=== PATIENT | female | born 1945 | race Caucasian/White ===

== ENCOUNTER → 2016-09-18 | Outpatient (CLI) | payer BC ==
[~2016-09-18] MED LIST: ASPI1TAB83 PO; BIOT1TAB5 PO; CALC600T9 PO; LISI-788 PO; MULTTAB58 PO; UNABLE PO
--- NOTE | 2016-09-18 16:18 | DIAGNOSTIC IMAGING REPORT ---
RIGHT HIP UNILATERAL 2 VIEWS CLINICAL HISTORY: Right hip pain. COMPARISON: None FINDINGS: Alignment of the right hip is anatomic. There is no fracture or suspicious lesion. Joint space is preserved. There is mild osteophytosis. There is no evidence of avascular necrosis. IMPRESSION: 1. No acute fracture or dislocation of the right hip. 2. Mild arthritis of the right hip. Electronically signed by: Adithya Anaya M.D. 09/18/2016 4:16 PM Dictated Date/Time: 09/18/2016 4:15 PM
== END | disposition home or self-care (01) ==
LOC: C.RAD1850 15:40
PROVIDERS: ATTEND Family Medicine
DX: M25.551 Pain in right hip (principal)

== ENCOUNTER → 2017-01-15 | Outpatient (CLI) | payer BC ==
--- NOTE | 2017-01-16 08:14 | MAMMOGRAPHY REPORT ---
BILATERAL DIGITAL SCREENING MAMMOGRAM TOMOSYNTHESIS WITH CAD: 01/15/2017 CLINICAL HISTORY: Asymptomatic. Personal history of breast cancer. TECHNIQUE: Bilateral breast tomosynthesis in addition to standard 2D mammography was performed. Cur rent study was also evaluated with a Computer Aided Detection (CAD) system. COMPARISON: Comparison is made to exams dated: 11/17/2015 mammogram, 09/26/2014 mammogram, 09/23/2013 mammogram, 09/22/2012 mammogram, 04/15/2011 mammogram, and 02/19/2010 mammogram - [facility]. BREAST COMPOSITION: There are scattered areas of fibroglandular density in both breasts. FINDINGS: There is a 7 x 10 mm asymmetry in the upper outer posterior left breast, superior to the surgical site that is increasingly prominent compared to prior exams. Although this could represent fat necrosis due to surgery, definitive evaluation with spot compression tomosynthesis views and po ssibly ultrasound are recommended. There are otherwise stable postsurgical changes and post biopsy changes in the upper outer quadrant of the left breast. Scattered benign rim calcifications, and a stable asymmetry in the superior rig ht breast. No other suspicious mass, architectural distortion or cluster of microcalcifications is s een. IMPRESSION: ACR BI-RADS CATEGORY 0: INCOMPLETE EVALUATION: NEED ADDITIONAL IMAGING EVALUATION The asymmetry in the upper outer posterior left breast needs additional evaluation. The patient will be called to schedule an appointment. Approximately 10% of breast cancers are not detected with mammography. A negative mammographic repor t should not delay biopsy if a clinically suggestive mass is present. Cesia Beaulieu M.D. ay/:01/15/2017 16:57:47 Trigonometry Tutor: Alayna SOTO(Mouna)(Talita), [facility] letter sent: Addl Imaging 0 BI-RADS Code: ACR BI-RADS Category 0: Incomplete Evaluation: Need Additional Imaging Evaluation
== END | disposition home or self-care (01) ==
LOC: C.MAMM 10:18
PROVIDERS: ATTEND Nurse Practitioner
DX: Z12.31 Encounter for screening mammogram for malignant neoplasm of breast (principal); Z85.3 Personal history of malignant neoplasm of breast; N64.89 Other specified disorders of breast

== ENCOUNTER → 2017-03-13 | Outpatient (CLI) | payer BC ==
--- NOTE | 2017-03-13 13:47 | MAMMOGRAPHY REPORT ---
UNILATERAL LEFT DIGITAL DIAGNOSTIC MAMMOGRAM TOMOSYNTHESIS AND TARGETED LEFT ULTRASOUND: 03/13/2017 CLINICAL HISTORY: 71-year-old woman with a personal history of left breast cancer status post breast conservation therapy. She was called back from screening mammography for a 7 x 10 mm asymmetry in th e upper outer posterior left breast. TECHNIQUE: Spot compression left CC and MLO 2-D digital and tomosynthesis images were obtained. COMPARISON: Comparison is made to exams dated: 01/15/2017 mammogram, 11/17/2015 mammogram, 09/26/2014 m ammogram, 09/23/2013 mammogram, 10/08/2012 stereotactic biopsy, and 09/22/2012 mammogram - [facility]. BREAST COMPOSITION: There are scattered areas of fibroglandular density in the left breast. FINDINGS: There is expected architectural distortion and coarse dystrophic calcification in the upper outer posterior left breast, at the site of prior lumpectomy. A carli-shaped metallic biopsy marker i s in place in the left upper outer middle one third of the breast from prior benign stereotactic biop sy. There are a few benign round calcifications anteriorly in the left breast. The previously descr ibed 7 x 10 mm mass superior to the surgical site on the MLO view is no longer clearly identified. T here is no obvious new mass on the left CC view when comparing back to prior available 2-D mammograms . Targeted ultrasound was performed throughout the left upper outer quadrant and including the 11:00 ax is. There is expected architectural distortion in the 2:00 axis at the site of prior surgery. No lofton spicious solid or cystic mass is identified. IMPRESSION: ACR BI-RADS CATEGORY 2: BENIGN, TARGETED ULTRASOUND ACR BI-RADS CATEGORY 2: BENIGN 1. The 7 x 10 mm possible mass in the left upper outer quadrant is no longer seen, confirming benign ity. 2. There is expected architectural distortion in the upper outer quadrant of the left breast from pr ior lumpectomy and also stable post biopsy changes from prior stereotactic biopsy. 3. There is no mammographic or targeted sonographic evidence of malignancy in the left breast. Peter mmend follow-up at time of next annual screening mammogram. These results and recommendations were discussed with the patient at the time of the exam. Approximately 10% of breast cancers are not detected with mammography. A negative mammographic report should not delay biopsy if a clinically suggestive mass is present. Cesia Beaulieu M.D. ay/:03/13/2017 11:38:16 Target Trimmer: Dia CANCINO)(Talita), [facility] letter sent: Normal 1/2 BI-RADS Code: ACR BI-RADS Category 2: Benign Ultrasound BI-RADS: ACR BI-RADS Category 2: Benign
== END | disposition home or self-care (01) ==
LOC: C.MAMM 09:07
PROVIDERS: ATTEND Family Medicine
DX: N64.89 Other specified disorders of breast (principal); Z85.3 Personal history of malignant neoplasm of breast

== ENCOUNTER → 2017-12-01 | Outpatient (CLI) | payer BC ==
[2017-12-01 18:13] LABS: BLOOD UREA NITROGEN 33 mg/dl (7-18); CALCIUM 9.1 mg/dl (8.5-10.1); CARBON DIOXIDE 32 mmol/L (21-32); CREATININE 0.88 mg/dl (0.60-1.20); GLUCOSE 95 mg/dl (70-99); POTASSIUM 3.5 mmol/L (3.5-5.1); SODIUM 136 mmol/L (136-145)
== END | disposition home or self-care (01) ==
LOC: C.LABMFLN 11:38
PROVIDERS: ATTEND Family Medicine
DX: I10 Essential (primary) hypertension (principal)

== ENCOUNTER 2021-04-03 15:12 | Inpatient (IN) ==
[2021-04-03] MEDS ORDERED: MoRPHine SULFATE 2 MG/ML CARP IV PRN (15:18)
[2021-04-03] MEDS ORDERED: ZOLPIDEM TARTRATE 5 MG TAB PO PRN (15:18)
[2021-04-03] MEDS ORDERED: POLYETHYLENE (MIRALAX) 17 GM PACK PO PRN (15:18)
[2021-04-03] MEDS ORDERED: NITROGLYCERIN SL 0.4 MG/TAB TAB SL PRN (15:18)
[2021-04-03] MEDS ORDERED: ONDANSETRON INJ 2 MG/ML 2 ML VIAL IV PRN (15:18)
[2021-04-03] MEDS ORDERED: MAGNESIUM HYDROXIDE SUSP 30 ML UDC PO PRN (15:18)
[2021-04-03] MEDS ORDERED: ACETAMINOPHEN 325 MG TAB PO PRN (15:18)
[2021-04-03] MEDS ORDERED: ALUMINUM/MAGNESIUM SUSP 30 ML UDC PO PRN (15:18)
[2021-04-03] MEDS ORDERED: SODIUM CHLORIDE 0.9% 1000ML 1,000 ML IV SCH (15:30)
--- NOTE | 2021-04-03 15:41 | Emergency Department Note ---
Impression & Plan SOB (shortness of breath), Tachycardia, Abnormal stress test, Hypertension ED Provider Note NAME: ERNESTINE ESPARZA AGE: 75 SEX: F : 1945 ARRIVES VIA: Walk-In INFORMANT: [Patient] ED PROVIDER(S): [Landry Bliss MD] CHIEF COMPLAINT: Cardiac assessment HISTORY OF PRESENT ILLNESS: The patient is a 75-year-old female presents to the ER after failing an outpatient stress test. She was told that she likely had a blockage and that she would need a cardiac catheterization. She is to be hospitalized. Lately, patient has had some dyspnea on exertion and a faster heart rate. Her doctors office scheduled the stress test for her symptoms. Of note, the patient currently has no chest pain or dyspnea, she is resting comfortably on the bed. She is on medications for blood pressure and for cholesterol. She is taking them as prescribed. She takes baby aspirin daily as well. The patient has no history of coronary disease previously diagnosed. REVIEW OF SYSTEMS: See HPI for pertinent positives and negatives. A total of ten systems were reviewed and were otherwise negative. PMHx/PSHx: See Below SOCIAL HISTORY: See Below. PHYSICAL EXAM: GENERAL: Patient is in no acute distress. HEENT: No acute trauma, normocephalic atraumatic, mucous membranes moist, no nasal congestion, no scleral icterus. NECK: No stridor, no adenopathy, no meningismus, trachea is midline. LUNGS: Clear to auscultation bilaterally, no wheeze, no rhonchi, breath sounds equal. HEART: Tachycardic, regular rhythm, no murmurs. ABDOMEN: Soft, nontender, bowel sounds positive, no hernias, no peritonitis. EXTREMITIES: No cyanosis or edema, full range of motion of all the joints without pain or difficulty, no signs for acute trauma. NEUROLOGIC: Oriented x 3, no acute motor or sensory deficits, no focal weakness. SKIN: No rash, no jaundice, no diaphoresis. DIFFERENTIAL DIAGNOSIS: Cardiac ischemia, aortic dissection, pulmonary embolism, pneumothorax, pneumonia, pericarditis, myocarditis, esophageal rupture, GERD, cholecystitis, pancreatitis, musculoskeletal, as well as other pathologies. EMERGENCY DEPARTMENT COURSE/PROCEDURES: ECG: Indication was shortness of breath. The ECG shows a sinus tachycardia w ith a rate of 110. There is some LVH present. There is some nonspecific ST change noted primarily in the lateral leads. There is no ST elevation, no PVCs. The QTc is 438. Repeat EKG: Indication was shortness of breath. The ECG shows a sinus bradycardia with PVCs. The rate is 62. LVH is present. There is no ST elevation. The QTc is 503. Compared to the ECG from earlier today, the rate has decreased. PVCs are now present. Continuous Cardiac Monitoring: An order was placed for continuous cardiac monitoring. The monitor shows a rate of 81 with normal sinus rhythm. MEDICAL DECISION MAKING: There is no leukocytosis or concerning anemia. There is a normal platelet count. No significant electrolyte abnormality or kidney failure. There were some subtle liver enzyme elevations. The patient appeared to be in a euthyroid state. ECG initially showed a sinus tachycardia with LVH. No acute ischemic change. Repeat EKG showed her heart rate had decreased to 62. Some PVCs were seen. No acute ischemic change noted. Cardiac enzyme testing x1 does show an elevation, this elevation is consistent with cardiac injury or strain. Covid testing returned negative. The patient presents with an abnormal stress test. She is to be hospitalized and undergo a cardiac catheterization. She may need stenting or surgical in tervention. The patient was hypertensive here in the ED. She was given IV hydralazine 10 mg. A second 10 mg dose was ordered. Patient denied any chest pain while here in the ED. The patient is aware of her findings and the need for a hospital stay. I did speak with cardiology, Dr. Ann, about the elevated troponin. For now, heparin was not felt warranted. Her blood pressure should be controlled though while here in the ED and the hospital. She is likely to have a cardiac catheterization tomorrow. I did speak with case management, Andrea Tracey of cardiology has done the admission orders/hospitalization. Past Med/Surg History Medical History Arthritis Breast cancer Hyperlipidemia Hypertension Multiple pulmonary nodules determined by computed tomography of lung Osteopenia Surgical History (Updated 03/29/20 @ 14:07 by Soheila Reyna PA-C) H/O: hysterectomy History of appendectomy History of lumpectomy of left breast History of wisdom tooth extraction Family History Mother Breast cancer Father Stroke Denies family history of Ovarian cancer Prostate cancer Myocardial infarction Colorectal cancer Social History Smoking Status: Never smoker Second Hand Exposure: No; Hx Alcohol Use: Yes Alcohol type: wine Hx Substance Use: No Preferred Language: Bengali Communication Ability: Effective Visual Impairment: Limited Hearing Ability: Normal Lcpc Required: No Beliefs That Will Affect Care: None marital status: / Current Living Situation: Alone current occupational status: retired Other Information That Helps Us Care for You: No Feels Safe at Home: Yes Safety Concerns: Feels Safe At This Time Childhood Exposure to Second-Hand Smoke: No caffeine: Yes during the past year weight has: remained stable Dental Care, Regularly: Yes Physical Activity Frequency: Daily Seatbelt Use: always Sunscreen Use: No Assistive Devices: Glasses Allergies Allergies Allergy/AdvReac Type Severity Reaction Status Date / Time KYLER Inhibitors AdvReac Intermediate cough Verified 04/03/21 16:28 Home Meds Home Medications Medication Instructions Recorded Confirmed aspirin 81 mg tablet,delayed 81 mg PO [facility] 04/03/21 04/03/21 release atorvastatin 20 mg tablet 20 mg PO HS 04/03/21 04/03/21 biotin 1 mg capsule 1 mg PO QA 04/03/21 04/03/21 cholecalciferol (vitamin D3) 25 25 mcg PO QAM 04/03/21 04/03/21 mcg (1,000 unit) tablet (Vitamin D3) escitalopram oxalate 10 mg tablet 10 mg PO QAM 04/03/21 04/03/21 metoprolol succinate 25 mg 25 mg PO QA 04/03/21 04/03/21 tablet,extended release 24 hr [id number] 1 tab PO QAM 04/03/21 04/03/21 tablet (Multivitamin 50 Plus) Results & Data (ED) Vital Signs Vital Signs - 24 hr 04/03/21 15:14 04/03/21 15:35 04/03/21 15:38 Temperature 36.9 C Temperature Source Temporal Artery Scan Pulse Rate 70 Pulse Rate [Apical] 58 L Pulse Rhythm Regular Pulse Rhythm [Apical] Pulse Strength Normal Pulse Strength [Apical] Respiratory Rate 16 18 Respiratory Effort / Characteristics Non-Labored Respiratory Depth Normal Respiratory Pattern Regular Blood Pressure 159/115 H Blood Pressure [Right Arm] 159/78 H Blood Pressure Mean 129 Blood Pressure Mean [Right Arm] 105 Blood Pressure Position Sitting Blood Pressure Position [Right Arm] Pulse Oximetry 96 98 98 Oxygen Delivery Method Room Air Room Air Sepsis Recent Fever Within 48 Hours No Sepsis New/Unexplained Change in Mental Status N/A Sepsis Action Taken by Nursing No Action Required 04/03/21 16:02 04/03/21 16:31 04/03/21 17:07 Temperature Temperature Source Pulse Rate Pulse Rate [Apical] 100 H 56 L Pulse Rhythm Pulse Rhythm [Apical] Pulse Strength Pulse Strength [Apical] Respiratory Rate 18 18 Respiratory Effort / Characteristics Respiratory Depth Normal Normal Respiratory Pattern Blood Pressure Blood Pressure [Right Arm] 166/90 H 181/100 H Blood Pressure Mean Blood Pressure Mean [Right Arm] 115 127 Blood Pressure Position Blood Pressure Position [Right Arm] Pulse Oximetry 96 97 98 Oxygen Delivery Method Room Air Room Air Room Air Sepsis Recent Fever Within 48 Hours Sepsis New/Unexplained Change in Mental Status Sepsis Action Taken by Nursing 04/03/21 17:25 04/03/21 17:30 Temperature 36.8 C Temperature Source Oral Pulse Rate Pulse Rate [Apical] 104 H 103 H Pulse Rhythm Pulse Rhythm [Apical] Regular Pulse Strength Pulse Strength [Apical] Normal Respiratory Rate 20 18 Respiratory Effort / Characteristics Non-Labored Spontaneous Respiratory Depth Normal Normal Respiratory Pattern Regular Blood Pressure Blood Pressure [Right Arm] 157/113 H 173/106 H Blood Pressure Mean Blood Pressure Mean [Right Arm] 127 128 Blood Pressure Position Blood Pressure Position [Right Arm] Sitting Pulse Oximetry 98 98 Oxygen Delivery Method Room Air Room Air Sepsis Recent Fever Within 48 Hours Sepsis New/Unexplained Change in Mental Status Sepsis Action Taken by Retirement Medications Current Medication List: was personally reviewed by me Laboratory Data Attestation: I reviewed the patient's lab results. Result diagrams: 04/03/21 15:30 04/03/21 15:30 Lab Results 04/03/21 04/03/21 04/03/21 Range/Units 15:30 15:30 15:30 WBC 7.46 (4.8-10.8) K/uL RBC 4.15 L (4.2-5.4) M/uL Hgb 13.1 (12.0-16.0) g/dL Hct 38.6 (37-47) % MCV 93.0 (80-100) fL MCH 31.6 (25-34) pg MCHC 33.9 (32-36) g/dL RDW Std Deviation 45.3 (36.4-46.3) fL RDW Coeff of Tana 13.3 (11.5-14.5) % Plt Count 268 (130-400) K/uL MPV 9.0 (7.4-10.4) fL Immature Gran % (Auto) 0.1 % Neut % (Auto) 70.0 % Lymph % (Auto) 22.4 % [place] % (Auto) 7.5 % Eos % (Auto) 0.0 % Baso % (Auto) 0.0 % Neut # (Auto) 5.22 (1.4-6.5) K/uL Lymph # (Auto) 1.67 (1.2-3.4) K/uL [place] # (Auto) 0.56 (0.11-0.59) K/uL Eos # (Auto) 0.00 (0-0.5) K/uL Baso # (Auto) 0.00 (0-0.2) K/uL Immature Gran # (Auto) 0.01 (0.00-0.02) K/uL Sodium 142 (136-145) mmol/L Potassium 3.6 (3.5-5.1) mmol/L Chloride 109 H (98-107) mmol/L Carbon Dioxide 25 (21-32) mmol/L Anion Gap 7.0 (3-11) BUN 26 H (7-18) mg/dl Creatinine 0.73 (0.6-1.2) mg/dl Est Cr Clr Drug Dosing 69.1 ml/min Est GFR ( Amer) 94.7 ml/min Est GFR (Non-Af Amer) 81.7 ml/min BUN/Creatinine Ratio 35.0 H (10-20) Glucose 96 (70-99) mg/dl Calcium 9.0 (8.5-10.1) mg/dl Total Bilirubin 0.7 (0.2-1) mg/dl AST 45 H (15-37) U/L ALT 63 (12-78) U/L Alkaline Phosphatase 118 H (45-117) U/L Troponin I 0.124 H* (0-0.045) ng/ml Total Protein 7.8 (6.4-8.2) gm/dl Albumin 3.8 (3.4-5.0) gm/dl Globulin 4.0 (2.5-4.0) gm/dl Albumin/Globulin Ratio 0.9 (0.9-2) TSH 2.680 (0.300-4.500) uIu/ml COVID-19 Eval Order Covid19 at [facility] SARS-CoV-2 (PCR) (Negative) 04/03/21 Range/Units 15:30 WBC (4.8-10.8) K/uL RBC (4.2-5.4) M/uL Hgb (12.0-16.0) g/dL Hct (37-47) % MCV (80-100) fL MCH (25-34) pg MCHC (32-36) g/dL RDW Std Deviation (36.4-46.3) fL RDW Coeff of Tana (11.5-14.5) % Plt Count (130-400) K/uL MPV (7.4-10.4) fL Immature Gran % (Auto) % Neut % (Auto) % Lymph % (Auto) % [place] % (Auto) % Eos % (Auto) % Baso % (Auto) % Neut # (Auto) (1.4-6.5) K/uL Lymph # (Auto) (1.2-3.4) K/uL [place] # (Auto) (0.11-0.59) K/uL Eos # (Auto) (0-0.5) K/uL Baso # (Auto) (0-0.2) K/uL Immature Gran # (Auto) (0.00-0.02) K/uL Sodium (136-145) mmol/L Potassium (3.5-5.1) mmol/L Chloride (98-107) mmol/L Carbon Dioxide (21-32) mmol/L Anion Gap (3-11) BUN (7-18) mg/dl Creatinine (0.6-1.2) mg/dl Est Cr Clr Drug Dosing ml/min Est GFR ( Amer) ml/min Est GFR (Non-Af Amer) ml/min BUN/Creatinine Ratio (10-20) Glucose (70-99) mg/dl Calcium (8.5-10.1) mg/dl Total Bilirubin (0.2-1) mg/dl AST (15-37) U/L ALT (12-78) U/L Alkaline Phosphatase (45-117) U/L Troponin I (0-0.045) ng/ml Total Protein (6.4-8.2) gm/dl Albumin (3.4-5.0) gm/dl Globulin (2.5-4.0) gm/dl Albumin/Globulin Ratio (0.9-2) TSH (0.300-4.500) uIu/ml COVID-19 Eval Order SARS-CoV-2 (PCR) NEGATIVE (Negative) Administered Medications Discontinued Medications Hydralazine HCl (Hydralazine Hcl 20 Mg/Ml Vial) 10 mg IV NOW STA Stop: 04/03/21 16:41 Last Admin: 04/03/21 17:04 Dose: 10 mg Documented by: [id number] Discharge Plan Visit Data Chief Complaint: Cardiac Assessment Stated Complaint: ABNORMAL STRESS TEST/REFERRED BY ED Provider: Landry Bliss Discharge Problem: SOB (shortness of breath), Tachycardia, Abnormal stress test, Hypertension Patient Disposition: Admitted As Inpatient Condition: Fair Forms Stand Alone Forms: [facility] Prescriptions Prescriptions: No Action Multivitamin 50 Plus Tablet 1 tab PO QAM RF: 0 cholecalciferol (vitamin D3) [Vitamin D3] 25 mcg (1,000 unit) Tablet 25 mcg PO QAM RF: 0 atorvastatin 20 mg tablet 20 mg PO HS RF: 0 aspirin 81 mg tablet,delayed release (DR/EC) 81 mg PO QAM RF: 0 metoprolol succinate 25 mg tablet extended release 24 hr 25 mg PO QAM RF: 0 escitalopram oxalate 10 mg tablet 10 mg PO QAM RF: 0 biotin 1 mg capsule 1 mg PO QAM RF: 0 Referrals Referrals: Soheila Reyna PA-C [Primary Care Provider] -
[2021-04-03 15:42] LABS: Hematocrit (blood only) 38.6 % (37-47); Hemoglobin 13.1 g/dL (12.0-16.0); Immature Granulocytes # (auto) 0.01 K/uL (0.00-0.02); Immature Granulocytes % (auto) 0.1 %; Lymphocytes # (auto) 1.67 K/uL (1.2-3.4); Lymphocytes % (auto) 22.4 %; Mean Corpuscular Hemoglobin 31.6 pg (25-34); Mean Corpuscular Hgb Conc 33.9 g/dL (32-36); Monocytes # (auto) 0.56 K/uL (0.11-0.59); Monocytes % (auto) 7.5 %; Neutrophils # (auto) 5.22 K/uL (1.4-6.5); Platelet Count 268 K/uL (130-400); RDW Coefficient of Variation 13.3 % (11.5-14.5); RDW Standard Deviation 45.3 fL (36.4-46.3); Red Blood Count 4.15 M/uL (4.2-5.4); White Blood Count 7.46 K/uL (4.8-10.8)
[2021-04-03] MEDS ORDERED: METOPROLOL TARTRATE 1 MG/ML VIAL IV STA (15:42)
[2021-04-03 16:04] LABS: Albumin Level 3.8 gm/dl (3.4-5.0); Creatinine Clr Calc Pharmacy 69.1 ml/min; Est GFR (African American) 94.7 ml/min; Est GFR (Non-African American) 81.7 ml/min; Potassium 3.6 mmol/L (3.5-5.1)
[2021-04-03 16:24] LABS: Albumin Globulin Ratio 0.9 (0.9-2); Bilirubin,Total 0.7 mg/dl (0.2-1); Thyroid Stimulating Hormone 2.68 uIu/ml (0.300-4.500); Total Protein 7.8 gm/dl (6.4-8.2); Troponin I 0.124 ng/ml (0-0.045)
[2021-04-03] MEDS ORDERED: hydrALAZINE HCL 20 MG/ML VIAL IV STA ×2 (16:40→17:32)
[2021-04-03] MEDS ORDERED: Heparin IV Adult Wt-Based Standard WITH Bolus Protocol IV STA (22:18)
[2021-04-03] MEDS ORDERED: ASPIRIN CHEW 324 MG PO STA (22:26)
[2021-04-03] MEDS ORDERED: HEPARIN SODIUM/DEXTROSE 25,000 UNITS/500 ML BAG IV SCH (22:45)
[2021-04-03] MEDS ORDERED: HEPARIN SOD (PORCINE) 1000 UNIT/ML IV ONE (23:00)
[2021-04-03] MEDS: METOPROLOL TARTRATE 25 MG TAB PO SCH (23:23)
[2021-04-04 05:58] LABS: Hematocrit (blood only) 37.3 % (37-47); Hemoglobin 12.6 g/dL (12.0-16.0); Immature Granulocytes # (auto) 0.02 K/uL (0.00-0.02); Immature Granulocytes % (auto) 0.3 %; Lymphocytes # (auto) 1.59 K/uL (1.2-3.4); Lymphocytes % (auto) 22.2 %; Mean Corpuscular Hemoglobin 31.4 pg (25-34); Mean Corpuscular Hgb Conc 33.8 g/dL (32-36); Mean Platelet Volume 9.1 fL (7.4-10.4); Monocytes # (auto) 0.57 K/uL (0.11-0.59); Neutrophils # (auto) 4.98 K/uL (1.4-6.5); Neutrophils % (auto) 69.5 %; Platelet Count 256 K/uL (130-400); RDW Coefficient of Variation 13.5 % (11.5-14.5); RDW Standard Deviation 46.1 fL (36.4-46.3); Red Blood Count 4.01 M/uL (4.2-5.4); White Blood Count 7.16 K/uL (4.8-10.8)
[2021-04-04 06:04] LABS: Partial Thromboplastin Ratio 2.8
[2021-04-04 06:28] LABS: Calcium 8.4 mg/dl (8.5-10.1); Est GFR (African American) 103.7 ml/min; Est GFR (Non-African American) 89.5 ml/min; Potassium 3.4 mmol/L (3.5-5.1)
[2021-04-04 06:40] LABS: Partial Thromboplastin Time 73.2 Seconds (21.0-31.0)
--- NOTE | 2021-04-04 07:13 | Pre Anesthesia Assessment ---
Date of Service April 04, 2021 Pre Sedation Assessment Vital Signs Temp Pulse Pulse Resp BP BP Pulse Ox 04/04/21 06:57 36.6 C 66 18 165/98 H 98 04/04/21 02:51 36.3 C L 95 H 19 125/80 97 04/03/21 22:48 36.7 C 81 19 125/70 96 04/03/21 18:56 36.9 C 114 H 18 130/70 100 04/03/21 18:00 82 18 137/81 98 04/03/21 17:59 88 18 160/100 H 98 04/03/21 17:30 103 H 18 173/106 H 98 04/03/21 17:25 36.8 C 104 H 20 157/113 H 98 04/03/21 17:07 98 04/03/21 16:31 56 L 18 181/100 H 97 04/03/21 16:02 100 H 18 166/90 H 96 04/03/21 15:38 58 L 18 159/78 H 98 04/03/21 15:35 98 04/03/21 15:14 36.9 C 70 16 159/115 H 96 Cardiovascular + regular rate Respiratory normal respiratory effort, lungs clear to auscultation Pre-Sedation Airway Assessment Smoking Status: Never smoker Hx Sleep Apnea: No Short, Thick Neck: No Thyromental Distance: > or= 3.5 Finger Breadths Oral Cavity: + WNL Mallampati Class: II ASA: ASA3 NPO Status Date of Last Intake of Fluids: 04/03/21 Time of Last Intake of Fluids: 22:00 Date of Last Intake of Solid Food: 04/03/21 Time of Last Intake of Solid Foods: 20:00 Notes The planned sedation has been discussed with the patient. Informed Consent was obtained. I have identified the patient, determined the appropriateness of sedation and have assessed the patient immediately prior to the procedure. All medicine(s) and interventions are by my order.
--- NOTE | 2021-04-04 07:14 | History & Physical Bridge Note ---
Date of Service April 04, 2021 History & Physical Bridge Note I have examined the patient, reviewed the History & Physical and in the interval since the performance of the History & Physical I have noted the following changes of clinical significance: Please see H&P/clinic note from Mr Alexy for full details. She is now admitted as she ruled in for NSTEMI.
[2021-04-04] MEDS ORDERED: niCARdipine HCL INJ 2.5 MG/ML 10 ML AMP ONE (07:17)
[2021-04-04] MEDS ORDERED: MIDAZOLAM HCL 1 MG/ML 2ML VIAL ONE (07:17)
[2021-04-04] MEDS ORDERED: HEPARIN (PORCINE) 1000 UNIT/ML 10 ML (CATH LAB USE ONLY) ONE ×2 (07:17→08:42)
[2021-04-04] MEDS ORDERED: NITROGLYCERIN/D5W 100MCG/ML 20ML SYR ONE (07:18)
[2021-04-04] MEDS ORDERED: fentaNYL citrate 100 MCG/2 ML VIAL ONE (07:18)
[2021-04-04] MEDS ORDERED: METOPROLOL TARTRATE 1 MG/ML VIAL IV ONE (07:19)
--- NOTE | 2021-04-04 08:09 | Cardiac Catheterization ---
[facility] Data: Mri Tech Cardiac Status Clinical evaluation leading to the procedure CAD Presenation: Positive Stress Test Anginal Classification: CCS III (dyspnea as anginal equivalent ) Heart Failure: No Cardiogenic Shock within 24 Hours: No Cardiac Arrest within 24 Hours: No Imaging Studies Past 6 Months: Yes Stress Studies Past 6 Months: Yes Standard Exercise Test: Yes - Positive and Risk/Extent of Ischemia (Intermediate) Stress Echocardiogram: Yes - Positive and Risk/Extent of Ischemia (High) Stress Testing w/SPECT MPI: No Cardiac CTA: No Coronary Anatomy Dominant: Co-Dominant Left Ventricular Angiography EF (%): n/a Diagnostic Physicians Name: Héctor Plaza MD Closure Device Percutaneous Entry Location: Radial Closure Device: Radial Band Recommendations: Management Recommendatons (As noted) Cardiac Cath Procedure Full Procedure Date April 04, 2021 Pre-Procedure Diagnosis Pre-Procedure Diagnosis: Non STEMI and Positive Stress Test AUC Score AUC Score: 9 Post-Procedure Diagnosis Post-Procedure Diagnosis: Severe CAD and Elevated Intracardiac Pressures Procedure(s) Performed Procedure(s) Performed: Coronary Angiography and Left Heart Cath Psychologist Experimental Héctor Plaza MD Slab Off Mill Tender(s) Showers Estimated Blood Loss Estimated Blood Loss: < 25 ml Medication(s) Medication(s): Fentanyl, Heparin, Lidocaine 1%, Nicardipine, Nitroglycerin and Versed Summary of Findings Procedures: 1. Coronary angiography 2. Left heart catheterization 3. Intracoronary nitroglycerin administration 4. Moderate sedation Indication: 75-year-old female with dyspnea on exertion who had high risk stress echo findings after exercising 1 minute and 5 seconds via Hilario protocol, s uggesting multivessel CAD with LV dilation and reduced LV systolic function following exercise. She was hospitalize from the outpatient clinic given high risk findings and troponins were initially minimally elevated and peaked at 2.02. She also is having intermittent atrial tachycardia. Coronary angiography: 1. Left main coronary artery: Large caliber vessel. No significant CAD. 2. Left anterior descending: Large caliber vessel that wraps around the apex. Proximal LAD luminal irregularities. Mid LAD 30%. Very small D1 and small caliber D2. 3. Circumflex: Codominant. Large caliber vessel. Mid circumflex 20%. Distal circumflex luminal irregularities. Very large caliber OM1 with proximal stenosis of approximately 50%. Large PL without significant CAD. PDA without significant CAD. 4. Right coronary artery: Codominant. Medium sized vessel. Ostial RCA approximately 95%. Proximal RCA 50%. Mid RCA 40 to 50%. Small RCA PDA without significant CAD. KOFFI-3 flow. Intracoronary nitroglycerin administration: 1. Nitroglycerin 200 mcg was administrated in the RCA and there is no improvement noted of the ostial stenosis. Left heart catheterization: 1. Left ventriculography was not performed. 2. LVEDP 16 mmHg. 3. No aortic stenosis. Peak to peak gradient across aortic valve is 0. Moderate sedation: 1. Sedation start time: 7:29 AM 2. Sedation end time: 7:49 AM Impression: 1. Severe CAD involving ostial codominant RCA. 2. Moderate CAD involving proximal OM1 and mid RCA, otherwise, mild nonobstructive CAD. 3. Mildly elevated left-sided filling pressure. 4. No aortic stenosis. 5. Intermittent atrial tachycardia and otherwise sinus bradycardia. Plan: 1. Images were reviewed with Dr. Gonsalez of interventional cardiology. He plans on attempting PCI of RCA, with consideration of further evaluation of proximal OM1. 2. Risk factor modification. 3. We will consider electrophysiology input regarding atrial tachycardia. Hemodynamics Rest Ao:: 130/60 Final Ao: 132/68 LV: 139/9/16 Recommendations Recommendations: Management Recommendatons (As noted) Specimens Specimens: None Radiation Exposure (mGy) 699 mGy. Fluoro time 3.4 min. 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 Any exceptions are noted below. [employer] Card Cath Procedure Codes Cardiac Catheterization Procedure 1: Cardiovascular Cath Procedures: 18322 Coronaries and LHC (+/-LV) Moderate Sedation Procedure 1: Sedation/Anesthesia: 94980 Mod Sedation by the same physician;Init15 Min Child Age 5 & Up Procedure 2: Sedation/Anesthesia: 65578 Mod Sedation by the same physician; Ea [id number] Minutes PG Care Time/CCT Total # of Minutes Spent Total Time Spent with Patient: Total time spent is greater than 50% in coordination of care (as documented) at patient's floor/unit and/or counseling patient:
--- NOTE | 2021-04-04 08:56 | Electrocardiogram Report ---
Test Reason : Blood Pressure : / mmHG Vent. Rate : 110 BPM Atrial Rate : 110 BPM P-R Int : 144 ms QRS Dur : 076 ms QT Int : 398 ms P-R-T Axes : 000 -24 -05 degrees QTc Int : 538 ms Sinus tachycardia Minimal voltage criteria for LVH, may be normal variant Diffuse Nonspecific T wave abnormality Prolonged QT Abnormal ECG When compared with ECG of 29-JUL-2007 15:43, Vent. rate has increased BY 41 BPM Nonspecific T wave abnormality now evident in Anterior leads Confirmed by Gus Ann ([id number]) on 04/04/2021 8:56:16 AM Referred By: Ubaldo Gonsalez Confirmed By:Gus Ann
--- NOTE | 2021-04-04 08:58 | Electrocardiogram Report ---
Test Reason : Blood Pressure : / mmHG Vent. Rate : 062 BPM Atrial Rate : 053 BPM P-R Int : 146 ms QRS Dur : 072 ms QT Int : 496 ms P-R-T Axes : 000 -19 009 degrees QTc Int : 503 ms Poor data quality, interpretation may be adversely affected Sinus bradycardia with occasional Premature ventricular complexes and Premature atrial complexes Voltage criteria for left ventricular hypertrophy Abnormal ECG When compared with ECG of 03-APR-2021 15:19, Premature ventricular complexes are now Present Premature atrial complexes are now Present Vent. rate has decreased BY 48 BPM Confirmed by Gus Ann ([id number]) on 04/04/2021 8:57:47 AM Referred By: Ubaldo Gonsalez Confirmed By:Gus Ann
[2021-04-04] MEDS ORDERED: METOPROLOL SUCC 50MG EXT REL TAB PO SCH (09:00)
[2021-04-04] MEDS ORDERED: ESCITALOPRAM OXALATE 10 MG TAB PO SCH (09:00)
--- NOTE | 2021-04-04 09:00 | Electrocardiogram Report ---
Test Reason : Blood Pressure : / mmHG Vent. Rate : 125 BPM Atrial Rate : 125 BPM P-R Int : 214 ms QRS Dur : 074 ms QT Int : 360 ms P-R-T Axes : 051 -19 251 degrees QTc Int : 519 ms Sinus rhythm followed by PVC and then Supraventricular tachycardia Minimal voltage criteria for LVH, may be normal variant Abnormal ECG When compared with ECG of 03-APR-2021 16:10, Supraventricular tachycardia now present HR has increased by 63 bpm Confirmed by Gus Ann ([id number]) on 04/04/2021 8:59:45 AM Referred By: Ubaldo Gonsalez Confirmed By:Gus Ann
--- NOTE | 2021-04-04 09:01 | Electrocardiogram Report ---
Test Reason : Blood Pressure : / mmHG Vent. Rate : 084 BPM Atrial Rate : 133 BPM P-R Int : 000 ms QRS Dur : 076 ms QT Int : 500 ms P-R-T Axes : 000 -19 -52 degrees QTc Int : 590 ms Sinus rhythm with occasional Premature atrial complexes followed by Supraventricular tachycardia Prolonged QT Abnormal ECG When compared with ECG of 03-APR-2021 19:38, No significant change Confirmed by Gus Ann ([id number]) on 04/04/2021 9:01:14 AM Referred By: Ubaldo Gonsalez Confirmed By:Gus Ann
[2021-04-04] MEDS ORDERED: TICAGRELOR 90 MG TAB PO ONE (09:17)
--- NOTE | 2021-04-04 09:24 | Post Anesthesia Assessment ---
Date of Service April 04, 2021 Post Sedation Assessment Vital Signs Temp Pulse Pulse Resp BP BP Pulse Ox 04/04/21 06:57 97.9 F 66 18 165/98 H 98 04/04/21 02:51 97.3 F L 95 H 19 125/80 97 04/03/21 22:48 98.1 F 81 19 125/70 96 04/03/21 18:56 98.4 F 114 H 18 130/70 100 04/03/21 18:00 82 18 137/81 98 04/03/21 17:59 88 18 160/100 H 98 04/03/21 17:30 103 H 18 173/106 H 98 04/03/21 17:25 98.2 F 104 H 20 157/113 H 98 04/03/21 17:07 98 04/03/21 16:31 56 L 18 181/100 H 97 04/03/21 16:02 100 H 18 166/90 H 96 04/03/21 15:38 58 L 18 159/78 H 98 04/03/21 15:35 98 04/03/21 15:14 98.4 F 70 16 159/115 H 96 Recovery Score Activity: Moves 4 extremities Respiration: Deep Breath/Cough Circulation: +/-20% PreAnes Value Consciousness: Fully Awake Oxygen Saturation: O2 needed for >90% Discharge Sedation Level of Care: Fast Track Phase II Post Sedation Plan On clinical assessment, the patient appears to have tolerated the sedation without complications. Patient is recovering as anticipated. Patient will continue to be monitored by nursing and may be discharged when sedation discharge criteria are met per below protocol. Upon Completions of procedure up to 15 minutes continue every 5 minute vital signs and the P.A.R. score; then discharge to a Phase I or Fast Track to Phase II per the following guidelines: * Discharge Patient to appropriate Phase II area if PAR is 8 or greater or return to pre- procedure baseline. The post - procedure orders will be as directed. * If PAR score is less than 8 or not return to pre-procedure baseline then patient will follow Phase I monitoring till PAR is reached for Phase II. The Phase I may be done in procedure room or may call to secure a Phase I area. * If naloxone or flumazenil are used for reversal, hold in Phase I for continued monitoring from when last reversal dose was given for a minimum of 60 minutes or longer pending the nurse and/or physician discretion of patient condition before discharge to Phase II. Please call the Sedation Physician to re-evaluate and complete post-note for discharge to Phase II area. Do NOT discharge from procedure sedation or Phase 1 until post- sedation evaluation note is complete by procedure /sedation MD Sedation Discharge Instructions to be given to the patient at discharge to home.
--- NOTE | 2021-04-04 09:26 | Post Operative Brief Note ---
Cardiology Brief Post Op Date of Surgery April 04, 2021 Pre & Post Diagnosis CAD Procedure PCI to RCA with 2 [facility] Chris Gonsalez MD Program Coordinator Showers Estimated Blood Loss 15 Findings See Below Severe ostial RCA disease Mild to moderate proximal ramus disease Anesthesia Type RN Sedation Complications none Disposition Accompanied Patient To Recovery: No Disposition: PCU
[2021-04-04] MEDS ORDERED: SODIUM CHLORIDE 0.9% 1000ML 1,000 ML IV SCH (09:30)
[2021-04-04] MEDS: ATORVASTATIN 40 MG TAB PO SCH (10:11)
[2021-04-04] MEDS: ASPIRIN 81 MG ECTAB PO SCH (10:11)
[2021-04-04] MEDS: MULTIVITAMIN TAB PO SCH (10:12)
[2021-04-04] MEDS: METOPROLOL TARTRATE 25 MG TAB PO SCH ×2 (10:12→20:13)
[2021-04-04 13:22] LABS: Partial Thromboplastin Ratio 2.5
[2021-04-04 13:36] LABS: Partial Thromboplastin Time 64.9 Seconds (21.0-31.0)
--- NOTE | 2021-04-04 17:39 | Electrocardiogram Report ---
Test Reason : Blood Pressure : / mmHG Vent. Rate : 064 BPM Atrial Rate : 064 BPM P-R Int : 184 ms QRS Dur : 076 ms QT Int : 520 ms P-R-T Axes : 029 -26 052 degrees QTc Int : 536 ms Sinus rhythm with Premature atrial complexes Possible Old Septal infarct (cited on or before 04-APR-2021) Prolonged QT Abnormal ECG When compared with ECG of 04-APR-2021 05:36, Supraventricular tachycardia no longer present Confirmed by Gus Ann ([id number]) on 04/04/2021 5:39:08 PM Referred By: Ubaldo Gonsalez Confirmed By:Gus Ann
[2021-04-04] MEDS: TICAGRELOR 90 MG TAB PO SCH (20:13)
--- NOTE | 2021-04-04 22:10 | Cardiology Progress Note ---
Date of Service April 04, 2021 Assessment & Plan (1) Non-ST elevation (NSTEMI) myocardial infarction: (2) CAD (coronary artery disease): (3) S/P coronary artery stent placement: (4) Prolonged QT interval: (5) Paroxysmal atrial tachycardia: (6) Hypertension: (7) Hyperlipidemia: Plan: ASSESSMENT/PLAN: 1. NSTEMI : Continue aspirin 81 mg daily indefinitely following PCI. Continue Brilinta for at least 1 year. Continue beta-melissa, high-intensity statin ther apy, and initiate KYLER-inhibitor. Cardiac rehabilitation recommended. Continue to monitor for arrhythmia. 2. CAD s/p RCA PCI x 2: No angina. Continue aspirin 81 mg daily indefinitely and Brilinta for at least 1 year. Continue beta-melissa, high-intensity statin therapy, initiate KYLER-inhibitor. Cardiac rehabilitation. 3. Hypertension: Continue beta-melissa. Initiate lisinopril 5 mg daily. 4. Dyslipidemia: Continue high-intensity statin therapy. 5. Paroxysmal atrial tachycardia: Re-evaluate atrial tachycardia burden following PCI as it appears to have been improved. Discussed with Dr. Sinclair of electrophysiology for long-term plan if she continues to have significant recurrent episodes. Beta-melissa titration will be limited due to bradycardia while in sinus. 6. Prolonged QT: Will discontinue escitalopram as her QT is quite prolonged. Repeat ECG in the morning. 7. Disposition: Possible discharge tomorrow afternoon, 48 hours after [place]. Ambulate in the hallways. Admission and Anticipated Discharge Date Admission Date: April 04, 2021 Subjective She underwent cardiac catheterization today and PCI of RCA as she was found to have severe ostial RCA disease. She tolerated the procedure well. She was noted to have recurrent episodes of atrial tachycardia, including during cardiac catheterization. With beta-melissa, she was noted to have sinus bradycardia. She remained completely asymptomatic with atrial tachycardia. Her heart rate appears to be better controlled throughout the day following PCI. She denies shortness of breath, chest pain, syncope, near-syncope, palpitations, edema. She recalls being a bit short of breath after the procedure but has since returned back to baseline. Earlier this evening, she had not yet ambulated in the hallway but was encouraged to do so tonight or tomorrow morning. Her significant other, Cale Viry, was notified of cardiac catheterization findings and PCI. Any questions were answered. Review of systems: As above. Physical Exam Physical Exam: Gen.: No acute distress. Alert and oriented. HEENT: Anicteric sclera. Neck: No JVD. Cardiac Regular. Normal S1-S2. No murmurs, rubs, or gallops. Pulmonary: Clear to auscultation bilaterally without wheezes, rales, or rhonchi. Extremities: 2+ radial pulses bilaterally. No edema or cyanosis. Psychiatric: Affect appears appropriate. Results & Data ([facility]) Vital Signs (Past 12 Hours) Vital Signs Temp Pulse Pulse Resp BP BP Pulse Ox 04/04/21 19:29 36.8 C 65 18 153/92 H 96 04/04/21 15:18 04/04/21 15:12 36.8 C 67 20 148/84 H 98 04/04/21 15:00 68 04/04/21 14:12 36.9 C 72 18 149/78 H 97 04/04/21 13:12 36.7 C 69 18 148/82 H 98 04/04/21 12:12 36.6 C 68 18 158/84 H 99 04/04/21 11:12 36.6 C 67 18 161/95 H 99 04/04/21 10:57 73 04/04/21 10:42 36.7 C 61 18 162/94 H 99 04/04/21 10:12 36.7 C 62 18 156/97 H 99 Pulse Ox 04/04/21 19:29 04/04/21 15:18 98 04/04/21 15:12 04/04/21 15:00 04/04/21 14:12 04/04/21 13:12 04/04/21 12:12 04/04/21 11:12 04/04/21 10:57 04/04/21 10:42 04/04/21 10:12 Laboratory Results Laboratory Results - last 24 hr 04/04/21 04/04/21 04/04/21 02:55 05:30 05:30 WBC RBC Hgb Hct MCV MCH MCHC RDW Std Deviation RDW Coeff of Tana Plt Count MPV Immature Gran % (Auto) Neut % (Auto) Lymph % (Auto) [place] % (Auto) Eos % (Auto) Baso % (Auto) Neut # (Auto) Lymph # (Auto) [place] # (Auto) Eos # (Auto) Baso # (Auto) Immature Gran # (Auto) APTT 73.2 H* PTT Ratio 2.8 Activ Coag Time Kaolin Sodium 142 Potassium 3.4 L Chloride 111 H Carbon Dioxide 28 Anion Gap 3.0 BUN 16 Creatinine 0.62 Est Cr Clr Drug Dosing 81.0 Est GFR ( Amer) 103.7 Est GFR (Non-Af Amer) 89.5 BUN/Creatinine Ratio 26.0 H Glucose 116 H Calcium 8.4 L Troponin I 1.110 H* 04/04/21 04/04/21 04/04/21 05:30 07:37 08:33 WBC 7.16 RBC 4.01 L Hgb 12.6 Hct 37.3 MCV 93.0 MCH 31.4 MCHC 33.8 RDW Std Deviation 46.1 RDW Coeff of Tana 13.5 Plt Count 256 MPV 9.1 Immature Gran % (Auto) 0.3 Neut % (Auto) 69.5 Lymph % (Auto) 22.2 [place] % (Auto) 8.0 Eos % (Auto) 0.0 Baso % (Auto) 0.0 Neut # (Auto) 4.98 Lymph # (Auto) 1.59 [place] # (Auto) 0.57 Eos # (Auto) 0.00 Baso # (Auto) 0.00 Immature Gran # (Auto) 0.02 APTT PTT Ratio Activ Coag Time Kaolin 142 H 257 H Sodium Potassium Chloride Carbon Dioxide Anion Gap BUN Creatinine Est Cr Clr Drug Dosing Est GFR ( Amer) Est GFR (Non-Af Amer) BUN/Creatinine Ratio Glucose Calcium Troponin I 04/04/21 12:34 WBC RBC Hgb Hct MCV MCH MCHC RDW Std Deviation RDW Coeff of Tana Plt Count MPV Immature Gran % (Auto) Neut % (Auto) Lymph % (Auto) [place] % (Auto) Eos % (Auto) Baso % (Auto) Neut # (Auto) Lymph # (Auto) [place] # (Auto) Eos # (Auto) Baso # (Auto) Immature Gran # (Auto) APTT 64.9 H* PTT Ratio 2.5 Activ Coag Time Kaolin Sodium Potassium Chloride Carbon Dioxide Anion Gap BUN Creatinine Est Cr Clr Drug Dosing Est GFR ( Amer) Est GFR (Non-Af Amer) BUN/Creatinine Ratio Glucose Calcium Troponin I Diagnostic Findings Cardiac catheterization: Coronary angiography: 1. Left main coronary artery: Large caliber vessel. No significant CAD. 2. Left anterior descending: Large caliber vessel that wraps around the apex. Proximal LAD luminal irregularities. Mid LAD 30%. Very small D1 and small caliber D2. 3. Circumflex: Codominant. Large caliber vessel. Mid circumflex 20%. Distal circumflex luminal irregularities. Very large caliber OM1 with proximal stenosis of approximately 50%. Large PL without significant CAD. PDA without significant CAD. 4. Right coronary artery: Codominant. Medium sized vessel. Ostial RCA approximately 95%. Proximal RCA 50%. Mid RCA 40 to 50%. Small RCA PDA without significant CAD. KOFFI-3 flow. Intracoronary nitroglycerin administration: 1. Nitroglycerin 200 mcg was administrated in the RCA and there is no improvement noted of the ostial stenosis. Left heart catheterization: 1. Left ventriculography was not performed. 2. LVEDP 16 mmHg. 3. No aortic stenosis. Peak to peak gradient across aortic valve is 0. Interventional Cardiology: Underwent PCI of RCA with 2.75 x 18 mm MANOLO Sk[place]oint x 2. ECG personally reviewed 04/04/2021 at 9:28 a.m.: Sinus rhythm with PACs at 64 bpm. Prolonged QT. Possible old septal infarct. Medications Administered Current Inpatient Medications Acetaminophen (Acetaminophen 325 Mg Tab) 650 mg PO Q4H PRN PRN Reason: Pain or Fever Stop: 05/03/21 15:17 Last Admin: 04/03/21 23:34 Dose: 650 mg Documented by: Al Hydrox/Mg Hydrox/Simethicone (Aluminum/Magnesium Susp 30 Ml Udc) 15 ml PO Q4H PRN PRN Reason: Dyspepsia Stop: 05/03/21 15:17 Aspirin (Aspirin 81 Mg Ectab) 81 mg PO [facility] Stop: 05/04/21 08:59 Last Admin: 04/04/21 10:11 Dose: 81 mg Documented by: Atorvastatin Calcium (Atorvastatin 40 Mg Tab) 80 [facility] Stop: 05/04/21 08:59 Last Admin: 04/04/21 10:11 Dose: 80 mg Documented by: Escitalopram Oxalate (Escitalopram Oxalate 10 Mg Tab) 10 mg [facility] Stop: 05/04/21 08:59 Last Admin: 04/04/21 10:11 Dose: 10 mg Documented by: Magnesium Hydroxide (Magnesium Hydroxide Susp 30 Ml Udc) 30 ml PO Q12H PRN PRN Reason: Constipation Stop: 05/03/21 15:17 Metoprolol Tartrate (Metoprolol Tartrate 25 Mg Tab) 25 mg PO BID [facility] Stop: 05/03/21 22:29 Last Admin: 04/04/21 20:13 Dose: 25 mg Documented by: Morphine Sulfate (Morphine Sulfate 2 Mg/Ml Carp) 2 mg IV Q30M PRN PRN Reason: Chest Pain Stop: 04/17/21 15:17 Multivitamins (Multivitamin Tab) 1 tab PO QAM [facility] Stop: 05/04/21 08:59 Last Admin: 04/04/21 10:12 Dose: 1 tab Documented by: Nitroglycerin (Nitroglycerin Sl 0.4 Mg/Tab Tab) 0.4 mg SL UD PRN PRN Reason: Chest Pain Stop: 05/03/21 15:17 Ondansetron HCl (Ondansetron Inj 2 Mg/Ml 2 Ml Vial) 4 mg IV Q6H PRN PRN Reason: Nausea Stop: 05/03/21 15:17 Last Admin: 04/04/21 14:47 Dose: 4 mg Documented by: Polyethylene Glycol (Polyethylene (Miralax) 17 Gm Pack) 17 gm PO DAILY PRN PRN Reason: Constipation Stop: 05/03/21 15:17 Ticagrelor (Ticagrelor 90 Mg Tab) 90 mg PO BID [facility] Stop: 05/04/21 20:59 Last Admin: 04/04/21 20:13 Dose: 90 mg Documented by: Zolpidem Tartrate (Zolpidem Tartrate 5 Mg Tab) 5 mg PO HS PRN PRN Reason: Sleep Stop: 05/03/21 15:17 PG Care Time/CCT Total # of Minutes Spent Total Time Spent with Patient: Total time spent is greater than 50% in coordination of care (as documented) at patient's floor/unit and/or counseling patient: Coding Level of Care Code 53956 Subseq Hosp Care Lvl 3 Diagnoses Non-ST elevation (NSTEMI) myocardial infarction I21.4 CAD (coronary artery disease) I25.10 S/P coronary artery stent placement Z95.5 Prolonged QT interval R94.31 Paroxysmal atrial tachycardia I47.1 Hypertension I10 Hypertension type: unspecified Hyperlipidemia E78.5 (1) Hypertension Hypertension type: unspecified Qualified Code(s): I10 - Essential (primary) hypertension
--- NOTE | 2021-04-05 00:50 | Cardiac Catheterization ---
[facility] Data: Tight Barrel Inspector Cardiac Status Clinical evaluation leading to the procedure CAD Presenation: Non STEMI Anginal Classification: CCS IV Heart Failure: NYHA Class: CCS II Cardiogenic Shock within 24 Hours: No Cardiac Arrest within 24 Hours: No Imaging Studies Past 6 Months: Yes Stress Studies Past 6 Months: Yes Stress Echocardiogram: Yes - Positive and Risk/Extent of Ischemia (High) Diagnostic Physicians Name: Chris Gonsalez MD Status: Elective Closure Device Percutaneous Entry Location: Radial Closure Device: Radial Band Recommendations: PCI without planned CABG PCI Indication: + Stress Test and PCI for high risk Non-CJ Lesion Segment Name: ostial RCA Culprit Artery: Yes Stenosis Prior to Rx (%): 95 Chronic Total Occlusion: No IVUS: Yes FFR: No Pre-Procedure KOFFI Flow: 3 Previously Treated Lesion: No Lesion Complexity: High/C Lesion Length (mm): 25 Thrombus Present: No Bifurcation Lesion: Yes Guidewire Across Lesion: Stenosis Post-Procedure (%): 0 Post-Procedure KOFFI Flow: 3 Devices(s) Deployed: Yes Yes Intraprocedure Events Significant Disection: No Perforation: No Cardiac Cath Procedure Full Procedure Date April 05, 2021 Pre-Procedure Diagnosis Pre-Procedure Diagnosis: Non STEMI and Positive Stress Test AUC Score AUC Score: 8 Post-Procedure Diagnosis Post-Procedure Diagnosis: Severe CAD and Successful PCI Procedure(s) Performed Procedure(s) Performed: Coronary Angiography, Drug Eluting Stent and IVUS Food Dehydrator Operator Chris Gonsalez MD Film Developer(s) Showers Estimated Blood Loss Estimated Blood Loss: < 25 ml Medication(s) Medication(s): Fentanyl, Heparin, Lidocaine 1%, Nicardipine, Nitroglycerin and Versed Medication(s): Ticagrelor Summary of Findings Indication: Abnormal stress test, NSTEMI Access: 6 Fr right radial artery Catheters: JR4 guide, EBU 3.5 guide Findings: For full details of patient's coronary angiography please see cath report dictated by Dr. Plaza. Briefly, patient found to have severe ostial RCA disease as well as moderate OM1 disease. Decision to proceed with PCI of RCA and further assess OM1. -- PCI of RCA-- Antithrombotic therapy: Heparin, ticagrelor Procedure: RCA cannulated with JR4 guide Account Processor 50 wire passed across lesion into distal vessel Prowater wire placed in aorta to patrick ostium [place] IVUS catheter placed into mid RCA. Pullback revealed mild earlymid segment disease. Moderate to severe proximal disease before severe calcified ostial stenosis. Ostial/proximal RCA lesion predilated with 2.5 compliant balloon Dilated lesion stented with 2.75 x 18 mm Xience drug-eluting stent with stent extending back into aorta Repeat IVUS revealed residual disease just distal to stent and underexpanded proximal aspect of stent Stent postdilated with 3.5 NC balloon Second MANOLO (2.75 x 18 Xience) placed to proximal segment, overlapping distal aspect of initial stent. Stents post-dilated with 4.0 noncompliant balloon IC vasodilators administered for spasm Post procedure KOFFI 3 flow, stents well expanded with minimal residual stenosis and no apparent cardiac complications. IVUS of high OM1 Left main cannulated with EBU 3.5 guide Account Processor 50 wire placed into distal high OM1 [place] IVUS catheter placed into mid OM1 Pullback revealed focal 50% stenosis (MLA 5.1 mm). No other significant OM1/proximal circumflex/left main disease Post HERNAN angiography which revealed no complications. Arterial Closure: TR band Summary: 1. Successful PCI of ostial/proximal RCA with 2 overlapping drug-eluting stents (2.75 x 18, 2.75 x 18 Xience; postdilated with 4.0 NC). 2. Moderate nonobstructive proximal high OM1 stenosis by IVUS (50%, MLA 5.1 mm). Recommendations: To PCU for continued monitoring Loaded with ticagrelor 180 mg in Tight Barrel Inspector Continue dual-antiplatelet therapy for at least 1 year Consult cardiac Rehab Hemodynamics Rest Ao:: 132/68/138 Final Ao: 140/94/117 LV: -- Recommendations Recommendations: PCI without planned CABG Specimens Specimens: None Radiation Exposure (mGy) 3103 Contrast (mls) 155 total Fluids (cc crystalloids) Fluids (cc crystalloids): 100 Drains Drains: none Anesthesia moderate 5930-1150 Procedural Complication(s) None Disposition PCU I attest to the content of the Intraoperative Record and any orders documented therein. Any exceptions are noted below. [facility] Card Cath Procedure Codes Therapeutic Services & Ancillary Proc Procedure 1: Cardiovascular Tx and Anc Procedures: 53730 IV Ultrasound (Coronary or Graft) Procedure 2: Cardiovascular Tx and Anc Procedures: 24242 IV Ultrasound Ea addl vessel Moderate Sedation Procedure 1: Sedation/Anesthesia: 42318 Mod Sedation by the same physician; Ea [id number] Minutes Stenting Procedure 1: Cardiovascular Stent Procedures: 55880 Perc transcatheter placement of int racoronary stent(s), with ang PG Care Time/CCT Total # of Minutes Spent Total Time Spent with Patient: Total time spent is greater than 50% in coordination of care (as documented) at patient's floor/unit and/or counseling patient:
[2021-04-05] MEDS: METOPROLOL TARTRATE 25 MG TAB PO SCH (08:26)
[2021-04-05] MEDS: ASPIRIN 81 MG ECTAB PO SCH (08:26)
[2021-04-05] MEDS: ATORVASTATIN 40 MG TAB PO SCH (08:26)
[2021-04-05] MEDS: MULTIVITAMIN TAB PO SCH (08:26)
[2021-04-05] MEDS: TICAGRELOR 90 MG TAB PO SCH (08:27)
--- NOTE | 2021-04-05 08:33 | Electrocardiogram Report ---
Test Reason : Blood Pressure : / mmHG Vent. Rate : 069 BPM Atrial Rate : 069 BPM P-R Int : 178 ms QRS Dur : 068 ms QT Int : 482 ms P-R-T Axes : 033 -25 068 degrees QTc Int : 516 ms Normal sinus rhythm Minimal voltage criteria for LVH, may be normal variant Possible Old Septal infarct (cited on or before 04-APR-2021) Nonspecific T wave abnormality Septal leads Prolonged QT Abnormal ECG When compared with ECG of 04-APR-2021 09:28, Premature atrial complexes are no longer Present Confirmed by Gus Ann ([id number]) on 04/05/2021 8:32:54 AM Referred By: Ubaldo Gonsalez Confirmed By:Gus Ann
[2021-04-05] MEDS ORDERED: lisinopril 5 MG TAB PO SCH (09:00)
--- NOTE | 2021-04-05 13:28 | Discharge Summary ---
Date of Service April 05, 2021 Admission HPI Per Admitting Provider Ms. Galvez is a pleasant 75-year-old female with a history significant for atrial tachycardia, hypertension, dyslipidemia who had significantly abnormal stress echo suggesting multivessel CAD and therefore was sent to the emergency department for admission from the outpatient cardiology office on 04/03/2021. She was initially placed on observation status and then admitted after it was noted that her troponin peaked at 2, indicating NSTEMI. She had denied any angina but did have dyspnea with exertion and very poor exercise tolerance during exercise treadmill, exercising 1 minutes and 5 seconds on the Hilario kash col before she had to stop due to profound dyspnea. Principal Diagnosis NSTEMI Discharge Exam Gen.: No acute distress. Alert and oriented. HEENT: Anicteric sclera. Neck: No JVD. Cardiac: PMI was nondisplaced. No ventricular heave. Regular. Normal S1-S2. No murmurs, rubs, or gallops. Pulmonary: Clear to auscultation bilaterally without wheezes, rales, or rhonchi. Abdomen: Soft, nontender, nondistended, with normoactive bowel sounds. No bruits noted. Extremities: 2+ radial pulses bilaterally. Right radial cath site is clean, dry, and intact without erythema or discharge. No significant hematoma. No edema or cyanosis. Psychiatric: Affect appears appropriate. Discharge Data Allergies Allergy/AdvReac Type Severity Reaction Status Date / Time KYLER Inhibitors AdvReac Intermediate cough Verified 04/03/21 16:28 Consultations 04/03/21 15:43 ED Decision to Admit Stat 04/04/21 09:28 Consult Cardiac Rehabilitation Routine Procedures Performed Operation Date: 04/04/21 07:00 Actual Procedures s Cath, Left w/Cors Vent Grafts - Héctor Plaza MD s Cineradiography w/Routine Exam - Héctor Plaza MD p Drug Eluting Stent SGl Vessel - Ubaldo Gonsalez MD s IVUS Coronary Single Vessel - Ubaldo Gonsalez MD s IVUS Coronary each ADDL Vessel - Ubaldo Gonsalez MD Cardiac catheterization: Coronary angiography: 1. Left main coronary artery: Large caliber vessel. No significant CAD. 2. Left anterior descending: Large caliber vessel that wraps around the apex. Proximal LAD luminal irregularities. Mid LAD 30%. Very small D1 and small caliber D2. 3. Circumflex: Codominant. Large caliber vessel. Mid circumflex 20%. Distal circumflex luminal irregularities. Very large caliber OM1 with proximal stenosis of approximately 50%. Large PL without significant CAD. PDA without significant CAD. 4. Right coronary artery: Codominant. Medium sized vessel. Ostial RCA approximately 95%. Proximal RCA 50%. Mid RCA 40 to 50%. Small RCA PDA without significant CAD. KOFFI-3 flow. Intracoronary nitroglycerin administration: 1. Nitroglycerin 200 mcg was administrated in the RCA and there is no improvement noted of the ostial stenosis. Left heart catheterization: 1. Left ventriculography was not performed. 2. LVEDP 16 mmHg. 3. No aortic stenosis. Peak to peak gradient across aortic valve is 0. Interventional Cardiology: Underwent PCI of RCA with 2.75 x 18 mm MANOLO Skypoint x 2. Ordered Studies 04/04/21 06:38 CL Cath Imgs for PACS use only Stat 04/04/21 10:02 CL IVUS Coronary Single Vessel Routine Hospital Course (1) Non-ST elevation (NSTEMI) myocardial infarction: (2) CAD (coronary artery disease): (3) S/P coronary artery stent placement: (4) Prolonged QT interval: (5) Paroxysmal atrial tachycardia: (6) Hypertension: (7) Hyperlipidemia: Hospital course: She had no angina throughout her hospital stay. She underwent cardiac ca theterization demonstrating severe ostial RCA CAD. She underwent PCI x2. She tolerated the procedure well. She was able to ambulate in the hallways without chest pain or shortness of breath. The day of discharge (04/05/2021) she stated that she felt very well. She denies syncope, near-syncope, palpitations, edema, bleeding, chest pain, shortness of breath. Change in medications were discussed with her in detail and any questions were asked. She continued to have paroxysmal atrial tachycardia intermittently throughout her hospital stay and remained completely asymptomatic in that regard. Beta-melissa had been titrated from 25 mg per day to 50 mg daily. At times, she was noted to have sinus bradycardia and therefore beta-melissa was not further titrated. ASSESSMENT/PLAN: 1. NSTEMI : Continue aspirin 81 mg daily indefinitely following PCI. Continue Brilinta for at least 1 year. Continue beta-melissa, high-intensity statin therapy, and initiate KYLER-inhibitor. Cardiac rehabilitation recommended. 2. CAD s/p RCA PCI x 2: No angina or dyspnea. Continue aspirin 81 mg daily indefinitely and Brilinta for at least 1 year. Continue beta-melissa, high- intensity statin therapy, initiate KYLER-inhibitor. Cardiac rehabilitation. Nitroglycerin p.r.n. angina on discharge. 3. Hypertension: Continue beta-melissa. Lisinopril 5 mg daily was initiated but she remains hypertensive and therefore will increase to 10 mg daily on discharge. She had been on lisinopril in the past and tolerated it well. She eventually developed a cough during URI and lisinopril was discontinued. She is agreeable to restart lisinopril. If she should develop a dry cough, she was asked to notify the office. 4. Dyslipidemia: Continue high-intensity statin therapy. High-intensity statin therapy has replaced her prior dose of atorvastatin. 5. Paroxysmal atrial tachycardia: Continues to have episodes of paroxysmal atrial tachycardia. Discussed with Dr. Sinclair of electrophysiology for long- term plan if she continues to have significant recurrent episodes. If he is unable to evaluate her before discharge, there is no urgency and can discuss as an outpatient. Medical therapy may be challenging but fortunately she remains completely asymptomatic in this regard. Could consider potential EP study and ablation. Beta-melissa titration may be limited due to bradycardia while in sinus. 6. Prolonged QT: Escitalopram was discontinued during the hospital stay due to prolonged QT. message sent to her PCP so that she can evaluate to see if she needs to have another medication started for her anxiety. Recommend repeating ECG as an outpatient to monitor her QT. 7. Disposition: She can be discharged this afternoon. Follow-up appointment has been scheduled for 04/10/2021 at 3:00 p.m. in the [facility] office with Mr. Tracey. Medications have been sent to her pharmacy for pecan picker. Today's discharge management was 38 minutes, including counseling patient, coordinating care, completing documentation, prescription management. Total Time Total Time Spent Total Time Spent (In Minutes): 38 Discharge Plan Discharge Items Patient Disposition: Home - Self-Care Reason For Visit: HIGH RISK, ABNORMAL STRESS ECHOCARDIOGRAM Discharge Diagnosis: Non ST elevation myocardial infarction Coronary artery disease Right coronary artery stent placement Paroxysmal atrial tachycardia Prolonged QT Condition on Discharge: Good Activity: Per Instructions section Non-emergency contact: Instrument And Control Service Person Call non-emergency contact if: you have any medication questions, your symptoms worsen, your pain is not controlled, you have a fever, your wound has increased redness, your wound has increased drainage and your wound pain has increased Follow-up/Referrals: Andrea Tracey PA-C [Physician Paint Stripper] - 04/10/21 3:00 pm (in the [place] [facility]) Soheila Reyna PA-C [Primary Care Provider] - 04/11/21 1:30 pm Diet: Heart Healthy Addtl Attending Provider Instructions: ACTIVITY RECOMMENDATIONS: Excess manipulation of the wrist should be avoided for the next 24-48 hours. * No lifting over 2 pounds (approximately a 1/2 gallon of milk) with the utilized arm for 24 hours. * No strenuous activity such as bowling or tennis for 3 days. * Keep the site of the procedure covered with a bandage for 24 hours. *You may shower the day after the procedure. Do not take a tub bath or submerge the puncture site in water for the next 3 days. *Do not operate any motorized equipment for 3 days. SPECIAL CARE INSTRUCTIONS: The site may be slightly bruised and sore following your procedure. Should any of the following occur, contact the Dr. who performed your procedure. 1. Redness/inflammation, swelling, chills, or fever, or colored drainage at procedure site within 3-7 days after your procedure. 2. Coldness, discoloration, ongoing numbness, severe pain, or swelling. Expect mild tingling of hand and tenderness at the puncture site for up to three days. If this persists beyond three days, or other symptoms develop, notify the Dr. who performed your procedure. BLEEDING: If the procedure site on your wrist begins to bleed, do not panic 1. Place 1 or 2 fingers firmly just slightly above the insertion site to stop the bleeding. You may be able to feel your pulse as you hold pressure. 2. Lift your finger after 5 minutes to see if the bleeding has stopped. 3. Once the bleeding has stopped, gently wipe the wrist area clean with a bandage. * If the bleeding from your wrist does not stop after 10 minutes, or if there is a large amount of bleeding or spurting, call 911 (do not drive yourself to the hospital). SKIN IRRITATION: * You may experience some redness and/or swelling in the area where radiation was administered. If any skin irritation occurs, please contact your family physician. FOLLOW UP VISIT: 1. Follow up with Mr. Andrea Tracey on April 10, 2021 at 3 PM in the [facility] cardiology office. 2. Follow up with your PCP within 1 week. 3. Keep any scheduled doctor appointments. Notes: 1. Because you had some changes to your ECG (QT interval), escitalopram was discontinued during you hospital stay. Please discuss this with your PCP soon. Pending Studies at Discharge: No Stand-Alone Forms: My [facility] [employer], Smoking Cessation Medications and DC Order Prescriptions: New Brilinta 90 mg Tablet 90 mg PO BID Qty: 180 RF: 3 atorvastatin 40 mg Tablet 80 mg PO HS Qty: 180 RF: 3 lisinopril 10 mg Tablet 10 mg PO QAM Qty: 90 RF: 3 nitroglycerin [Nitrostat] 0.4 mg Tablet, Sublingual 0.4 mg sublingual UD PRN (Reason: chest pain) Qty: 25 RF: 3 metoprolol succinate 50 mg tablet extended release 24 hr 50 mg PO DAILY Qty: 90 RF: 3 Continued Multivitamin 50 Plus Tablet 1 tab PO QAM RF: 0 cholecalciferol (vitamin D3) [Vitamin D3] 25 mcg (1,000 unit) Tablet 25 mcg PO QAM RF: 0 aspirin 81 mg tablet,delayed release (DR/EC) 81 mg PO QAM RF: 0 biotin 1 mg capsule 1 mg PO QAM RF: 0 Discontinued metoprolol succinate 25 mg tablet extended release 24 hr 25 mg PO QAM Qty: 30 RF: 0 atorvastatin 20 mg tablet 20 mg PO HS RF: 0 escitalopram oxalate 10 mg tablet 10 mg PO QAM RF: 0 Discharge Orders: Discharge Order (Routine); Ordered 04/05/21 Ordered By: Héctor Plaza Admission Data Admit Date/Time: 04/04/21 07:14 Attending Provider: Héctor Plaza Admit Provider: Andrea Tracey Primary Care Provider: Soheila Reyna Other Providers: Andrea Tracey Coding Level of Care Code D/C DAY MANAGEMENT >30 MINS Diagnoses Non-ST elevation (NSTEMI) myocardial infarction I21.4 CAD (coronary artery disease) I25.10 S/P coronary artery stent placement Z95.5 Prolonged QT interval R94.31 Paroxysmal atrial tachycardia I47.1 Hypertension I10 Hypertension type: unspecified Hyperlipidemia E78.5
[2021-04-06] MEDS ORDERED: lisinopril 10 MG TAB PO SCH (09:00)
== END 2021-04-05 14:18 | disposition home or self-care (01) | DRG 247 ==
LOC: 2S 15:12 → ED 15:12 → 2S 18:05

== ENCOUNTER 2022-10-16 19:39 | Inpatient (IN) ==
[2022-10-16] MEDS ORDERED: Heparin IV Adult Wt-Based Standard WITH Bolus Protocol IV STA (20:20)
[2022-10-16 20:27] LABS: Basophils # (auto) 0.02 K/uL (0-0.2); Basophils % (auto) 0.2 %; Hematocrit (blood only) 21.9 % (37.0-47.0); Immature Granulocytes # (auto) 0.04 K/uL (0.01-0.20); Immature Granulocytes % (auto) 0.4 %; Lymphocytes # (auto) 1.35 K/uL (1.2-3.4); Lymphocytes % (auto) 14.5 %; Mean Corpuscular Hemoglobin 28.7 pg (25.0-34.0); Mean Corpuscular Volume 89.8 fL (80.0-100.0); Mean Platelet Volume 8.7 fL (9.4-12.4); Monocytes # (auto) 0.71 K/uL (0.11-0.59); Monocytes % (auto) 7.6 %; Neutrophils # (auto) 7.22 K/uL (1.40-6.50); Neutrophils % (auto) 77.3 %; Platelet Count 380 K/uL (130-400); RDW Coefficient of Variation 16.3 % (11.5-14.5); Red Blood Count 2.44 M/uL (4.20-5.40); White Blood Count 9.34 K/ul (4.8-10.8)
[2022-10-16] MEDS ORDERED: HEPARIN SOD (PORCINE) 1000 UNIT/ML IV ONE (20:35)
[2022-10-16 20:44] LABS: Albumin Globulin Ratio 1.1 (0.9-2); Albumin Level 3.6 gm/dl (3.4-5.0); Bilirubin,Total 0.4 mg/dl (0.2-1.0); Calcium 9.4 mg/dl (8.5-10.1); Creatinine Clr Calc Pharmacy 72.9 ml/min; Est GFR (African American) 103.3 ml/min; Est GFR (Non-African American) 89.2 ml/min; Globulin 3.3 gm/dl (2.5-4.0); Potassium 4.4 mmol/L (3.5-5.1); Total Protein 6.9 gm/dl (6.0-8.3)
[2022-10-16] MEDS ORDERED: HEPARIN SODIUM/DEXTROSE 25,000 UNITS/500 ML BAG IV SCH (20:45)
[2022-10-16 20:49] LABS: Troponin I High Sensitivity 7.8 pg/ml (0-14)
--- NOTE | 2022-10-16 20:49 | History & Physical Report ---
Date of Service October 16, 2022 Assessment & Plan (1) Acute blood loss anemia: Plan: -Admit to the PCU -Patient is currently afebrile, hemodynamically stable and stable on RA -Patient found to have a hgb of 7.0, BUN of 39, positive occult stool test, and blood with previous bowel movements -Will keep NPO except meds for now, order placed for two large bore IV's -ED blood consented the patient and ordered her 1 units PRBC's -Will start 40 mg IV Protonix BID, GI consult placed -Will hold her plavix for now but will continue her aspirin due to her coronary stenting in 2020 -Monitor q6h CBC after the completion of her transfusion -Will start light IV hydration overnight with LR at 80 mL/hr x 2 bags while NPO -Will wait to place SCDs until she has undergone BL LE venous dopplers ordered on admission (2) Pulmonary embolism: Plan: -Patient found to have a likely subsegmental pulmonary embolis in the LLE on outpatient CTPE -She is currently asymptomatic at rest and stable on RA -Will need to hold anticoagulation for now with her current GI bleed -For now will continue to monitor on tele and pulse oximetry -Will need to have further discussions regarding anticoagulation moving forward -Will obtain BL LE venous dopplers to monitor for DVT's (3) Metastatic disease: Plan: -Patient has widespread metastatic disease to the spine, liver and possibly lungs -Patient also noted to have a mass of the omentum, which may be the primary source -Oncology consult placed, Dr. Montiel was already notified and is following (4) Spinal stenosis, lumbar region with neurogenic claudication: Plan: -Currently stable, no red flag symptoms at this time -Will order PT/OT consults -Will start pain managent with q8h prn tylenol and 25 mg PO tramadol q4h prn pain 4,5,6,+ (5) Paroxysmal atrial tachycardia: Plan: -Stable -continue metoprolol (6) S/P coronary artery stent placement: Plan: -Continue aspirin but hold plavix with her current GI bleed (7) Hypertension: Plan: -Stable -Continue metoporlol but hold lisinopril for now to prevent hypotension (8) Anxiety: Plan: -Continue fluoxetine (9) Hyperlipidemia: Plan: -Continue statin Plan The patient was discussed with Dr. Marquez at the time of the admission History of Present Illness Chief Complaint: Abnormal outpatient imaging results Primary Care Provider: Soheila Reyna PA-C Taya is a 77 year old male with a PMH significant for paroxysmal atrial tachycardia, CAD S/P previous coronary artery stent placement, HTN, hyperlipidemia, ambulatory dysfunction due to progressive lumbar back pain and neurogenic claudication, and anxiety who presented to the [facility] ED on 10/16/22 at the recommendation of her PCP. Per chart review, the patient was seen in the [facility] on 10/07/22 due to progressive and persistent lumbar back pain, sciatica of the left leg, and neurogenic claudication of the BL LEs. Dr. Laguerre ordered an MRI of the lumbar spine wo contrast at that time for continued workup and evaluation. The patient went for her MRI yesterday, unfortunately the MRI results show diffuse metastatic bone disease as well as lesions on her liver concerning for metastases. She was also noted to have disc bulging throughout the thoracic, lumbar, and sacral spine. Her PCP updated her with the results earlier today and Dr. montiel of Oncology was also made aware. Her PCP ordered a CT of the abdomen/pelvis as well as CTA of the chest to evaluate for a primary malignancy and monitor for PEs as that patient reported recent dyspnea. Per the telephone encounter note placed earlier today as her CT scans reportedly showed films showed a mass of the omentum (potential primary) -- as well as a small segmental pulmonary infarct of the left lung. These images were obtained from [facility]. The patient was advised to come to the ED for further evaluation and treatment. In the ED the patient was found to be afebrile, hemodynamically stable, and stable on RA but was noted to be tachycardic at 113. Labs were significant for a CBC with WBC WNL, Hgb of 7.0 (down from 12.o as of 05/24/22), RDW st deviation of 54, stable cr at 0.6, stable electrolytes, BUN of 39, glucose of 113, AST of 72, Alk phos of 375, ALT of 17, and total bili of 0.4, lipase of 51, and coags WNL. Due to her Hgb of 7.0 a fecal occult blood test was performed and was positive. Due to the patient being stable on RA, with a Hgb of 7.0, and concerns for active GI bleed anticoagulation was held and she was ordered 1 unit PRBCs. At the time of the exam the patient was lying comfortably in bed in no acute distress with her sitting bedside, history was obtained from both. She states that since Thanks she had both influenza A and Covid but was able to recover from both. She has had an approximately 30 pound weight loss and very poor appetite. She denies recent fevers, chills and chest pain. She has been noticing increased MILLARD, she is unable to walk for long distances at this time. She denies recent abdominal pain, nausea, vomiting, dysuria, hematuria, and diarrhea. When asked, she notes blood one her toilet paper for months but thought it was due to her known hemorrhoids. She has not experienced large bloody bowel movements or large dark bowel movements. We had a long discussion regarding her recent imaging and the need for further workup to identify the primary source of cancer. We discussed the risks and benefits of starting or holding anticoagulation we her likely PE but also having a Hgb of 7 and possible GI bleed. They are in agreement with holding anticoagulation for now and obtaining the 1 unit PRBC's overnight. She has been having ambulatory dysfunction due to her back pain for months. He has baseling weakness in her RLE comapred to left due to muscle atrophy. She does note chronic numbness in her left thigh as well. She denies saddle anesthesia, recent falls, and loss of bowel/bladder function. We also discussed the need to hold her plavix but will continue her aspirin for now due to her stent placement in 2020. She was previously diagnosed with breast cancer of the left breast approximately 23 years ago. She underwent lumpectomy, radiation therapy, and chemotherapy. We discussed code status, she would like to be a Full code at this time. She would want her to make medical decisions for her if she could not make them herself. Copies of the CT of the chest, abd, and pelvis were provided by the ED staff and were reviewed prior to being placed in the patient's chart. Her CTPE was read as findings suspicious for subsegmental left lower lobe pulmonary emboli. Soft tissue density and peribronchial cuffing in the left infrahilar region peyton picious in appearance for a possible mass lesion. Small to moderate left pleural effusion and diffuse metastatic disease to the bony skeleton. Her CT of the abd/pelvis with and without IV contrast was read as "Soft tissue mass density in the mesentery of the anterior abdomen consistent in appearance with neoplasm. Shotty mesenteric adenopathy may represent spread of disease but is nonspecific in appearance. Constipation. Diverticulosis. Diffuse bony metastatic disease. Please refer to Dr. Marquez's attestation for any changes to the treatment plan Allergies Allergy/AdvReac Type Severity Reaction Status Date / Time alendronate sodium AdvReac Severe Unable to Verified 10/16/22 20:52 [From Fosamax] ambulate Home Medications Medication Instructions Recorded Confirmed Type aspirin 81 mg tablet,delayed 81 mg PO QAM 04/03/21 10/16/22 History release biotin 1 mg capsule 1 mg PO QAM 04/03/21 10/16/22 History [id number] 1 tab PO QAM 04/03/21 10/16/22 History tablet (Multivitamin 50 Plus tablet) nitroglycerin 0.4 mg sublingual 0.4 mg sublingual UD PRN chest 04/05/21 10/16/22 Rx tablet (Nitrostat) pain #25 tabs rosuvastatin 40 mg tablet (Crestor) 40 mg PO DAILY #90 tabs 12/26/21 10/07/22 Rx lisinopril 10 mg tablet 10 mg PO QAM #90 tabs 03/22/22 10/16/22 Rx metoprolol succinate 50 mg 50 mg PO DAILY #90 tabs 03/22/22 10/16/22 Rx tablet,extended release 24 hr acetaminophen 650 mg 650 mg PO QPM PRN Pain 05/24/22 10/16/22 History tablet,extended release (Tylenol Arthritis Pain) clopidogrel 75 mg tablet (Plavix) 75 mg PO DAILY #90 tabs 05/27/22 10/16/22 Rx vitamin B12 500 mcg-folic acid 400 1 tab PO DAILY #30 tabs 08/13/22 10/16/22 Rx mcg tablet fluoxetine 10 mg capsule 10 mg PO DAILY #90 caps 09/16/22 10/16/22 Rx Past Med/Surg History Medical History Abnormal stress echo Arthritis Breast cancer CAD (coronary artery disease) Hyperlipidemia Hypertension Multiple pulmonary nodules determined by computed tomography of lung Multiple pulmonary nodules determined by computed tomography of lung Non-ST elevation (NSTEMI) myocardial infarction Osteopenia Paroxysmal atrial tachycardia Surgical History H/O: hysterectomy History of appendectomy History of lumpectomy of left breast History of wisdom tooth extraction S/P coronary artery stent placement Family History Mother Breast cancer Father Stroke Denies family history of Ovarian cancer Prostate cancer Myocardial infarction Colorectal cancer Social History Smoking Status: Never smoker Second Hand Exposure: No; Do You Dip or Chew Tobacco: No; Tobacco Cessation Education Requested by Patient: No Hx Alcohol Use: Yes Alcohol type: wine Hx Substance Use: No Preferred Language: Botswanan Communication Ability: Effective Visual Impairment: Limited Hearing Ability: Normal 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 Beliefs That Will Affect Care: None marital status: / Current Living Situation: Spouse current occupational status: retired Other Information That Helps Us Care for You: No Feels Safe at Home: Yes Safety Concerns: Feels Safe At This Time Childhood Exposure to Second-Hand Smoke: No caffeine: Yes during the past year weight has: remained stable Dental Care, Regularly: Yes Physical Activity Frequency: Daily Seatbelt Use: always Sunscreen Use: No Assistive Devices: None Review of Systems Review of Systems: Denies current fever, chills, headache, changes in vision, hearing, taste, and smell, chest pain, cough, abdominal pain, nausea, vomiting, diarrhea, hematemesis, melena, dysuria, hematuria, and recent falls. All systems have been reviewed and are otherwise negative. Physical Exam Physical Exam: Physical Exam: General: In no acute distress, stated age, appears pale but non-toxic HEENT: Normocephalic, atraumatic, no scleral icterus, pale palpebral conjunctivae, pupils around round, symmetrical, and reactive to light, moist mucus membranes, trachea midline, no thyromegaly Chest/Pulm: No respiratory distress, symmetrical chest expansion, clear breath sounds throughout Cardiac: tachycardic rate, regular rhythm, no murmurs noted Abdomen: Negative for ascites and bruising, normoactive bowel sounds, soft, non-tender to palpation throughout Musculoskeletal: No acute trauma on exam, patient is tender to palpation over the lumbar spine, RLE is weaker than left with noticeable muscle atrophy of the RLE Extremities: Radial, dorsalis pedis, and posterior tibial pulses are intact and symmetrical, no edema noted in the BL LE's Skin: Warm, dry, no rashes , lesions, or scars noted Neuro: Alert and oriented to person, place, month, year, and president, no focal defects, CN II-XII tested and intact, patient with RLE weaker than left which has been her baseline Psych: No acute distress, calm and cooperative during the exam Results & Data Results & Data ([facility]) Vital Signs (Past 12 Hours) Vital Signs Temp Pulse Resp BP Pulse Ox O2 Del Method 10/16/22 19:41 36.8 C 113 H 18 111/75 100 Room Air Laboratory Results Abnormal lab results 10/16/22 10/16/22 Range/Units 20:03 20:03 RBC 2.44 L (4.20-5.40) M/uL Hgb 7.0 L (12.0-16.0) g/dl Hct 21.9 L (37.0-47.0) % RDW Std Deviation 54.0 H (36.4-46.3) fL RDW Coeff of Tana 16.3 H (11.5-14.5) % MPV 8.7 L (9.4-12.4) fL Neut # (Auto) 7.22 H (1.40-6.50) K/uL [place] # (Auto) 0.71 H (0.11-0.59) K/uL BUN 39 H (6-23) mg/dl BUN/Creatinine Ratio 65.0 H (10-20) Glucose 113 H (70-99(Fasting)) mg/dl AST 72 H (13-39) U/L Alkaline Phosphatase 375 H (34-104) U/L Diagnostic Findings -See HPI and patient's physical chart ECG Additional Comments: Poor data quality, interpretation may be adversely affected Undetermined rhythm Incomplete right bundle branch block Nonspecific ST and T wave abnormality Abnormal ECG When compared with ECG of 05-APR-2021 06:12, Current undetermined rhythm precludes rhythm comparison, needs review Incomplete right bundle branch block is now Present Criteria for Septal infarct are no longer Present Code Status & VTE Plan Code Status Full code VTE Prophylaxis Plan VTE Prophylaxis will be ordered: Yes Supervising Physician Co-Signing Physician Notes Patient seen and examined, chart reviewed, case discussed with CHELITA Acosta and I agree with the assessment and plan as above. In brief, patient is a 77yo female with history of paroxysmal atrial tachycardia, CAD, HTN and HLP presenting with concern for newly discovered metastatic malignancy. Patietn had a recent MRI for ongoing back pain. Unfortunately the study revealed likely diffuse metastatic bone disease, liver lesions as well as an omental mass. She had a CTA of the cheste which revealed a small segmental pulmonary infarct of the left lung. Patient and her are aware of these findings. Briefly discussed next steps of possible biopsy, further staging and consultation with Hematology/Oncology On exam she is resting comfortably, NAD, thin and anxious in appearance Skin - no jaundice, no rash HEENT - slightly dry mucus membranes, neck supple Heart - +S1/S2, regular, no m/r/g Lungs - CTA, no rales/rhonchi/wheezes Abd - +BS, soft, NT/ND Ext - warm, well perfused, no clubbing/cyanosis or edema Labs and images reviewed Assessment/Plan Presumed malignancy - Oncology consultation appreciated. Will order CT of the head Suspected GIB - Protonix 40mg IV BID, monitor CBC PE - HD stable, no O2 requirement. No anticoagulation for now given possible GI bleed. Check doppler and monitor clinical status closely Remainder as above PG Care Time/CCT Total # of Minutes Spent Total Time Spent with Patient: Total time spent is greater than 50% in coordination of care (as documented) at patient's floor/unit and/or counseling patient: Coding [place] [address] INT INP/OBS CARE 3/75MIN Patient Type Established Medical Decision Making High Complexity Diagnoses Acute blood loss anemia D62 Pulmonary embolism I26.99 Metastatic disease C79.9 Spinal stenosis, lumbar region with neurogenic claudication M48.062 Paroxysmal atrial tachycardia I47.1 S/P coronary artery stent placement Z95.5 Hypertension I10 Hypertension type: unspecified Anxiety F41.9 Hyperlipidemia E78.5 (1) Hypertension Hypertension type: unspecified Qualified Code(s): I10 - Essential (primary) hypertension
[2022-10-16 20:53] LABS: INR 1.1 (0.9-1.1); Partial Thromboplastin Ratio 0.9; Partial Thromboplastin Time 24.8 Seconds (21.0-31.0); Prothrombin Time 11.2 Seconds (9.0-12.0)
[2022-10-16] MEDS ORDERED: SODIUM CHLORIDE 0.9% 250 ML IV PRN (21:02)
[2022-10-16 21:21] LABS: Polychromasia 1+
[2022-10-16] MEDS: PANTOprazole 40 MG in SYRINGE 0 ML IV SCH (21:45)
[2022-10-16] MEDS ORDERED: traMADol HCL 50 MG TABLET PO PRN (22:21)
[2022-10-16] MEDS ORDERED: ACETAMINOPHEN 1,000 MG/100 ML VIAL IV PRN (22:21)
[2022-10-16] MEDS: LACTATED RINGER'S 1,000 ML IV SCH (22:32)
--- NOTE | 2022-10-16 23:31 | Emergency Department Note ---
History of Present Illness General Chief complaint: Referred by Doctor Stated complaint: ABDOMINAL MASS, CLOT IN LUNG Time Seen by Provider: 10/16/22 19:56 History of Present Illness Provider complaint: Abnormal CT scan Maximum Pain Intensity: 5 77-year-old female presents emergency department for an abnormal CT scan. Patient reports she has had back pain for quite some time now. She reports she had an outpatient MRI which showed metastatic disease. She reports no urinary incontinence, no saddle anesthesia/paresthesias, no urinary retention. No hematuria or dysuria. Patient reports no back pain at this time. She reports she had an outpatient CT scan of her abdomen done at [facility] yesterday which she was told to come to the hospital for. She reports no chest pain difficulty breathing. No hematuria dysuria melena or hematochezia. Home Medications Medication Instructions Recorded Confirmed Type aspirin 81 mg tablet,delayed 81 mg PO QAM 04/03/21 10/16/22 History release biotin 1 mg capsule 1 mg PO QAM 04/03/21 10/16/22 History [id number]-[id number] 1 tab PO QAM 04/03/21 10/16/22 History tablet (Multivitamin 50 Plus tablet) nitroglycerin 0.4 mg sublingual 0.4 mg sublingual UD PRN chest 04/05/21 10/16/22 Rx tablet (Nitrostat) pain #25 tabs rosuvastatin 40 mg tablet (Crestor) 40 mg PO DAILY #90 tabs 12/26/21 10/07/22 Rx lisinopril 10 mg tablet 10 mg PO QAM #90 tabs 03/22/22 10/16/22 Rx metoprolol succinate 50 mg 50 mg PO DAILY #90 tabs 03/22/22 10/16/22 Rx tablet,extended release 24 hr acetaminophen 650 mg 650 mg PO QPM PRN Pain 05/24/22 10/16/22 History tablet,extended release (Tylenol Arthritis Pain) clopidogrel 75 mg tablet (Plavix) 75 mg PO DAILY #90 tabs 05/27/22 10/16/22 Rx vitamin B12 500 mcg-folic acid 400 1 tab PO DAILY #30 tabs 08/13/22 10/16/22 Rx mcg tablet fluoxetine 10 mg capsule 10 mg PO DAILY #90 caps 09/16/22 10/16/22 Rx Allergies Allergy/AdvReac Type Severity Reaction Status Date / Time alendronate sodium AdvReac Severe Unable to Verified 10/16/22 20:52 [From Fosamax] ambulate Past Med/Surg History Medical History Abnormal stress echo Arthritis Breast cancer CAD (coronary artery disease) Hyperlipidemia Hypertension Multiple pulmonary nodules determined by computed tomography of lung Multiple pulmonary nodules determined by computed tomography of lung Non-ST elevation (NSTEMI) myocardial infarction Osteopenia Paroxysmal atrial tachycardia Surgical History H/O: hysterectomy History of appendectomy History of lumpectomy of left breast History of wisdom tooth extraction S/P coronary artery stent placement Family History Mother Breast cancer Father Stroke Denies family history of Ovarian cancer Prostate cancer Myocardial infarction Colorectal cancer Social History Smoking Status: Never smoker Second Hand Exposure: No; Hx Alcohol Use: No Hx Substance Use: No Preferred Language: [place] Communication Ability: Effective Visual Impairment: Limited Hearing Ability: Normal Manager Scheduling Required: No Beliefs That Will Affect Care: None marital status: / Current Living Situation: Significant Other current occupational status: retired Feels Safe at Home: Yes Childhood Exposure to Second-Hand Smoke: No caffeine: Yes during the past year weight has: remained stable Dental Care, Regularly: Yes Physical Activity Frequency: Daily Seatbelt Use: always Sunscreen Use: No Assistive Devices: None Physical Exam Vital Signs Vital Signs - 24 hr 10/16/22 19:41 10/16/22 22:46 Temperature 36.8 C Temperature Source Temporal Artery Scan Pulse Rate 113 H Pulse Rate [Apical] 88 Respiratory Rate 18 16 Respiratory Effort / Characteristics Non-Labored Spontaneous Respiratory Depth Normal Blood Pressure 111/75 Blood Pressure [Right Arm] 115/64 Blood Pressure Mean 87 Blood Pressure Mean [Right Arm] 81 Pulse Oximetry 100 97 Oxygen Delivery Method Room Air Room Air Sepsis Recent Fever Within 48 Hours No Sepsis New/Unexplained Change in Mental Status No Sepsis Action Taken by Nursing No Action Required Physical Exam GENERAL: He is oriented to person, place, and time. He appears well-developed and well-nourished. HENT: Exam performed. - Head: Normocephalic and atraumatic. EYES: Conjunctivae and EOM are normal. Right eye exhibits no discharge. Left eye exhibits no discharge. No scleral icterus. NECK: Normal range of motion. Neck supple. No JVD present. CV: Normal rate, regular rhythm, normal heart sounds and intact distal pulses. There is no peripheral edema. Palpable radial pulses bue. PULM/CHEST: Effort normal and breath sounds normal. No respiratory distress. No stridor. He has no wheezes. He has no rales. ABD: The abdomen is soft. There is no tenderness. NEURO: Motor and sensation grossly intact. SKIN: Skin is warm and dry. He is not diaphoretic. PSYCH: He has a normal mood and affect. Behavior is normal. Judgment and thought content normal. Course Course 1955: [facility] A complete history and physical exam was performed Cardiac monitoring: An order was placed for continuous cardiac monitoring. The monitor shows a rate of 100 with atrial fibrilation rhythm interpreted by hi 2030: External medical records were reviewed. manager of financial planning Stone was able to obtain the CT results that were done at [facility]. Patient has CTA of the chest done on October 16, 2022 which showed subsegmental branches of the left lower lobe pulmonary arteries soft tissue density of peribronchial cuffing left infrahilar region suspicious in the appearance for possible mass lesion. Patient also had a CT abdomen done which showed soft tissue mass density in the mesentery of the anterior abdomen consistent with the appearance of a neoplasm. There is also mesenteric adenopathy which may represent spread of disease. Given these findings patient was started on heparin drip. Patient will be admitted to the medicine and the hospitalist team. 2101: Labs show hemoglobin of 7. Rectal exam was conducted with female nursing storekeeper helper Elle. Patient is Hemoccult positive. Discussed the findings with Dr. Marquez admitting team. After discussion with the admitting team we agreed to hold the heparin at this time and transfuse patient 1 unit packed red blood cells given her GI bleed and hemoglobin of 7. Patient will be admitted to their team. Administered Medications Pantoprazole Sodium 40 mg/ (Syringe) 10 mls @ 5 mls/min IV BID MARICEL Stop: 11/15/22 21:29 Last Admin: 10/16/22 21:45 Dose: 5 mls/min Documented By: HJW Lactated Ringer's (Lr) 1,000 mls @ 80 mls/hr IV .[id number] [facility] Stop: 10/17/22 22:29 Last Admin: 10/16/22 22:32 Dose: 80 mls/hr Documented By: MEG Discontinued Medications Heparin Sodium (Porcine) (Heparin Sod (Porcine) 1000 Unit/Ml) 1 units IV NOW ONE Stop: 10/16/22 20:36 Last Admin: 10/16/22 21:10 Dose: Not Given Documented By: MEG Heparin Sodium/Dextrose (Heparin Iv Adult Wt-Based Standard With Bolus Protocol) 1 each IV NOW STA; Protocol Stop: 10/16/22 20:21 Last Admin: 10/16/22 21:10 Dose: Not Given Documented By: MEG Heparin Sodium/Dextrose (Heparin Sodium/Dextrose) 25,000 units in 500 mls @ 21 mls/hr IV .[id number] [facility]; Protocol Stop: 11/15/22 20:44 Last Admin: 10/16/22 21:10 Dose: Not Given Documented By: MEG Critical Care Time Critical Care Time: Yes Total Critical Care Time: 57 I have personally spent greater than 57 minutes of critical care time in the direct management of this patient. This includes bedside care, interpretation of diagnostic studies, and testing, discussion with consultants, patient, and family members, and other required patient management activities. This 57 minutes is in excess of all separately billable procedures. Medical Decision Making Medical Records Attestation: I reviewed the patient's medical records. External medical records were reviewed. manager of financial planning Stone was able to obtain the CT results that were done at [facility]. Patient has CTA of the chest done on October 16, 2022 which showed subsegmental branches of the left l ower lobe pulmonary arteries soft tissue density of peribronchial cuffing left infrahilar region suspicious in the appearance for possible mass lesion. Patient also had a CT abdomen done which showed soft tissue mass density in the mesentery of the anterior abdomen consistent with the appearance of a neoplasm. There is also mesenteric adenopathy which may represent spread of disease. Home Medications Current Medication List: was personally reviewed by me Laboratory Data Attestation: I reviewed the patient's lab results. 10/16/22 20:03 10/16/22 20:03 Lab Results 10/16/22 10/16/2210/16/23 Range/Units 20:03 20:03 20:03 WBC 9.34 (4.8-10.8) K/ul RBC 2.44 L (4.20-5.40) M/uL Hgb 7.0 L (12.0-16.0) g/dl Hct 21.9 L (37.0-47.0) % MCV 89.8 (80.0-100.0) fL MCH 28.7 (25.0-34.0) pg MCHC 32.0 (32.0-36.0) g/dL RDW Std Deviation 54.0 H (36.4-46.3) fL RDW Coeff of Tana 16.3 H (11.5-14.5) % Plt Count 380 (130-400) K/uL MPV 8.7 L (9.4-12.4) fL Immature Gran % (Auto) 0.4 % Neut % (Auto) 77.3 % Lymph % (Auto) 14.5 % [place] % (Auto) 7.6 % Eos % (Auto) 0.0 % Baso % (Auto) 0.2 % Neut # (Auto) 7.22 H (1.40-6.50) K/uL Lymph # (Auto) 1.35 (1.2-3.4) K/uL [place] # (Auto) 0.71 H (0.11-0.59) K/uL Eos # (Auto) 0.00 (0-0.50) K/uL Baso # (Auto) 0.02 (0-0.2) K/uL Immature Gran # (Auto) 0.04 (0.01-0.20) K/uL Polychromasia 1+ PT 11.2 (9.0-12.0) Seconds INR 1.1 (0.9-1.1) APTT 24.8 (21.0-31.0) Seconds PTT Ratio 0.9 Sodium 140 (136-145) mmol/L Potassium 4.4 (3.5-5.1) mmol/L Chloride 104 (98-107) mmol/L Carbon Dioxide 25 (21-32) mmol/L Anion Gap 11 (3-11) BUN 39 H (6-23) mg/dl Creatinine 0.60 (0.6-1.2) mg/dl Est Cr Clr Drug Dosing 72.9 ml/min Est GFR ( Amer) 103.3 ml/min Est GFR (Non-Af Amer) 89.2 ml/min BUN/Creatinine Ratio 65.0 H (10-20) Glucose 113 H (70-99(Fasting)) mg/dl Calcium 9.4 (8.5-10.1) mg/dl Total Bilirubin 0.4 (0.2-1.0) mg/dl AST 72 H (13-39) U/L ALT 17 (7-52) U/L Alkaline Phosphatase 375 H (34-104) U/L Troponin I High Sens 7.8 (0-14) pg/ml Total Protein 6.9 (6.0-8.3) gm/dl Albumin 3.6 (3.4-5.0) gm/dl Globulin 3.3 (2.5-4.0) gm/dl Albumin/Globulin Ratio 1.1 (0.9-2) Lipase 51 (11-82) U/L SARS-CoV-2, RNA, NAAT (NEGATIVE) Blood Type Blood Type Recheck Antibody Screen Crossmatch 10/16/22 10/16/22 10/16/22 Range/Units 21:10 21:48 22:25 WBC (4.8-10.8) K/ul RBC (4.20-5.40) M/uL Hgb (12.0-16.0) g/dl Hct (37.0-47.0) % MCV (80.0-100.0) fL MCH (25.0-34.0) pg MCHC (32.0-36.0) g/dL RDW Std Deviation (36.4-46.3) fL RDW Coeff of Tana (11.5-14.5) % Plt Count (130-400) K/uL MPV (9.4-12.4) fL Immature Gran % (Auto) % Neut % (Auto) % Lymph % (Auto) % [place] % (Auto) % Eos % (Auto) % Baso % (Auto) % Neut # (Auto) (1.40-6.50) K/uL Lymph # (Auto) (1.2-3.4) K/uL [place] # (Auto) (0.11-0.59) K/uL Eos # (Auto) (0-0.50) K/uL Baso # (Auto) (0-0.2) K/uL Immature Gran # (Auto) (0.01-0.20) K/uL Polychromasia PT (9.0-12.0) Seconds INR (0.9-1.1) APTT (21.0-31.0) Seconds PTT Ratio Sodium (136-145) mmol/L Potassium (3.5-5.1) mmol/L Chloride (98-107) mmol/L Carbon Dioxide (21-32) mmol/L Anion Gap (3-11) BUN (6-23) mg/dl Creatinine (0.6-1.2) mg/dl Est Cr Clr Drug Dosing ml/min Est GFR ( Amer) ml/min Est GFR (Non-Af Amer) ml/min BUN/Creatinine Ratio (10-20) Glucose (70-99(Fasting)) mg/dl Calcium (8.5-10.1) mg/dl Total Bilirubin (0.2-1.0) mg/dl AST (13-39) U/L ALT (7-52) U/L Alkaline Phosphatase (34-104) U/L Troponin I High Sens (0-14) pg/ml Total Protein (6.0-8.3) gm/dl Albumin (3.4-5.0) gm/dl Globulin (2.5-4.0) gm/dl Albumin/Globulin Ratio (0.9-2) Lipase (11-82) U/L SARS-CoV-2, RNA, NAAT NEGATIVE (NEGATIVE) Blood Type A Positive Blood Type Recheck A Positive Antibody Screen NEGATIVE Crossmatch See Detail ECG Data Attestation: I personally reviewed and interpreted this ECG as follows: Indication: + other (Metastatic disease) Rate (beats per minute): 113 Rhythm: + atrial fibrillation ECG ST segments: + Normal ST segments Additional Comments: QRS 112 QTc 507 MDM Narrative 195: The patient was evaluated in room B12B. A complete history and physical ex am was performed Cardiac monitoring: An order was placed for continuous cardiac monitoring. The monitor shows a rate of 100 with atrial fibrilation rhythm interpreted by me 2030: External medical records were reviewed. manager of financial planning Stone was able to obtain the CT results that were done at [facility]. Patient has CTA of the chest done on October 16, 2022 which showed subsegmental branches of the left lower lobe pulmonary arteries soft tissue density of peribronchial cuffing left infrahilar region suspicious in the appearance for possible mass lesion. Patient also had a CT abdomen done which showed soft tissue mass density in the mesentery of the anterior abdomen consistent with the appearance of a neoplasm. There is also mesenteric adenopathy which may represent spread of disease. Given these findings patient was started on heparin drip. Patient will be admitted to the medicine and the hospitalist team. 2101: Labs show hemoglobin of 7. Rectal exam was conducted with female nursing storekeeper helper Elle. Patient is Hemoccult positive. Discussed the findings with Dr. Marquez admitting team. After discussion with the admitting team we agreed to hold the heparin at this time and transfuse patient 1 unit packed red blood cells given her GI bleed and hemoglobin of 7. Patient will be admitted to their team. Impression & Plan Acute blood loss anemia, Prolonged QT interval, Metastatic disease, Pulmonary embolism, GI bleed Discharge Plan Visit Data Chief Complaint: Referred by Doctor Stated Complaint: ABDOMINAL MASS, CLOT IN LUNG ED Provider: Darin Edwards Discharge Problem: Acute blood loss anemia, Prolonged QT interval, Metastatic disease, Pulmonary embolism, GI bleed Patient Disposition: Admitted As Inpatient Forms Stand Alone Forms: [facility] Prescriptions Prescriptions: No Action rosuvastatin [Crestor] 40 mg tablet 40 mg PO DAILY Qty: 90 3RF Rx Instructions: STOPPED ABOUT A WEEK AGO PER PT. lisinopril 10 mg tablet 10 mg PO QAM Qty: 90 3RF metoprolol succinate 50 mg tablet extended release 24 hr 50 mg PO DAILY Qty: 90 3RF clopidogrel [Plavix] 75 mg tablet 75 mg PO DAILY Qty: 90 3RF fluoxetine 10 mg capsule 10 mg PO DAILY Qty: 90 0RF acetaminophen [Tylenol Arthritis Pain] 650 mg tablet extended release 650 mg PO QPM PRN (Reason: Pain) vitamin M88-[id number] acid 500-400 mcg tablet 1 tab PO DAILY Qty: 30 0RF Rx Instructions: administer with a meal Multivitamin 50 Plus Tablet 1 tab PO QAM aspirin 81 mg tablet,delayed release (DR/EC) 81 mg PO QAM biotin 1 mg capsule 1 mg PO QAM nitroglycerin [Nitrostat] 0.4 mg Tablet, Sublingual 0.4 mg sublingual UD PRN (Reason: chest pain) Qty: 25 3RF Rx Instructions: 1 tab every 5 min as needed for angina. Not to exceed 3 doses. Referrals Referrals: Soheila Reyna PA-C [Primary Care Provider] -
[2022-10-17 03:24] LABS: Hematocrit (blood only) 24.2 % (37.0-47.0); Hemoglobin 7.9 g/dl (12.0-16.0); Mean Corpuscular Hemoglobin 29.9 pg (25.0-34.0); Mean Corpuscular Hgb Conc 32.6 g/dL (32.0-36.0); Mean Corpuscular Volume 91.7 fL (80.0-100.0); Mean Platelet Volume 8.6 fL (9.4-12.4); Platelet Count 317 K/uL (130-400); RDW Coefficient of Variation 15.9 % (11.5-14.5); RDW Standard Deviation 53.2 fL (36.4-46.3); Red Blood Count 2.64 M/uL (4.20-5.40); White Blood Count 6.98 K/ul (4.8-10.8)
[2022-10-17 08:20] LABS: Hematocrit (blood only) 25.4 % (37.0-47.0); Hemoglobin 8.3 g/dl (12.0-16.0); Mean Corpuscular Hemoglobin 30.1 pg (25.0-34.0); Mean Corpuscular Hgb Conc 32.7 g/dL (32.0-36.0); Mean Platelet Volume 8.8 fL (9.4-12.4); Platelet Count 324 K/uL (130-400); RDW Standard Deviation 53.5 fL (36.4-46.3); Red Blood Count 2.76 M/uL (4.20-5.40); White Blood Count 6.84 K/ul (4.8-10.8)
[2022-10-17 08:25] LABS: Albumin Level 3.3 gm/dl (3.4-5.0); BUN Creatinine Ratio 64.7 (10-20); Bilirubin,Total 0.8 mg/dl (0.2-1.0); Calcium 9.3 mg/dl (8.5-10.1); Creatinine Clr Calc Pharmacy 85.8 ml/min; Est GFR (Non-African American) 94.1 ml/min; Globulin 3.3 gm/dl (2.5-4.0); Magnesium 1.9 mg/dl (1.7-2.4); Potassium 4.2 mmol/L (3.5-5.1); Total Protein 6.6 gm/dl (6.0-8.3)
[2022-10-17 08:47] LABS: INR 1.1 (0.9-1.1); Prothrombin Time 11.2 Seconds (9.0-12.0)
[2022-10-17] MEDS ORDERED: ASPIRIN 81 MG ECTAB PO SCH (09:00)
[2022-10-17] MEDS: PANTOprazole 40 MG in SYRINGE 0 ML IV SCH ×2 (09:28→20:10)
--- NOTE | 2022-10-17 09:31 | Ultrasound Report ---
BILATERAL LOWER EXTREMITY VENOUS DOPPLER HISTORY: Screening study in a patient with pulmonary embolus newly diagnosed PE, monitor for DVT COMPARISON STUDY: CTA chest 10/16/2022. FINDINGS: There is normal compressibility, flow, and augmentation within the bilateral lower extremit y deep venous systems. IMPRESSION: No DVT within the right or left lower extremity. ACT 112: Negative or not required by law. Electronically signed by: Tony Rausch M.D. 10/17/2022 9:28 AM
[2022-10-17] MEDS: FLUoxetine HCL 10 MG CAP PO SCH (09:33)
[2022-10-17] MEDS: METOPROLOL SUCC 50MG EXT REL TAB PO SCH (09:33)
--- NOTE | 2022-10-17 10:04 | CT Scan Report ---
CT OF THE HEAD WITHOUT CONTRAST CLINICAL HISTORY: ?malignancy COMPARISON STUDY: No previous studies for comparison. CT DOSE: 614.27 mGy.cm TECHNIQUE: Helical axial images of the head were obtained without IV contrast. Automated exposure con trol was utilized for the study. A dose lowering technique was utilized adhering to the principles o f ALARA. FINDINGS: Note is made of hyperdense material within the left subdural space, measuring 5 mm in thick ness, overlying the left cerebral hemisphere. There is minimal mass effect. The contour of the materi al is slightly lobulated. There may be a small amount of intravascular contrast from recent contrast- enhanced CT. Basal cisterns are patent. No evidence for herniation. No findings to suggest acute dura l sinus thrombosis or acute territorial infarct. No calvarial fracture is noted. Left mastoid air temo ls are partially opacified. IMPRESSION: Hyperdense material within the left subdural space, as described above. This could reflec t subdural hemorrhage. However, dural extension of tumor could appear similar given extensive calvari al metastases. An MRI of the brain with and without contrast is recommended for further evaluation. T his finding will be called/faxed to the ordering provider at time of dictation. ACT 112: Negative or not required by law. Electronically signed by: Adithya Anaya M.D. 10/17/2022 10:02 AM
[2022-10-17] MEDS: cefTRIAXone SODIUM 1,000 MG in DEXTROSE 5% AD-VAN 50 ML IV SCH (10:59)
--- NOTE | 2022-10-17 11:06 | Gastrointestinal Consultation ---
Date of Consultation October 17, 2022 Assessment & Plan (1) GI bleed: (2) Pulmonary embolism: (3) Acute blood loss anemia: (4) Metastatic disease: Plan 1. Continue Pantoprazole 40 mg BID. 2. Okay to advance diet to clear liquid. 3. Recommend pulm clearance. If obtained, will plan for EGD and colonoscopy next week. 4. Supportive care per primary team. Thank you for allowing us to participate in the care of this patient. If you have any questions or concerns, please do not hesitate to contact us. Supervising Physician Co-Signing Physician Notes Agree with HARDIK Prather as above Abd: Soft, Tender throughout, ND, +BS Discussed case with Pulmonary, and there is no 02 requirement, therefore risk is low to proceed with EGD and Colonoscopy tomorrow in attempt to get tissue diagnosis and assess for cause of GI bleeding. Will give bowel prep tonight NPO after bowel prep EGD and colonoscopy tomorrow Continue current therapy and supportive care. History of Present Illness Reason for Consultation: GIB-Metastatic Disease Requesting Physician: Eric Acosta PA-C Attending Physician: Zoe Ham MD History of Present Illness Patient is a very pleasant 77 y.o. female with a history of CAD, NSTEMI s/p stent placement, HTN, HLD, arthritis and breast cancer admitted with symptomatic anemia as well back pain found to have imaging concerning for bony and hepatic mets of unknown primary. Admitting H&H was noted to be 7.0/21.9. She denies any n/v, abdominal pain, diarrhea, constipation, melena or hematochezia. She was found to be heme positive in the ER. Last colonoscopy was performed by Dr. Diaz in 2002. States she refused surveillance colonoscopy over the years due to not desiring to have bowel preparations. Incidentally, she is noted to have LLL PE as well. Anticoagulation has been held due to GIB. Allergies Allergy/AdvReac Type Severity Reaction Status Date / Time alendronate sodium AdvReac Severe Unable to Verified 10/16/22 20:52 [From Fosamax] ambulate Home Medications Medication Instructions Recorded Confirmed Type aspirin 81 mg tablet,delayed 81 mg PO QAM 04/03/21 10/16/22 History release biotin 1 mg capsule 1 mg PO QAM 04/03/21 10/16/22 History [id number]-[id number]-[id number] 1 tab PO QAM 04/03/21 10/16/22 History tablet (Multivitamin 50 Plus tablet) nitroglycerin 0.4 mg sublingual 0.4 mg sublingual UD PRN chest 04/05/21 10/16/22 Rx tablet (Nitrostat) pain #25 tabs rosuvastatin 40 mg tablet (Crestor) 40 mg PO DAILY #90 tabs 12/26/21 10/07/22 Rx lisinopril 10 mg tablet 10 mg PO QAM #90 tabs 03/22/22 10/16/22 Rx metoprolol succinate 50 mg 50 mg PO DAILY #90 tabs 03/22/22 10/16/22 Rx tablet,extended release 24 hr acetaminophen 650 mg 650 mg PO QPM PRN Pain 05/24/22 10/16/22 History tablet,extended release (Tylenol Arthritis Pain) clopidogrel 75 mg tablet (Plavix) 75 mg PO DAILY #90 tabs 05/27/22 10/16/22 Rx vitamin B12 500 mcg-folic acid 400 1 tab PO DAILY #30 tabs 08/13/22 10/16/22 Rx mcg tablet fluoxetine 10 mg capsule 10 mg PO DAILY #90 caps 09/16/22 10/16/22 Rx Patient History Medical History Abnormal stress echo Arthritis Breast cancer CAD (coronary artery disease) Hyperlipidemia Hypertension Multiple pulmonary nodules determined by computed tomography of lung Multiple pulmonary nodules determined by computed tomography of lung Non-ST elevation (NSTEMI) myocardial infarction Osteopenia Paroxysmal atrial tachycardia Surgical History H/O: hysterectomy History of appendectomy History of lumpectomy of left breast History of wisdom tooth extraction S/P coronary artery stent placement Family History Mother Breast cancer Father Stroke Denies family history of Ovarian cancer Prostate cancer Myocardial infarction Colorectal cancer Social History Smoking Status: Never smoker Second Hand Exposure: No; Do You Dip or Chew Tobacco: No; Tobacco Cessation Education Requested by Patient: No Hx Alcohol Use: Yes Alcohol type: wine Hx Substance Use: No Preferred Language: Lithuanian Communication Ability: Effective Visual Impairment: Limited Hearing Ability: Normal Csr Required: No Beliefs That Will Affect Care: None marital status: / Current Living Situation: Spouse current occupational status: retired Other Information That Helps Us Care for You: No Feels Safe at Home: Yes Safety Concerns: Feels Safe At This Time Childhood Exposure to Second-Hand Smoke: No caffeine: Yes during the past year weight has: remained stable Dental Care, Regularly: Yes Physical Activity Frequency: Daily Seatbelt Use: always Sunscreen Use: No Assistive Devices: Walker Review of Systems Review of Systems: All systems reviewed & are unremarkable except as noted in HPI & below Physical Exam Constitutional: WD/WN, vitals as above Eyes: EOM intact bilaterally Neck: normal visual inspection Respiratory: normal respiratory effort, lungs clear to auscultation Cardiovascular: Rate/Rhythm: regular rate and regular rhythm Heart Sounds: no murmur Gastrointestinal (Abdomen): normal bowel sounds, soft, nontender, no hepatosplenomegaly Skin: warm and dry Psychiatric: A+Ox3, euthymic affect Results & Data ([facility]) Vital Signs (Past 12 Hours) Vital Signs Temp Pulse Pulse Resp BP BP Pulse Ox 10/17/22 08:03 36.7 C 110 H 16 125/76 96 10/17/22 01:00 10/17/22 02:23 36.9 C 90 18 123/75 98 10/17/22 02:00 100 H 10/17/22 01:52 36.7 C 114 H 18 124/66 99 10/17/22 01:02 10/17/22 01:03 36.9 C 105 H 18 118/72 99 10/17/22 00:52 36.9 C 105 H 18 118/72 99 10/17/22 00:22 36.9 C 10/17/22 00:22 94 H 18 127/68 97 10/17/22 00:15 122/68 10/17/22 00:15 114 H 16 98 10/17/22 00:08 114 H 18 97 10/17/22 00:08 121/72 10/17/22 00:00 101 H 18 98 10/17/22 00:00 126/80 10/16/22 23:49 114 H 16 98 10/16/22 23:49 121/75 10/16/22 23:30 97 H 14 96 10/17/22 00:07 37 C 103 H 16 121/72 97 10/16/22 23:52 37.1 C 101 H 16 97 O2 Del Method O2 Del Method 10/17/22 08:03 Room Air 10/17/22 01:00 Room Air 10/17/22 02:23 10/17/22 02:00 10/17/22 01:52 10/17/22 01:02 Room Air 10/17/22 01:03 Room Air 10/17/22 00:52 10/17/22 00:22 10/17/22 00:22 10/17/22 00:15 10/17/22 00:15 10/17/22 00:08 10/17/22 00:08 10/17/22 00:00 10/17/22 00:00 10/16/22 23:49 10/16/22 23:49 10/16/22 23:30 10/17/22 00:07 10/16/22 23:52 Diagnostic Findings Laboratory Results WBC 6.84 K/ul (4.8-10.8) 10/17/22 06:51 RBC 2.76 M/uL (4.20-5.40) L 10/17/22 06:51 Hgb 8.3 g/dl (12.0-16.0) L 10/17/22 06:51 Hct 25.4 % (37.0-47.0) L 10/17/22 06:51 MCV 92.0 fL (80.0-100.0) 10/17/22 06:51 MCH 30.1 pg (25.0-34.0) 10/17/22 06:51 MCHC 32.7 g/dL (32.0-36.0) 10/17/22 06:51 RDW Std Deviation 53.5 fL (36.4-46.3) H 10/17/22 06:51 RDW Coeff of Tana 16.0 % (11.5-14.5) H 10/17/22 06:51 Plt Count 324 K/uL (130-400) 10/17/22 06:51 MPV 8.8 fL (9.4-12.4) L 10/17/22 06:51 Immature Gran % (Auto) 0.4 % 10/16/22 20:03 Neut % (Auto) 77.3 % 10/16/22 20:03 Lymph % (Auto) 14.5 % 10/16/22 20:03 [place] % (Auto) 7.6 % 10/16/22 20:03 Eos % (Auto) 0.0 % 10/16/22 20:03 Baso % (Auto) 0.2 % 10/16/22 20:03 Neut # (Auto) 7.22 K/uL (1.40-6.50) H 10/16/22 20:03 Lymph # (Auto) 1.35 K/uL (1.2-3.4) 10/16/22 20:03 [place] # (Auto) 0.71 K/uL (0.11-0.59) H 10/16/22 20:03 Eos # (Auto) 0.00 K/uL (0-0.50) 10/16/22 20:03 Baso # (Auto) 0.02 K/uL (0-0.2) 10/16/22 20:03 Immature Gran # (Auto) 0.04 K/uL (0.01-0.20) 10/16/22 20:03 Polychromasia 1+ 10/16/22 20:03 PT 11.2 Seconds (9.0-12.0) 10/17/22 06:51 INR 1.1 (0.9-1.1) 10/17/22 06:51 APTT 24.8 Seconds (21.0-31.0) 10/16/22 20:03 PTT Ratio 0.9 10/16/22 20:03 Sodium 139 mmol/L (136-145) 10/17/22 06:51 Potassium 4.2 mmol/L (3.5-5.1) 10/17/22 06:51 Chloride 103 mmol/L (98-107) 10/17/22 06:51 Carbon Dioxide 28 mmol/L (21-32) 10/17/22 06:51 Anion Gap 8 (3-11) 10/17/22 06:51 BUN 33 mg/dl (6-23) H 10/17/22 06:51 Creatinine 0.51 mg/dl (0.6-1.2) L 10/17/22 06:51 Est Cr Clr Drug Dosing 85.8 ml/min 10/17/22 06:51 Est GFR ( Amer) 109.0 ml/min 10/17/22 06:51 Est GFR (Non-Af Amer) 94.1 ml/min 10/17/22 06:51 BUN/Creatinine Ratio 64.7 (10-20) H 10/17/22 06:51 Glucose 95 mg/dl (70-99(Fasting)) 10/17/22 06:51 Calcium 9.3 mg/dl (8.5-10.1) 10/17/22 06:51 Magnesium 1.9 mg/dl (1.7-2.4) 10/17/22 06:51 Total Bilirubin 0.8 mg/dl (0.2-1.0) 10/17/22 06:51 AST 65 U/L (13-39) H 10/17/22 06:51 ALT 14 U/L (7-52) 10/17/22 06:51 Alkaline Phosphatase 324 U/L (34-104) H 10/17/22 06:51 Troponin I High Sens 7.8 pg/ml (0-14) 10/16/22 20:03 Total Protein 6.6 gm/dl (6.0-8.3) 10/17/22 06:51 Albumin 3.3 gm/dl (3.4-5.0) L 10/17/22 06:51 Globulin 3.3 gm/dl (2.5-4.0) 10/17/22 06:51 Albumin/Globulin Ratio 1.0 (0.9-2) 10/17/22 06:51 Lipase 51 U/L (11-82) 10/16/22 20:03 SARS-CoV-2, RNA, NAAT NEGATIVE (NEGATIVE) 10/16/22 21:48 Blood Type A Positive 10/16/22 21:10 Blood Type Recheck A Positive 10/16/22 22:25 Antibody Screen NEGATIVE 10/16/22 21:10 Crossmatch See Detail 10/16/22 21:10 Impressions Venous Doppler Study 10/17/22 00:00 BILATERAL LOWER EXTREMITY VENOUS DOPPLER HISTORY: Screening study in a patient with pulmonary embolus newly diagnosed PE, monitor for DVT COMPARISON STUDY: CTA chest 10/16/2022. FINDINGS: There is normal compressibility, flow, and augmentation within the bilateral lower extremity deep venous systems. IMPRESSION: No DVT within the right or left lower extremity. ACT 112: Negative or not required by law. Electronically signed by: Tony Rausch M.D. 10/17/2022 9:[address] 10/17/22 01:31 CT OF THE HEAD WITHOUT CONTRAST CLINICAL HISTORY: ?malignancy COMPARISON STUDY: No previous studies for comparison. CT DOSE: 614.27 mGy.cm TECHNIQUE: Helical axial images of the head were obtained without IV contrast. Automated exposure control was utilized for the study. A dose lowering technique was utilized adhering to the principles of ALARA. FINDINGS: Note is made of hyperdense material within the left subdural space, measuring 5 mm in thickness, overlying the left cerebral hemisphere. There is minimal mass effect. The contour of the material is slightly lobulated. There may be a small amount of intravascular contrast from recent contrast-enhanced CT. Basal cisterns are patent. No evidence for herniation. No findings to suggest acute dural sinus thrombosis or acute territorial infarct. No calvarial fracture is noted. Left mastoid air cells are partially opacified. IMPRESSION: Hyperdense material within the left subdural space, as described above. This could reflect subdural hemorrhage. However, dural extension of tumor could appear similar given extensive calvarial metastases. An MRI of the brain with and without contrast is recommended for further evaluation. This finding will be called/faxed to the ordering provider at time of dictation. ACT 112: Negative or not required by law. Electronically signed by: Adithya Anaya M.D. 10/17/2022 10:02 AM PG Care Time/CCT Total # of Minutes Spent Total Time Spent with Patient: Total time spent is greater than 50% in coordination of care (as documented) at patient's floor/unit and/or counseling patient: Coding Level of Care Code 30057 INT INP/OBS CARE 3/75MIN Diagnoses GI bleed K92.2 GI bleed type/associated pathology: unspecified gastrointestinal hemorrhage type Pulmonary embolism I26.99 Acute blood loss anemia D62 Metastatic disease C79.9 Area of secondary neoplastic involvement: unspecified site (1) GI bleed GI bleed type/associated pathology: unspecified gastrointestinal hemorrhage type Qualified Code(s): K92.2 - Gastrointestinal hemorrhage, unspecified (2) Metastatic disease Area of secondary neoplastic involvement: unspecified site Qualified Code(s): C79.9 - Secondary malignant neoplasm of unspecified site
--- NOTE | 2022-10-17 12:19 | Hospitalist Progress Note ---
Date of Service October 17, 2022 Assessment & Plan (1) Acute blood loss anemia: Plan: This patient is a 77-year-old female with a history of CAD s/p stent, HTN, paroxysmal atrial tachycardia, hyperlipidemia, and remote history of breast cancer s/p lumpectomy/radiation/chemotherapy, who presented to the ER with abnormal lumbar spine MRI showing diffuse skeletal metastases as an outpatient in the setting of progressively worsening lumbar radicular symptoms and lower back pain. She was also found on CT abdomen/pelvis to have omental mass, liver masses, mesenteric adenopathy; CT angiogram chest with subsegmental left lower lobe pulmonary embolism, and small left pleural effusion. On arrival, found to have a hgb of 7.0, BUN of 39, positive occult stool test, and describes intermittent bright red blood on the toilet paper with wiping over the last few months. MCV is normocytic. Likely secondary to occult GI bleeding. Was Hemoccult positive in the ER -She received 1 units PRBC's in hemoglobin up to 8.0 now -Patient GI consultation-plan for EGD and colonoscopy tomorrow -Continue IV Protonix 40 mg BID -Hold both Plavix and aspirin as she is over 1 year out from her coronary artery stents -Follow serial CBC and transfuse as needed if hemoglobin less than 7 and/or hemodynamically unstable or actively bleeding -Check B12, folate-both normal --Added on iron studies to blood drawn prior to transfusion-shows iron deficiency with transferrin saturation of 11%-consider IV Venofer versus repeat transfusion tomorrow -Check TSH in the morning -Check reticulocyte count and consider bone marrow process although seems less likely as WBC and platelet counts are normal -Appreciate gastroenterology and hematology/oncology consultation. (2) Metastatic disease: Plan: -Patient has widespread bony metastatic disease to the spine/calvarium, as well as to the liver and possibly lungs -Patient also noted to have a mass of the omentum, mesenteric adenopathy, and possible adrenal lesions -She has a history of previous breast cancer 23 years ago- -CT head showed possible subdural hemorrhage versus mass-MRI brain performed and confirms meningeal involvement with tumor and rules out ICH -Oncology consult placed, Dr. Campbell-appreciated -Needs tissue biopsy-discussed with radiology-can likely perform ultrasound or CT-guided biopsy of the liver mass after holding Plavix for 5 days -Consult orthopedic spine surgeon given spinal involvement and involvement of epidural space -With neuropathic pain-start gabapentin 100 mg p.o. at bedtime as her pain is worse at night -May need radiation oncology involved in the near future to help with spinal mets (3) Pleural effusion: Plan: Small on the left. CT chest from outside facility reports possible lung mass Consulted pulmonology-he does not feel there is a lung mass there Pleural effusion is too small to perform thoracentesis to get sample for cytology Could be contributing to some of her dyspnea but most likely dyspnea from anemia (4) Pulmonary embolism: Plan: -Patient found to have a subsegmental pulmonary embolus in the LLE on outpatient CTPE -She is currently asymptomatic at rest and stable on RA -Bilateral lower extremity Dopplers negative for DVT -In discussion with oncology, concern for intra-abdominal venous thrombus-start heparin drip and hold 2 hours prior to EGD/colonoscopy tomorrow -Likely will discharge on Lovenox as she will need a biopsy next week as an outpatient and this can be held 24 hours prior to biopsy (5) Spinal stenosis, lumbar region with neurogenic claudication: Plan: Secondary to spinal metastases PT/OT consults placed Continue Tylenol, tramadol as needed Add gabapentin and titrate up as needed consult Ortho spine for epidural involvement of spinal mets may need radiation onc consult (6) UTI (urinary tract infection): Plan: Abnormal urinalysis Order urine culture Start ceftriaxone (7) Elevated LFTs: Plan: AST mildly elevated and alkaline phosphatase elevated Likely secondary to liver mets Follow-up LFTs (8) Paroxysmal atrial tachycardia: Plan: -Stable, possible small Remdesivir Does not leak recorder in place -continue metoprolol (9) S/P coronary artery stent placement: Plan: -hold aspirin and plavix with her current GI bleed and need for biopsy (10) Hypertension: Plan: -Stable -Continue metopolol but hold lisinopril for now to prevent hypotension (11) Anxiety: Plan: -Continue fluoxetine (12) Hyperlipidemia: Plan: -Continue statin Plan Disposition-continued stay in PCU Overall spent 100 minutes in prolonged service care time on this patient today Admission and Anticipated Discharge Date Admission Date: October 16, 2022 Subjective I saw the patient on 2 occasions today. In the morning, she reported feeling much improved since receiving the blood transfusion and pain medicine on arrival. The pain in her back and legs was improved and she felt much less dyspneic on exertion and much less fatigue in her legs with walking to the bathroom and back in the room today. She reports the pain in her lower back and radiating down her legs is the worst at nighttime. She denies any hematemesis or hematochezia. She has occasional bright red blood on toilet paper with wiping after a bowel movement that has been intermittent for a few months. No melena. No hematuria. No bleeding from anywhere else. She had a colonoscopy over 20 years ago and has never had an EGD. No changes in bowel habits. Denies any breast masses or lumps I discussed her care with numerous specialist today to include oncology, gastroenterology, radiology, and pulmonology. I also discussed her care with her at the bedside. I went back to see the patient again in the evening to discuss starting on a heparin drip and to review the results of her brain MRI. Review of Systems Review of Systems: All systems reviewed & are unremarkable except as noted in HPI & below Physical Exam Constitutional: WD/WN, vitals as above Eyes: + anicteric sclerae, PERRL and EOM intact bilaterally; no anisocoria and no nystagmus ENMT: external ear and nose normal, oropharynx normal Neck: trachea midline, no thyromegaly Respiratory: normal respiratory effort, lungs clear to auscultation Cardiovascular: RRR, no murmur, no edema Chest (Breasts): Chest: normal inspection of chest Gastrointestinal (Abdomen): normal bowel sounds, soft, nontender, no hepatosplenomegaly Musculoskeletal: Extremities: extremities normal to inspection; no cyanosis and no clubbing Skin: no rashes, warm and dry Neurologic: moves all extremities and awake; no focal motor deficits Psychiatric: A+Ox3, euthymic affect Lymphatic: no lymphedema Results & Data Results & Data ([facility]) Vital Signs (Past 12 Hours) Vital Signs Temp Pulse Pulse Resp BP BP Pulse Ox 10/17/22 08:03 36.7 C 110 H 16 125/76 96 10/17/22 01:00 10/17/22 02:23 36.9 C 90 18 123/75 98 10/17/22 02:00 100 H 10/17/22 01:52 36.7 C 114 H 18 124/66 99 10/17/22 01:02 10/17/22 01:03 36.9 C 105 H 18 118/72 99 10/17/22 00:52 36.9 C 105 H 18 118/72 99 10/17/22 00:22 36.9 C 10/17/22 00:22 94 H 18 127/68 97 O2 Del Method O2 Del Method 10/17/22 08:03 Room Air 10/17/22 01:00 Room Air 10/17/22 02:23 10/17/22 02:00 10/17/22 01:52 10/17/22 01:02 Room Air 10/17/22 01:03 Room Air 10/17/22 00:52 10/17/22 00:22 10/17/22 00:22 Laboratory Results CBC, CMP, urinalysis reviewed PG Care Time/CCT Total # of Minutes Spent Total Time Spent with Patient: Total time spent is greater than 50% in coordination of care (as documented) at patient's floor/unit and/or counseling patient: Coding Level of Care Code 62832 SUB INP/OBS CARE 3/50MIN Diagnoses Acute blood loss anemia D62 Metastatic disease C79.9 Area of secondary neoplastic involvement: unspecified site Pleural effusion J90 Pulmonary embolism I26.99 Spinal stenosis, lumbar region with neurogenic claudication M48.062 UTI (urinary tract infection) N39.0 Elevated LFTs R79.89 Paroxysmal atrial tachycardia I47.1 S/P coronary artery stent placement Z95.5 Hypertension I10 Hypertension type: unspecified Anxiety F41.9 Hyperlipidemia E78.5 (1) Metastatic disease Area of secondary neoplastic involvement: unspecified site Qualified Code(s): C79.9 - Secondary malignant neoplasm of unspecified site (2) Hypertension Hypertension type: unspecified Qualified Code(s): I10 - Essential (primary) hypertension
--- NOTE | 2022-10-17 12:35 | Pulmonary Consultation ---
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: (2) Pulmonary embolism: (3) Pleural effusion: (4) Multiple pulmonary nodules determined by computed tomography of lung: Plan CT chest 10/16/2022 personally reviewed: Centrilobular emphysema appreciated bilaterally, left upper lobe scarring with bronchiectasis, motion degraded study Multiple small pulmonary nodules appreciated bilaterally Left-sided small pleural effusion No significant mediastinal lymphadenopathy -- Left-sided pleural effusion Could be malignant Unfortunately it is not big enough for me to do thoracentesis --Acute subsegmental PE Likely from underlying malignancy Patient is saturating well on room air She is currently off anticoagulation given the anemia Doppler of the lower extremities were negative Can consider starting heparin drip. No need for IVC filter given negative Dopplers -- Multiple pulmonary nodules They have been stable compared to previous CAT scan --History of left-sided breast cancer Status postlumpectomy chemo and radiation in 1998 Plan: I discussed the case with Dr. Anaya from radiology after looking at the CAT scan of the chest myself. I do not see any mass in the left lower lobe. She does have small left-sided pleural effusion. I did a bedside ultrasound today which showed very small left-sided pleural effusion with lung going over the diaphragm which each breath. No right-sided pleural effusion There is no absolute contraindication from pulmonary perspective for the patient to undergo colonoscopy or EGD. She is saturating well on room air. No further recommendation for pulmonary perspective. We will sign off, please call directly with any questions Discussed with Dr. Ham and Dr. Arce Please note the above document was generated using voice recognition software. It may contain grammatical, syntax or spelling errors.Any formal questions or concerns about the content, text or information contained within the body of this dictation should be directly addressed to the provider for clarification. History of Present Illness Attending Physician: Zoe Ham MD History of Present Illness 77-year-old female was admitted to the hospital for lethargy and anemia Past medical history: Coronary disease s/p stent, dyslipidemia, hypertension, PE diagnosed 10/16/2022, history of breast CA 1998 s/p chemo and radiation after lumpectomy Pulmonary consulted for abnormal chest CT At the time of examination patient was resting comfortably. Saturating 96-97% on room air Denied any headache, no nausea, no vomiting No chest pain, no chest tightness No headache, no blurry vision She did complain of shortness of breath on exertion that is how she ended up with a CTA chest but the time of examination she denied any issues with her b reathing Patient has lost approximately 30 pounds in short duration of time which was unintentional She has no appetite. Denies any fever or chills No dysuria. No diarrhea Does have some occasional blood in the stool which she refers to be from hemorrhoids Social history: Lifetime non-smoker. 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 Allergies Allergy/AdvReac Type Severity Reaction Status Date / Time alendronate sodium AdvReac Severe Unable to Verified 10/16/22 20:52 [From Fosamax] ambulate Home Medications Medication Instructions Recorded Confirmed Type aspirin 81 mg tablet,delayed 81 mg PO QAM 04/03/21 10/16/22 History release biotin 1 mg capsule 1 mg PO QAM 04/03/21 10/16/22 History [id number] 1 tab PO QAM 04/03/21 10/16/22 History tablet (Multivitamin 50 Plus tablet) nitroglycerin 0.4 mg sublingual 0.4 mg sublingual UD PRN chest 04/05/21 10/16/22 Rx tablet (Nitrostat) pain #25 tabs rosuvastatin 40 mg tablet (Crestor) 40 mg PO DAILY #90 tabs 12/26/21 10/07/22 Rx lisinopril 10 mg tablet 10 mg PO QAM #90 tabs 03/22/22 10/16/22 Rx metoprolol succinate 50 mg 50 mg PO DAILY #90 tabs 03/22/22 10/16/22 Rx tablet,extended release 24 hr acetaminophen 650 mg 650 mg PO QPM PRN Pain 05/24/22 10/16/22 History tablet,extended release (Tylenol Arthritis Pain) clopidogrel 75 mg tablet (Plavix) 75 mg PO DAILY #90 tabs 05/27/22 10/16/22 Rx vitamin B12 500 mcg-folic acid 400 1 tab PO DAILY #30 tabs 08/13/22 10/16/22 Rx mcg tablet fluoxetine 10 mg capsule 10 mg PO DAILY #90 caps 09/16/22 10/16/22 Rx Patient History Medical History Abnormal stress echo Arthritis Breast cancer CAD (coronary artery disease) Hyperlipidemia Hypertension Multiple pulmonary nodules determined by computed tomography of lung Multiple pulmonary nodules determined by computed tomography of lung Non-ST elevation (NSTEMI) myocardial infarction Osteopenia Paroxysmal atrial tachycardia Surgical History H/O: hysterectomy History of appendectomy History of lumpectomy of left breast History of wisdom tooth extraction S/P coronary artery stent placement Family History Mother Breast cancer Father Stroke Denies family history of Ovarian cancer Prostate cancer Myocardial infarction Colorectal cancer Social History Smoking Status: Never smoker Second Hand Exposure: No; Do You Dip or Chew Tobacco: No; Tobacco Cessation Education Requested by Patient: No Hx Alcohol Use: Yes Alcohol type: wine Hx Substance Use: No Preferred Language: Iranian Communication Ability: Effective Visual Impairment: Limited Hearing Ability: Normal 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 Beliefs That Will Affect Care: None marital status: / Current Living Situation: Spouse current occupational status: retired Other Information That Helps Us Care for You: No Feels Safe at Home: Yes Safety Concerns: Feels Safe At This Time Childhood Exposure to Second-Hand Smoke: No caffeine: Yes during the past year weight has: remained stable Dental Care, Regularly: Yes Physical Activity Frequency: Daily Seatbelt Use: always Sunscreen Use: No Assistive Devices: Walker Review of Systems Review of Systems: All systems reviewed & are unremarkable except as noted in HPI & below Physical Exam Physical Exam: Constitutional: No acute distress HEENT: EOMI, PERRLA Respiratory system: Mild decreased air entry in the left side, no wheeze, no rhonchi, no crackles CVS: S1-S2 positive, no murmurs or gallops Abdomen: Soft, nontender, nondistended, positive bowel sounds x4 Extremities: +2 pulses bilaterally radialis/ dorsalis pedis, no cyanosis, no edema Neuro: Awake alert oriented x3 Psych: Normal mood and affect G/U: No Fonseca Skin: no rashes, warm and dry Lymphatic: no cervical or axillary lymphadenopathy Results & Data Results & Data ([facility]) Vital Signs (Past 12 Hours) Vital Signs Temp Pulse Pulse Resp BP BP Pulse Ox 10/17/22 08:03 36.7 C 110 H 16 125/76 96 10/17/22 01:00 10/17/22 02:23 36.9 C 90 18 123/75 98 10/17/22 02:00 100 H 10/17/22 01:52 36.7 C 114 H 18 124/66 99 10/17/22 01:02 10/17/22 01:03 36.9 C 105 H 18 118/72 99 10/17/22 00:52 36.9 C 105 H 18 118/72 99 O2 Del Method O2 Del Method 10/17/22 08:03 Room Air 10/17/22 01:00 Room Air 10/17/22 02:23 10/17/22 02:00 10/17/22 01:52 10/17/22 01:02 Room Air 10/17/22 01:03 Room Air 10/17/22 00:52 Laboratory Results 10/17/22 14:49 10/17/22 06:51 PG Care Time/CCT Total # of Minutes Spent Total Time Spent with Patient: Total time spent is greater than 50% in coordination of care (as documented) at patient's floor/unit and/or counseling patient: Coding Level of Care Code 16819 INT INP/OBS CARE MIN Diagnoses 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
--- NOTE | 2022-10-17 12:39 | Electrocardiogram Report ---
Test Reason : Blood Pressure : / mmHG Vent. Rate : 113 BPM Atrial Rate : 178 BPM P-R Int : 000 ms QRS Dur : 112 ms QT Int : 370 ms P-R-T Axes : 000 -18 -26 degrees QTc Int : 507 ms Poor data quality, interpretation may be adversely affected Atrial fibrillation with rapid ventricular response Incomplete right bundle branch block Nonspecific ST and T wave abnormality Anterior leads Abnormal ECG When compared with ECG of 05-APR-2021 06:12, Atrial fibrillation now present HR has increased by 44 bpm Incomplete right bundle branch block is now Present Criteria for Septal infarct are no longer Present Confirmed by Gus Ann ([id number]) on 10/17/2022 12:39:44 PM Referred By: Soheila Reyna Confirmed By:Gus Ann
[2022-10-17] MEDS ORDERED: GADOBUTROL 65ML VIAL IV ONE (12:41)
--- NOTE | 2022-10-17 13:07 | Magnetic Resonance Report ---
MRI OF THE BRAIN COMBO CLINICAL HISTORY: Abnormal CT of the brain. Metastatic disease. COMPARISON STUDY: CT of the brain dated 10/27/2022. TECHNIQUE: MRI of the brain was performed utilizing various T1 and T2-weighted sequences in the axial , sagittal, and coronal planes. Contrast-enhanced sequences were acquired following the administratio n of 6 cc of Gadavist. FINDINGS: Brain parenchyma: There is age-related involutional change noting minimal microangiopathic disease. T here is no hemorrhage or midline shift. There is no restricted diffusion typical for acute ischemia. Rosa-white matter differentiation is preserved. The cerebellar tonsils are normal in configuration. T here is diffuse pachymeningeal thickening and enhancement, greatest on the left convexity. This measu res up to 7 mm in thickness and corresponds to the abnormality seen on today's CT scan. The appearanc e is most typical for metastatic disease. No extra-axial hemorrhage is identified. Patchy meningeal t hickening and enhancement is also seen posterior to the cerebellar hemispheres. A small focus of thic kening enhancement is seen along the right aspect of the posterior falx on axial postcontrast image # 12. Ventricles, sulci, and cisterns: Prominent secondary to positional change. Pituitary and sella: Unremarkable. Intracranial vasculature: Normal flow voids are maintained at the skull base. Orbits: The bony orbits are grossly intact. Orbital contents are normal in appearance. Sinuses and mastoids: There is a large left mastoid effusion with fluid in the left middle ear. The r ight mastoid air cells are clear, as are the paranasal sinuses. Calvarium: There is evidence of diffuse calvarial metastatic disease. Cervical cord: Partially visualized cervical spinal cord is normal in morphology and signal intensity . IMPRESSION: 1. There is no hemorrhage, midline shift, or evidence of acute ischemia. 2. Again seen is extensive/diffuse calvarial metastatic disease. 3. There is diffuse an asymmetric pachymeningeal thickening and enhancement, greatest along the left convexity as detailed above. This likely represents metastatic disease and corresponds to the abnorma lity seen on today's CT scan. 4. No extra-axial hemorrhage is identified. ACT 112: Negative or not required by law. Electronically signed by: Landry Calloway M.D. 10/17/2022 1:06 PM
--- NOTE | 2022-10-17 13:30 | XRay Report ---
XR chest 2V PA/lateral HISTORY: pleural effusion COMPARISON: Outside hospital chest CTA 10/16/2022. Chest x-ray 06/30/2019. FINDINGS: No pneumothorax. A small left pleural effusions and left basilar densities persist. Moderat e emphysema. No new focal lung consolidations identified. No evidence for pulmonary edema. The heart is borderline enlarged. There are calcifications within the aortic knob. A loop recorder seen within the left anterior chest. IMPRESSION: 1. No change in the small left pleural effusion and left basilar densities. 2. Follow-up to resolution is recommended for the left basilar densities. ACT 112: Negative or not required by law. Electronically signed by: Kieran Smith M.D. 10/17/2022 1:28 PM
[2022-10-17] MEDS: LACTATED RINGER'S 1,000 ML IV SCH (13:40)
[2022-10-17 15:03] LABS: Hematocrit (blood only) 24.6 % (37.0-47.0); Mean Corpuscular Hemoglobin 29.7 pg (25.0-34.0); Mean Corpuscular Hgb Conc 32.5 g/dL (32.0-36.0); Mean Corpuscular Volume 91.4 fL (80.0-100.0); Mean Platelet Volume 8.6 fL (9.4-12.4); Platelet Count 301 K/uL (130-400); RDW Coefficient of Variation 16.2 % (11.5-14.5); RDW Standard Deviation 52.9 fL (36.4-46.3); Red Blood Count 2.69 M/uL (4.20-5.40); White Blood Count 6.66 K/ul (4.8-10.8)
--- NOTE | 2022-10-17 15:32 | Neurology Consultation ---
Date of Consultation October 17, 2022 Assessment & Plan (1) Metastasis to spinal column: Impression: The patient has been having low back pain, neurogenic claudication, right leg weakness, and left sciatica symptoms. Unfortunately, imaging studies showed extensive spinal bony metastases as well as dural, calvarial, and meningeal metastatic involvement. She denies any sciatica symptoms or low back pain at this time. Recommendations/plan: Hematology and oncology consultation. The patient will probably need radiation therapy and chemotherapy. The patient does not have neuropathic pain at this time. If she develops neuropathic pain including low back pain, leg pain, then gabapentin 200 mg twice a day will be helpful. Dosage might be titrated up gradually as needed. We do not have additional recommendations at this time. Please contact with neurology again as needed. 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 Apparently, the patient was recently seen by Dr. Laguerre at neurology clinic, for progressive, ambulatory dysfunction, lower extremity weakness, atrophy of right quadriceps muscle, and symptoms suggestive of neurogenic claudication. Based on MRI findings, the patient was admitted to the hospital. The laboratory work-up also showed low hemoglobin level, and fecal occult positive test. The patient was on anticoagulation for pulmonary embolism, and double antiplatelet treatment for coronary artery stent placement. Anticoagulation and Plavix were stopped, and the patient was kept on aspirin. Brain MRI showed calvarial, and meningeal metastasis. She was seen by gastroenterology and endoscopy was recommended. The patient received packed red blood cells, with improvement of generalized fatigue. Currently, she denies any low back pain, and she was able to ambulate, without claudication symptoms. She believes that she has been having low back pain as well as lower extremity sensorimotor symptoms for at least the last few months. The patient denies bowel or bladder incontinence, or sensory leveling. Hematology and oncology consultation is pending. I have reviewed the patient's chart including imaging studies and visualized them personally. I have discussed the case with the patient and . I have answered their questions in detail. Allergies Allergy/AdvReac Type Severity Reaction Status Date / Time alendronate sodium AdvReac Severe Unable to Verified 10/16/22 20:52 [From Fosamax] ambulate Home Medications Medication Instructions Recorded Confirmed Type aspirin 81 mg tablet,delayed 81 mg PO QAM 04/03/21 10/16/22 History release biotin 1 mg capsule 1 mg PO QAM 04/03/21 10/16/22 History eqldlfemjusr-xkyqkbjo-psrkce 1 tab PO QAM 04/03/21 10/16/22 History tablet (Multivitamin 50 Plus tablet) nitroglycerin 0.4 mg sublingual 0.4 mg sublingual UD PRN chest 04/05/21 10/16/22 Rx tablet (Nitrostat) pain #25 tabs rosuvastatin 40 mg tablet (Crestor) 40 mg PO DAILY #90 tabs 12/26/21 10/07/22 Rx lisinopril 10 mg tablet 10 mg PO QAM #90 tabs 03/22/22 10/16/22 Rx metoprolol succinate 50 mg 50 mg PO DAILY #90 tabs 03/22/22 10/16/22 Rx tablet,extended release 24 hr acetaminophen 650 mg 650 mg PO QPM PRN Pain 05/24/22 10/16/22 History tablet,extended release (Tylenol Arthritis Pain) clopidogrel 75 mg tablet (Plavix) 75 mg PO DAILY #90 tabs 05/27/22 10/16/22 Rx vitamin B12 500 mcg-folic acid 400 1 tab PO DAILY #30 tabs 08/13/22 10/16/22 Rx mcg tablet fluoxetine 10 mg capsule 10 mg PO DAILY #90 caps 09/16/22 10/16/22 Rx Patient History Medical History Abnormal stress echo Arthritis Breast cancer CAD (coronary artery disease) Hyperlipidemia Hypertension Multiple pulmonary nodules determined by computed tomography of lung Multiple pulmonary nodules determined by computed tomography of lung Non-ST elevation (NSTEMI) myocardial infarction Osteopenia Paroxysmal atrial tachycardia Surgical History H/O: hysterectomy History of appendectomy History of lumpectomy of left breast History of wisdom tooth extraction S/P coronary artery stent placement Family History Mother Breast cancer Father Stroke Denies family history of Ovarian cancer Prostate cancer Myocardial infarction Colorectal cancer Social History Smoking Status: Never smoker Second Hand Exposure: No; Do You Dip or Chew Tobacco: No; Tobacco Cessation Education Requested by Patient: No Hx Alcohol Use: Yes Alcohol type: wine Hx Substance Use: No Preferred Language: Iranian Communication Ability: Effective Visual Impairment: Limited Hearing Ability: Normal Optometric Technologist Required: No Beliefs That Will Affect Care: None marital status: / Current Living Situation: Spouse current occupational status: retired Other Information That Helps Us Care for You: No Feels Safe at Home: Yes Safety Concerns: Feels Safe At This Time Childhood Exposure to Second-Hand Smoke: No caffeine: Yes during the past year weight has: remained stable Dental Care, Regularly: Yes Physical Activity Frequency: Daily Seatbelt Use: always Sunscreen Use: No Assistive Devices: Walker Review of Systems Review of Systems: All systems reviewed & are unremarkable except as noted in HPI & below Physical Exam Physical Exam: General Examination: Constitutional: Well developed person in no acute distress. HENT: Normal exam with inspection. CV: Hearth rhythm is regular. Neck: Supple, no carotid bruits. Lungs: Non-labored and comfortable breathing. Abdomen: Soft, non-tender, non-distended. Skin: No rash or ecchymosis. Extremities: No edema or cyanosis NEUROLOGICAL EXAMINATION: Mental Status: Alert and oriented to place, person and time. Cranial Nerves: II-XII are intact. No nystagmus. Funduscopy: Normal looking optic discs. Motor: 5/5 in upper extremities without asymmetry. Right hip flexors are 4 out of 5, right knee extensors 4+ out of 5, left lower extremity strength is 5- out of 5, and bilateral ankle dorsiflexors are 5- out of 5. Tone: Normal without spasticity or rigidity. Sensory: Decreased sensation in distal lower extremities up to mid calves. There is also paresthesia of left buttock, which radiates down to lateral leg, and lateral foot. Coordination: No dysmetria with FTN testing. Speech: Fluent. Comprehension is intact. Gait: Slightly wide-based but steady. There is no ataxia. Musculoskeletal: Slight atrophy old right quads. DTRs: 2+ in upper extremities, 1+ in right knee, 2+ in left knee and trace in ankles. No Babinsky. Results & Data ([facility]) Vital Signs (Past 12 Hours) Vital Signs Temp Pulse Pulse Resp BP Pulse Ox O2 Del Method 10/17/22 13:31 84 10/17/22 08:03 36.7 C 110 H 16 125/76 96 Room Air Laboratory Results Laboratory Results - last 24 hr 10/16/22 10/16/22 10/16/22 20:03 20:03 20:03 WBC 9.34 RBC 2.44 L Hgb 7.0 L Hct 21.9 L MCV 89.8 MCH 28.7 MCHC 32.0 RDW Std Deviation 54.0 H RDW Coeff of Tana 16.3 H Plt Count 380 MPV 8.7 L Immature Gran % (Auto) 0.4 Neut % (Auto) 77.3 Lymph % (Auto) 14.5 [place] % (Auto) 7.6 Eos % (Auto) 0.0 Baso % (Auto) 0.2 Neut # (Auto) 7.22 H Lymph # (Auto) 1.35 [place] # (Auto) 0.71 H Eos # (Auto) 0.00 Baso # (Auto) 0.02 Immature Gran # (Auto) 0.04 Polychromasia 1+ PT 11.2 INR 1.1 APTT 24.8 PTT Ratio 0.9 Sodium 140 Potassium 4.4 Chloride 104 Carbon Dioxide 25 Anion Gap 11 BUN 39 H Creatinine 0.60 Est Cr Clr Drug Dosing 72.9 Est GFR ( Amer) 103.3 Est GFR (Non-Af Amer) 89.2 BUN/Creatinine Ratio 65.0 H Glucose 113 H Calcium 9.4 Magnesium Total Bilirubin 0.4 AST 72 H ALT 17 Alkaline Phosphatase 375 H Troponin I High Sens 7.8 Total Protein 6.9 Albumin 3.6 Globulin 3.3 Albumin/Globulin Ratio 1.1 Lipase 51 SARS-CoV-2, RNA, NAAT Blood Type Blood Type Recheck Antibody Screen Crossmatch 10/16/22 10/16/22 10/16/22 21:10 21:48 22:25 WBC RBC Hgb Hct MCV MCH MCHC RDW Std Deviation RDW Coeff of Tana Plt Count MPV Immature Gran % (Auto) Neut % (Auto) Lymph % (Auto) [place] % (Auto) Eos % (Auto) Baso % (Auto) Neut # (Auto) Lymph # (Auto) [place] # (Auto) Eos # (Auto) Baso # (Auto) Immature Gran # (Auto) Polychromasia PT INR APTT PTT Ratio Sodium Potassium Chloride Carbon Dioxide Anion Gap BUN Creatinine Est Cr Clr Drug Dosing Est GFR ( Amer) Est GFR (Non-Af Amer) BUN/Creatinine Ratio Glucose Calcium Magnesium Total Bilirubin AST ALT Alkaline Phosphatase Troponin I High Sens Total Protein Albumin Globulin Albumin/Globulin Ratio Lipase SARS-CoV-2, RNA, NAAT NEGATIVE Blood Type A Positive Blood Type Recheck A Positive Antibody Screen NEGATIVE Crossmatch See Detail 10/17/22 10/17/22 10/17/22 02:36 06:51 06:51 WBC 6.98 6.84 RBC 2.64 L 2.76 L Hgb 7.9 L 8.3 L Hct 24.2 L 25.4 L MCV 91.7 92.0 MCH 29.9 30.1 MCHC 32.6 32.7 RDW Std Deviation 53.2 H 53.5 H RDW Coeff of Tana 15.9 H 16.0 H Plt Count 317 324 MPV 8.6 L 8.8 L Immature Gran % (Auto) Neut % (Auto) Lymph % (Auto) [place] % (Auto) Eos % (Auto) Baso % (Auto) Neut # (Auto) Lymph # (Auto) [place] # (Auto) Eos # (Auto) Baso # (Auto) Immature Gran # (Auto) Polychromasia PT 11.2 INR 1.1 APTT PTT Ratio Sodium Potassium Chloride Carbon Dioxide Anion Gap BUN Creatinine Est Cr Clr Drug Dosing Est GFR ( Amer) Est GFR (Non-Af Amer) BUN/Creatinine Ratio Glucose Calcium Magnesium Total Bilirubin AST ALT Alkaline Phosphatase Troponin I High Sens Total Protein Albumin Globulin Albumin/Globulin Ratio Lipase SARS-CoV-2, RNA, NAAT Blood Type Blood Type Recheck Antibody Screen Crossmatch 10/17/22 10/17/22 06:51 14:49 WBC 6.66 RBC 2.69 L Hgb 8.0 L Hct 24.6 L MCV 91.4 MCH 29.7 MCHC 32.5 RDW Std Deviation 52.9 H RDW Coeff of Tana 16.2 H Plt Count 301 MPV 8.6 L Immature Gran % (Auto) Neut % (Auto) Lymph % (Auto) [place] % (Auto) Eos % (Auto) Baso % (Auto) Neut # (Auto) Lymph # (Auto) [place] # (Auto) Eos # (Auto) Baso # (Auto) Immature Gran # (Auto) Polychromasia PT INR APTT PTT Ratio Sodium 139 Potassium 4.2 Chloride 103 Carbon Dioxide 28 Anion Gap 8 BUN 33 H Creatinine 0.51 L Est Cr Clr Drug Dosing 85.8 Est GFR ( Amer) 109.0 Est GFR (Non-Af Amer) 94.1 BUN/Creatinine Ratio 64.7 H Glucose 95 Calcium 9.3 Magnesium 1.9 Total Bilirubin 0.8 AST 65 H ALT 14 Alkaline Phosphatase 324 H Troponin I High Sens Total Protein 6.6 Albumin 3.3 L Globulin 3.3 Albumin/Globulin Ratio 1.0 Lipase SARS-CoV-2, RNA, NAAT Blood Type Blood Type Recheck Antibody Screen Crossmatch Diagnostic Findings Venous Doppler Study 10/17/22 00:00 BILATERAL LOWER EXTREMITY VENOUS DOPPLER HISTORY: Screening study in a patient with pulmonary embolus newly diagnosed PE, monitor for DVT COMPARISON STUDY: CTA chest 10/16/2022. FINDINGS: There is normal compressibility, flow, and augmentation within the bilateral lower extremity deep venous systems. IMPRESSION: No DVT within the right or left lower extremity. ACT 112: Negative or not required by law. Electronically signed by: Tony Rausch M.D. 10/17/2022 9:[address] 10/17/22 01:31 CT OF THE HEAD WITHOUT CONTRAST CLINICAL HISTORY: ?malignancy COMPARISON STUDY: No previous studies for comparison. CT DOSE: 614.27 mGy.cm TECHNIQUE: Helical axial images of the head were obtained without IV contrast. Automated exposure control was utilized for the study. A dose lowering technique was utilized adhering to the principles of ALARA. FINDINGS: Note is made of hyperdense material within the left subdural space, measuring 5 mm in thickness, overlying the left cerebral hemisphere. There is minimal mass effect. The contour of the material is slightly lobulated. There may be a small amount of intravascular contrast from recent contrast-enhanced CT. Basal cisterns are patent. No evidence for herniation. No findings to suggest acute dural sinus thrombosis or acute territorial infarct. No calvarial fracture is noted. Left mastoid air cells are partially opacified. IMPRESSION: Hyperdense material within the left subdural space, as described above. This could reflect subdural hemorrhage. However, dural extension of tumor could appear similar given extensive calvarial metastases. An MRI of the brain with and without contrast is recommended for further evaluation. This finding will be called/faxed to the ordering provider at time of dictation. ACT 112: Negative or not required by law. Electronically signed by: Adithya Anaya M.D. 10/17/2022 10:02 AM Brain MRI 10/17/22 10:13 MRI OF THE BRAIN COMBO CLINICAL HISTORY: Abnormal CT of the brain. Metastatic disease. COMPARISON STUDY: CT of the brain dated 10/27/2022. TECHNIQUE: MRI of the brain was performed utilizing various T1 and T2-weighted sequences in the axial, sagittal, and coronal planes. Contrast-enhanced sequences were acquired following the administration of 6 cc of Gadavist. FINDINGS: Brain parenchyma: There is age-related involutional change noting minimal microangiopathic disease. There is no hemorrhage or midline shift. There is no restricted diffusion typical for acute ischemia. Rosa-white matter differentiation is preserved. The cerebellar tonsils are normal in configuration. There is diffuse pachymeningeal thickening and enhancement, greatest on the left convexity. This measures up to 7 mm in thickness and corresponds to the abnormality seen on today's CT scan. The appearance is most typical for metastatic disease. No extra-axial hemorrhage is identified. Patchy meningeal thickening and enhancement is also seen posterior to the cerebellar hemispheres. A small focus of thickening enhancement is seen along the right aspect of the posterior falx on axial postcontrast image #12. Ventricles, sulci, and cisterns: Prominent secondary to positional change. Pituitary and sella: Unremarkable. Intracranial vasculature: Normal flow voids are maintained at the skull base. Orbits: The bony orbits are grossly intact. Orbital contents are normal in appearance. Sinuses and mastoids: There is a large left mastoid effusion with fluid in the left middle ear. The right mastoid air cells are clear, as are the paranasal sinuses. Calvarium: There is evidence of diffuse calvarial metastatic disease. Cervical cord: Partially visualized cervical spinal cord is normal in morphology and signal intensity. IMPRESSION: 1. There is no hemorrhage, midline shift, or evidence of acute ischemia. 2. Again seen is extensive/diffuse calvarial metastatic disease. 3. There is diffuse an asymmetric pachymeningeal thickening and enhancement, greatest along the left convexity as detailed above. This likely represents metastatic disease and corresponds to the abnormality seen on today's CT scan. 4. No extra-axial hemorrhage is identified. ACT 112: Negative or not required by law. Electronically signed by: Landry Calloway M.D. 10/17/2022 1:06 PM Chest X-Ray 10/17/22 11:48 XR chest 2V PA/lateral HISTORY: pleural effusion COMPARISON: Outside hospital chest CTA 10/16/2022. Chest x-ray 06/30/2019. FINDINGS: No pneumothorax. A small left pleural effusions and left basilar densities persist. Moderate emphysema. No new focal lung consolidations identified. No evidence for pulmonary edema. The heart is borderline enlarged. There are calcifications within the aortic knob. A loop recorder seen within the left anterior chest. IMPRESSION: 1. No change in the small left pleural effusion and left basilar densities. 2. Follow-up to resolution is recommended for the left basilar densities. ACT 112: Negative or not required by law. Electronically signed by: Kieran Smith M.D. 10/17/2022 1:28 PM (1) Metastatic disease Area of secondary neoplastic involvement: unspecified site Qualified Code(s): C79.9 - Secondary malignant neoplasm of unspecified site
[2022-10-17] MEDS ORDERED: POLYETHYLENE (MIRALAX) 17 GM PACK PO ONE (17:20)
[2022-10-17] MEDS ORDERED: bisacodyL 5 MG TABEC PO ONE (17:22)
[2022-10-17] MEDS ORDERED: Heparin IV Adult Wt-Based Standard *NO* Bolus Protocol IV SCH (18:17)
[2022-10-17 19:21] LABS: Basophils # (auto) 0.02 K/uL (0-0.2); Basophils % (auto) 0.3 %; Hemoglobin 7.5 g/dl (12.0-16.0); Immature Granulocytes # (auto) 0.04 K/uL (0.01-0.20); Immature Granulocytes % (auto) 0.6 %; Lymphocytes # (auto) 1.34 K/uL (1.2-3.4); Lymphocytes % (auto) 19.1 %; Mean Corpuscular Hemoglobin 29.5 pg (25.0-34.0); Mean Corpuscular Hgb Conc 32.6 g/dL (32.0-36.0); Mean Corpuscular Volume 90.6 fL (80.0-100.0); Mean Platelet Volume 8.7 fL (9.4-12.4); Monocytes # (auto) 0.85 K/uL (0.11-0.59); Monocytes % (auto) 12.1 %; Neutrophils # (auto) 4.76 K/uL (1.40-6.50); Neutrophils % (auto) 67.9 %; Platelet Count 288 K/uL (130-400); RDW Coefficient of Variation 16.2 % (11.5-14.5); RDW Standard Deviation 52.9 fL (36.4-46.3); Red Blood Count 2.54 M/uL (4.20-5.40); Reticulocyte % 2.6 % (0.5-2.0); Reticulocytes # 0.07 10^6/uL (0.02-0.10); White Blood Count 7.01 K/ul (4.8-10.8)
[2022-10-17 19:36] LABS: Ferritin 298.6 ng/ml (8-388)
[2022-10-17 19:44] LABS: Polychromasia 1+
[2022-10-17 19:53] LABS: INR 1.1 (0.9-1.1); Prothrombin Time 11.6 Seconds (9.0-12.0)
[2022-10-17] MEDS ORDERED: POLYETHYLENE (MIRALAX) 17 GM PACK PO SCH (20:00)
[2022-10-17] MEDS: HEPARIN SODIUM/DEXTROSE 25,000 UNITS/500 ML BAG IV SCH (20:10)
[2022-10-17] MEDS: GABAPENTIN 100 MG CAP PO SCH (20:10)
--- NOTE | 2022-10-17 22:14 | Consultation ---
Date of Consultation October 17, 2022 Assessment & Plan (1) Pulmonary embolism: While the current pulmonary emboli are relatively small and asymptomatic, they could be harbingers of more threatening venous thromboembolism to come. This may be her most acutely threatening issue but there is appropriate over a nticoagulation and any exacerbation it might cause of her anemia/possible GI bleed. Hospitalist service does feel that they could closely monitor and initiate cautious anticoagulation with heparin which could be rapidly reversed if needed. We will hopefully be able to quickly assess the GI tract and more definitively mitigate any bleeding issues so that we can proceed with anticoagulation ongoing. Given that there does not seem to be clear origin of clot from the lower extremities, an abdominal source for the pulmonary emboli is a strong possibility that could correspond to what appears to be a potentially abdominal malignancy either primary or at least metastatic. If pulmonary emboli are from an abdominal source it may be less technically feasible or helpful to place an IVC filter. Abdominal imaging was done at an outside facility but we may need further studies to determine whether or not there are specific areas of clot in the abdomen to make a final determination as to whether a filter could be a contingency It seems a strong possibility/likelihood that we are dealing with a malignancy associated thrombotic process. (2) Acute blood loss anemia: Patient has a hypoproductive anemia with low reticulocyte count, normal MCV though if there is relatively acute issues of blood loss the remaining population may still be normocytic. Ferritin is elevated but this is in the context of potential liver metastases and thus may not be an accurate reflection of iron status. She does have low percent saturation suggesting iron deficiency which is further compounded by the lesser red cell mass and deficit of red cell iron. In addition to the transfusion it could well be worthwhile to consider additional iron supplementation perhaps 2 doses of Venofer 300 mg intravenously given 5 days apart to start Await GI evaluation as to possible source of blood loss and will need to cautiously approach anticoagulation until there has been a more definitive GI review Note that malignant involvement of bone marrow may be an additional component of her current anemia but marrow biopsy would not likely affect acute management. May consider that in time (3) Breast cancer: Remote history of an apparently node positive/hormonal positive breast cancer. That particular subset of breast ca can certainly result in late recurrences even 10 to 20 years after primary diagnosis though the current presentation would be somewhat atypical with the potential involvement of meningeal tissues. Await more definitive biopsy (4) Metastatic disease: Patient has what appears to be a widespread metastatic process involving multiple skeletal metastases, multiple liver metastases, possible omental mass. Smaller lung nodules are somewhat more nonspecific. There appears to be some meningeal involvement though she is not having dramatic symptomatology to go along with that. This has been associated with a Trousseau's-like presentation with small pulmonary emboli. She has a history of breast cancer as above but while it is not completely inconceivable a late and widespread metastatic presentation like this would certainly be unusual for that She is a non-smoker making lung and other typically smoking-related cancers less likely. She has not pursued regular colonoscopy and there is an omental mass and cer tainly I think we have to place a primary abdominal malignancy relatively high on our differential diagnostic list. Apparently will have colonoscopy tomorrow and we may be able to make a diagnosis from that. If not, would pursue potential needle biopsy of one of the liver lesions, this may be preferable to biopsying a bone lesion as the latter must be decalcified which can limit some of the pathologic analysis. We will need to have a tissue diagnosis before we can more firmly offer prognostic and therapeutic option discussions. Plan 1. Most immediately want to assure a cogent plan that addresses her most immediate threats of further pulmonary embolism and/or exacerbated GI bleeding the the approaches to which may be somewhat at cross purposes. Very cautious anticoagulation with close monitoring is not completely unreasonable in shared decision making with the patient but we can hopefully move quickly to endoscopic GI studies tomorrow which may both help to identify and stabilize any bleeding source and may help make our malignancy diagnosis. 2. Has received supportive transfusion and will additionally consider at least 2 doses of Venofer 300 mg 5 days apart as above. 3. Will defer to neurology but we will need to watch closely for any compromise related to the potential meningeal involvement and brain and as well continue to monitor very closely the evolving potential cord compression issues with consideration for acute steroid, radiotherapy, or even surgical intervention that might be required. This might also involve transfer to an institution with neurosurgical or other greater capabilities than 0we have here. Fortunately, she thus far seems to be relatively stable 4. As we assure stability with respect to venous thromboembolism, GI bleed, and neurological function we can hopefully move quickly towards definitive identification of the underlying malignancy. This may even come from samples collected at endoscopic studies tomorrow. if not, a needle aspiration of the liver would be a consideration (with appropriate window of anticoagulation suspension). Once we have a specific pathologic diagnosis, we can much better discuss prognostic and treatment implications. History of Present Illness Reason for Consultation: Apparent widely metastatic malignant process presenting as multiple skeletal metastases and acute back pain Attending Physician: Zoe Ham MD History of Present Illness 77-year-old woman who had a left-sided breast cancer in 1998. She describes surgery followed by chemotherapy and ra diation for what was apparently node positive disease/hormone receptor positive disease. She ultimately was on hormonal therapy for a number of years. Although she has had several interim breast biopsies, there is never been any specific indication of recurrence of that malignancy. 01/2022 mammograms were Bi-Rads 1 - benign She has no other history of malignancy. She is a non-smoker. She reprts unremarkable gynecologic exams and Pap smears but has declined previous colonoscopies She had felt well up until 2021 developing COVID infection around that time with some persistent symptoms through August. She then had a bout of influenza A in September and has felt much more sick since that time. She has had worsening back pain more recently manifest with some pelvic dysesthesias and leg weakness. The latter had prompted a neurology review leading to imaging with which showed multiple skeletal metastases. I had actually spoken yesterday with Dr. Laguerre about a facilitated outpatient work-up with further imaging but she developed more severe weakness in the interim, was evaluated in emergency room with significant anemia, and admitted for transfusion and stabilization. Since transfusion she feels much improved and is having no major respiratory difficulty or chest pain though she continues with some leg weakness and back pain. She has noticed no melena or hematochezia other than perhaps some scant hemorrhoidal-like bleeding. She has been on aspirin and Plavix since 2020 NSTEMI with 2 stents placed. She has a history of hypertension and hyperlipidemia as well. She has had some ongoing issues of paroxysmal atrial tachycardia and is currently wearing a monitoring device for that. Allergies Allergy/AdvReac Type Severity Reaction Status Date / Time alendronate sodium AdvReac Severe Unable to Verified 10/16/22 20:52 [From Fosamax] ambulate Home Medications Medication Instructions Recorded Confirmed Type aspirin 81 mg tablet,delayed 81 mg PO QAM 04/03/21 10/16/22 History release biotin 1 mg capsule 1 mg PO QAM 04/03/21 10/16/22 History [id number]-jhqlrnqs-[id number] 1 tab PO QAM 04/03/21 10/16/22 History tablet (Multivitamin 50 Plus tablet) nitroglycerin 0.4 mg sublingual 0.4 mg sublingual UD PRN chest 04/05/21 10/16/22 Rx tablet (Nitrostat) pain #25 tabs rosuvastatin 40 mg tablet (Crestor) 40 mg PO DAILY #90 tabs 12/26/21 10/07/22 Rx lisinopril 10 mg tablet 10 mg PO QAM #90 tabs 03/22/22 10/16/22 Rx metoprolol succinate 50 mg 50 mg PO DAILY #90 tabs 03/22/22 10/16/22 Rx tablet,extended release 24 hr acetaminophen 650 mg 650 mg PO QPM PRN Pain 05/24/22 10/16/22 History tablet,extended release (Tylenol Arthritis Pain) clopidogrel 75 mg tablet (Plavix) 75 mg PO DAILY #90 tabs 05/27/22 10/16/22 Rx vitamin B12 500 mcg-folic acid 400 1 tab PO DAILY #30 tabs 08/13/22 10/16/22 Rx mcg tablet fluoxetine 10 mg capsule 10 mg PO DAILY #90 caps 09/16/22 10/16/22 Rx Patient History Medical History Abnormal stress echo Arthritis Breast cancer CAD (coronary artery disease) Hyperlipidemia Hypertension Multiple pulmonary nodules determined by computed tomography of lung Multiple pulmonary nodules determined by computed tomography of lung Non-ST elevation (NSTEMI) myocardial infarction Osteopenia Paroxysmal atrial tachycardia Surgical History H/O: hysterectomy History of appendectomy History of lumpectomy of left breast History of wisdom tooth extraction S/P coronary artery stent placement Family History Mother Breast cancer Father Stroke Denies family history of Ovarian cancer Prostate cancer Myocardial infarction Colorectal cancer Social History Smoking Status: Never smoker Second Hand Exposure: No; Do You Dip or Chew Tobacco: No; Tobacco Cessation Education Requested by Patient: No Hx Alcohol Use: Yes Alcohol type: wine Hx Substance Use: No Preferred Language: Chilean Communication Ability: Effective Visual Impairment: Limited Hearing Ability: Normal Care Giver Required: No Beliefs That Will Affect Care: None marital status: / Current Living Situation: Spouse current occupational status: retired Other Information That Helps Us Care for You: No Feels Safe at Home: Yes Safety Concerns: Feels Safe At This Time Childhood Exposure to Second-Hand Smoke: No caffeine: Yes during the past year weight has: remained stable Dental Care, Regularly: Yes Physical Activity Frequency: Daily Seatbelt Use: always Sunscreen Use: No Assistive Devices: Walker Physical Exam Physical Exam: VSS She is alert, appropriate, and seems comfortable at rest in bed. Lungs currently seem clear, cardiac rhythm is borderline tachycardic but regular without pathological murmurs. Abdomen seems benign There are no pathological lymph nodes in the cervical, supraclavicular, or axillary regions Some bilateral weakness in the legs, no signs of DVT Results & Data ([facility]) Vital Signs (Past 12 Hours) Vital Signs Temp Pulse Pulse Resp BP Pulse Ox O2 Del Method 10/17/22 19:00 88 10/17/22 19:03 36.8 C 100 H 18 120/78 93 Room Air 10/17/22 16:06 36.7 C 104 H 16 135/78 97 Room Air 10/17/22 13:31 84 Laboratory Results Laboratory Results - last 24 hr 10/16/22 10/16/22 10/16/22 20:03 21:10 22:25 WBC RBC Hgb Hct MCV MCH MCHC RDW Std Deviation RDW Coeff of Tana Plt Count MPV Immature Gran % (Auto) Neut % (Auto) Lymph % (Auto) Gillespie % (Auto) Eos % (Auto) Baso % (Auto) Reticulocyte % (Auto) Neut # (Auto) Lymph # (Auto) Gillespie # (Auto) Eos # (Auto) Baso # (Auto) Reticulocyte # Immature Gran # (Auto) Polychromasia PT INR APTT PTT Ratio Sodium Potassium Chloride Carbon Dioxide Anion Gap BUN Creatinine Est Cr Clr Drug Dosing Est GFR ( Amer) Est GFR (Non-Af Amer) BUN/Creatinine Ratio Glucose Calcium Magnesium Iron 33 L TIBC 296 Unsaturated IBC 263 Transferrin % Sat 11 L Ferritin 298.6 Total Bilirubin AST ALT Alkaline Phosphatase Total Protein Albumin Globulin Albumin/Globulin Ratio Vitamin B12 Folate Blood Type A Positive Blood Type Recheck A Positive Antibody Screen NEGATIVE Crossmatch See Detail 10/17/22 10/17/22 10/17/22 02:36 06:51 06:51 WBC 6.98 6.84 RBC 2.64 L 2.76 L Hgb 7.9 L 8.3 L Hct 24.2 L 25.4 L MCV 91.7 92.0 MCH 29.9 30.1 MCHC 32.6 32.7 RDW Std Deviation 53.2 H 53.5 H RDW Coeff of Tana 15.9 H 16.0 H Plt Count 317 324 MPV 8.6 L 8.8 L Immature Gran % (Auto) Neut % (Auto) Lymph % (Auto) Gillespie % (Auto) Eos % (Auto) Baso % (Auto) Reticulocyte % (Auto) Neut # (Auto) Lymph # (Auto) Gillespie # (Auto) Eos # (Auto) Baso # (Auto) Reticulocyte # Immature Gran # (Auto) Polychromasia PT 11.2 INR 1.1 APTT PTT Ratio Sodium Potassium Chloride Carbon Dioxide Anion Gap BUN Creatinine Est Cr Clr Drug Dosing Est GFR ( Amer) Est GFR (Non-Af Amer) BUN/Creatinine Ratio Glucose Calcium Magnesium Iron TIBC Unsaturated IBC Transferrin % Sat Ferritin Total Bilirubin AST ALT Alkaline Phosphatase Total Protein Albumin Globulin Albumin/Globulin Ratio Vitamin B12 Folate Blood Type Blood Type Recheck Antibody Screen Crossmatch 10/17/22 10/17/22 10/17/22 06:51 14:49 19:03 WBC 6.66 7.01 RBC 2.69 L 2.54 L Hgb 8.0 L 7.5 L Hct 24.6 L 23.0 L MCV 91.4 90.6 MCH 29.7 29.5 MCHC 32.5 32.6 RDW Std Deviation 52.9 H 52.9 H RDW Coeff of Tana 16.2 H 16.2 H Plt Count 301 288 MPV 8.6 L 8.7 L Immature Gran % (Auto) 0.6 Neut % (Auto) 67.9 Lymph % (Auto) 19.1 Gillespie % (Auto) 12.1 Eos % (Auto) 0.0 Baso % (Auto) 0.3 Reticulocyte % (Auto) 2.6 H Neut # (Auto) 4.76 Lymph # (Auto) 1.34 Gillespie # (Auto) 0.85 H Eos # (Auto) 0.00 Baso # (Auto) 0.02 Reticulocyte # 0.07 Immature Gran # (Auto) 0.04 Polychromasia 1+ PT INR APTT PTT Ratio Sodium 139 Potassium 4.2 Chloride 103 Carbon Dioxide 28 Anion Gap 8 BUN 33 H Creatinine 0.51 L Est Cr Clr Drug Dosing 85.8 Est GFR ( Amer) 109.0 Est GFR (Non-Af Amer) 94.1 BUN/Creatinine Ratio 64.7 H Glucose 95 Calcium 9.3 Magnesium 1.9 Iron TIBC Unsaturated IBC Transferrin % Sat Ferritin Total Bilirubin 0.8 AST 65 H ALT 14 Alkaline Phosphatase 324 H Total Protein 6.6 Albumin 3.3 L Globulin 3.3 Albumin/Globulin Ratio 1.0 Vitamin B12 Folate Blood Type Blood Type Recheck Antibody Screen Crossmatch 10/17/22 10/17/22 19:03 19:03 WBC RBC Hgb Hct MCV MCH MCHC RDW Std Deviation RDW Coeff of Tana Plt Count MPV Immature Gran % (Auto) Neut % (Auto) Lymph % (Auto) Gillespie % (Auto) Eos % (Auto) Baso % (Auto) Reticulocyte % (Auto) Neut # (Auto) Lymph # (Auto) Gillespie # (Auto) Eos # (Auto) Baso # (Auto) Reticulocyte # Immature Gran # (Auto) Polychromasia PT 11.6 INR 1.1 APTT 28.0 PTT Ratio 1.0 Sodium Potassium Chloride Carbon Dioxide Anion Gap BUN Creatinine Est Cr Clr Drug Dosing Est GFR ( Amer) Est GFR (Non-Af Amer) BUN/Creatinine Ratio Glucose Calcium Magnesium Iron TIBC Unsaturated IBC Transferrin % Sat Ferritin Total Bilirubin AST ALT Alkaline Phosphatase Total Protein Albumin Globulin Albumin/Globulin Ratio Vitamin B12 1429 H Folate 15.24 Blood Type Blood Type Recheck Antibody Screen Crossmatch Diagnostic Findings Venous Doppler Study 10/17/22 00:00 BILATERAL LOWER EXTREMITY VENOUS DOPPLER HISTORY: Screening study in a patient with pulmonary embolus newly diagnosed PE, monitor for DVT COMPARISON STUDY: CTA chest 10/16/2022. FINDINGS: There is normal compressibility, flow, and augmentation within the bilateral lower extremity deep venous systems. IMPRESSION: No DVT within the right or left lower extremity. ACT 112: Negative or not required by law. Electronically signed by: Tony Rausch M.D. 10/17/2022 9:[address] 10/17/22 01:31 CT OF THE HEAD WITHOUT CONTRAST CLINICAL HISTORY: ?malignancy COMPARISON STUDY: No previous studies for comparison. CT DOSE: 614.27 mGy.cm TECHNIQUE: Helical axial images of the head were obtained without IV contrast. Automated exposure control was utilized for the study. A dose lowering technique was utilized adhering to the principles of ALARA. FINDINGS: Note is made of hyperdense material within the left subdural space, measuring 5 mm in thickness, overlying the left cerebral hemisphere. There is minimal mass effect. The contour of the material is slightly lobulated. There may be a small amount of intravascular contrast from recent contrast-enhanced CT. Basal cisterns are patent. No evidence for herniation. No findings to suggest acute dural sinus thrombosis or acute territorial infarct. No calvarial fracture is noted. Left mastoid air cells are partially opacified. IMPRESSION: Hyperdense material within the left subdural space, as described above. This could reflect subdural hemorrhage. However, dural extension of tumor could appear similar given extensive calvarial metastases. An MRI of the brain with and without contrast is recommended for further evaluation. This finding will be called/faxed to the ordering provider at time of dictation. ACT 112: Negative or not required by law. Electronically signed by: Adithya Anaya M.D. 10/17/2022 10:02 AM Brain MRI 10/17/22 10:13 MRI OF THE BRAIN COMBO CLINICAL HISTORY: Abnormal CT of the brain. Metastatic disease. COMPARISON STUDY: CT of the brain dated 10/27/2022. TECHNIQUE: MRI of the brain was performed utilizing various T1 and T2-weighted sequences in the axial, sagittal, and coronal planes. Contrast-enhanced sequences were acquired following the administration of 6 cc of Gadavist. FINDINGS: Brain parenchyma: There is age-related involutional change noting minimal microangiopathic disease. There is no hemorrhage or midline shift. There is no restricted diffusion typical for acute ischemia. Rosa-white matter differentiation is preserved. The cerebellar tonsils are normal in configuration. There is diffuse pachymeningeal thickening and enhancement, greatest on the left convexity. This measures up to 7 mm in thickness and corresponds to the abnormality seen on today's CT scan. The appearance is most typical for metastatic disease. No extra-axial hemorrhage is identified. Patchy meningeal thickening and enhancement is also seen posterior to the cerebellar hemispheres. A small focus of thickening enhancement is seen along the right aspect of the posterior falx on axial postcontrast image #12. Ventricles, sulci, and cisterns: Prominent secondary to positional change. Pituitary and sella: Unremarkable. Intracranial vasculature: Normal flow voids are maintained at the skull base. Orbits: The bony orbits are grossly intact. Orbital contents are normal in appearance. Sinuses and mastoids: There is a large left mastoid effusion with fluid in the left middle ear. The right mastoid air cells are clear, as are the paranasal sinuses. Calvarium: There is evidence of diffuse calvarial metastatic disease. Cervical cord: Partially visualized cervical spinal cord is normal in morphology and signal intensity. IMPRESSION: 1. There is no hemorrhage, midline shift, or evidence of acute ischemia. 2. Again seen is extensive/diffuse calvarial metastatic disease. 3. There is diffuse an asymmetric pachymeningeal thickening and enhancement, greatest along the left convexity as detailed above. This likely represents metastatic disease and corresponds to the abnormality seen on today's CT scan. 4. No extra-axial hemorrhage is identified. ACT 112: Negative or not required by law. Electronically signed by: Landry Calloway M.D. 10/17/2022 1:06 PM Chest X-Ray 10/17/22 11:48 XR chest 2V PA/lateral HISTORY: pleural effusion COMPARISON: Outside hospital chest CTA 10/16/2022. Chest x-ray 06/30/2019. FINDINGS: No pneumothorax. A small left pleural effusions and left basilar densities persist. Moderate emphysema. No new focal lung consolidations identified. No evidence for pulmonary edema. The heart is borderline enlarged. There are calcifications within the aortic knob. A loop recorder seen within the left anterior chest. IMPRESSION: 1. No change in the small left pleural effusion and left basilar densities. 2. Follow-up to resolution is recommended for the left basilar densities. ACT 112: Negative or not required by law. Electronically signed by: Kieran Smith M.D. 10/17/2022 1:28 PM PG Care Time/CCT Total # of Minutes Spent Total Time Spent with Patient: Total time spent is greater than 50% in coordination of care (as documented) at patient's floor/unit and/or counseling patient: Coding Level of Care Code New Pt INP/OBS CONSULT LVL 4, 60 MIN Patient Type New History Expanded Problem Focused Exam Expanded Problem Focused Medical Decision Making High Complexity Diagnoses Pulmonary embolism I26.99 Acute blood loss anemia D62 Breast cancer C50.919 Metastatic disease C79.9 Area of secondary neoplastic involvement: unspecified site (1) Metastatic disease Area of secondary neoplastic involvement: unspecified site Qualified Code(s): C79.9 - Secondary malignant neoplasm of unspecified site
[2022-10-18 02:11] LABS: Basophils # (auto) 0.02 K/uL (0-0.2); Basophils % (auto) 0.3 %; Hematocrit (blood only) 22.9 % (37.0-47.0); Hemoglobin 7.7 g/dl (12.0-16.0); Immature Granulocytes # (auto) 0.03 K/uL (0.01-0.20); Immature Granulocytes % (auto) 0.4 %; Lymphocytes # (auto) 1.35 K/uL (1.2-3.4); Lymphocytes % (auto) 17.6 %; Mean Corpuscular Hemoglobin 29.8 pg (25.0-34.0); Mean Corpuscular Hgb Conc 33.6 g/dL (32.0-36.0); Mean Corpuscular Volume 88.8 fL (80.0-100.0); Mean Platelet Volume 8.4 fL (9.4-12.4); Monocytes % (auto) 9.1 %; Neutrophils # (auto) 5.56 K/uL (1.40-6.50); Neutrophils % (auto) 72.6 %; Platelet Count 288 K/uL (130-400); RDW Coefficient of Variation 15.9 % (11.5-14.5); RDW Standard Deviation 51.6 fL (36.4-46.3); Red Blood Count 2.58 M/uL (4.20-5.40); White Blood Count 7.66 K/ul (4.8-10.8)
[2022-10-18 02:30] LABS: Albumin Level 3.2 gm/dl (3.4-5.0); Bilirubin,Total 0.7 mg/dl (0.2-1.0); Calcium 8.9 mg/dl (8.5-10.1); Magnesium 1.7 mg/dl (1.7-2.4); Potassium 3.5 mmol/L (3.5-5.1)
[2022-10-18 02:35] LABS: Polychromasia 1+
[2022-10-18 02:36] LABS: BUN Creatinine Ratio 45.7 (10-20); Creatinine Clr Calc Pharmacy 95.1 ml/min; Est GFR (African American) 112.8 ml/min; Est GFR (Non-African American) 97.3 ml/min; Globulin 3.1 gm/dl (2.5-4.0); Total Protein 6.3 gm/dl (6.0-8.3)
[2022-10-18 02:38] LABS: Partial Thromboplastin Ratio 1.8
[2022-10-18 02:50] LABS: Thyroid Stimulating Hormone 5.045 uIu/ml (0.300-4.500)
[2022-10-18 03:03] LABS: Partial Thromboplastin Time 49.7 Seconds (21.0-31.0)
[2022-10-18 03:24] LABS: T4 Free Thyroxine 0.73 ng/dl (0.61-1.60)
[2022-10-18] MEDS ORDERED: POTASSIUM CHLORIDE CRTAB 20 MEQ TABCR PO STA (08:44)
[2022-10-18] MEDS ORDERED: SODIUM CHLORIDE 0.9% 1000ML 1,000 ML IV SCH ×2 (09:00→21:00)
[2022-10-18] MEDS: FLUoxetine HCL 10 MG CAP PO SCH (09:07)
[2022-10-18] MEDS: PANTOprazole 40 MG in SYRINGE 0 ML IV SCH ×2 (09:08→20:53)
[2022-10-18] MEDS: METOPROLOL SUCC 50MG EXT REL TAB PO SCH (09:29)
--- NOTE | 2022-10-18 09:31 | History & Physical Bridge Note ---
Date of Service October 18, 2022 History & Physical Bridge Note I have examined the patient, reviewed the History & Physical and in the interval since the performance of the History & Physical I have noted the following changes of clinical significance: Patient has completed bowel preparation and is now NPO. She is passing clear liquid stool. No rectal bleeding or abdominal pain. Heparin ggt is running. PE: A&Ox3. Lungs CTA bilaterally. Tachycardic. Regular rhythm. No M/R/G. Abdomen soft, nondistended. Non tender. Normal bowel sounds. A/P:Patient is a 77 y.o. female with a history of breast CA admitted with symptomatic anemia and back pain as well as imaging concerning for metastatic dx of uncertain primary. -NPO for now. -Hold Heparin at 1000 for 1200 EGD and colonoscopy by Dr. Arce. -Further recommendations will be made pending results of testing. Supervising Physician Co-Signing Physician Notes Agree with HARDIK Prather as above Abd: Soft, NT, ND, +BS Continue current therapy and supportive care Proceed with EGD and colonoscopy now
[2022-10-18] MEDS: cefTRIAXone SODIUM 1,000 MG in DEXTROSE 5% AD-VAN 50 ML IV SCH (09:45)
[2022-10-18] MEDS: MAGNESIUM SULFATE / D5W 1 GM/100 ML BAG IV SCH ×2 (10:19→11:31)
--- NOTE | 2022-10-18 11:23 | Orthopedic Consultation ---
Date of Consultation October 18, 2022 Assessment & Plan (1) Metastasis to spinal column: Assessment metastatic spine disease. Plan lumbar imaging does demonstrate evidence of metastatic disease most impressive in the sacral region. It appears about the entire sacrum and part of the pelvis. There are some involvement of the canal at this level. The remainder lumbar spine canal is patent without gross neural compression. At this point we need to continue to monitor her neurologic status. I believe she needs any specific stabilizing procedure in light of her current imaging and presentation. Awaiting final diagnosis regarding the metastasis. Most likely this would have to be managed at a tertiary care center from a spinal standpoint if surgery is required. History of Present Illness Reason for Consultation: Back pain Attending Physician: Zoe Ham MD History of Present Illness This is a very pleasant 77-year-old female who presents with multiple medical issues and history of significant back pain with patterns of numbness on the left and right side. She states that at this time the symptoms are markedly improved. She is denying any complaints of back pain or numbness during our discussion this morning. She has been able to get to the chair without difficulty. Allergies Allergy/AdvReac Type Severity Reaction Status Date / Time alendronate sodium AdvReac Severe Unable to Verified 10/16/22 20:52 [From Fosamax] ambulate Home Medications Medication Instructions Recorded Confirmed Type aspirin 81 mg tablet,delayed 81 mg PO QAM 04/03/21 10/16/22 History release biotin 1 mg capsule 1 mg PO QAM 04/03/21 10/16/22 History [id number] 1 tab PO QAM 04/03/21 10/16/22 History tablet (Multivitamin 50 Plus tablet) nitroglycerin 0.4 mg sublingual 0.4 mg sublingual UD PRN chest 04/05/21 10/16/22 Rx tablet (Nitrostat) pain #25 tabs rosuvastatin 40 mg tablet (Crestor) 40 mg PO DAILY #90 tabs 12/26/21 10/07/22 Rx lisinopril 10 mg tablet 10 mg PO QAM #90 tabs 03/22/22 10/16/22 Rx metoprolol succinate 50 mg 50 mg PO DAILY #90 tabs 03/22/22 10/16/22 Rx tablet,extended release 24 hr acetaminophen 650 mg 650 mg PO QPM PRN Pain 05/24/22 10/16/22 History tablet,extended release (Tylenol Arthritis Pain) clopidogrel 75 mg tablet (Plavix) 75 mg PO DAILY #90 tabs 05/27/22 10/16/22 Rx vitamin B12 500 mcg-folic acid 400 1 tab PO DAILY #30 tabs 08/13/22 10/16/22 Rx mcg tablet fluoxetine 10 mg capsule 10 mg PO DAILY #90 caps 09/16/22 10/16/22 Rx Patient History Medical History Abnormal stress echo Arthritis Breast cancer CAD (coronary artery disease) Hyperlipidemia Hypertension Multiple pulmonary nodules determined by computed tomography of lung Multiple pulmonary nodules determined by computed tomography of lung Non-ST elevation (NSTEMI) myocardial infarction Osteopenia Paroxysmal atrial tachycardia Surgical History H/O: hysterectomy History of appendectomy History of lumpectomy of left breast History of wisdom tooth extraction S/P coronary artery stent placement Family History Mother Breast cancer Father Stroke Denies family history of Ovarian cancer Prostate cancer Myocardial infarction Colorectal cancer Social History Smoking Status: Never smoker Second Hand Exposure: No; Do You Dip or Chew Tobacco: No; Tobacco Cessation Education Requested by Patient: No Hx Alcohol Use: Yes Alcohol type: wine Hx Substance Use: No Preferred Language: Algerian Communication Ability: Effective Visual Impairment: Limited Hearing Ability: Normal New Order Clerk Required: No Beliefs That Will Affect Care: None marital status: / Current Living Situation: Spouse current occupational status: retired Other Information That Helps Us Care for You: No Feels Safe at Home: Yes Safety Concerns: Feels Safe At This Time Childhood Exposure to Second-Hand Smoke: No caffeine: Yes during the past year weight has: remained stable Dental Care, Regularly: Yes Physical Activity Frequency: Daily Seatbelt Use: always Sunscreen Use: No Assistive Devices: Walker Physical Exam Physical Exam: On exam she does have plus 4 out of 5 bilateral plantarflexion dorsiflexion quadriceps as well as hip flexors. She has full sensation light touch and cold bilateral lower extremities. Results & Data ([facility]) Vital Signs (Past 12 Hours) Vital Signs Temp Pulse Pulse Resp BP Pulse Ox O2 Del Method 10/18/22 11:11 113 H 10/18/22 08:00 Room Air 10/18/22 07:42 36.6 C 87 18 138/84 97 Room Air 10/18/22 00:00 101 H 10/18/22 03:03 36.9 C 99 H 18 121/67 96 Room Air
--- NOTE | 2022-10-18 13:25 | Anesthesiology Consultation ---
Date of Service October 18, 2022 Assessment & Plan Chart Review Chart Review: Acceptable Risk for Surgery and Patient NOT seen in Pre Admission Testing Consults Requested none ASA ASA4 Proposed Anesthesia Anesthesia Type: MAC Risk / Benefits Reviewed With: PT / POA / Parent / Guardian, Accepts Plan and Informed Consent Obtained History Surgery Operation Date: 10/18/22 15:55 Proposed Procedures p Colonoscopy EGD Dr. Claude Arce, DO Height/Weight Height: 5 ft 5 in Weight: 61.8 kg Allergies Allergy/AdvReac Type Severity Reaction Status Date / Time alendronate sodium AdvReac Severe Unable to Verified 10/18/22 13:15 [From Fosamax] ambulate Medications Home Medications Medication Instructions Recorded Confirmed Last Taken aspirin 81 mg tablet,delayed 81 mg PO QAM 04/03/21 10/16/22 10/17/22 release biotin 1 mg capsule 1 mg PO QAM 04/03/21 10/16/22 10/16/22 [id number] 1 tab PO QAM 04/03/21 10/16/22 10/16/22 tablet (Multivitamin 50 Plus tablet) nitroglycerin 0.4 mg sublingual 0.4 mg sublingual UD PRN chest 04/05/21 10/16/22 Unknown tablet (Nitrostat) pain #25 tabs rosuvastatin 40 mg tablet (Crestor) 40 mg PO DAILY #90 tabs 12/26/21 10/07/22 Unknown lisinopril 10 mg tablet 10 mg PO QAM #90 tabs 03/22/22 10/16/22 10/16/22 metoprolol succinate 50 mg 50 mg PO DAILY #90 tabs 03/22/22 10/16/22 10/16/22 tablet,extended release 24 hr acetaminophen 650 mg 650 mg PO QPM PRN Pain 05/24/22 10/16/22 Unknown tablet,extended release (Tylenol Arthritis Pain) clopidogrel 75 mg tablet (Plavix) 75 mg PO DAILY #90 tabs 05/27/22 10/16/22 10/17/22 vitamin B12 500 mcg-folic acid 400 1 tab PO DAILY #30 tabs 08/13/22 10/16/22 10/16/22 mcg tablet fluoxetine 10 mg capsule 10 mg PO DAILY #90 caps 09/16/22 10/16/22 10/16/22 Active Medications Generic Name Dose Route Start Last Admin Trade Name Selam PRN Reason Stop Dose Admin Fluoxetine HCl 10 mg 10/17/22 09:00 10/18/22 09:07 Fluoxetine Hcl 10 Mg Cap PO 11/16/22 08:59 10 mg DAILY MARICEL Administration Gabapentin 100 mg 10/17/22 21:00 10/17/22 20:10 Gabapentin 100 Mg Cap PO 11/16/22 20:59 100 mg HS MARICEL Administration Pantoprazole Sodium 40 mg/ 10 mls @ 5 mls/min 10/16/22 21:30 10/18/22 09:08 Syringe IV 11/15/22 21:29 5 mls/min BID MARICEL Administration Ceftriaxone Sodium 1,000 mg/ 50 mls @ 100 mls/hr 10/17/22 10:00 10/18/22 10:19 Dextrose IV 10/22/22 09:59 Infused Q24H MARICEL Infusion Protocol Heparin Sodium/Dextrose 25,000 units in 500 mls @ 0 mls/hr 10/17/22 18:45 10/18/22 09:57 Heparin Sodium/Dextrose IV 11/16/22 18:44 0 units/hr .Q0M MARICEL 0 mls/hr Titration Protocol 0 UNITS/HR Sodium Chloride 1,000 mls @ 80 mls/hr 10/18/22 09:00 10/18/22 09:45 Nss 1000ml IV 10/18/22 21:29 80 mls/hr .[id number] MARICEL Administration Metoprolol Succinate 50 mg 10/17/22 09:00 10/18/22 09:29 Metoprolol Succ 50mg Ext Rel Tab PO 11/16/22 08:59 50 mg DAILY MARICEL Administration Past Medical History Medical History Abnormal stress echo Arthritis Breast cancer CAD (coronary artery disease) Hyperlipidemia Hypertension Multiple pulmonary nodules determined by computed tomography of lung Multiple pulmonary nodules determined by computed tomography of lung Non-ST elevation (NSTEMI) myocardial infarction Osteopenia Paroxysmal atrial tachycardia Exercise / Class Metabolic Activity II 4-5 Yardwork/Stairs/Walk up hill Past Family History Family History Mother Breast cancer Father Stroke Denies family history of Ovarian cancer Prostate cancer Myocardial infarction Colorectal cancer Past Surgical History Surgical History H/O: hysterectomy History of appendectomy History of lumpectomy of left breast History of wisdom tooth extraction S/P coronary artery stent placement Past Anesthesia History No Hx of Anesthesia Complications and No Family Hx of Anesthesia Complications History of PONV No Hx of PONV and No Hx of Motion Sickness Social History Smoking Status: Never smoker Do You Dip or Chew Tobacco: No Hx Alcohol Use: Yes Alcohol type: wine alcohol intake frequency: holidays/special occasions only Hx Substance Use: No substance use type: does not use Physical Exam Vital Signs Last Vital Signs Temp 36.7 C 10/18/22 11:27 Pulse 96 H 10/18/22 11:27 Resp 18 10/18/22 11:27 BP 118/70 10/18/22 11:27 Pulse Ox 97 10/18/22 11:27 O2 Del Method 10/18/22 11:27 ENMT Mouth: no dentition abnormality Thyromental Distance: > or= 3.5 Finger Breadths Mallampati Class: II Neck normal visual inspection Respiratory normal respiratory effort Auscultation: lungs clear to auscultation bilaterally Cardiovascular Rate/Rhythm: regular rate and regular rhythm Psychiatric Orientation: alert Testing Laboratory Results 10/18/22 01:56 10/18/22 01:56 PT 11.6 Seconds (9.0-12.0) 10/17/22 19:03 INR 1.1 (0.9-1.1) 10/17/22 19:03 APTT 49.7 Seconds (21.0-31.0) H* 10/18/22 01:56 Blood Type A Positive 10/16/22 21:10 Antibody Screen NEGATIVE 10/16/22 21:10
[2022-10-18] MEDS ORDERED: LIDOCAINE 2% MPF LOCAL 5 ML VIAL INFIL ONE (13:32)
[2022-10-18] MEDS ORDERED: PROPOFOL IV EMULSION 10 MG/ML 20 ML VIAL IV ONE ×2 (13:32)
--- NOTE | 2022-10-18 14:17 | GI REPORT ---
Patient Name: Taya Galvez Procedure Date: 10/18/2022 1:36 PM Date of : 1945 Admit Type: Inpatient Age: 77 Gender: Female Attending MD: Carlos Arce DO, Procedure: Colonoscopy Providers: Carlos Arce DO Referring MD: Zoe Ham Md Indications: Acute post hemorrhagic anemia, Abnormal CT of the GI tract Medicines: Monitored Anesthesia Care Complications: No immediate complications. Estimated Blood Loss: Estimated blood loss: none. Procedure: Pre-Anesthesia Assessment: - Prior to the procedure, a History and Physical was performed, and patient medications and allergies were reviewed. The patient's tolerance of previous anesthesia was also reviewed. The risks and benefits of the procedure and the sedation options and risks were discussed with the patient. All questions were answered, and informed consent was obtained. Prior Anticoagulants: The patient last took Plavix (clopidogrel) 2 days prior to the procedure and last took heparin on the day of the procedure. ASA Grade Assessment: IV - A patient with severe systemic disease that is a constant threat to life. After reviewing the risks and benefits, the patient was deemed in satisfactory condition to undergo the procedure. After I obtained informed consent, the scope was passed under direct vision. Throughout the procedure, the patient's blood pressure, pulse, and oxygen saturations were monitored continuously. The Colonoscope was introduced through the anus and advanced to the cecum, identified by appendiceal orifice and ileocecal valve. The colonoscopy was performed without difficulty. The patient tolerated the procedure well. The quality of the bowel preparation was good. The ileocecal valve, appendiceal orifice, and rectum were photographed. Findings: The perianal and digital rectal examinations were normal. Scattered small and large-mouthed diverticula were found in the entire colon. Non-bleeding internal hemorrhoids were found during retroflexion. The hemorrhoids were small. Impression: - Diverticulosis in the entire examined colon. - Non-bleeding internal hemorrhoids. - No specimens collected. Recommendation: - Resume previous diet. - Continue present medications. - Return to primary care physician as previously scheduled. Carlos Arce DO 10/18/2022 2:16:57 PM This report has been signed electronically. Note Initiated On: 10/18/2022 1:36 PM Number of Addenda: 0 I attest to the content of the Intraoperative Record and orders documented therein, exceptions below {[id number]}
--- NOTE | 2022-10-18 14:22 | GI REPORT ---
Patient Name: Taya Galvez Procedure Date: 10/18/2022 1:36 PM Date of : 1945 Admit Type: Inpatient Age: 77 Gender: Female Attending MD: Carlos Arce DO, Procedure: Upper GI endoscopy Providers: Carlos Arce DO Referring MD: Zoe Ham Md Indications: Acute post hemorrhagic anemia, Abnormal CT of the GI tract Medicines: Monitored Anesthesia Care Complications: No immediate complications. Estimated Blood Loss: Estimated blood loss: none. Procedure: Pre-Anesthesia Assessment: - Prior to the procedure, a History and Physical was performed, and patient medications and allergies were reviewed. The patient's tolerance of previous anesthesia was also reviewed. The risks and benefits of the procedure and the sedation options and risks were discussed with the patient. All questions were answered, and informed consent was obtained. Prior Anticoagulants: The patient last took Plavix (clopidogrel) 2 days prior to the procedure and last took heparin on the day of the procedure. ASA Grade Assessment: IV - A patient with severe systemic disease that is a constant threat to life. After reviewing the risks and benefits, the patient was deemed in satisfactory condition to undergo the procedure. After obtaining informed consent, the endoscope was passed under direct vision. Throughout the procedure, the patient's blood pressure, pulse, and oxygen saturations were monitored continuously. The Colonoscope was introduced through the mouth, and advanced to the third part of duodenum. The upper GI endoscopy was accomplished without difficulty. The patient tolerated the procedure well. Findings: The esophagus was normal. A large, ulcerated, non-circumferential mass with no bleeding and no stigmata of recent bleeding was found on the lesser curvature of the stomach. Biopsies were taken with a cold forceps for histology. The examined duodenum was normal. Impression: - Normal esophagus. 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 Biopsied. - Normal examined duodenum. Recommendation: - Return patient to [facility] for ongoing care. - Clear liquid diet. - Continue present medications. - Await pathology results. Carlos Arce DO 10/18/2022 2:21:57 PM This report has been signed electronically. Note Initiated On: 10/18/2022 1:36 PM Number of Addenda: 0 I attest to the content of the Intraoperative Record and orders documented therein, exceptions below {[id number]}
--- NOTE | 2022-10-18 14:26 | Anesthesiology Progress Note ---
Date of Service October 18, 2022 Anesthesia Post Procedure Vital Signs Vital Signs: Temp Pulse Pulse Pulse Resp BP Pulse Ox 10/18/22 14:15 73 16 97/52 L 98 10/18/22 13:18 37 C 97 H 16 123/89 98 10/18/22 11:27 36.7 C 96 H 18 118/70 97 10/18/22 11:11 113 H 10/18/22 08:00 10/18/22 07:42 36.6 C 87 18 138/84 97 10/18/22 00:00 101 H 10/18/22 03:03 36.9 C 99 H 18 121/67 96 10/17/22 23:06 36.7 C 84 18 110/64 99 10/17/22 22:48 10/17/22 19:00 88 10/17/22 19:03 36.8 C 100 H 18 120/78 93 10/17/22 16:06 36.7 C 104 H 16 135/78 97 O2 Del Method 10/18/22 14:15 Room Air 10/18/22 13:18 Room Air 10/18/22 11:27 Room Air 10/18/22 11:11 10/18/22 08:00 Room Air 10/18/22 07:42 Room Air 10/18/22 00:00 10/18/22 03:03 Room Air 10/17/22 23:06 Room Air 10/17/22 22:48 Room Air 10/17/22 19:00 10/17/22 19:03 Room Air 10/17/22 16:06 Room Air Transfer of Care Handoff Completed per policy Notes Mental Status: alert / awake / arousable Patient Amnestic to Procedure: Yes Nausea / Vomiting: adequately controlled Pain: adequately controlled Airway Patency, RR, SpO2: stable & adequate BP & HR: stable & adequate Hydration State: stable & adequate Anesthetic Complications: no major complications apparent
[2022-10-18] MEDS ORDERED: IRON SUCROSE 300 MG in SODIUM CHLORIDE 0.9% 250 ML IV SCH (17:00)
--- NOTE | 2022-10-18 17:12 | Hospitalist Progress Note ---
Date of Service October 18, 2022 Assessment & Plan (1) Acute blood loss anemia: Plan: This patient is a 77-year-old female with a history of CAD s/p stent, HTN, paroxysmal atrial tachycardia, hyperlipidemia, and remote history of breast cancer s/p lumpectomy/radiation/chemotherapy, who presented to the ER with abnormal lumbar spine MRI showing diffuse skeletal metastases as an outpatient in the setting of progressively worsening lumbar radicular symptoms and lower back pain. She was also found on CT abdomen/pelvis to have omental mass, liver masses, mesenteric adenopathy; CT angiogram chest with subsegmental left lower lobe pulmonary embolism, and small left pleural effusion. On arrival, found to have a hgb of 7.0, BUN of 39, positive occult stool test, and describes intermittent bright red blood on the toilet paper with wiping over the last few months. MCV is normocytic. Was Hemoccult positive in the ER Now s/p EGD and colonoscopy on 10/18 which unfortunately revealed a large gastric mass that is not actively bleeding but had ulcerations. Biopsies taken This is the likely source of blood loss Iron studies show iron deficiency with transferrin saturation of 11%. B12 and folate normal. Reticulocyte count low. Ferritin 298 in the setting of m alignancy likely acute phase reactant. -She received 1 units PRBC's in hemoglobin up to 8.0 and now slightly trended back downward to 7.7 but no gross bleeding noted. 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 Protonix 40 Mg p.o. twice daily tomorrow -Advance to full liquid diet for the morning -Continues on heparin drip for PE-watch for gross bleeding -Continue to hold both Plavix and aspirin as she is over 1 year out from her coronary artery stents, but will likely restart 1 or the other prior to discharge-we will discuss with cardiology -Follow CBC in the a.m. and transfuse as needed if hemoglobin less than 7 and/or hemodynamically unstable or actively bleeding -Consider bone marrow process although seems less likely as WBC and platelet counts are normal, but hematology considering bone marrow biopsy as an outpatient -Appreciate gastroenterology and hematology/oncology consultations (2) Metastatic disease: Plan: -Patient has widespread bony metastatic disease to the spine/calvarium, as well as to the liver and possibly lungs with small lung nodules and a left pleural effusion -Patient also noted to have a mass of the omentum, mesenteric adenopathy, and possible adrenal lesions, meningeal involvement with left brain lesion -She has a history of previous breast cancer 23 years ago, however now with 10 cm gastric mass seen on EGD-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 Campbell-appreciated -Await biopsy results from stomach mass; may not need biopsy of liver mass as originally planned -Consult orthopedic spine surgeon given spinal and sacral involvement and involvement of epidural space-appreciate consultation-does not need urgent surgery at this time but monitor for worsening neurological status and would need tertiary care for any kind of oncologic spine surgery -With neuropathic pain-started gabapentin 100 mg p.o. at bedtime as her pain is worse at night -Discussed care with radiation oncology-appointment scheduled as an outpatient for 10/22/2022 at 1:[address] Iraida Glover Discussed all care with patient and her at the bedside. (3) Pleural effusion: Plan: Small on the left. CT chest from outside facility reports possible lung mass Consulted pulmonology-he does not feel there is a lung mass there Pleural effusion is too small to perform thoracentesis to get sample for cytology Could be contributing to some of her dyspnea but most likely dyspnea from anemia (4) Pulmonary embolism: Plan: -Patient found to have a subsegmental pulmonary embolus in the LLE on outpatient CTPE -She is currently asymptomatic at rest and stable on RA -Previous dyspnea now resolved with blood transfusion -Bilateral lower extremity Dopplers negative for DVT -In discussion with oncology, concern for intra-abdominal venous thrombus- started heparin drip and will monitor for GI bleeding -Plan was to discharge on Lovenox however this will be $700 a month for her and is cost prohibitive -Eliquis will be $900 per month but the first 30 days will be free with a cost savings coupon as arranged by counseling case manager. Oncology will assume care and find an alternative anticoagulant after the first 30 days. Coumadin is not ideal as per oncology, but may be her only affordable option -We will plan to start Eliquis prior to discharge if not having any bleeding issues on heparin drip (5) Spinal stenosis, lumbar region with neurogenic claudication: Plan: Secondary to spinal metastases PT/OT consults recommend return home as she is able to ambulate Continue Tylenol, tramadol as needed Added gabapentin and titrate up as needed consult Ortho spine for epidural involvement of spinal mets-as above -Radiation oncology evaluation scheduled as above (6) UTI (urinary tract infection): Plan: Abnormal urinalysis Urine culture sterile Finish 3 days of ceftriaxone-last dose will be 10/19 (7) Elevated LFTs: Plan: AST mildly elevated and alkaline phosphatase elevated Likely secondary to liver mets Follow-up LFTs in the morning (8) Paroxysmal atrial tachycardia: Plan: -Having small runs of PAT on telemetry which is consistent with her history Does have a loop recorder in place -continue metoprolol Continue telemetry monitoring (9) S/P coronary artery stent placement: Plan: -hold aspirin and plavix with her current GI bleed but plan to restart 1 or the other upon discharge given history of stents (10) Hypertension: Plan: -Stable -Continue metoprolol but hold lisinopril for now to prevent hypotension -May not need to restart lisinopril (11) Anxiety: Plan: -Continue fluoxetine (12) Hyperlipidemia: Plan: -Continue statin Plan Disposition-continued stay in PCU through the weekend and hopeful for discharge to home on Friday evening or Friday if has no GI bleeding with advancement of diet Will on heparin drip Discussed care with multiple specialists and her as above Admission and Anticipated Discharge Date Admission Date: October 16, 2022 Subjective Patient had bowel prep overnight for colonoscopy and had no blood or melena in stool as per nursing. Patient was seen after she returned from her EGD and colonoscopy. We discussed the results of the large gastric mass found on EGD with ulceration but no active bleeding. I discussed her care with numerous specialists again today to include gastroente rology, medical oncology, radiation oncology. The patient denies any abdominal pains. She reports that the pain in her back and radiating down the lower extremities has actually improved significantly with just blood transfusion alone. She denies any chest pains or shortness of breath. Denies headache. Telemetry with normal sinus rhythm and PAT with rates to the 120s at times Review of Systems Review of Systems: All systems reviewed & are unremarkable except as noted in HPI & below Physical Exam Constitutional: WD/WN, vitals as above Eyes: + anicteric sclerae Neck: trachea midline, no thyromegaly Respiratory: normal respiratory effort, lungs clear to auscultation Cardiovascular: RRR, no murmur, no edema Chest (Breasts): Chest: normal inspection of chest Gastrointestinal (Abdomen): normal bowel sounds, soft, nontender, no hepatospl enomegaly Musculoskeletal: Extremities: extremities normal to inspection; no cyanosis and no clubbing Skin: no rashes, warm and dry Neurologic: moves all extremities and awake; no focal motor deficits Psychiatric: A+Ox3, euthymic affect Lymphatic: no lymphedema Results & Data Results & Data ([facility]) Vital Signs (Past 12 Hours) Vital Signs Temp Pulse Pulse Pulse Resp BP Pulse Ox 10/18/22 15:19 36.6 C 97 H 18 127/84 96 10/18/22 14:45 86 16 129/73 98 10/18/22 14:30 74 16 114/68 97 10/18/22 14:15 73 16 97/52 L 98 10/18/22 13:18 37 C 97 H 16 123/89 98 10/18/22 11:27 36.7 C 96 H 18 118/70 97 10/18/22 11:11 113 H 10/18/22 08:00 10/18/22 07:42 36.6 C 87 18 138/84 97 O2 Del Method 10/18/22 15:19 Room Air 10/18/22 14:45 Room Air 10/18/22 14:30 Room Air 10/18/22 14:15 Room Air 10/18/22 13:18 Room Air 10/18/22 11:27 Room Air 10/18/22 11:11 10/18/22 08:00 Room Air 10/18/22 07:42 Room Air Laboratory Results CBC, CMP, magnesium level, TSH and free T4 lab values all reviewed PG Care Time/CCT Total # of Minutes Spent Total Time Spent with Patient: Total time spent is greater than 50% in coordination of care (as documented) at patient's floor/unit and/or counseling patient: Coding Level of Care Code 22208 SUB INP/OBS CARE 3/50MIN Diagnoses Acute blood loss anemia D62 Metastatic disease C79.9 Area of secondary neoplastic involvement: unspecified site Pleural effusion J90 Pulmonary embolism I26.99 Spinal stenosis, lumbar region with neurogenic claudication M48.062 UTI (urinary tract infection) N39.0 Elevated LFTs R79.89 Paroxysmal atrial tachycardia I47.1 S/P coronary artery stent placement Z95.5 Hypertension I10 Hypertension type: unspecified Anxiety F41.9 Hyperlipidemia E78.5 (1) Metastatic disease Area of secondary neoplastic involvement: unspecified site Qualified Code(s): C79.9 - Secondary malignant neoplasm of unspecified site (2) Hypertension Hypertension type: unspecified Qualified Code(s): I10 - Essential (primary) hypertension
[2022-10-18] MEDS: GABAPENTIN 100 MG CAP PO SCH (20:53)
[2022-10-19 00:22] LABS: Partial Thromboplastin Ratio 4.2
[2022-10-19 00:46] LABS: Partial Thromboplastin Time 114.2 Seconds (21.0-31.0)
[2022-10-19] MEDS: HEPARIN SODIUM/DEXTROSE 25,000 UNITS/500 ML BAG IV SCH (01:58)
[2022-10-19] MEDS ORDERED: SODIUM CHLORIDE 0.9% 250 ML IV PRN ×2 (07:53→09:40)
[2022-10-19 08:04] LABS: Basophils # (auto) 0.02 K/uL (0-0.2); Basophils % (auto) 0.4 %; Eosinophils # (auto) 0.13 K/uL (0-0.50); Eosinophils % (auto) 2.3 %; Hematocrit (blood only) 23.1 % (37.0-47.0); Hemoglobin 7.4 g/dl (12.0-16.0); Immature Granulocytes # (auto) 0.05 K/uL (0.01-0.20); Immature Granulocytes % (auto) 0.9 %; Lymphocytes # (auto) 0.88 K/uL (1.2-3.4); Lymphocytes % (auto) 15.5 %; Mean Corpuscular Hemoglobin 28.9 pg (25.0-34.0); Mean Corpuscular Volume 90.2 fL (80.0-100.0); Mean Platelet Volume 9.2 fL (9.4-12.4); Monocytes # (auto) 0.63 K/uL (0.11-0.59); Monocytes % (auto) 11.1 %; Neutrophils # (auto) 3.95 K/uL (1.40-6.50); Neutrophils % (auto) 69.8 %; Platelet Count 329 K/uL (130-400); RDW Coefficient of Variation 15.9 % (11.5-14.5); RDW Standard Deviation 52.9 fL (36.4-46.3); Red Blood Count 2.56 M/uL (4.20-5.40); White Blood Count 5.66 K/ul (4.8-10.8)
[2022-10-19 08:21] LABS: Albumin Level 3.1 gm/dl (3.4-5.0); BUN Creatinine Ratio 21.6 (10-20); Bilirubin,Total 0.5 mg/dl (0.2-1.0); Calcium 8.8 mg/dl (8.5-10.1); Creatinine Clr Calc Pharmacy 85.8 ml/min; Est GFR (Non-African American) 94.1 ml/min; Globulin 3.1 gm/dl (2.5-4.0); Magnesium 1.9 mg/dl (1.7-2.4); Potassium 3.5 mmol/L (3.5-5.1); Total Protein 6.2 gm/dl (6.0-8.3)
[2022-10-19 08:32] LABS: Polychromasia 1+
[2022-10-19 08:47] LABS: Partial Thromboplastin Ratio 1.8
[2022-10-19 08:53] LABS: Partial Thromboplastin Time 49.8 Seconds (21.0-31.0)
[2022-10-19] MEDS: PANTOprazole 40 MG TAB PO SCH ×2 (08:53→20:17)
[2022-10-19] MEDS: METOPROLOL SUCC 50MG EXT REL TAB PO SCH (08:53)
[2022-10-19] MEDS: FLUoxetine HCL 10 MG CAP PO SCH (08:53)
[2022-10-19] MEDS: cefTRIAXone SODIUM 1,000 MG in DEXTROSE 5% AD-VAN 50 ML IV SCH (09:06)
--- NOTE | 2022-10-19 14:30 | Hospitalist Progress Note ---
Date of Service October 19, 2022 Assessment & Plan (1) Acute blood loss anemia: Plan: This patient is a 77-year-old female with a history of CAD s/p stent, HTN, paroxysmal atrial tachycardia, hyperlipidemia, and remote history of breast cancer s/p lumpectomy/radiation/chemotherapy, who presented to the ER with abnormal lumbar spine MRI showing diffuse skeletal metastases as an outpatient in the setting of progressively worsening lumbar radicular symptoms and lower back pain. She was also found on CT abdomen/pelvis to have omental mass, liver masses, mesenteric adenopathy; CT angiogram chest with subsegmental left lower lobe pulmonary embolism, and small left pleural effusion. On arrival, found to have a hgb of 7.0, BUN of 39, positive occult stool test, and describes intermittent bright red blood on the toilet paper with wiping over the last few months. MCV is normocytic. Was Hemoccult positive in the ER Now s/p EGD and colonoscopy on 10/18 which unfortunately revealed a large gastric mass that is not actively bleeding but had ulcerations. Biopsies taken This is the likely source of blood loss Iron studies show iron deficiency with transferrin saturation of 11%. B12 and folate normal. Reticulocyte count low. Ferritin 298 in the setting of m alignancy likely acute phase reactant. -She received 1 units PRBC's in hemoglobin up to 8.0 and hgb slightly trended back downward to 7.4 and now with some orange tinged, Hemoccult + liquid stool--> transfuse another 1 unit PRBCs on 10/19 -received Venofer 300 mg IV x1 on 10/18 and then repeat dose in 5 days likely as an outpatient with oncology next week -Appreciate GI consultation-awaiting biopsy results but likely with gastric cancer -received IV Protonix 40 mg BID and then converted to p.o. Protonix 40 Mg p.o. twice daily -continue full liquid diet and adv to soft diet in the AM if no gross bleeding -Continues on heparin drip for PE-watch for gross bleeding -Continue to hold both Plavix and aspirin as she is over 1 year out from her cor onary artery stents, but discussed with her index clerk and he recommended restarting ASA ALONE (DC PLAVIX) when safe from bleeding standpoint -Follow CBC in the a.m. -Consider bone marrow process although seems less likely as WBC and platelet counts are normal, but hematology considering bone marrow biopsy as an outpatient -Appreciate gastroenterology and hematology/oncology consultations (2) Metastatic disease: Plan: -Patient has widespread bony metastatic disease to the spine/calvarium, as well as to the liver and possibly lungs with small lung nodules and a left pleural effusion -Patient also noted to have a mass of the omentum, mesenteric adenopathy, and possible adrenal lesions, meningeal involvement with left brain lesion -She has a history of previous breast cancer 23 years ago, however now with 10 cm gastric mass seen on EGD-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 Campbell-appreciated -Await biopsy results from stomach mass; may not need biopsy of liver mass as originally planned -Consult orthopedic spine surgeon given spinal and sacral involvement and involvement of epidural space-appreciate consultation-does not need urgent surgery at this time but monitor for worsening neurological status and would need tertiary care for any kind of oncologic spine surgery -With neuropathic pain-started gabapentin 100 mg p.o. at bedtime as her pain is worse at night. Pain now controlled at night but worse in AM--> increase to gabapentin 100mg po bid -Discussed care with radiation oncology-appointment scheduled as an outpatient for 10/22/2022 at 1:[address] Gary Glover Discussed all care with patient and her at the bedside. (3) Pleural effusion: Plan: Small on the left. CT chest from outside facility reports possible lung mass Consulted pulmonology-he does not feel there is a lung mass there Pleural effusion is too small to perform thoracentesis to get sample for cytology Could be contributing to some of her dyspnea but most likely dyspnea from anemia (4) Pulmonary embolism: Plan: -Patient found to have a subsegmental pulmonary embolus in the LLE on outpatient CTPE -She is currently asymptomatic at rest and stable on RA -Previous dyspnea now resolved with blood transfusion -Bilateral lower extremity Dopplers negative for DVT -In discussion with oncology, concern for intra-abdominal venous thrombus- started heparin drip and will monitor for GI bleeding -Plan was to discharge on Lovenox however this will be $700 a month for her and is cost prohibitive -Eliquis will be $900 per month but the first 30 days will be free with a cost savings coupon as arranged by transplant case manager. Oncology will assume care and find an alternative anticoagulant after the first 30 days. Coumadin is not ideal as per oncology, but may be her only affordable option -We will plan to start Eliquis prior to discharge if not having any bleeding issues on heparin drip (5) Spinal stenosis, lumbar region with neurogenic claudication: Plan: Secondary to spinal metastases PT/OT consults recommend return home as she is able to ambulate Continue Tylenol, tramadol as needed Added gabapentin and titrate up as needed consult Ortho spine for epidural involvement of spinal mets-as above -Radiation oncology evaluation scheduled as above (6) UTI (urinary tract infection): Plan: Abnormal urinalysis Urine culture sterile Finished 3 days of ceftriaxone (7) Elevated LFTs: Plan: AST mildly elevated and alkaline phosphatase elevated Likely secondary to liver mets Follow LFTs (8) Paroxysmal atrial tachycardia: Plan: -Having small runs of PAT on telemetry which is consistent with her history Does have a loop recorder in place -continue metoprolol Continue telemetry monitoring (9) S/P coronary artery stent placement: Plan: -hold aspirin and plavix with her current GI bleed but plan to restart aspirin alone (in addition to Eliquis) given history of stents (10) Hypertension: Plan: -Stable -Continue metoprolol but continue to hold lisinopril for now to prevent hypotension -May not need to restart lisinopril (11) Anxiety: Plan: -Continue fluoxetine (12) Hyperlipidemia: Plan: -Continue statin Plan Disposition-continued stay in PCU through the weekend and hopeful for discharge to home on Friday evening or Friday if has no GI bleeding with advancement of diet while on heparin drip Discussed care with Cardiology as wlel as Neurology and her as above Admission and Anticipated Discharge Date Admission Date: October 16, 2022 Subjective Pt had some orange-red tinged watery small stools overnight and today. No nausea or vomiting, no abd pains. Denies CP, SOB. Tele with NSR, PAT bursts less frequently. Review of Systems Review of Systems: All systems reviewed & are unremarkable except as noted in HPI & below Physical Exam Constitutional: WD/WN, vitals as above Eyes: + anicteric sclerae Neck: trachea midline, no thyromegaly Respiratory: normal respiratory effort, lungs clear to auscultation Cardiovascular: RRR, no murmur, no edema (with occasional short runs of tachycardia) Chest (Breasts): Chest: normal inspection of chest Gastrointestinal (Abdomen): normal bowel sounds, soft, nontender, no hepatosplenomegaly Musculoskeletal: Extremities: extremities normal to inspection; no cyanosis and no clubbing Skin: no rashes, warm and dry Neurologic: moves all extremities and awake; no focal motor deficits Psychiatric: A+Ox3, euthymic affect Lymphatic: no lymphedema Results & Data Results & Data ([facility]) Vital Signs (Past 12 Hours) Vital Signs Temp Pulse Pulse Resp BP BP Pulse Ox 10/19/22 13:28 79 10/19/22 13:17 36.9 C 79 17 123/74 99 10/19/22 12:46 36.9 C 83 18 113/70 98 10/19/22 11:46 36.9 C 81 17 136/76 97 10/19/22 08:00 10/19/22 11:16 36.9 C 74 16 134/68 97 10/19/22 11:01 36.7 C 76 17 126/77 96 10/19/22 10:46 36.9 C 56 L 16 122/76 98 10/19/22 08:00 36.6 C 87 18 139/78 93 10/19/22 03:13 36.5 C 71 18 149/75 H 97 O2 Del Method 10/19/22 13:28 10/19/22 13:17 10/19/22 12:46 10/19/22 11:46 10/19/22 08:00 Room Air 10/19/22 11:16 10/19/22 11:01 10/19/22 10:46 10/19/22 08:00 Room Air 10/19/22 03:13 Room Air Laboratory Results CBC, CMP reviewed Hemoccult positive reviewed PG Care Time/CCT Total # of Minutes Spent Total Time Spent with Patient: Total time spent is greater than 50% in coordination of care (as documented) at patient's floor/unit and/or counseling patient: Coding Level of Care Code 98030 SUB INP/OBS CARE 3/50MIN Diagnoses Acute blood loss anemia D62 Metastatic disease C79.9 Area of secondary neoplastic involvement: unspecified site Pleural effusion J90 Pulmonary embolism I26.99 Spinal stenosis, lumbar region with neurogenic claudication M48.062 UTI (urinary tract infection) N39.0 Elevated LFTs R79.89 Paroxysmal atrial tachycardia I47.1 S/P coronary artery stent placement Z95.5 Hypertension I10 Hypertension type: unspecified Anxiety F41.9 Hyperlipidemia E78.5 (1) Metastatic disease Area of secondary neoplastic involvement: unspecified site Qualified Code(s): C79.9 - Secondary malignant neoplasm of unspecified site (2) Hypertension Hypertension type: unspecified Qualified Code(s): I10 - Essential (primary) hypertension
[2022-10-19 15:12] LABS: Hematocrit (blood only) 27.8 % (37.0-47.0); Hemoglobin 9.1 g/dl (12.0-16.0)
[2022-10-19] MEDS ORDERED: ACETAMINOPHEN 500 MG TAB PO PRN (17:20)
[2022-10-19] MEDS: GABAPENTIN 100 MG CAP PO SCH (20:17)
[2022-10-20] MEDS: HEPARIN SODIUM/DEXTROSE 25,000 UNITS/500 ML BAG IV SCH (06:42)
[2022-10-20 07:10] LABS: Basophils # (auto) 0.01 K/uL (0-0.2); Basophils % (auto) 0.2 %; Hematocrit (blood only) 27.3 % (37.0-47.0); Immature Granulocytes # (auto) 0.04 K/uL (0.01-0.20); Immature Granulocytes % (auto) 0.7 %; Lymphocytes # (auto) 1.13 K/uL (1.2-3.4); Lymphocytes % (auto) 19.5 %; Mean Corpuscular Hemoglobin 29.7 pg (25.0-34.0); Mean Corpuscular Volume 90.1 fL (80.0-100.0); Monocytes % (auto) 12.1 %; Neutrophils # (auto) 3.92 K/uL (1.40-6.50); Neutrophils % (auto) 67.5 %; Platelet Count 317 K/uL (130-400); RDW Coefficient of Variation 15.7 % (11.5-14.5); RDW Standard Deviation 51.2 fL (36.4-46.3); Red Blood Count 3.03 M/uL (4.20-5.40)
[2022-10-20 07:37] LABS: BUN Creatinine Ratio 19.2 (10-20); Bilirubin,Total 0.6 mg/dl (0.2-1.0); Calcium 8.8 mg/dl (8.5-10.1); Creatinine Clr Calc Pharmacy 84.1 ml/min; Est GFR (African American) 108.3 ml/min; Est GFR (Non-African American) 93.5 ml/min; Potassium 3.5 mmol/L (3.5-5.1)
[2022-10-20 07:53] LABS: Partial Thromboplastin Ratio 1.8
[2022-10-20 07:59] LABS: Partial Thromboplastin Time 50.1 Seconds (21.0-31.0)
[2022-10-20] MEDS: PANTOprazole 40 MG TAB PO SCH (08:08)
[2022-10-20] MEDS: FLUoxetine HCL 10 MG CAP PO SCH (08:08)
[2022-10-20] MEDS: METOPROLOL SUCC 50MG EXT REL TAB PO SCH (08:09)
[2022-10-20] MEDS: GABAPENTIN 100 MG CAP PO SCH (09:20)
--- NOTE | 2022-10-20 10:01 | Discharge Summary ---
Date of Service October 20, 2022 Admission HPI Per Admitting Provider Taya is a 77 year old male with a PMH significant for paroxysmal atrial tachycardia, CAD S/P previous coronary artery stent placement, HTN, hyperlipidemia, ambulatory dysfunction due to progressive lumbar back pain and neurogenic claudication, and anxiety who presented to the [facility] ED on 10/16/22 at the recommendation of her PCP. Per chart review, the patient was seen in the [facility]rology office on 10/07/22 due to progressive and persistent lumbar back pain, sciatica of the left leg, and neurogenic claudication of the BL LEs. Dr. Laguerre ordered an MRI of the lumbar spine wo contrast at that time for continued workup and evaluation. The patient went for her MRI yesterday, unfortunately the MRI results show diffuse metastatic bone disease as well as lesions on her liver concerning for metastases. She was also noted to have disc bulging throughout the thoracic, lumbar, and sacral spine. Her PCP updated her with the results earlier today and Dr. cancino of Oncology was also made aware. Her PCP ordered a CT of the abdomen/pelvis as well as CTA of the chest to evaluate for a primary malignancy and monitor for PEs as that patient reported recent dyspnea. Per the telephone encounter note placed earlier today as her CT scans reportedly showed films showed a mass of the omentum (potential primary) -- as well as a small segmental pulmonary infarct of the left lung. These images were obtained from [facility]. The patient was advised to come to the ED for further evaluation and treatment. In the ED the patient was found to be afebrile, hemodynamically stable, and stable on RA but was noted to be tachycardic at 113. Labs were significant for a CBC with WBC WNL, Hgb of 7.0 (down from 12.o as of 05/24/22), RDW st deviation of 54, stable cr at 0.6, stable electrolytes, BUN of 39, glucose of 113, AST of 72, Alk phos of 375, ALT of 17, and total bili of 0.4, lipase of 51, and coags WNL. Due to her Hgb of 7.0 a fecal occult blood test was performed and was positive. Due to the patient being stable on RA, with a Hgb of 7.0, and concerns for active GI bleed anticoagulation was held and she was ordered 1 unit PRBCs. At the time of the exam the patient was lying comfortably in bed in no acute distress with her sitting bedside, history was obtained from both. She states that since Thanksgi she had both influenza A and Covid but was able to recover from both. She has had an approximately 30 pound weight loss and very poor appetite. She denies recent fevers, chills and chest pain. She has been noticing increased MILLARD, she is unable to walk for long distances at this time. She denies recent abdominal pain, nausea, vomiting, dysuria, hematuria, and diarrhea. When asked, she notes blood one her toilet paper for months but thought it was due to her known hemorrhoids. She has not experienced large bloody bowel movements or large dark bowel movements. We had a long discussion regarding her recent imaging and the need for further workup to identify the primary source of cancer. We discussed the risks and benefits of starting or holding anticoagulation we her likely PE but also having a Hgb of 7 and possible GI bleed. They are in agreement with holding anticoagulation for now and obtaining the 1 unit PRBC's overnight. She has been having ambulatory dysfunction due to her back pain for months. He has baseling weakness in her RLE comapred to left due to muscle atrophy. She does note chronic numbness in her left thigh as well. She denies saddle anesthesia, recent falls, and loss of bowel/bladder function. We also discussed the need to hold her plavix but will continue her aspirin for now due to her stent placement in 2020. She was previously diagnosed with breast cancer of the left breast approximately 23 years ago. She underwent lumpectomy, radiation therapy, and chemotherapy. We discussed code status, she would like to be a Full code at this time. She would want her to make medical decisions for her if she could not make them herself. Copies of the CT of the chest, abd, and pelvis were provided by the ED staff and were reviewed prior to being placed in the patient's chart. Her CTPE was read as findings suspicious for subsegmental left lower lobe pulmonary emboli. Soft tissue density and peribronchial cuffing in the left infrahilar region suspicious in appearance for a possible mass lesion. Small to moderate left pleural effusion and diffuse metastatic disease to the bony skeleton. Her CT of the abd/pelvis with and without IV contrast was read as "Soft tissue mass density in the mesentery of the anterior abdomen consistent in appearance with neoplasm. Shotty mesenteric adenopathy may represent spread of disease but is nonspecific in appearance. Constipation. Diverticulosis. Diffuse bony metastatic disease. Please refer to Dr. Marquez's attestation for any changes to the treatment plan Principal Diagnosis Metastatic disease Acute blood loss anemia Upper GI bleed Lumbar neurogenic claudication secondary to metastatic disease Pulmonary embolism Discharge Exam Constitutional WD/WN, vitals as above Eyes + anicteric sclerae Neck trachea midline, no thyromegaly Respiratory normal respiratory effort, lungs clear to auscultation Cardiovascular RRR, no murmur, no edema (with occasional short runs of tachycardia) Chest (Breasts) Chest: normal inspection of chest Gastrointestinal (Abdomen) normal bowel sounds, soft, nontender, no hepatosplenomegaly Musculoskeletal Extremities: extremities normal to inspection; no cyanosis and no clubbing Skin no rashes, warm and dry Neurologic moves all extremities and awake; no focal motor deficits Psychiatric A+Ox3, euthymic affect Lymphatic no lymphedema Discharge Data Allergies Allergy/AdvReac Type Severity Reaction Status Date / Time alendronate sodium AdvReac Severe Unable to Verified 10/18/22 13:15 [From Fosamax] ambulate Consultations 10/16/22 20:20 ED Decision to Admit Stat 10/16/22 21:17 Consult Gastroenterology Routine Consult Oncology Routine 10/17/22 09:46 Consult Orthopedic Surgery Routine 10/17/22 10:13 Consult Neurology Routine 10/17/22 12:15 Consult Pulmonology Routine Procedures Performed Operation Date: 10/18/22 15:55 Actual Procedures p EGD Biopsy Cytology - Carlos Veras Case, DO s Colonoscopy - Carlos Veras Case, DO Ordered Studies 10/17/22 US venous doppler LE BI Urgent 10/17/22 01:31 CT head/brain wo con Routine 10/17/22 10:13 MRI Brain [MR brain wo/w con] Stat 10/17/22 13:15 US point of care ultrasound Urgent Hospital Course (1) Acute blood loss anemia: This patient is a 77-year-old female with a history of CAD s/p stent, HTN, paroxysmal atrial tachycardia, hyperlipidemia, and remote history of breast cancer s/p lumpectomy/radiation/chemotherapy, who presented to the ER with abnormal lumbar spine MRI showing diffuse skeletal metastases as an outpatient in the setting of progressively worsening lumbar radicular symptoms and lower back pain. She was also found on CT abdomen/pelvis to have omental mass, liver masses, mesenteric adenopathy; CT angiogram chest with subsegmental left lower lobe pulmonary embolism, and small left pleural effusion. On arrival, found to have a hgb of 7.0, BUN of 39, positive occult stool test, and describes intermittent bright red blood on the toilet paper with wiping over the last few months. MCV is normocytic. Was Hemoccult positive in the ER Now s/p EGD and colonoscopy on 10/18 which unfortunately revealed a large gastric mass that is not actively bleeding but had ulcerations. Biopsies taken and results pending at time of discharge This is the likely source of blood loss Iron studies show iron deficiency with transferrin saturation of 11%. B12 and folate normal. Reticulocyte count low. Ferritin 298 in the setting of malignancy likely acute phase reactant. -She received 1 units PRBC's and hemoglobin up to 8.0. hgb slightly trended back downward to 7.4 and had some orange tinged, Hemoccult + liquid stool on 10/19-> transfused another 1 unit PRBCs on 10/19 -Hemoglobin appropriately up to 9.0 on 10/20 and no further GI bleeding. 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 Protonix 40 Mg p.o. twice daily to be continued on discharge -Tolerating soft diet and should continue low fiber diet on discharge -Was placed on heparin drip for PE-did not have any gross bleeding by the time of discharge -Initially held both Plavix and aspirin as she is over 1 year out from her coronary artery stents, but discussed with her labor relations analyst and he recommended restarting ASA ALONE (DC PLAVIX) when safe from bleeding standpoint-we will start after discharge -Follow CBC as an outpatient with oncology next week -Consider bone marrow process also contributing to the anemia although seems less likely as WBC and platelet counts are normal, but hematology considering bone marrow biopsy as an outpatient -Appreciate gastroenterology and hematology/oncology consultations (2) Metastatic disease: -Patient has widespread bony metastatic disease to the spine/calvarium, as well as to the liver and possibly lungs with small lung nodules and a left pleural effusion -Patient also noted to have a mass of the omentum, mesenteric adenopathy, and possible adrenal lesions, meningeal involvement with left brain lesion -She has a history of previous breast cancer 23 years ago, however now with 10 cm gastric mass seen on EGD-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 Campbell-appreciated -Await biopsy results from stomach mass; may not need biopsy of liver mass as originally planned if the stomach biopsy proves to be cancerous -Consulted orthopedic spine surgeon given spinal and sacral involvement and involvement of epidural space-appreciate consultation-does not need urgent surgery at this time but monitor for worsening neurological status and would need tertiary care for any kind of oncologic spine surgery -With neuropathic pain-started gabapentin 100 mg p.o. twice daily and this can be titrated up as needed for pain by PCP -Discussed care with radiation oncology-appointment scheduled as an outpatient for 10/22/2022 at 1:[address] Gary Glover -Follow-up with medical oncology, Dr. Stiven Campbell, within 1 week after discharge-his office will contact her with an appointment date/time Discussed all care with patient and her at the bedside on multiple occasions. (3) Pleural effusion: Small, on the left. CT chest from outside facility reports possible lung mass Consulted pulmonology-he does not feel there is a lung mass there Pleural effusion is too small to perform thoracentesis to get sample for cytology Could be contributing to some of her dyspnea but most likely dyspnea from anemia (4) Pulmonary embolism: -Patient found to have a subsegmental pulmonary embolus in the LLE on outpatient CTPE -She is currently asymptomatic at rest and stable on RA -Previous dyspnea now resolved with blood transfusion and was related to the anemia -Bilateral lower extremity Dopplers negative for DVT -In discussion with oncology, concern for intra-abdominal venous thrombus- started heparin drip while monitoring for gross GI bleeding -Plan was to discharge on Lovenox however this will be $700 a month for her and is cost prohibitive -Eliquis will be $900 per month but the first 30 days will be free with a cost savings coupon as arranged by medical case manager. Oncology will assume care and find an alternative anticoagulant after the first 30 days. Coumadin is not ideal as per oncology, but may be her only affordable option -We will plan to start Eliquis upon discharge as she is not having any bleeding issues on heparin drip-continue Eliquis 10 Mg p.o. twice daily x5 more days, followed by 5 Mg p.o. twice daily after that (5) Spinal stenosis, lumbar region with neurogenic claudication: Secondary to spinal metastases PT/OT consults recommend return home as she is able to ambulate Continue Tylenol, tramadol as needed Added gabapentin and titrate up as needed consult Ortho spine for epidural involvement of spinal mets-as above -Radiation oncology evaluation scheduled as above (6) UTI (urinary tract infection): Abnormal urinalysis Urine culture sterile Finished 3 days of ceftriaxone (7) Elevated LFTs: AST mildly elevated and alkaline phosphatase elevated Likely secondary to liver mets Follow LFTs as an outpatient (8) Paroxysmal atrial tachycardia: -Having small runs of PAT on telemetry which is consistent with her history Does have a loop recorder in place -continue metoprolol (9) S/P coronary artery stent placement: -Held aspirin and plavix with her current GI bleed but plan to restart aspirin alone on discharge (in addition to Eliquis) given history of stents (10) Hypertension: -Stable -Continue metoprolol but discontinued lisinopril as her blood pressures are well controlled without it in the setting of acute blood loss (11) Anxiety: -Continue fluoxetine (12) Hyperlipidemia: -Continue statin Plan Disposition-stable for discharge to home with close follow-up with oncology and PCP Total Time Total Time Spent Total Time Spent (In Minutes): 40 minutes Discharge Plan Discharge Items Patient Disposition: Home - Self-Care Reason For Visit: PE ON OUTPATIENT IMAGING Discharge Diagnosis: Stomach mass, metastatic disease Pulmonary embolism Acute blood loss anemia, GI Bleed Condition on Discharge: Fair Activity: As commented below Lifting: Gradually increase as tolerated Bathing: No limitations Exercise/Sports: As tolerated Non-emergency contact: Primary Care Provider and Oncologist Call non-emergency contact if: you have any medication questions, your symptoms worsen and your pain is not controlled Follow-up/Referrals: Soheila Reyna PA-C [Primary Care Provider] - (Follow up within 1-2 weeks.) Gary Glover MD [Physician] - 10/22/22 1:00 pm (This appt is your initial Radiation Oncology consult to discusss if radiation treatment would be beneficial to your care. If you are unable to keep this appt, please phone our office [phone]. We are located in the rear of the hospital, first floor of the [facility] [place]. Come through the glass entry, register at the desk and enter the Radiation Oncology door.) Stiven Campbell MD [Physician] - (Follow up within [address] Campbell's office should be contacting you with the appointment date and time.) Diet: Low Fiber Addtl Attending Provider Instructions: You were admitted with a blood clot in the lungs, severe anemia requiring blood transfusion, and found to have bleeding from a stomach tumor. You were also recently found to have what is most likely cancer spread to the bones, liver, abdomen, and the lining of the brain. You were started on gabapentin to help with the pain in your back and legs. The dose of this can be increased as needed by your PCP. You had a biopsy of the mass in your stomach and the results are still pending at the time of discharge. The Oncologist can review these results with you when you see him in his office. You have an appointment scheduled with the Radiation Oncologist this Friday as well. For the blood clot in your lung, you were started on a blood thinner called Eliquis. The dose of this will be 10mg (2 tablets) twice a day x 5 DAYS and then go DOWN to 5mg (1 tablet) twice a day after that. If you have any blood in your stool or black tarry stools, or vomit blood, return to the hospital right away. You did receive 2 units of blood transfused as well as IV iron during your stay to improve your blood count. You were started on Protonix twice a day to help prevent future bleeding from th e tumor in the stomach. You will STOP taking your Plavix but can RESTART your baby aspirin tomorrow. Please follow up with your PCP within 1-2 weeks. Pending Studies at Discharge: Yes Studies:: Pathology result from biopsy Stand-Alone Forms: My [facility] Medications and DC Order Prescriptions: New pantoprazole 40 mg Tablet,Delayed Release (Dr/Ec) 40 mg PO BID Qty: 60 0RF gabapentin 100 mg Capsule 100 mg PO BID Qty: 60 0RF Eliquis 5 mg tablet 10 mg PO BID 5 Days Qty: 70 0RF Rx Instructions: 10mg po bid x 5 more days then 5mg po bid Continued rosuvastatin [Crestor] 40 mg tablet 40 mg PO DAILY Qty: 90 3RF Rx Instructions: STOPPED ABOUT A WEEK AGO PER PT. metoprolol succinate 50 mg tablet extended release 24 hr 50 mg PO DAILY Qty: 90 3RF fluoxetine 10 mg capsule 10 mg PO DAILY Qty: 90 0RF acetaminophen [Tylenol Arthritis Pain] 650 mg tablet extended release 650 mg PO QPM PRN (Reason: Pain) vitamin D58-dxgbl acid 500-400 mcg tablet 1 tab PO DAILY Qty: 30 0RF Rx Instructions: administer with a meal Multivitamin 50 Plus Tablet 1 tab PO QAM aspirin 81 mg tablet,delayed release (DR/EC) 81 mg PO QAM biotin 1 mg capsule 1 mg PO QAM nitroglycerin [Nitrostat] 0.4 mg Tablet, Sublingual 0.4 mg sublingual UD PRN (Reason: chest pain) Qty: 25 3RF Rx Instructions: 1 tab every 5 min as needed for angina. Not to exceed 3 doses. Discontinued lisinopril 10 mg tablet 10 mg PO QAM Qty: 90 3RF clopidogrel [Plavix] 75 mg tablet 75 mg PO DAILY Qty: 90 3RF Discharge Orders: Discharge Order (Routine); Ordered 10/20/22 Ordered By: Zoe Ham Admission Data Admit Date/Time: 10/16/22 21:15 Attending Provider: Zoe Ham Admit Provider: Viviane Marquez Primary Care Provider: Soheila Reyna Other Providers: Viviane Marquez ; Shea Harley ; Carlos Arce ; Alexus Roque ; Cleopatra Lozano ; Joan Keita ; Ester Zambrano ; Ezequiel Milligan ; Brenton Tafoya ; Claudio Lozano ; Grace Brito ; Eligio Lee ; Karoline Smith ; Linda Sofia ; Alyce Black ; Keila Nolasco ; Nithya Pollack ; Gary Mascorro ; Luis Alfredo Manzo ; Sara Sung ; Jean Paul Ovalles Jr ; Shauna James ; Xochilt Burgos ; Stiven Campbell ; Caro Espino ; Kristina Maria ; Eric Lucero ; Brian Sevilla ; Wendy Pacheco ; [facility],No Attending ; Alex Dodd ; Taco Vu ; Che Álvarez Other Interventions: Discharge Summary Assessment (RN) Last Done: 10/20/22 14:20 Coding Level of Care Code HOSP INP/OBS DISCH >30 MIN Diagnoses Acute blood loss anemia D62 Metastatic disease C79.9 Area of secondary neoplastic involvement: unspecified site Pleural effusion J90 Pulmonary embolism I26.99 Spinal stenosis, lumbar region with neurogenic claudication M48.062 UTI (urinary tract infection) N39.0 Elevated LFTs R79.89 Paroxysmal atrial tachycardia I47.1 S/P coronary artery stent placement Z95.5 Hypertension I10 Hypertension type: unspecified Anxiety F41.9 Hyperlipidemia E78.5
--- NOTE | 2022-10-23 03:27 | Coding Query ---
PATHOLOGY To promote full compliance with coding requirements relating to patient care, physician participation is requested in all cases of greenskeeper laborer uncertainty. Please assist us with the question(s) below. Thank you . KAYCEE Mejía CCS Please review the Pathology report and please document any relevant diagnosis(es) below: Diagnosis(es): GI Bleed, Metastatic disease MTDD
== END 2022-10-20 15:11 | disposition home or self-care (01) | DRG 374 ==
LOC: ED 19:39 → 2S 21:15 → SUATTDRO 21:15 → 2S 10-17 00:26

== ENCOUNTER 2022-11-18 15:50 | Inpatient (IN) ==
[2022-11-18] MEDS ORDERED: ONDANSETRON INJ 2 MG/ML 2 ML VIAL IV PRN (16:09)
[2022-11-18] MEDS ORDERED: ACETAMINOPHEN 325 MG TAB PO PRN (16:09)
--- NOTE | 2022-11-18 16:16 | History & Physical Report ---
Date of Service November 18, 2022 Assessment & Plan (1) Acute hypokalemia: Plan: Possible contributing towards her acute generalized weakness. Will replace with 40meq IV, then repeat BMP PT/OT assessments CK normal Mg 1.8 (1g Mg sulfate given due to new onset a. fib as below) (2) Bilateral pleural effusion: Plan: Suspected metastatic. Discussed considering pulmonology consultation but she wishes to see how she does with potassium supplementation first. Consider pulmonology consult if shortness of breath remains her limiting factor for mobility (3) Shortness of breath on exertion: Plan: Suspect largely due to metastatic pleural effusions seen on CT. Less likely due to atrial fibrillation (see below) Fortunately PEs were not seen on CT for PE despite being off anticoagulation (4) Metastatic disease: Plan: Suspected to be gastric primary from recent bone biopsy although definitive diagnosis not made Consult oncology and radiation oncology (5) Atrial fibrillation: Plan: This appears to new onset as not previously recorded in notes Will defer anticoagulation on admission due to high bleeding risk with gastric cancer (recently taken off anticogulation) - recommend discussion of bene fits/risks with oncology tomorrow Continue to replace potassium to aim > 4 and Mg > 2 TTE TSH with AM labs Appears to be relatively rate controlled on metoprolol succinate 50mg PO daily therefore will continue this (6) Constipation: Plan: Docusate 100mg PO BID Start Miralax 17g daily (7) Goals of care, counseling/discussion: Plan: Given overall prognosis and request to be full resuscitation with pending palliative care referral anyway recommend palliative care consultation while inpatient. Consider starting mirtazapine to help with appetite however appetite suppression and fullness almost certainly due to presence of large gastric mass Consult palliative care (8) Anxiety: Plan: Continue fluoxetine 10mg PO daily (9) Bilateral leg pain: Plan: Suspected radiculopathy with improvement with gabapentin started last admission - consider uptitration Plan VTE Prophlaxis - chemical deferred due to high bleeding risk from gastric tumor Diet - regular Disposition - initially observation status to med/surg but on lab reports she was transferred to PCU Admission and Anticipated Discharge Date Admission Date: November 18, 2022 History of Present Illness Chief Complaint: Failure to thrive Primary Care Provider: Soheila Reyna PA-C Taya Galvez is a 77 year old female with metastatic cancer with unknown primary presents as a direct admission from radiation oncology due to increased difficulty getting around her house and general failure to thrive. She is currently undergoing radiation to her back for metastatic disease with neurogenic claudication. She is also undergoing external beam radiation to gastric mass to prevent bleeding. Over the last weak she reports both getting more short of breath on exertion and generalized weakness in her legs both of which have been decreasing her mobility. Regarding the shortness of breath on exertion she was diagnosed with a pulmonary emboli on outpatient CT in October. She was initially treated with anticoagulation but reportedly this was stopped by her oncologist 10 days ago due to concerns regarding bleeding from the gastric mass. She also reports not eating or drinking much as she feels full after only a few bites of food or sips of water. No odynophagia or dysphagia. Mainly loss of appetite and feeling of fullness. She does not some consipation with a hard bowel movement today and she has been taking over the counter stool softeners but without much effect. No nausea or vomiting. She is currently being worked up for metastatic cancer with unknown primary although recent bone biopsy (which she is yet to discuss the results with her oncologist) notes while the immunoprofile is somewhat non-specific, in clinical context, favor that this is a gastric primary. 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 The patients main complaints are decreased mobility which she believes is a combination of weakness in her legs and shortness of breath on exertion. She was recently diagnosed with a pulmonary embolism Allergies Allergy/AdvReac Type Severity Reaction Status Date / Time alendronate sodium AdvReac Intermediate Unable to Verified 11/11/22 15:29 [From Fosamax] ambulate Home Medications Medication Instructions Recorded Confirmed Type aspirin 81 mg tablet,delayed 81 mg PO QAM 04/03/21 11/18/22 History release biotin 1 mg capsule 1 mg PO QAM 04/03/21 11/18/22 History vyfvpoisvpmq-[id number]-[id number] 1 tab PO QAM 04/03/21 11/18/22 History tablet (Multivitamin 50 Plus tablet) nitroglycerin 0.4 mg sublingual 0.4 mg sublingual UD PRN chest 04/05/21 11/18/22 Rx tablet (Nitrostat) pain #25 tabs acetaminophen 650 mg 650 mg PO QPM PRN Pain 05/24/22 11/18/22 History tablet,extended release (Tylenol Arthritis Pain) vitamin B12 500 mcg-folic acid 400 1 tab PO DAILY #30 tabs 08/13/22 11/18/22 Rx mcg tablet gabapentin 100 mg capsule 100 mg PO BID #60 caps 10/20/22 11/18/22 Rx pantoprazole 40 mg tablet,delayed 40 mg PO BID #60 tabs 10/20/22 11/18/22 Rx release fluoxetine 10 mg capsule 10 mg PO QAM 10/24/22 11/18/22 History metoprolol succinate 50 mg 50 mg PO QAM 10/24/22 11/18/22 History tablet,extended release 24 hr rosuvastatin 40 mg tablet (Crestor) 40 mg PO HS #90 tabs 10/28/22 11/18/22 Rx tramadol 50 mg tablet 50 mg PO Q6 PRN pain 11/14/22 11/18/22 History Past Med/Surg History Medical History (Updated 11/19/22 @ 00:41 by Andrez Ruiz MD) Advanced care planning/counseling discussion Anemia REASON FOR PROCEDURE Arthritis CAD (coronary artery disease) Cancer INCLOCLUSIVE OF SOURCE>BIOPSY, EGD DONE PRIOR (REASON FOR PROCEDURE TOMORROW)>LOCATED IN SPINE Gastric adenocarcinoma GI bleed History of COVID-19 07/2022>FATIGUE CONT. HX: breast cancer SX/CHEMO/RADIATION Hyperlipidemia Hypertension Implantable loop recorder present Multiple pulmonary nodules determined by computed tomography of lung Non-ST elevation (NSTEMI) myocardial infarction 2020 Osteopenia Palliative care by specialist Paroxysmal atrial tachycardia Pulmonary embolism RECENT HOSPITALIZATION FOR PE AT [facility]>REASON FOR ELIQUIS ? REASON Restless leg syndrome Surgical History H/O: hysterectomy PARTIAL History of appendectomy History of colonoscopy History of esophagogastroduodenoscopy (EGD) History of lumpectomy of left breast LEFT ARM RESTRICTION History of tonsillectomy History of tooth extraction History of wisdom tooth extraction Nausea and vomiting after administration of anesthetic agent S/P coronary artery stent placement 2020>2 STENTS PLACED (FOLLOWED BY DR. DURHAM) Family History Mother Breast cancer Father Stroke Denies family history of Ovarian cancer Prostate cancer Myocardial infarction Colorectal cancer Social History Smoking Status: Never smoker Second Hand Exposure: No; Hx Alcohol Use: No Hx Substance Use: No Preferred Language: Spanish Communication Ability: Effective Visual Impairment: Limited Hearing Ability: Normal Integrated Pest Management Technician Required: No Beliefs That Will Affect Care: None marital status: / Current Living Situation: Spouse current occupational status: retired Other Information That Helps Us Care for You: No Feels Safe at Home: Yes Safety Concerns: Feels Safe At This Time Childhood Exposure to Second-Hand Smoke: No caffeine: Yes during the past year weight has: remained stable Dental Care, Regularly: Yes Physical Activity Frequency: Daily Seatbelt Use: always Sunscreen Use: No Assistive Devices: Glasses and Walker Review of Systems Review of Systems: All systems reviewed & are unremarkable except as noted in HPI & below Physical Exam Constitutional: well developed and + frail appearing; + not well nourished and no acute distress Eyes: PERRL, conjunctivae normal, anicteric sclerae ENMT: external ear and nose normal, oropharynx normal Mouth: oral mucous membranes not dry Neck: trachea midline, no thyromegaly Respiratory: normal respiratory effort; no respiratory distress Auscultation: + diminished lung sounds (bibasal); no crackles, no rales, no rhonchi and no wheezes Cardiovascular: Rate/Rhythm: regular rate and + irregularly irregular Heart Sounds: no murmur Extremities: normal capillary refill; no calf tenderness and no pedal edema Gastrointestinal (Abdomen): normal bowel sounds, soft, nontender, no hepatospl enomegaly Musculoskeletal: no cyanosis or clubbing, extremities motor strength 5/5 Skin: no rashes, warm and dry Neurologic: moves all extremities and awake; no focal motor deficits (b/l LE motor 5/5 throughout) and not confused Speech / Cognition: normal speech Motor/Sensory: no tremor, no pronator drift and no sensory deficit Cranial Nerves: normal facial strength Psychiatric: A+Ox3, euthymic affect Results & Data Results & Data ([facility]) Laboratory Results Abnormal lab results 11/18/22 11/18/22 11/18/22 Range/Units 16:30 16:30 16:30 RBC 3.19 L (4.20-5.40) M/uL Hgb 9.4 L (12.0-16.0) g/dl Hct 28.8 L (37.0-47.0) % RDW Std Deviation 53.1 H (36.4-46.3) fL RDW Coeff of Tana 16.2 H (11.5-14.5) % MPV 9.3 L (9.4-12.4) fL Lymph # (Auto) 0.27 L (1.2-3.4) K/uL Graves # (Auto) 0.60 H (0.11-0.59) K/uL PT 12.9 H (9.0-12.0) Seconds INR 1.2 H (0.9-1.1) Potassium 2.5 L* (3.5-5.1) mmol/L BUN 25 H (6-23) mg/dl Creatinine (0.6-1.2) mg/dl BUN/Creatinine Ratio 40.3 H (10-20) Glucose 123 H (70-99(Fasting)) mg/dl AST 79 H (13-39) U/L Alkaline Phosphatase 468 H (34-104) U/L Diagnostic Findings CHEST CTA for PULMONARY ARTERIES CT DOSE: 477.12 mGycm HISTORY: Shortness of breath. TECHNIQUE: Multiaxial CT images of the chest were performed following the intravenous administration of contrast to evaluate the pulmonary arteries. Maximal intensity projection images were also obtained. A dose lowering technique was utilized adhering to the principles of ALARA. COMPARISON STUDY: Outside hospital chest CTA 10/16/2022. Radiation oncology chest CT is . FINDINGS: No evidence for an aortic dissection. The ascending thoracic aorta measures up to 3.7 cm in diameter. The heart is mildly enlarged. This remains unchanged. No filling defects within the pulmonary arteries to suggest a pulmonary embolus. Limited views of the upper abdomen demonstrate a normal spleen. A few scattered perinephric soft tissue nodules and an irregular soft tissue nodule at the pancreatic tail are again noted. This likely represents metastatic disease. Bilateral adrenal gland nodules are again noted. There are multiple hepatic metastatic lesions which appear increased in size. Dominant lesion measures approximately 3.1 cm. Postoperative changes again noted within the left breast. Multifocal osteoblastic metastatic disease again noted. This is most pronounced within the lower thoracic spine with mild paravertebral soft tissue and epidural extension at the T11 level. This remains unchanged. The epidural component measures 3 mm in thickness and results in mild central canal narrowing. A small right and moderate left pleural effusion has increased in size. Mild to moderate circumferential thickening of the esophagus is noted. This has progressed. Prominent mediastinal lymph nodes. A left thyroid nodule again noted. No pneumothorax. Left lower lobe consolidation favors compressive atelectasis from the pleural effusion. Scattered irregular nodules again noted within the right lung. There is also subtle bilateral pleural nodularity. This also favors metastatic disease. Dominant nodule abutting the right minor fissure on image 150 measures 7 mm. IMPRESSION: 1. No evidence for a pulmonary embolus. 2. Increase in size in the moderate left and small right pleural effusions. Malignant pleural effusions remain the diagnosis of exclusion. 3. Increase in size in the hepatic metastatic lesions. Additional metastatic disease within the upper abdomen as described above persists. 4. Scattered subcentimeter pulmonary nodules with subtle nodularity along the pleural linings. This is concerning for metastatic disease. 5. Extensive multifocal osteoblastic metastatic disease again noted. 6. Moderate circumferential thickening of the esophagus. This has progressed and is consistent with a nonspecific esophagitis. 7. Slight progression of the prominent mediastinal lymph nodes. Code Status & VTE Plan Code Status Full - discussed with the patient and VTE Prophylaxis Plan VTE Prophylaxis will be ordered: No Critical Care Time Prolonged Care Time Prolonged Care Time: Yes Total Prolonged Care Time: 35 PG Care Time/CCT Total # of Minutes Spent Total Time Spent with Patient: Total time spent is greater than 50% in coordination of care (as documented) at patient's floor/unit and/or counseling patient: Prolonged Care Time Prolonged Care Time: Yes Total Prolonged Care Time: 35 Coding Level of Care Code 27256 INT INP/OBS CARE 3/75MIN Diagnoses Acute hypokalemia E87.6 Bilateral pleural effusion J90 Shortness of breath on exertion R06.02 Metastatic disease C79.9 Area of secondary neoplastic involvement: unspecified site Atrial fibrillation I48.91 Constipation K59.00 Goals of care, counseling/discussion Z71.89 Anxiety F41.9 Bilateral leg pain M79.604; M79.605 Additional Codes Prolonged Care Time - Prolonged Care Time: Yes ([id number]) (4) Metastatic disease Area of secondary neoplastic involvement: unspecified site Qualified Code(s): C79.9 - Secondary malignant neoplasm of unspecified site
[2022-11-18 16:47] LABS: Basophils # (auto) 0.03 K/uL (0-0.2); Basophils % (auto) 0.5 %; Hematocrit (blood only) 28.8 % (37.0-47.0); Hemoglobin 9.4 g/dl (12.0-16.0); Immature Granulocytes % (auto) 1.6 %; Lymphocytes # (auto) 0.27 K/uL (1.2-3.4); Lymphocytes % (auto) 4.4 %; Mean Corpuscular Hemoglobin 29.5 pg (25.0-34.0); Mean Corpuscular Hgb Conc 32.6 g/dL (32.0-36.0); Mean Corpuscular Volume 90.3 fL (80.0-100.0); Mean Platelet Volume 9.3 fL (9.4-12.4); Monocytes % (auto) 9.7 %; Neutrophils # (auto) 5.17 K/uL (1.40-6.50); Neutrophils % (auto) 83.8 %; Platelet Count 354 K/uL (130-400); RDW Coefficient of Variation 16.2 % (11.5-14.5); RDW Standard Deviation 53.1 fL (36.4-46.3); Red Blood Count 3.19 M/uL (4.20-5.40); White Blood Count 6.17 K/ul (4.8-10.8)
[2022-11-18 17:14] LABS: INR 1.2 (0.9-1.1); Partial Thromboplastin Time 28.2 Seconds (21.0-31.0); Prothrombin Time 12.9 Seconds (9.0-12.0)
[2022-11-18 17:16] LABS: Alanine Aminotransferase 22 U/L (7-52); Albumin Globulin Ratio 1.1 (0.9-2); Albumin Level 3.5 gm/dl (3.4-5.0); Alkaline Phosphatase 468 U/L (34-104); Anion Gap 10 (3-11); Aspartate Aminotransferase 79 U/L (13-39); BUN Creatinine Ratio 40.3 (10-20); Bilirubin,Total 0.8 mg/dl (0.2-1.0); Blood Urea Nitrogen 25 mg/dl (6-23); Calcium 8.9 mg/dl (8.5-10.1); Carbon Dioxide 27 mmol/L (21-32); Chloride 103 mmol/L (98-107); Est GFR (African American) 102.2 ml/min; Est GFR (Non-African American) 88.2 ml/min; Globulin 3.1 gm/dl (2.5-4.0); Glucose 123 mg/dl (70-99(Fasting)); Magnesium 1.8 mg/dl (1.7-2.4); Phosphorus 2.6 mg/dl (2.5-4.9); Potassium 2.5 mmol/L (3.5-5.1); Sodium 140 mmol/L (136-145); Total Protein 6.6 gm/dl (6.0-8.3)
[2022-11-18 17:29] LABS: Creatine Kinase 83 U/L (26-192)
[2022-11-18] MEDS ORDERED: MAGNESIUM SULFATE / D5W 1 GM/100 ML BAG IV ONE (17:33)
[2022-11-18] MEDS ORDERED: OPTIRAY 320 500ml IV ONE (17:51)
[2022-11-18] MEDS: POTASSIUM CHLORIDE / WTR 10 MEQ/100 ML PLCT IV SCH ×4 (17:57→21:01)
--- NOTE | 2022-11-18 19:26 | CT Scan Report ---
CHEST CTA for PULMONARY ARTERIES CT DOSE: 477.12 mGycm HISTORY: Shortness of breath. TECHNIQUE: Multiaxial CT images of the chest were performed following the intravenous administration of contrast to evaluate the pulmonary arteries. Maximal intensity projection images were also obtaine d. A dose lowering technique was utilized adhering to the principles of ALARA. COMPARISON STUDY: Outside hospital chest CTA 10/16/2022. Radiation oncology chest CT is . FINDINGS: No evidence for an aortic dissection. The ascending thoracic aorta measures up to 3.7 cm in diameter. The heart is mildly enlarged. This remains unchanged. No filling defects within the pulmon gen arteries to suggest a pulmonary embolus. Limited views of the upper abdomen demonstrate a normal spleen. A few scattered perinephric soft tissue nodules and an irregular soft tissue nodule at the pa ncreatic tail are again noted. This likely represents metastatic disease. Bilateral adrenal gland nod ules are again noted. There are multiple hepatic metastatic lesions which appear increased in size. D ominant lesion measures approximately 3.1 cm. Postoperative changes again noted within the left breas t. Multifocal osteoblastic metastatic disease again noted. This is most pronounced within the lower t horacic spine with mild paravertebral soft tissue and epidural extension at the T11 level. This remai ns unchanged. The epidural component measures 3 mm in thickness and results in mild central canal asher rowing. A small right and moderate left pleural effusion has increased in size. Mild to moderate circ umferential thickening of the esophagus is noted. This has progressed. Prominent mediastinal lymph no kisha. A left thyroid nodule again noted. No pneumothorax. Left lower lobe consolidation favors randell sive atelectasis from the pleural effusion. Scattered irregular nodules again noted within the right lung. There is also subtle bilateral pleural nodularity. This also favors metastatic disease. Dominan t nodule abutting the right minor fissure on image 150 measures 7 mm. IMPRESSION: 1. No evidence for a pulmonary embolus. 2. Increase in size in the moderate left and small right pleural effusions. Malignant pleural effusio ns remain the diagnosis of exclusion. 3. Increase in size in the hepatic metastatic lesions. Additional metastatic disease within the upper abdomen as described above persists. 4. Scattered subcentimeter pulmonary nodules with subtle nodularity along the pleural linings. This i s concerning for metastatic disease. 5. Extensive multifocal osteoblastic metastatic disease again noted. 6. Moderate circumferential thickening of the esophagus. This has progressed and is consistent with a nonspecific esophagitis. 7. Slight progression of the prominent mediastinal lymph nodes. ACT 112: Negative or not required by law. Electronically signed by: Kieran Smith M.D. 11/18/2022 7:25 PM
[2022-11-18] MEDS ORDERED: FAMOTIDINE 20 MG in SYRINGE 3 ML IV SCH (19:30)
[2022-11-18] MEDS: GABAPENTIN 100 MG CAP PO SCH (20:40)
[2022-11-18] MEDS: PANTOprazole 40 MG TAB PO SCH (20:40)
--- NOTE | 2022-11-18 20:57 | Palliative Care Consultation ---
Date of Consultation November 19, 2022 Assessment & Plan (1) Palliative care by specialist: Met with pt/family. Provided overview of Palliative Medicine, a subspecialty that provides specialized medical care for people living with a serious illness by offering a focus on quality of life. Palliative Medicine is often conflated with hospice: I advised patient/family that Palliative and hospice can be partners but we are not the same. It is important to understand the difference so that we may be informed, and not afraid. Palliative Medicine works to improve QOL through reduction of symptom burden/more control over their illness, for both the patient and family. Palliative medicine clinicians are board certified, specially-trained and another member of the patient's medical care team. We often provide an extra layer of support because our care is based on the needs of the patient, not the prognosis; as such, it's appropriate at any age/advancing stage of a serious illness and can be provided along with curative treatment. Palliative Medicine clinicians are also trained in advanced communication methodologies, to facilitate complex discussions about advanced illness planning, which are needed to help assure that the treatment choices match the patient's goals, aka delivering Goal Concordant care. Finally, we discussed that hospice is a visiting nurse service that focuses on care delivered at the very end of life for patients with terminal illness, with life expectancy less than 6 month. Case d/w oncology who shared that her overall prognosis is dependent on how much of her performance she recovers. 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 It is hoped that RT will help improve her PS and stabilize the stomach in re: GI bleeding, at which point med onc would be able to offer a trial of FOLFOX with caution, and how she tolerates FOLFOX will help med onc reassess prognosis. I reviewed this with patient and , adding that perhaps a short term of subacute rehab post dc would be best chance to optimize conditioning before return appt with oncology. (2) Advanced care planning/counseling discussion: For Oncology Patients: Patient's Palliative Prognostic Score (PaP) Score= 8.5 points/Interpretation:30-day survival probability 30-70% Patient's Palliative Prognostic Index (PPI) Score = 5 points/Note:If the PPI is greater than 6.0, survival is less than three weeks (Sensitivity - 80%; Specificity - 85%). A 35 minute face to face discussion was held with pt and at bedside. shares she is motivated to "fight this cancer." When I asked pt what her top 2-3 priorities are for herself, she acknowledged that she would like to feel less nausea and fatigue as well as more energy to be able to resume some of her social activities. 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 Patient would like to pursue cancer directed therapies. She understands she does not have a curable cancer but is hoping therapies will keep it under control and slow progression. She and share that she has been a fairly active and independent person prior to this and is not sued to be dependent on others for care. She wants to resume some of her social group activities which bring her nai and give purpose to her life. She has not been willing to dwell on issues about mortality and comments this was not something they felt was necessary. We very gently explored the potentials of a 'what-if' scenario but they did not want to explore this in any further capacity, stating they want to speak with Dr Campbell about her biopsy results and review prognosis. For now she chooses to remain full code. 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 She is receptive to interim but short term (under 2 weeks) rehab as a stepping stone to returning home and optimizing her for possible chemotherapy. Will try some Zofran 6mg IV x 1 now prior to RT. Of note, Kytril is not formulary but Aloxi is available, which we can consider tomorrow if Zofran does not provide relief today (I reviewed w/pharmacy/Dr. De Santiago.) Swati is important and a core element of patient's life, from which she derives strength and comfort. I will ask telephone engineer to provide additional visits for supportive care. I have updated nursing, primary team and oncology/Dr Campbell. I will continue to follow. Xochitl Estrada DNP Clinical Director, Palliative Medicine History of Present Illness Reason for Consultation: On 11/18/22 @ 16:56 Andrez Ruiz Wrote To Teresa Downing metastatic cancer, failure to thrive Attending Physician: Andrez Ruiz MD History of Present Illness Taya Galvez is a 77 yo with metastatic ca of unknown primary whom came to ED for direct admission from radiation oncology, where she reported declining PS, failure to thrive. SHe complains of BLE weakness in her legs + dyspnea which make her feel even weaker. She has a new dx PE SHe is undergoing RT, admits to cancer related fatigue and nausea, early satiety, decreased appetite. Patient was referred to OP [facility] med for urgent appt but was a no show for 11/12/[address] Downing. per recent rad onc notes, her oncology hx is as follows: 77yo female with extensive metastatic cancer. The patient does have a remote history of left breast cancer treated with surgery, chemotherapy and radiation therapy and hormonal therapy in 1998. More recently, the patient presented to the emergency room and was admitted due to significant abdominal pain and anemia which required transfusion. The patient's imaging studies did reveal metastatic disease including diffuse calvarial metastatic disease, large gastric mass, and extensive bony metastatic disease among other sites of spread. The patient did undergo a upper endoscopy with biopsy by Dr. Arce which did reveal a large gas tric mass and the pathology is pending. The patient currently denies any significant bleeding per rectum or hematemesis. 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 The patient was seen by Dr. Campbell from medical oncology in the hospital who recommended following up in the outpatient setting after a tissue diagnosis has been completed. Additionally, Dr. Campbell did recommend radiation oncology referral. The patient was recently discharged from the hospital and now presents to discuss the role of radiation therapy." 11/12/22 pathology: FINAL DIAGNOSIS Cerebrospinal fluid: - Suspicious for malignancy Comment: The specimen is very hypocellular but does show three very large atypical cells. Immunostains were attempted on additional cytospins but these cells do not appear to be present on those slides. This case was reviewed intra- departmentally with agreement to the above diagnosis. Screened byon at . at 0945. pathollogy 11/12/22: FINAL DIAGNOSIS Bone, biopsy: - Metastatic carcinoma (see comment) Comment: The patient has a history of breast carcinoma and a large gastric mass concerning for a primary gastric neoplasm. Multiple immunostains were performed and the tumor shows staining only for CK7, ANDRES-3, and p53. All breast markers (with the exception of ANDRES-3) are negative. This immunoprofile is somewhat non- specific, though in the clinical context, I favor that this is a gastric primary. A [facility] gastric tumor panel has been ordered. at 1510. Pt is seen bedside together with . She tells me she was getting weaker for about a week before coming to hospital, not taking much PO/getting dehydrated. states he needed to help her walk and with ADLs. Patient states she becomes very nauseated within 30 min of RT session and gets very intense dry heaves. She has not tried preventive anti nausea meds before RT. She also feels no appetite/nothing appeals to her and then she has early satiety after just a few bites. states she has lost significant weight since this new cancer was found and has not been able to enjoy life. Patient is also very fatigued and cannot enjoy her usual social activities. Allergies Allergy/AdvReac Type Severity Reaction Status Date / Time alendronate sodium AdvReac Intermediate Unable to Verified 11/11/22 15:29 [From Fosamax] ambulate Home Medications Medication Instructions Recorded Confirmed Type aspirin 81 mg tablet,delayed 81 mg PO QAM 04/03/21 11/18/22 History release biotin 1 mg capsule 1 mg PO QAM 04/03/21 11/18/22 History jwqlnjylwgxm-esjnfyon-tmwqvk 1 tab PO QAM 04/03/21 11/18/22 History tablet (Multivitamin 50 Plus tablet) nitroglycerin 0.4 mg sublingual 0.4 mg sublingual UD PRN chest 04/05/21 11/18/22 Rx tablet (Nitrostat) pain #25 tabs acetaminophen 650 mg 650 mg PO QPM PRN Pain 05/24/22 11/18/22 History tablet,extended release (Tylenol Arthritis Pain) vitamin B12 500 mcg-folic acid 400 1 tab PO DAILY #30 tabs 08/13/22 11/18/22 Rx mcg tablet gabapentin 100 mg capsule 100 mg PO BID #60 caps 10/20/22 11/18/22 Rx pantoprazole 40 mg tablet,delayed 40 mg PO BID #60 tabs 10/20/22 11/18/22 Rx release fluoxetine 10 mg capsule 10 mg PO QAM 10/24/22 11/18/22 History metoprolol succinate 50 mg 50 mg PO QAM 10/24/22 11/18/22 History tablet,extended release 24 hr rosuvastatin 40 mg tablet (Crestor) 40 mg PO HS #90 tabs 10/28/22 11/18/22 Rx tramadol 50 mg tablet 50 mg PO Q6 PRN pain 11/14/22 11/18/22 History Patient History Medical History (Updated 11/19/22 @ 00:41 by Andrez Ruiz MD) Advanced care planning/counseling discussion Anemia REASON FOR PROCEDURE Arthritis CAD (coronary artery disease) Cancer INCLOCLUSIVE OF SOURCE>BIOPSY, EGD DONE PRIOR (REASON FOR PROCEDURE TOMORROW)>LOCATED IN SPINE Gastric adenocarcinoma GI bleed History of COVID-19 07/2022>FATIGUE CONT. HX: breast cancer SX/CHEMO/RADIATION Hyperlipidemia Hypertension Implantable loop recorder present Multiple pulmonary nodules determined by computed tomography of lung Non-ST elevation (NSTEMI) myocardial infarction 2020 Osteopenia Palliative care by specialist Paroxysmal atrial tachycardia Pulmonary embolism RECENT HOSPITALIZATION FOR PE AT [facility]>REASON FOR ELIQUIS ? REASON Restless leg syndrome Surgical History H/O: hysterectomy PARTIAL History of appendectomy History of colonoscopy History of esophagogastroduodenoscopy (EGD) History of lumpectomy of left breast LEFT ARM RESTRICTION History of tonsillectomy History of tooth extraction History of wisdom tooth extraction Nausea and vomiting after administration of anesthetic agent S/P coronary artery stent placement 2020>2 STENTS PLACED (FOLLOWED BY DR. 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 Advisor Required: No Beliefs That Will Affect Care: None marital status: / Current Living Situation: Spouse current occupational status: retired Other Information That Helps Us Care for You: No Feels Safe at Home: Yes Safety Concerns: Feels Safe At This Time Childhood Exposure to Second-Hand Smoke: No caffeine: Yes during the past year weight has: remained stable Dental Care, Regularly: Yes Physical Activity Frequency: Daily Seatbelt Use: always Sunscreen Use: No Assistive Devices: Cane and Walker Review of Systems Review of Systems: All systems reviewed & are unremarkable except as noted in Subjective Physical Exam Physical Exam: Sitting at side of bed, trying to eat lunch but stops after 2-3 bites with c/o fullness. Normal resp effort, mild acute distress noted. no JVD. Mildly disheveled appearance, tired. Color pale, skin warm. No BLE edema noted. AAOx3. Following commands and diminished but equal strength. Results & Data ([facility]) Vital Signs (Past 12 Hours) Vital Signs Temp Pulse Pulse Resp BP Pulse Ox Pulse Ox 11/18/22 17:31 36.7 C 96 H 16 114/69 99 11/18/22 17:31 99 11/18/22 18:43 84 11/18/22 18:42 36.7 C 96 H 16 114/69 99 11/18/22 18:33 11/18/22 16:19 36.9 C 73 16 98/60 L 93 O2 Del Method O2 Del Method 11/18/22 17:31 Room Air 11/18/22 17:31 Room Air 11/18/22 18:43 11/18/22 18:42 Room Air 11/18/22 18:33 Room Air 11/18/22 16:19 Room Air Laboratory Results data reviewed Diagnostic Findings data reviewed PG Care Time/CCT Total # of Minutes Spent Total Time Spent: 95 Total Time Spent with Patient: Total time spent is greater than 50% in coordination of care (as documented) at patient's floor/unit and/or counseling patient: I spent 95 minutes overall addressing this complex case: 15 in medical data review/discussion with referring provider(s) and/or preparation for the visit/case d/w oncology prior to visit 25 in direct interaction with the patient and/or 35 additional min for Advance Care Planning/Goals of Care discussions as detailed above in note (must be >16min) 10 in subsequent review and synthesis of assessment and plan/reviewed anti emetics with pharmacy 10 in communicating with other providers regarding the patient's case: med onc, pharmacy, nursing, primary team Prolonged Care Time Prolonged Care Time: Yes Advanced Care Planning 24301 Advanced Care Planning 30 [place] [address] IN/OBS CONSULT LVL 5,80M Patient Type New History Comprehensive Exam Comprehensive Medical Decision Making High Complexity Diagnoses Palliative care by specialist Z51.5 Advanced care planning/counseling discussion Z71.89 Gastric adenocarcinoma C16.9 Multiple pulmonary nodules determined by computed tomography of lung R91.8 MILLARD (dyspnea on exertion) R06.00 Metastasis to spinal column C79.51 Liver metastases C78.7 S/P coronary artery stent placement Z95.5 Non-ST elevation (NSTEMI) myocardial infarction I21.4 HX: breast cancer Z85.3 Additional Codes Advanced Care Planning - 96681 Advanced Care Planning 30 Min: 89762 Advanced Care Planning 30 Min ([id number]) Prolonged Care Time - Prolonged Care Time: Yes ([id number])
[2022-11-18 23:39] LABS: Appearance Urine Cloudy (Clear); Bacteria Urine Automated Negative (Negative); Bilirubin Urine Negative (Negative); Blood Urine 3+ (Negative); Color Urine Dark Yellow; Epithelial Cell Urine Auto >30 /lpf (0-5); Glucose Urine UA Negative (Negative); Ketones Urine Trace (Negative); Leukocyte Esterase Urine Negative (Negative); Nitrite Urine Negative (Negative); Protein Urine 2+ (Negative); Specific Gravity Urine > 1.045 (1.000-1.030); Urobilinogen Urine Negative (Negative)
[2022-11-18 23:41] LABS: BUN Creatinine Ratio 38.6 (10-20); Calcium 8.6 mg/dl (8.5-10.1); Creatinine Clr Calc Pharmacy 76.7 ml/min; Est GFR (African American) 105.1 ml/min; Est GFR (Non-African American) 90.7 ml/min; Potassium 2.9 mmol/L (3.5-5.1)
[2022-11-19] MEDS ORDERED: POTASSIUM CHLORIDE PWD 20 MEQ PACK PO ONE (00:06)
[2022-11-19] MEDS ORDERED: POTASSIUM CHLORIDE / WTR 10 MEQ/100 ML PLCT IV SCH (00:15)
--- NOTE | 2022-11-19 00:44 | Billing Data ---
Date of Service November 18, 2022 Coding Level of Care Code PROLONG IP/OBS E/M EA 15 MIN
[2022-11-19] MEDS: POTASSIUM CHLORIDE / WTR 10 MEQ/100 ML PLCT IV SCH ×3 (00:50→03:20)
[2022-11-19] MEDS: POLYETHYLENE (MIRALAX) 17 GM PACK PO SCH (03:38)
[2022-11-19] MEDS: DOCUSATE SODIUM 100 MG CAP PO SCH ×2 (03:38→20:22)
[2022-11-19] MEDS: GABAPENTIN 100 MG CAP PO SCH ×2 (07:51→20:23)
[2022-11-19] MEDS: METOPROLOL SUCC 50MG EXT REL TAB PO SCH (07:52)
[2022-11-19] MEDS: PANTOprazole 40 MG TAB PO SCH ×2 (07:52→20:23)
[2022-11-19] MEDS: FLUoxetine HCL 10 MG CAP PO SCH (07:52)
[2022-11-19] MEDS: CEROVITE ADV FORMULA TAB PO SCH (07:52)
[2022-11-19] MEDS: FOLIC ACID 400 MCG TAB PO SCH (07:52)
[2022-11-19] MEDS: CYANOCOBALAMIN (B-12) 500 MCG TABLET PO SCH (07:52)
[2022-11-19] MEDS: ASPIRIN 81 MG ECTAB PO SCH (07:52)
--- NOTE | 2022-11-19 08:09 | Hospitalist Progress Note ---
Date of Service November 19, 2022 Assessment & Plan (1) Gastric adenocarcinoma: Plan: This is a preliminary note, full consultation will follow this evening. Patient had recently presented with metastatic carcinoma and a gastric mass. There had been some difficulty with establishing a diagnosis despite successive EGDs which failed to yield sufficient tissue to be able to specifically define. Most recent biopsy unequivocally shows a metastatic aggressive adenocarcinoma, features are clearly distinct from her previous breast cancer, overall clinical situation strongly suggests metastatic gastric cancer. Course has been complicated both by bleeding related to the gastric mass and previous pulmonary embolism. Anticoagulation on hold because of GI bleeding. Care sequence is focused initially on palliative radiation to the back and as well to the gastric mass. The latter is still ongoing. As that is accomplished hopefully we can consider reinstituting anticoagulation if it remains appropriate in the larger context and, with the newly available more definitive pathology, begin to discuss a systemic treatment approach. However, with the current admission it becomes clear that we need to optimize metabolically and from a cardiopulmonary standpoint before proceeding forward. There is also unfortunately a concern over DELICATESSEN STORE MANAGER involvement based on MRI of the brain and at least a suggestive CSF cytology Overall prognosis is guarded and much will depend on how well we can stabilize her performance status during this admission as to whether it is even reasonably feasible to proceed forward with aggressive systemic therapy. Palliative Care consultation in conjunction with ongoing pulmonary and oncology consultations will importantly set the stage for those discussions Plan Immediate issues will be to focus on cardiac, pulmonary, and metabolic stabilization. Radiation plans to continue treatment to the gastric mass which will hopefully sufficiently stabilize that to consider resuming anticoagulation protecting her both against atrial fibrillation related atreial side thrombosis but perhaps even more so against potential Trousseau's like thrombosis related to the gastric mass as potentially previously manifested as pulmonary embolism. As we see how well current decompensation is reversed and what she can achieve in terms of performance status, we will certainly be discussing systemic tim atment options though those will have to be offered in the context of her incurability and also the challenging prognosis she has with a difficult malignancy that may include the DELICATESSEN STORE MANAGER. Simultaneous Palliaitive Care consultation to particularly focus on setting parameters and philosophy of care will be important Full consultation will be available this evening Admission and Anticipated Discharge Date Admission Date: November 18, 2022 Subjective Patient with metastatic cancer probably of gastric origin admitted with respiratory decompensation and hyperkalemia Results & Data Results & Data ([facility]) Vital Signs (Past 12 Hours) Vital Signs Temp Pulse Pulse Resp BP Pulse Ox O2 Del Method 11/19/22 07:35 36.2 C L 95 H 16 123/79 100 Room Air 11/19/22 03:45 128/78 11/19/22 03:31 86 11/19/22 02:31 36.5 C 90 16 99/61 L 95 Room Air 11/19/22 01:47 88 11/19/22 01:00 Room Air 11/18/22 23:15 36.7 C 79 16 99/64 L 97 Room Air 11/18/22 22:16 Room Air PG Care Time/CCT Total # of Minutes Spent Total Time Spent with Patient: Total time spent is greater than 50% in coordination of care (as documented) at patient's floor/unit and/or counseling patient: Coding Level of Care Code None Diagnoses Gastric adenocarcinoma C16.9
[2022-11-19 08:10] LABS: Basophils # (auto) 0.03 K/uL (0-0.2); Basophils % (auto) 0.6 %; Hematocrit (blood only) 27.3 % (37.0-47.0); Hemoglobin 8.8 g/dl (12.0-16.0); Immature Granulocytes # (auto) 0.06 K/uL (0.01-0.20); Immature Granulocytes % (auto) 1.2 %; Lymphocytes # (auto) 0.22 K/uL (1.2-3.4); Lymphocytes % (auto) 4.5 %; Mean Corpuscular Hemoglobin 29.6 pg (25.0-34.0); Mean Corpuscular Hgb Conc 32.2 g/dL (32.0-36.0); Mean Corpuscular Volume 91.9 fL (80.0-100.0); Mean Platelet Volume 9.1 fL (9.4-12.4); Monocytes # (auto) 0.64 K/uL (0.11-0.59); Monocytes % (auto) 13.1 %; Neutrophils # (auto) 3.95 K/uL (1.40-6.50); Neutrophils % (auto) 80.6 %; Platelet Count 288 K/uL (130-400); RDW Coefficient of Variation 16.6 % (11.5-14.5); RDW Standard Deviation 55.2 fL (36.4-46.3); Red Blood Count 2.97 M/uL (4.20-5.40)
[2022-11-19 08:39] LABS: Albumin Globulin Ratio 1.1 (0.9-2); Albumin Level 3.2 gm/dl (3.4-5.0); BUN Creatinine Ratio 34.9 (10-20); Bilirubin,Total 0.7 mg/dl (0.2-1.0); Calcium 8.8 mg/dl (8.5-10.1); Creatinine Clr Calc Pharmacy 69.4 ml/min; Est GFR (African American) 101.7 ml/min; Est GFR (Non-African American) 87.7 ml/min; Potassium 3.7 mmol/L (3.5-5.1); Thyroid Stimulating Hormone 8.794 uIu/ml (0.300-4.500); Total Protein 6.2 gm/dl (6.0-8.3)
[2022-11-19 09:15] LABS: T4 Free Thyroxine 0.98 ng/dl (0.61-1.60)
--- NOTE | 2022-11-19 12:02 | Hospitalist Progress Note ---
Date of Service November 19, 2022 Assessment & Plan (1) Acute hypokalemia: Plan: Given her rapid improvement in her b/l leg weakness overnight I suspect one of the main drivers of the weakness was the low K level. Her K level is now normal s/p PO + IV replacement. Mag level noted to be normal. Repeat BMP am. Likely that low K was due to poor oral intake at home from cancer-induced anorexia. (2) Leg weakness, bilateral: Plan: Improved s/p correction of hypokalemia. With that said she still has mild weakness in her proximal thighs b/l. Given her known spinal mets on prior MRI t-spine/l-spine (done at [address] [place] [address] in September) will repeat thoracic spine and lumbar spine MRIs today to ensure no spinal cord impingement by her cancer. Will need PT/OT. Of note - B12 level last month was wnl. CPK yesterday wnl. Mag level wnl. 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 Counseled her and her that these will likely worsen over time. Given stable O2 sats and minimal symptoms from such will hold off on any intervention at this time. (4) Shortness of breath on exertion: Plan: Likely due to #3 above. No new PE seen on CTA chest yesterday. No evidence of pneumonia. Of note - had LLL PEs on outpatient CTA chest in early October (done at [facility]). Prior anticoagulation stopped due to suspected GI bleeding from gastric tumor. 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 Mets to numerous bony regions, liver, lungs, brain, possible CSF as well. Repeat MRI of t-spine and l-spine today to r/o epidural extension from known metastatic disease in this region. (6) Constipation: Plan: Docusate 100mg PO BID Miralax 17g daily (7) Goals of care, counseling/discussion: Plan: Palliative care to meet with patient and to refine goals of care, discuss symptomatic Rx, etc. For severe cancer-induced anorexia -- start marinol cautiously 2.5mg BID with meals (8) Anxiety: Plan: Continue fluoxetine 10mg PO daily (9) Bilateral leg pain: Plan: Likely radicular in origin from her lumbar spine Cont gabapentin (10) Atrial tachycardia: Plan: numerous episodes of either PAT or SVT doubt a.flutter (2:1) does not appear to have symptoms echo returned with preserved EF cont metoprolol succinate martin recorder interrogation requested (11) Hypothyroidism: Plan: last 2 TSH levels have been high will start synthroid 25mcg daily repeat TSH 6 weeks as outpatient (12) Pulmonary embolism: Plan: dx with such (LLL PEs) on outpatient CTA chest early October at [facility] had been on anticoagulation but stopped due to concerns of GI bleeding from gastric mass no new PE seen on yesterday's study (13) CAD (coronary artery disease): Plan: noted cont asa cont beta melissa (14) Hypertension: Plan: controlled (15) Severe protein-calorie malnutrition: Plan: severe weight loss (30+ pounds) over the last few months 2nd to stage 4 adenocarcinoma start marinol (16) Elevated LFTs: Plan: likely 2nd to liver mets + bony mets trend hold statin (17) Esophagitis: Plan: as seen on CTA chest already on PPI twice daily add carafate 1gm QID Plan HIGH risk of DVT/PE due to advanced cancer H/H are stable at minimum will start heparin SC for DVT proph updated at bedside Admission and Anticipated Discharge Date Admission Date: November 18, 2022 Subjective tele overnight - numerous, brief runs of narrow complex tachycardia - PAT vs SVT vs a.flutter 2:1 - suspect PAT or SVT. no overt symptoms from such. patient has a loop recorder device. she reports that her b/l leg weakness is much better today. was able to ambulate to the bathroom this am with use of walker. denies any paresthesias. denies any joint pains in her knees or ankles. denies arm weakness b/l. denies significant back pain today. denies headache. appetite fair. reports poor appetite and significant weight loss over the last few months (30+ pounds). when she tries to eat she gets bloated and filled up quickly. Review of Systems Review of Systems: gen - no fevers or chills; + weight loss cv - no cp, no palpitations pulm - no cough; mild dyspnea with walking up steps at home but no dyspnea today in her hospital room GI - no abd pain; no vomiting; some nausea at times Physical Exam Physical Exam: gen - thin, pale, NAD; pleasant mouth - no thrush plaques, no lesions neck - no JVD heart - irregular, s1 s2, no murmur lungs - decreased BS b/l bases L>R; no wheezes; no increased work of breathing abd - soft NT ND BS+ ext - no edema, pulses 2+ b/l neuro - strength b/l ankles 5/5 with dorsiflexion/plantarflexion; b/l hip flexion about 4-5/5; arm strength 5/5 b/l skin - pallor, no rash psych - a/o x 3 Results & Data Results & Data ([facility]) Vital Signs (Past 12 Hours) Vital Signs Temp Pulse Pulse Resp BP Pulse Ox O2 Del Method 11/19/22 11:04 36.4 C L 74 17 114/71 98 Room Air 11/19/22 07:35 36.2 C L 95 H 16 123/79 100 Room Air 11/19/22 03:45 128/78 11/19/22 03:31 86 11/19/22 02:31 36.5 C 90 16 99/61 L 95 Room Air 11/19/22 01:47 88 11/19/22 01:00 Room Air Laboratory Results Laboratory Results - last 24 hr 11/18/22 11/18/22 11/18/22 16:30 16:30 16:30 WBC 6.17 RBC 3.19 L Hgb 9.4 L Hct 28.8 L MCV 90.3 MCH 29.5 MCHC 32.6 RDW Std Deviation 53.1 H RDW Coeff of Tana 16.2 H Plt Count 354 MPV 9.3 L Immature Gran % (Auto) 1.6 Neut % (Auto) 83.8 Lymph % (Auto) 4.4 Stark % (Auto) 9.7 Eos % (Auto) 0.0 Baso % (Auto) 0.5 Neut # (Auto) 5.17 Lymph # (Auto) 0.27 L Stark # (Auto) 0.60 H Eos # (Auto) 0.00 Baso # (Auto) 0.03 Immature Gran # (Auto) 0.10 PT 12.9 H INR 1.2 H APTT 28.2 PTT Ratio 1.0 Sodium 140 Potassium 2.5 L* Chloride 103 Carbon Dioxide 27 Anion Gap 10 BUN 25 H Creatinine 0.62 Est Cr Clr Drug Dosing Not Reportable Est GFR ( Amer) 102.2 Est GFR (Non-Af Amer) 88.2 BUN/Creatinine Ratio 40.3 H Glucose 123 H Calcium 8.9 Phosphorus 2.6 Magnesium 1.8 Total Bilirubin 0.8 AST 79 H ALT 22 Alkaline Phosphatase 468 H Total Creatine Kinase 83 Total Protein 6.6 Albumin 3.5 Globulin 3.1 Albumin/Globulin Ratio 1.1 TSH Free T4 Urine Color Urine Appearance Urine pH Ur Specific Sweetser Urine Protein Urine Glucose (UA) Urine Ketones Urine Blood Urine Nitrite Urine Bilirubin Urine Urobilinogen Ur Leukocyte Esterase Urine WBC (Auto) Urine RBC (Auto) U Hyaline Cast (Auto) U Epithel Cells (Auto) Urine Bacteria (Auto) Ur Renal Epithelial Cell Urine Crystals Other Crystals SARS-CoV-2, RNA, NAAT 11/18/22 11/18/22 11/18/22 23:00 23:06 Unknown WBC RBC Hgb Hct MCV MCH MCHC RDW Std Deviation RDW Coeff of Tana Plt Count MPV Immature Gran % (Auto) Neut % (Auto) Lymph % (Auto) Stark % (Auto) Eos % (Auto) Baso % (Auto) Neut # (Auto) Lymph # (Auto) Stark # (Auto) Eos # (Auto) Baso # (Auto) Immature Gran # (Auto) PT INR APTT PTT Ratio Sodium 137 Potassium 2.9 L Chloride 103 Carbon Dioxide 27 Anion Gap 7 BUN 22 Creatinine 0.57 L Est Cr Clr Drug Dosing 76.7 Est GFR ( Amer) 105.1 Est GFR (Non-Af Amer) 90.7 BUN/Creatinine Ratio 38.6 H Glucose 100 H Calcium 8.6 Phosphorus Magnesium Total Bilirubin AST ALT Alkaline Phosphatase Total Creatine Kinase Total Protein Albumin Globulin Albumin/Globulin Ratio TSH Free T4 Urine Color Dark Yellow Urine Appearance Cloudy A Urine pH 7.0 Ur Specific Sweetser > 1.045 H Urine Protein 2+ H Urine Glucose (UA) Negative Urine Ketones Trace H Urine Blood 3+ H Urine Nitrite Negative Urine Bilirubin Negative Urine Urobilinogen Negative Ur Leukocyte Esterase Negative Urine WBC (Auto) 5-10 H Urine RBC (Auto) 5-10 H U Hyaline Cast (Auto) 5-10 H U Epithel Cells (Auto) >30 H Urine Bacteria (Auto) Negative Ur Renal Epithelial Cell Not Reportable Urine Crystals Not Reportable Other Crystals Ammonium Biurate A SARS-CoV-2, RNA, NAAT NEGATIVE 11/19/22 11/19/22 11/19/22 07:36 07:36 07:36 WBC 4.90 RBC 2.97 L Hgb 8.8 L Hct 27.3 L MCV 91.9 MCH 29.6 MCHC 32.2 RDW Std Deviation 55.2 H RDW Coeff of Tana 16.6 H Plt Count 288 MPV 9.1 L Immature Gran % (Auto) 1.2 Neut % (Auto) 80.6 Lymph % (Auto) 4.5 Stark % (Auto) 13.1 Eos % (Auto) 0.0 Baso % (Auto) 0.6 Neut # (Auto) 3.95 Lymph # (Auto) 0.22 L Stark # (Auto) 0.64 H Eos # (Auto) 0.00 Baso # (Auto) 0.03 Immature Gran # (Auto) 0.06 PT INR APTT PTT Ratio Sodium 136 Potassium 3.7 D Chloride 103 Carbon Dioxide 24 Anion Gap 9 BUN 22 Creatinine 0.63 Est Cr Clr Drug Dosing 69.4 Est GFR ( Amer) 101.7 Est GFR (Non-Af Amer) 87.7 BUN/Creatinine Ratio 34.9 H Glucose 105 H Calcium 8.8 Phosphorus Magnesium 2.0 Total Bilirubin 0.7 AST 73 H ALT 20 Alkaline Phosphatase 430 H Total Creatine Kinase Total Protein 6.2 Albumin 3.2 L Globulin 3.0 Albumin/Globulin Ratio 1.1 TSH 8.794 H Free T4 0.98 Urine Color Urine Appearance Urine pH Ur Specific Sweetser Urine Protein Urine Glucose (UA) Urine Ketones Urine Blood Urine Nitrite Urine Bilirubin Urine Urobilinogen Ur Leukocyte Esterase Urine WBC (Auto) Urine RBC (Auto) U Hyaline Cast (Auto) U Epithel Cells (Auto) Urine Bacteria (Auto) Ur Renal Epithelial Cell Urine Crystals Other Crystals SARS-CoV-2, RNA, NAAT PG Care Time/CCT Total # of Minutes Spent Total Time Spent with Patient: Total time spent is greater than 50% in coordination of care (as documented) at patient's floor/unit and/or counseling patient: Coding Level of Care Code 83536 SUB INP/OBS CARE 3/50MIN Diagnoses Acute hypokalemia E87.6 Leg weakness, bilateral R29.898 Bilateral pleural effusion J90 Shortness of breath on exertion R06.02 Metastatic disease C79.9 Area of secondary neoplastic involvement: unspecified site Constipation K59.00 Goals of care, counseling/discussion Z71.89 Anxiety F41.9 Bilateral leg pain M79.604; M79.605 Atrial tachycardia I47.1 Hypothyroidism E03.9 Pulmonary embolism I26.99 CAD (coronary artery disease) I25.10 Hypertension I10 Hypertension type: essential hypertension Severe protein-calorie malnutrition E43 Elevated LFTs R79.89 Esophagitis K20.90 (5) Metastatic disease Area of secondary neoplastic involvement: unspecified site Qualified Code(s): C79.9 - Secondary malignant neoplasm of unspecified site (14) Hypertension Hypertension type: essential hypertension Qualified Code(s): I10 - Essential (primary) hypertension
[2022-11-19] MEDS ORDERED: SODIUM CHLORIDE FLUSH IV STA (12:32)
[2022-11-19] MEDS ORDERED: [UNRECOGNIZED DRUG - OTHER] IV STA (12:32)
[2022-11-19] MEDS ORDERED: ONDANSETRON INJ 2 MG/ML 2 ML VIAL IV STA (12:45)
[2022-11-19] MEDS ORDERED: GADOBUTROL 65ML VIAL IV ONE (13:18)
--- NOTE | 2022-11-19 13:36 | XCELERA ---
[id number]
[2022-11-19] MEDS: LEVOTHYROXINE SODIUM 25 MCG TABLET PO SCH (14:17)
[2022-11-19] MEDS: SUCRALFATE 1 GM/10 ML UDC PO SCH ×3 (14:18→20:22)
--- NOTE | 2022-11-19 14:46 | Radiation OncologyConsultation ---
Date of Consultation November 19, 2022 Assessment & Plan (1) Metastatic disease: Area of secondary neoplastic involvement: unspecified site Qualified Code(s): C79.9 - Secondary malignant neoplasm of unspecified site Plan Assessment:Ms. Galvez is a 77-year-old female who presents with extensive metastatic cancer. The patient does have a remote history of left breast cancer treated with surgery, chemotherapy and radiation therapy and hormonal therapy in 1998. More recently, the patient presented to the emergency room and was admitted due to significant abdominal pain and anemia which required transfusion. The patient was found to have widespread metastatic disease. The patient was seen for radiation oncology consultation. The recommendation was for palliative radiation therapy to the lumbar spine/sacrum/pelvis for pain control and to the stomach due to bleeding/anemia. The patient did start radiation therapy in the outpatient setting on 11/11/2022 and has received 6 f ractions of radiation therapy out of a planned 10 fractions for both sites of treatment. The patient was seen in our department yesterday and was having failure to thrive and the patient was then directly admitted to the hospital for further work-up and evaluation. Since admission, the patient has had an MRI of the spine with results pending. The patient states she is doing better since her admission. She does complain of some back pain due to her MRIs that were recently completed. I am now seeing the patient in consultation to discuss the role of further radiation therapy. Plan: 1. Continue palliative radiation therapy in the inpatient setting. 2. Defer further diagnostic work-up to medical oncology and primary hospital team. We will follow-up with the MRI imaging studies completed recently. 3. Palliative care consultation input appreciated. 4. Continue current pain management as per primary medical team. 5. Patient and family encouraged to call us with any further questions or concerns. History of Present Illness Attending Physician: Andrez Womack History of Present Illness 1998. Left breast cancer. Surgery followed by chemotherapy and radiation. She then took hormonal therapy. 01/2022. Mammography. BI-RADS Category 1. Benign. 04/02/2022. Chest CT. Multiple noncalcified pulmonary nodules. Follow-up recommended. 10/16/2021. Admitted with abdominal pain. 10/16/2022. CT of chest, abdomen and pelvis. Suspicious for some segmental left lower lobe pulmonary emboli. Soft tissue density and peribronchial cuffing in the left infra hilar region. Small to moderate left pleural effusion. Diffuse metastatic disease to the bony skeleton. Soft tissue mass density in the mesentery of the anterior abdomen consistent in appearance with neoplasm. Shotty mediastinal adenopathy. 10/16/2022. Orthopedic consultation (Dr. Dodd). Metastatic final disease. Mostly involving the sacrum. She was without gross neural compromise. 10/16/2022. Medical oncology consultation (Dr. Campbell). Treatment for the pulmona ry embolism and anemia initiated. Recommendation for biopsy of possibly the liver with appropriate anticoagulation suspension. 10/17/2022. Pulmonary consultation (Dr. Álvarez). No mass was seen in the left lower lobe. Patient should proceed with the GI evaluation. 10/17/2022. Head CT. Hyperdense material within the left subdural space. This could reflect subdural hemorrhage. However dural extension of tumor could appear similar given extensive calvarial metastasis. MRI was recommended. 10/17/2022. Brain MRI. Extensive diffuse calvarial metastatic disease. Asymmetric pachymeningeal thickening and enhancement, greatest along the left convexity. This likely represents metastatic disease and corresponds to abnormality seen on CT. 10/17/2022. Gastroenterology consultation (Dr. Arce). Recommendation for upper GI endoscopy and colonoscopy. 10/18/2022. Colonoscopy. Perianal and digital examination were normal. Scattered small and large mouth diverticula found in the colon. Non-bleeding internal hemorrhoids were found. 10/18/2022. Upper GI endoscopy. Esophagus was normal. A large ulcerated, noncircumferential mass with no bleeding and no stigmata of recurrent bleeding was found on the lesser curvature of the stomach. Biopsies were taken. Pathology was inconclusive. 10/25/2022. Repeat EGD. Biopsy of stomach. Favors carcinoma. 11/11/2022 to 11/18/2022. 6 fractions of palliative external beam radiation therapy to lumbar spine/sacrum/pelvis and to stomach. Plan for 10 fractions total. 11/12/2022. Bone, biopsy. Metastatic carcinoma favoring gastric primary. 11/12/2022. CSF fluid. Suspicious for malignancy. 11/18/2022. Patient seen on treatment in radiation oncology department. Patient doing poorly overall. Patient was direct directly admitted to hospital for f urther work-up and evaluation. 11/18/2022. CT chest. 1. No evidence for a pulmonary embolus. 2. Increase in size in the moderate left and small right pleural effusions. Malignant pleural effusions remain the diagnosis of exclusion. 3. Increase in size in the hepatic metastatic lesions. Additional metastatic disease within the upper abdomen as described above persists. 4. Scattered subcentimeter pulmonary nodules with subtle nodularity along the pleural linings. This is concerning for metastatic disease. 5. Extensive multifocal osteoblastic metastatic disease again noted. 6. Moderate circumferential thickening of the esophagus. This has progressed and is consistent with a nonspecific esophagitis. 7. Slight progression of the prominent mediastinal lymph nodes. 11/19/2022. MRI of thoracic/lumbar spine. Results pending. 11/19/2022. Medical oncology note by Dr. Campbell. Continue palliative radiation therapy. Palliative care consultation should be considered. Allergies Allergy/AdvReac Type Severity Reaction Status Date / Time alendronate sodium AdvReac Intermediate Unable to Verified 11/11/22 15:29 [From Fosamax] ambulate Home Medications Medication Instructions Recorded Confirmed Type aspirin 81 mg tablet,delayed 81 mg PO QAM 04/03/21 11/18/22 History release biotin 1 mg capsule 1 mg PO QAM 04/03/21 11/18/22 History [id number]-[id number] 1 tab PO QAM 04/03/21 11/18/22 History tablet (Multivitamin 50 Plus tablet) nitroglycerin 0.4 mg sublingual 0.4 mg sublingual UD PRN chest 04/05/21 11/18/22 Rx tablet (Nitrostat) pain #25 tabs acetaminophen 650 mg 650 mg PO QPM PRN Pain 05/24/22 11/18/22 History tablet,extended release (Tylenol Arthritis Pain) vitamin B12 500 mcg-folic acid 400 1 tab PO DAILY #30 tabs 08/13/22 11/18/22 Rx mcg tablet gabapentin 100 mg capsule 100 mg PO BID #60 caps 10/20/22 11/18/22 Rx pantoprazole 40 mg tablet,delayed 40 mg PO BID #60 tabs 10/20/22 11/18/22 Rx release fluoxetine 10 mg capsule 10 mg PO QAM 10/24/22 11/18/22 History metoprolol succinate 50 mg 50 mg PO QAM 10/24/22 11/18/22 History tablet,extended release 24 hr rosuvastatin 40 mg tablet (Crestor) 40 mg PO HS #90 tabs 10/28/22 11/18/22 Rx tramadol 50 mg tablet 50 mg PO Q6 PRN pain 11/14/22 11/18/22 History Patient History Medical History (Updated 11/19/22 @ 00:41 by Andrez Ruiz MD) Advanced care planning/counseling discussion Anemia REASON FOR PROCEDURE Arthritis CAD (coronary artery disease) Cancer INCLOCLUSIVE OF SOURCE>BIOPSY, EGD DONE PRIOR (REASON FOR PROCEDURE TOMORROW)>LOCATED IN SPINE Gastric adenocarcinoma GI bleed History of COVID-19 07/2022>FATIGUE CONT. HX: breast cancer SX/CHEMO/RADIATION Hyperlipidemia Hypertension Implantable loop recorder present Multiple pulmonary nodules determined by computed tomography of lung Non-ST elevation (NSTEMI) myocardial infarction 2020 Osteopenia Palliative care by specialist Paroxysmal atrial tachycardia Pulmonary embolism RECENT HOSPITALIZATION FOR PE AT [facility]>REASON FOR ELIQUIS ? REASON Restless leg syndrome Surgical History H/O: hysterectomy PARTIAL History of appendectomy History of colonoscopy History of esophagogastroduodenoscopy (EGD) History of lumpectomy of left breast LEFT ARM RESTRICTION History of tonsillectomy History of tooth extraction History of wisdom tooth extraction Nausea and vomiting after administration of anesthetic agent S/P coronary artery stent placement 2020>2 STENTS PLACED (FOLLOWED BY DR. DURHAM) Family History Mother Breast cancer Father Stroke Denies family history of Ovarian cancer Prostate cancer Myocardial infarction Colorectal cancer Social History Smoking Status: Never smoker Second Hand Exposure: No; Hx Alcohol Use: No Hx Substance Use: No Preferred Language: Monegasque Communication Ability: Effective Visual Impairment: Limited Hearing Ability: Normal Underwriter Solicitation Director Required: No Beliefs That Will Affect Care: None marital status: / Current Living Situation: Spouse current occupational status: retired Other Information That Helps Us Care for You: No Feels Safe at Home: Yes Safety Concerns: Feels Safe At This Time Childhood Exposure to Second-Hand Smoke: No caffeine: Yes during the past year weight has: remained stable Dental Care, Regularly: Yes Physical Activity Frequency: Daily Seatbelt Use: always Sunscreen Use: No Assistive Devices: Cane and Walker Review of Systems Review of Systems: Overall, patient does feel better since she was admitted to the hospital. She only complains of back pain due to her recent MRIs. Physical Exam Constitutional: WD/WN, vitals as above Psychiatric: A+Ox3, euthymic affect
--- NOTE | 2022-11-19 15:13 | Magnetic Resonance Report ---
THORACIC SPINE MRI WITH AND WITHOUT CONTRAST HISTORY: b/l leg weakness, known t-spine/l-spine mets TECHNIQUE: Multiplanar multisequence MRI of the thoracic spine was performed both before and after th e intravenous administration of contrast. COMPARISON: Chest CTA 11/18/2022. FINDINGS: Extensive metastatic disease seen throughout the visualized osseous structures most pronounced within the spine. No acute fracture or subluxation within the thoracic spine. There appears to be minimal e pidural extension of tumor at the T8 and T11 levels measuring up to 1 mm in thickness. However, no si gnificant central canal narrowing. The thoracic spinal cord is normal in course, caliber, and signal intensity. Small right and moderate left pleural effusions again noted. Moderate to severe degenerati ve disease throughout the thoracic spine. Mild paraspinal edema most pronounced within the lower thor acic spine. IMPRESSION: 1. Redemonstration of extensive osseous metastatic disease. 2. Probable minimal epidural extension of tumor at the T8 and T11 levels which measures up to 1 mm in thickness. However, no significant central canal narrowing. 3. No acute fracture or subluxation within the thoracic spine. 4. Moderate left and small right pleural effusions again noted. ACT 112: Negative or not required by law. Electronically signed by: Kieran Smith M.D. 11/19/2022 3:12 PM
--- NOTE | 2022-11-19 16:17 | Magnetic Resonance Report ---
MR lumbar spine wo/w con CLINICAL HISTORY: b/l leg weakness, known t-spine/l-spine mets TECHNIQUE: 3 plane localizer images, sagittal T2, sagittal T1, sagittal STIR, axial T1, axial T2 guillermo g with postcontrast axial T1 and sagittal T1 fat-saturated sequences were obtained of the lumbar spin e, before and after intravenous administration of 12 mL of MultiHance. Comparison: None available at the time of this dictation. FINDINGS: Extensive osseous disease is again seen in the spine. Exam is limited due to patient motion and body habitus. There is minimal anterolisthesis of L4-L5. L1-L2: No significant abnormality. L2-L3: Facet arthropathy results in mild bilateral neuroforaminal stenosis. L3-L4: Facet arthropathy is seen resulting in moderate bilateral neuroforaminal stenosis. L4-L5: No significant abnormality. L5-S1: No significant abnormality. The spinal ligaments are intact, without evidence of disruption or abnormal signal intensity. The spi nal cord is normal in signal intensity and there is no evidence of cord contusion. There is no eviden ce of an extradural, intradural, extramedullary or intramedullary lesion. Visualized soft tissues are normal. IMPRESSION: 1. Limited exam with partial visualization of extensive bony metastatic disease. No pathologic fract ures are seen. 2. Partial evaluation of multilevel degenerative changes with up to moderate bilateral neuroforamina l stenosis. ACT 112: Negative or not required by law. Electronically signed by: Zhang Roman M.D. 11/19/2022 4:15 PM
[2022-11-19] MEDS: traMADol HCL 50 MG TABLET PO PRN (16:23)
--- NOTE | 2022-11-19 22:10 | Consultation ---
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 Immediate issue is stabilization of her back pain and we do seem to be accomplishing that with the radiation delivered to date. Also hopeful that the radiation to her gastric mass can quickly stabilize that with respect to enabling us to potentially renew anticoagulationsee pulmonary embolism discussion I spoke quite frankly with the patient and her noting that we certainly have options for treatment of metastatic gastric cancer and can sometimes see reasonable responses. Her performance status remains marginal, however, and this is incurable disease. In that setting we need to continue assess the quality and even quantity of live risks that cytotoxic chemotherapy may entail. She does indicate that she wants to be aggressive going forward She will complete her radiation to the gastric mass and will follow-up closely as an outpatient with initial identification of potential systemic treatment op tions Would be worthwhile to place a Port-A-Cath. (2) Pulmonary embolism: High risk for Trousseau's like hypercoagulability in the face of a metatstric gastric adenocarcinoma. Initially diagnosed PE was "suspicious" and current CTA does not suggest ongoing evidence of pulmonary embolism. Even so, in the absence of contraindications anticoagulation would seem prudent but her GI bleeding has proved to be a contraindication at least for the short-term. As above, hopeful that radiation to the gastric mass will be sufficient to stabilize that bleeding allow us to cautiously resume. Likely origin of pulmonary embolism is probably from the abdominal vasculature and therefore not clear that an IVC filter would be helpful. Plan 1. Acute weakness seems to have stabilized with potassium supplementation though some generalized weakness remains almost certainly reflecting her metastatic malignancy 2. I counseled the patient and her very clearly that at best we might achieve some response and disease/life prolongation with chemotherapy but cannot offer a cure. Especially if we do not see more fundamental improvement in her performance status, there will be concerns that chemotherapy could paradoxically not only take away from quality of life but lead to a shorter length of life if she has major complications. She does want to be aggressive, however, so we will certainly present potential options to her. Hopefully NGS studies may expand upon traditional chemotherapy basis even more. Chemotherapy would not come until after she has completed her abdominal radiation 3. We will hold on anticoagulation until the clinical GI bleeding stops and then reintroduced initially at lower dose. Given that the likely source of pulmonary emboli is in the abdomen at the sites of her disease, IVC filter not likely be helpful alternative 4. Ongoing palliative care conversations will importantly complement those from on-call 5. Consider placement of Port-A-Cath especially while she remains off of anticoagulation History of Present Illness Reason for Consultation: Metastatic adenocarcinoma, likely gastric primary, admitted with acute weakness that seems to be resolving with treatment of her hypokalemia Attending Physician: Andrez Womack History of Present Illness Notes that patient has a remote history of breast cancer in 1998, left-sided hormone receptor positive, node positive treated with lumpectomy, adjuvant Adriamycin/Cytoxan/Taxol chemotherapy, radiation and then subsequent endocrine treatment. There has been no clear signs of interim recurrence of that disease Following a July, COVID-19 infection she never completely recovered and was having worsening leg weakness and pelvic dysesthesias. Imaging of her spine showed multiple bony metastases and she was acutely admitted 10/16/2022 with a possible left lower lung pulmonary embolism, widespread bony metastases, pleural effusions, and indications of a soft tissue mass in the anterior abdomen. This was accompanied by GI bleeding and severe anemia sequential inpatient and then outpatient follow-up EGDs were unable to obtain sufficient tissue for definitive diagnosis Biopsy one of her bony metastatic lesions 11/12/2022 shows an aggressive adenocarcinoma without features of breast cancer felt most likely to be gastric carcinoma in the context. She does have some meningeal changes and an MRI of the brain and CSF cytology is suspicious though not definitively diagnostic of possible involvement there. She has been receiving radiation to the back and gastric lesions the former treated for palliation of pain the latter to stabilize GI bleeding that is interfered with her ongoing anticoagulation. Anticoagulation is on hold because of recurrent GI bleed. She was sent to the emergency department from radiation oncology because of severe weakness and found to be hypokalemic. She was admitted and that has been addressed with improvement in her strength. Currently she is not reporting dramatic dyspnea and does have some improvement in her back pain overall Allergies Allergy/AdvReac Type Severity Reaction Status Date / Time alendronate sodium AdvReac Intermediate Unable to Verified 11/11/22 15:29 [From Fosamax] ambulate Home Medications Medication Instructions Recorded Confirmed Type aspirin 81 mg tablet,delayed 81 mg PO QAM 04/03/21 11/18/22 History release biotin 1 mg capsule 1 mg PO QAM 04/03/21 11/18/22 History pztqrufnsbyw-boqvmtsr-zxhyol 1 tab PO QAM 04/03/21 11/18/22 History tablet (Multivitamin 50 Plus tablet) nitroglycerin 0.4 mg sublingual 0.4 mg sublingual UD PRN chest 04/05/21 11/18/22 Rx tablet (Nitrostat) pain #25 tabs acetaminophen 650 mg 650 mg PO QPM PRN Pain 05/24/22 11/18/22 History tablet,extended release (Tylenol Arthritis Pain) vitamin B12 500 mcg-folic acid 400 1 tab PO DAILY #30 tabs 08/13/22 11/18/22 Rx mcg tablet gabapentin 100 mg capsule 100 mg PO BID #60 caps 10/20/22 11/18/22 Rx pantoprazole 40 mg tablet,delayed 40 mg PO BID #60 tabs 10/20/22 11/18/22 Rx release fluoxetine 10 mg capsule 10 mg PO QAM 10/24/22 11/18/22 History metoprolol succinate 50 mg 50 mg PO QAM 10/24/22 11/18/22 History tablet,extended release 24 hr rosuvastatin 40 mg tablet (Crestor) 40 mg PO HS #90 tabs 10/28/22 11/18/22 Rx tramadol 50 mg tablet 50 mg PO Q6 PRN pain 11/14/22 11/18/22 History Patient History Medical History (Updated 11/19/22 @ 19:14 by Andrez Womack) Advanced care planning/counseling discussion Anemia REASON FOR PROCEDURE Arthritis CAD (coronary artery disease) Cancer INCLOCLUSIVE OF SOURCE>BIOPSY, EGD DONE PRIOR (REASON FOR PROCEDURE TOMORROW)>LOCATED IN SPINE Elevated LFTs Gastric adenocarcinoma GI bleed History of COVID-19 07/2022>FATIGUE CONT. HX: breast cancer SX/CHEMO/RADIATION Hyperlipidemia Hypertension Implantable loop recorder present Multiple pulmonary nodules determined by computed tomography of lung Non-ST elevation (NSTEMI) myocardial infarction 2020 Osteopenia Palliative care by specialist Paroxysmal atrial tachycardia Pulmonary embolism RECENT HOSPITALIZATION FOR PE AT [facility]>REASON FOR ELIQUIS ? REASON Restless leg syndrome Surgical History H/O: hysterectomy PARTIAL History of appendectomy History of colonoscopy History of esophagogastroduodenoscopy (EGD) History of lumpectomy of left breast LEFT ARM RESTRICTION History of tonsillectomy History of tooth extraction History of wisdom tooth extraction Nausea and vomiting after administration of anesthetic agent S/P coronary artery stent placement 2020>2 STENTS PLACED (FOLLOWED BY DR. DURHAM) Family History Mother Breast cancer Father Stroke Denies family history of Ovarian cancer Prostate cancer Myocardial infarction Colorectal cancer Social History Smoking Status: Never smoker Second Hand Exposure: No; Hx Alcohol Use: No Hx Substance Use: No Preferred Language: Welsh Communication Ability: Effective Visual Impairment: Limited Hearing Ability: Normal Business Support Required: No Beliefs That Will Affect Care: None marital status: / Current Living Situation: Spouse current occupational status: retired Other Information That Helps Us Care for You: No Feels Safe at Home: Yes Safety Concerns: Feels Safe At This Time Childhood Exposure to Second-Hand Smoke: No caffeine: Yes during the past year weight has: remained stable Dental Care, Regularly: Yes Physical Activity Frequency: Daily Seatbelt Use: always Sunscreen Use: No Assistive Devices: Cane and Walker Physical Exam Physical Exam: Alert, appropriate, seems in no acute distress. She is not markedly tachypneic, lungs show decreased breath sounds at the bases but good air exchange in the mid and upper zone Cardiac rhythm is regular Abdomen shows some mild epigastric tenderness but no guarding or rigidity and no discretely definable mass Results & Data ([facility]) Vital Signs (Past 12 Hours) Vital Signs Temp Pulse Resp BP Pulse Ox O2 Del Method O2 Del Method 11/19/22 18:46 36.7 C 88 18 99/65 L 95 Room Air 11/19/22 17:31 Room Air 11/19/22 16:34 36.5 C 81 19 126/81 100 Room Air 11/19/22 11:04 36.4 C L 74 17 114/71 98 Room Air PG Care Time/CCT Total # of Minutes Spent Total Time Spent with Patient: Total time spent is greater than 50% in coordination of care (as documented) at patient's floor/unit and/or counseling patient: Coding Level of Care Code 14934 IN/OBS CONSULT LVL 3,45M History Expanded Problem Focused Exam Expanded Problem Focused Medical Decision Making High Complexity Diagnoses Gastric adenocarcinoma C16.9 Pulmonary embolism I26.99
[2022-11-19] MEDS: HEPARIN SOD 5,000 UNIT/0.5 ML VIAL SQ SCH (22:28)
--- NOTE | 2022-11-20 05:49 | Electrocardiogram Report ---
Test Reason : Blood Pressure : / mmHG Vent. Rate : 100 BPM Atrial Rate : 119 BPM P-R Int : 000 ms QRS Dur : 126 ms QT Int : 422 ms P-R-T Axes : 000 -07 -19 degrees QTc Int : 544 ms Probable Sinus rhythm with frequent , and consecutive Premature supraventricular complexes Right bundle branch block Abnormal ECG When compared with ECG of 16-OCT-2022 20:01, Right bundle branch block has replaced Incomplete right bundle branch block Confirmed by Héctor Plaza ([id number]) on 11/20/2022 5:48:52 AM Referred By: Andrez Ruiz Confirmed By:Héctor Plaza
[2022-11-20] MEDS: HEPARIN SOD 5,000 UNIT/0.5 ML VIAL SQ SCH ×3 (05:57→21:00)
[2022-11-20] MEDS: LEVOTHYROXINE SODIUM 25 MCG TABLET PO SCH (05:57)
[2022-11-20 07:22] LABS: Hematocrit (blood only) 25.7 % (37.0-47.0); Hemoglobin 8.2 g/dl (12.0-16.0); Mean Corpuscular Hemoglobin 29.7 pg (25.0-34.0); Mean Corpuscular Hgb Conc 31.9 g/dL (32.0-36.0); Mean Corpuscular Volume 93.1 fL (80.0-100.0); Mean Platelet Volume 9.3 fL (9.4-12.4); Platelet Count 219 K/uL (130-400); RDW Coefficient of Variation 16.3 % (11.5-14.5); Red Blood Count 2.76 M/uL (4.20-5.40); White Blood Count 3.71 K/ul (4.8-10.8)
[2022-11-20 07:44] LABS: Albumin Globulin Ratio 1.1 (0.9-2); BUN Creatinine Ratio 31.1 (10-20); Bilirubin,Total 0.6 mg/dl (0.2-1.0); Calcium 8.5 mg/dl (8.5-10.1); Creatinine Clr Calc Pharmacy 71.7 ml/min; Est GFR (African American) 102.8 ml/min; Est GFR (Non-African American) 88.7 ml/min; Globulin 2.8 gm/dl (2.5-4.0); Potassium 3.8 mmol/L (3.5-5.1); Total Protein 5.8 gm/dl (6.0-8.3)
[2022-11-20] MEDS: GABAPENTIN 100 MG CAP PO SCH ×2 (07:46→20:55)
[2022-11-20] MEDS: DOCUSATE SODIUM 100 MG CAP PO SCH ×2 (07:46→20:56)
[2022-11-20] MEDS: CEROVITE ADV FORMULA TAB PO SCH (07:46)
[2022-11-20] MEDS: ASPIRIN 81 MG ECTAB PO SCH (07:46)
[2022-11-20] MEDS: CYANOCOBALAMIN (B-12) 500 MCG TABLET PO SCH (07:46)
[2022-11-20] MEDS: PANTOprazole 40 MG TAB PO SCH ×2 (07:46→20:54)
[2022-11-20] MEDS: FOLIC ACID 400 MCG TAB PO SCH (07:47)
[2022-11-20] MEDS: METOPROLOL SUCC 50MG EXT REL TAB PO SCH (07:47)
[2022-11-20] MEDS: FLUoxetine HCL 10 MG CAP PO SCH (07:47)
[2022-11-20] MEDS: SUCRALFATE 1 GM/10 ML UDC PO SCH ×4 (07:47→20:58)
[2022-11-20] MEDS: POLYETHYLENE (MIRALAX) 17 GM PACK PO SCH (07:50)
--- NOTE | 2022-11-20 09:52 | Surgery Consultation ---
Date of Consultation November 20, 2022 Assessment & Plan (1) Gastric adenocarcinoma: This is a 77yF with a PMH of afib, HTN, HLD, CAD, with recently founded metastatic cancer this year favored to be gastric as primary who presents to the [facility] on 11/18 as referred by radiation oncology with failure to thrive. Patient was seen by oncology yesterday who suggested patient be considered for port placement for chemo while she is off of anticoagulation at the time being. She has had a bone biopsy in 11/2022 with features suggesting gastric carcinoma. Imaging has revealed metastatic disease to the liver, bone, malignant pleural effusions, and brain. Patient has recently been seen by palliative and oncology and wishes to be aggressive in nature with regards to treatment We will discuss with the OR regarding scheduling of port placement for either 11/21 vs Wednesday 11/22, will need to be NPO at midnight prior to procedure. Will be in touch with hospitalists regarding scheduling. Patient is agreeable with the plan. Supervising Physician Co-Signing Physician Notes I personally saw and evaluated the patient with Tere Garcia PA-C and agree with the assessment and plan. 77-year-old female with metastatic cancer likely from gastric source, requiring venous access We will plan on port placement tomorrow or Friday We will make n.p.o. after midnight History of Present Illness Attending Physician: Andrez Womack History of Present Illness This is a 77yF with a PMH of afib, HTN, HLD, CAD, with recently founded metastatic cancer this year favored to be gastric as primary who presents to the [facility] on 11/18 as referred by radiation oncology with failure to thrive. Patient was seen by oncology yesterday who suggested patient be considered for port placement for chemo while she is off of anticoagulation at the time being. She has had a bone biopsy in 11/2022 with features suggesting gastric carcinoma. Imaging has revealed metastatic disease to the liver, bone, malignant pleural effusions, and brain. Patient has recently been seen by palliative and oncology and wishes to be aggressive in nature with regards to treatment. Patient currently denies any fevers/chills, nausea/vomiting, abdominal pain, CP or SOB. Does have a loop recorder. She was on blood thinners for concern for PEs, however due to concern for gastric bleeding this has been held of recent. Allergies Allergy/AdvReac Type Severity Reaction Status Date / Time alendronate sodium AdvReac Intermediate Unable to Verified 11/11/22 15:29 [From Fosamax] ambulate Home Medications Medication Instructions Recorded Confirmed Type aspirin 81 mg tablet,delayed 81 mg PO QAM 04/03/21 11/18/22 History release biotin 1 mg capsule 1 mg PO QAM 04/03/21 11/18/22 History dijhjbfllnln-aebyaocq-uiyaqb 1 tab PO QAM 04/03/21 11/18/22 History tablet (Multivitamin 50 Plus tablet) nitroglycerin 0.4 mg sublingual 0.4 mg sublingual UD PRN chest 04/05/21 11/18/22 Rx tablet (Nitrostat) pain #25 tabs acetaminophen 650 mg 650 mg PO QPM PRN Pain 05/24/22 11/18/22 History tablet,extended release (Tylenol Arthritis Pain) vitamin B12 500 mcg-folic acid 400 1 tab PO DAILY #30 tabs 08/13/22 11/18/22 Rx mcg tablet gabapentin 100 mg capsule 100 mg PO BID #60 caps 10/20/22 11/18/22 Rx pantoprazole 40 mg tablet,delayed 40 mg PO BID #60 tabs 10/20/22 11/18/22 Rx release fluoxetine 10 mg capsule 10 mg PO QAM 10/24/22 11/18/22 History metoprolol succinate 50 mg 50 mg PO QAM 10/24/22 11/18/22 History tablet,extended release 24 hr rosuvastatin 40 mg tablet (Crestor) 40 mg PO HS #90 tabs 10/28/22 11/18/22 Rx tramadol 50 mg tablet 50 mg PO Q6 PRN pain 11/14/22 11/18/22 History Patient History Medical History Advanced care planning/counseling discussion Anemia REASON FOR PROCEDURE Arthritis CAD (coronary artery disease) Cancer INCLOCLUSIVE OF SOURCE>BIOPSY, EGD DONE PRIOR (REASON FOR PROCEDURE TOMORROW)>LOCATED IN SPINE Elevated LFTs Gastric adenocarcinoma GI bleed History of COVID-19 07/2022>FATIGUE CONT. HX: breast cancer SX/CHEMO/RADIATION Hyperlipidemia Hypertension Implantable loop recorder present Multiple pulmonary nodules determined by computed tomography of lung Non-ST elevation (NSTEMI) myocardial infarction 2020 Osteopenia Palliative care by specialist Paroxysmal atrial tachycardia Pulmonary embolism RECENT HOSPITALIZATION FOR PE AT [facility]>REASON FOR ELIQUIS ? REASON Restless leg syndrome Surgical History H/O: hysterectomy PARTIAL History of appendectomy History of colonoscopy History of esophagogastroduodenoscopy (EGD) History of lumpectomy of left breast LEFT ARM RESTRICTION History of tonsillectomy History of tooth extraction History of wisdom tooth extraction Nausea and vomiting after administration of anesthetic agent S/P coronary artery stent placement 2020>2 STENTS PLACED (FOLLOWED BY DR. DURHAM) Family History Mother Breast cancer Father Stroke Denies family history of Ovarian cancer Prostate cancer Myocardial infarction Colorectal cancer Social History Smoking Status: Never smoker Second Hand Exposure: No; Hx Alcohol Use: No Hx Substance Use: No Preferred Language: Ukrainian Communication Ability: Effective Visual Impairment: Limited Hearing Ability: Normal Administrative Specialist Required: No Beliefs That Will Affect Care: None marital status: / Current Living Situation: Spouse current occupational status: retired Other Information That Helps Us Care for You: No Feels Safe at Home: Yes Safety Concerns: Feels Safe At This Time Childhood Exposure to Second-Hand Smoke: No caffeine: Yes during the past year weight has: remained stable Dental Care, Regularly: Yes Physical Activity Frequency: Daily Seatbelt Use: always Sunscreen Use: No Assistive Devices: Cane and Walker Review of Systems Constitutional: + fatigue; no fever and no chills Respiratory: no dyspnea Cardiovascular: no chest pain Gastrointestinal: + constipation; no abdominal pain, no nausea, no vomiting and no blood in stools Physical Exam Physical Exam: awake/alert no acute distress Respiratory: normal respiratory effort Chest (Breasts): Additional Comments: palpable loop recorder in lower left chest Gastrointestinal (Abdomen): Percussion/Palpation: abdomen soft Results & Data ([facility]) Vital Signs (Past 12 Hours) Vital Signs Temp Pulse Pulse Resp BP Pulse Ox O2 Del Method 11/20/22 07:36 36.6 C 128 H 18 124/83 95 Room Air 11/20/22 02:44 36.5 C 84 18 114/66 93 Room Air 11/19/22 23:37 82 11/19/22 22:33 36.5 C 88 18 92/58 L 95 Room Air PG Care Time/CCT Total # of Minutes Spent Total Time Spent with Patient: Total time spent is greater than 50% in coordination of care (as documented) at patient's floor/unit and/or counseling patient: Coding Level of Care Code 29967 INT INP/OBS CARE MIN Diagnoses Gastric adenocarcinoma C16.9
[2022-11-20] MEDS: FLECAINIDE ACETATE 100 MG TABLET PO SCH ×2 (10:58→20:56)
[2022-11-20] MEDS ORDERED: ondansetron HCL 4 MG in DEXTROSE 5% 50 ML IV PRN (12:26)
[2022-11-20] MEDS ORDERED: ONDANSETRON INJ 2 MG/ML 2 ML VIAL IV PRN (12:31)
--- NOTE | 2022-11-20 14:24 | Cardiology Consultation ---
Date of Consultation November 20, 2022 Assessment & Plan (1) Paroxysmal atrial tachycardia: (2) CAD (coronary artery disease): (3) Liver metastases: Plan 1. PAT: She has very frequent episodes of atrial tachycardia, I believe this does not represent atrial fibrillation although the 2 can coexist. Very brief episodes (minutes at most in duration) are unlikely to represent atrial fibrillation. I would not anticoagulate, although she is asymptomatic she is having enough of these episodes that I think we should treat them. I would use an antiarrhythmic medication. I would consider amiodarone but in view of her other issues including liver abnormalities I am going to start flecainide. 2. Coronary disease: She has coronary artery disease, I do not believe this is related to her arrhythmia but does increase the risk somewhat with the use of flecainide. 3. Liver metastases: She has abnormal liver function tests making amiodarone potentially risky, although I do not know that it increases the risk of hepatotoxicity. I think this remains a consideration. History of Present Illness Reason for Consultation: PAT Attending Physician: Andrez Womack History of Present Illness This is a 77-year-old woman with a history of known coronary artery disease including catheterization April 04, 2021 where triple-vessel disease was identified although only severe in the right coronary artery therefore she had intervention performed. She continues to have paroxysmal atrial tachycardia which was identified during her hospitalization March 2021, this was however asymptomatic and has been identified on the monitor. There also was a possibility of an episode of atrial flutter on event monitoring. For this reason she had a loop recorder implanted on January 10, 2022 to monitor her atrial fibrillation/flutter burden. 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 She was observed to have of frequent runs of an atrial tachycardia or brief runs of atrial fibrillation on monitoring. At the time of my evaluation she was lying comfortably in bed, she has been unaware of the arrhythmia and does not feel it. She has had no lightheadedness, presyncope or syncope although she does have dyspnea on exertion but that may be multifactorial. Allergies Allergy/AdvReac Type Severity Reaction Status Date / Time alendronate sodium AdvReac Intermediate Unable to Verified 11/11/22 15:29 [From Fosamax] ambulate Home Medications Medication Instructions Recorded Confirmed Type aspirin 81 mg tablet,delayed 81 mg PO QAM 04/03/21 11/18/22 History release biotin 1 mg capsule 1 mg PO QAM 04/03/21 11/18/22 History [id number] 1 tab PO QAM 04/03/21 11/18/22 History tablet (Multivitamin 50 Plus tablet) nitroglycerin 0.4 mg sublingual 0.4 mg sublingual UD PRN chest 04/05/21 11/18/22 Rx tablet (Nitrostat) pain #25 tabs acetaminophen 650 mg 650 mg PO QPM PRN Pain 05/24/22 11/18/22 History tablet,extended release (Tylenol Arthritis Pain) vitamin B12 500 mcg-folic acid 400 1 tab PO DAILY #30 tabs 08/13/22 11/18/22 Rx mcg tablet gabapentin 100 mg capsule 100 mg PO BID #60 caps 10/20/22 11/18/22 Rx pantoprazole 40 mg tablet,delayed 40 mg PO BID #60 tabs 10/20/22 11/18/22 Rx release fluoxetine 10 mg capsule 10 mg PO QAM 10/24/22 11/18/22 History metoprolol succinate 50 mg 50 mg PO QAM 10/24/22 11/18/22 History tablet,extended release 24 hr rosuvastatin 40 mg tablet (Crestor) 40 mg PO HS #90 tabs 10/28/22 11/18/22 Rx tramadol 50 mg tablet 50 mg PO Q6 PRN pain 11/14/22 11/18/22 History Patient History Medical History Advanced care planning/counseling discussion Anemia REASON FOR PROCEDURE Arthritis CAD (coronary artery disease) Cancer INCLOCLUSIVE OF SOURCE>BIOPSY, EGD DONE PRIOR (REASON FOR PROCEDURE TOMORROW)>LOCATED IN SPINE Elevated LFTs Gastric adenocarcinoma GI bleed History of COVID-19 07/2022>FATIGUE CONT. HX: breast cancer SX/CHEMO/RADIATION Hyperlipidemia Hypertension Implantable loop recorder present Multiple pulmonary nodules determined by computed tomography of lung Nausea Non-ST elevation (NSTEMI) myocardial infarction 2020 Osteopenia Palliative care by specialist Paroxysmal atrial tachycardia Pulmonary embolism RECENT HOSPITALIZATION FOR PE AT [facility]>REASON FOR ELIQUIS ? REASON Restless leg syndrome Surgical History H/O: hysterectomy PARTIAL History of appendectomy History of colonoscopy History of esophagogastroduodenoscopy (EGD) History of lumpectomy of left breast LEFT ARM RESTRICTION History of tonsillectomy History of tooth extraction History of wisdom tooth extraction Nausea and vomiting after administration of anesthetic agent S/P coronary artery stent placement 2020>2 STENTS PLACED (FOLLOWED BY DR. 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 Beliefs That Will Affect Care: None marital status: / Current Living Situation: Spouse current occupational status: retired Other Information That Helps Us Care for You: No Feels Safe at Home: Yes Safety Concerns: Feels Safe At This Time Childhood Exposure to Second-Hand Smoke: No caffeine: Yes during the past year weight has: remained stable Dental Care, Regularly: Yes Physical Activity Frequency: Daily Seatbelt Use: always Sunscreen Use: No Assistive Devices: Cane and Walker Review of Systems Review of Systems: All systems reviewed & are unremarkable except as noted in HPI & below Physical Exam Physical Exam: Constitutional: Alert, cooperative and in no distress. HEENT: Unremarkable Neck: No jugular venous distention, carotid pulses are irregular but otherwise normal and equal bilaterally without bruits. Pulmonary: Diminished breath sounds in bases bilaterally. Cardiac: Irregular rhythm with no murmur, gallop or rub. Abdomen: Soft, nontender with normal bowel sounds. Extremities: No edema. Neurologic: No focal findings. Skin: No rash, ecchymoses or petechiae. Results & Data Vital Signs (Past 12 Hours) Vital Signs Temp Pulse Resp BP Pulse Ox O2 Del Method 11/20/22 11:54 36.5 C 85 18 93/61 L 95 Nasal Cannula 11/20/22 07:36 36.6 C 128 H 18 124/83 95 Room Air 11/20/22 02:44 36.5 C 84 18 114/66 93 Room Air Diagnostic Findings Telemetry: Very frequent episodes of what appears to be an atrial tachycardia, I doubt this represents atrial fibrillation. Loop recorder interrogation: Although she has episodes defined as atrial fibrillation by the rate and irregularity I believe these all represent runs of PAT. PG Care Time/CCT Total # of Minutes Spent Total Time Spent with Patient: Total time spent is greater than 50% in coordination of care (as documented) at patient's floor/unit and/or counseling patient: Coding Level of Care Code 16589 INT INP/OBS CARE 3/75MIN Diagnoses Paroxysmal atrial tachycardia I47.1 CAD (coronary artery disease) I25.10 Liver metastases C78.7
--- NOTE | 2022-11-20 15:48 | Palliative Care Progress Note ---
Date of Service November 20, 2022 Assessment & Plan (1) Palliative care by specialist: (2) Nausea: Plan: Continue Zofran 6mg IV pharmacy salesperson to RT, orders written (3) Advanced care planning/counseling discussion: (4) Esophagitis: Plan pre RT Zofran ordered no other acute complaints today awaiting further input re prognosis Xochitl Estrada DNP Clinical Director, Palliative Medicine Admission and Anticipated Discharge Date Admission Date: November 18, 2022 Subjective Seen bedside with family visiting reports zofran prior to RT gave her great relief, no post RT dry heaving or retching was able to tolerate PO better mood much improved, smiling more today no new or acute complaints Review of Systems Review of Systems: All systems reviewed & are unremarkable except as noted in Subjective Physical Exam Physical Exam: sitting at bedside, friends and visiting mood upbeat, no complaints resp effort normal, no conversational dyspnea no JVD mobility WAL, abd distended softly, mild tenderness sin pale but warm, +dry, some tightness AAOx3 Results & Data Vital Signs (Past 12 Hours) Vital Signs Temp Pulse Resp BP Pulse Ox O2 Del Method 11/20/22 11:54 36.5 C 85 18 93/61 L 95 Nasal Cannula 11/20/22 07:36 36.6 C 128 H 18 124/83 95 Room Air Laboratory Results data reviewed Diagnostic Findings data reviewed PG Care Time/CCT Total # of Minutes Spent Total Time Spent with Patient: Total time spent is greater than 50% in coordination of care (as documented) at patient's floor/unit and/or counseling patient: Coding Level of Care Code 66251 SUB INP/OBS CARE 1/25MIN Diagnoses Palliative care by specialist Z51.5 Nausea R11.0 Advanced care planning/counseling discussion Z71.89 Esophagitis K20.90
--- NOTE | 2022-11-20 19:58 | Hospitalist Progress Note ---
Date of Service November 20, 2022 Assessment & Plan (1) Acute hypokalemia: Plan: replaced resolved presenting K level was 2.5 - likely contributed heavily to #2 below (2) Leg weakness, bilateral: Plan: Improved s/p correction of hypokalemia. 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 Counseled her and her that these will likely worsen over time. Given stable O2 sats and minimal symptoms from such will hold off on any intervention at the present time. (4) Shortness of breath on exertion: Plan: Likely due to #3 above. No new PE seen on CTA chest this admission. No evidence of pneumonia. Of note - had LLL PEs on outpatient CTA chest in early October (done at [facility]). Prior anticoagulation stopped due to suspected GI bleeding from gastric tumor. 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 Mets to numerous bony regions, liver, lungs, brain, possible CSF as well. Repeat MRI of t-spine and l-spine without epidural extension from known metastatic disease or cord compromise. I corresponded with Dr Campbell today - port placement advised. Consulted general surgery and they can place port tomorrow. NPO after MN tonight for such. (6) Constipation: Plan: Docusate 100mg PO BID Miralax 17g daily (7) Goals of care, counseling/discussion: Plan: Palliative care is following; appreciate their assistance For severe cancer-induced anorexia and nausea -- started marinol 2.5mg BID with meals (8) Anxiety: Plan: Continue fluoxetine 10mg PO daily (9) Bilateral leg pain: Plan: Likely radicular in origin from her lumbar spine Cont gabapentin (10) Atrial tachycardia: Plan: numerous episodes of either PAT or SVT episodes occur several times each hour does not appear to have symptoms at rest but I can't rule out that with ambulation she is not having fatigue, etc when she is in rapid PAT echo with preserved EF despite metoprolol succinate 50mg daily the PAT episodes continue and rate control is poor I consulted Dr Mathew from cardiology for this problem He likely will use an anti-arrhythmic to maintain NSR appreciate his thoughts & consultation martin recorder interrogation completed but I have not seen the report yet (11) Hypothyroidism: Plan: last 2 TSH levels have been high started synthroid 25mcg daily repeat TSH 6 weeks as outpatient (12) Pulmonary embolism: Plan: dx with such (LLL PEs) on outpatient CTA chest early October at [facility] had been on anticoagulation but stopped due to concerns of GI bleeding from gastric mass no new PE seen on this admission's study (13) CAD (coronary artery disease): Plan: noted cont asa cont beta melissa (14) Hypertension: Plan: controlled if BPs remain low-normal may need to cut back metoprolol succinate to 25mg daily (15) Severe protein-calorie malnutrition: Plan: severe weight loss (30+ pounds) over the last few months 2nd to stage 4 adenocarcinoma started marinol BID (16) Elevated LFTs: Plan: likely 2nd to liver mets + bony mets trend cont to hold statin due to mild confusion - which could be from brain mets or from the marinol - check ammonia level in am (17) Esophagitis: Plan: as seen on CTA chest already on PPI twice daily added carafate 1gm QID Plan HIGH risk of DVT/PE due to advanced cancer H/H are stable thus started heparin SC for DVT proph updated at bedside once again progressing Admission and Anticipated Discharge Date Admission Date: November 18, 2022 Subjective tele with ongoing, frequent runs of what appears to be PAT longest runs last a few minutes no obvious a.fib no wide complex rhythms patient slept ok last pm appetite remains poor she feels that she is tolerating the marinol thus far although during the visit with her she was a little fuzzy with details of her hospital stay she continues to have improvement & stability in her walking able to use walker to get to the bathroom, etc scheduled for XRT to her back/stomach at 2pm today at bedside during much of my visit today Review of Systems Review of Systems: gen - no fevers cv - no cp, no orthopnea, no palpitations pulm - no cough or dyspnea GI - no pain; no overt GI bleeding Physical Exam Physical Exam: gen - thin, pale, NAD; pleasant; slight confusion for events/dates noted today mouth - no thrush plaques, no lesions, MMM neck - no JVD heart - tachy, s1 s2, no murmur lungs - decreased BS b/l bases L>R; no wheezes; no rales; no increased work of breathing abd - soft NT ND BS+ ext - no edema, pulses 2+ b/l neuro - strength b/l hip flexion near 5/5 skin - pallor Results & Data Results & Data Vital Signs (Past 12 Hours) Vital Signs Temp Pulse Resp BP Pulse Ox O2 Del Method 11/20/22 19:13 36.7 C 80 18 104/69 96 Room Air 11/20/22 16:08 36.5 C 107 H 18 110/67 95 Room Air 11/20/22 11:54 36.5 C 85 18 93/61 L 95 Nasal Cannula Laboratory Results Laboratory Results - last 24 hr 11/20/22 11/20/22 07:01 07:01 WBC 3.71 L RBC 2.76 L Hgb 8.2 L Hct 25.7 L MCV 93.1 MCH 29.7 MCHC 31.9 L RDW Std Deviation 56.0 H RDW Coeff of Tana 16.3 H Plt Count 219 MPV 9.3 L Sodium 138 Potassium 3.8 Chloride 105 Carbon Dioxide 26 Anion Gap 7 BUN 19 Creatinine 0.61 Est Cr Clr Drug Dosing 71.7 Est GFR ( Amer) 102.8 Est GFR (Non-Af Amer) 88.7 BUN/Creatinine Ratio 31.1 H Glucose 98 Calcium 8.5 Total Bilirubin 0.6 AST 73 H ALT 19 Alkaline Phosphatase 444 H Total Protein 5.8 L Albumin 3.0 L Globulin 2.8 Albumin/Globulin Ratio 1.1 PG Care Time/CCT Total # of Minutes Spent Total Time Spent with Patient: Total time spent is greater than 50% in coordination of care (as documented) at patient's floor/unit and/or counseling patient: Coding Level of Care Code 73271 SUB INP/OBS CARE 3/50MIN Diagnoses Acute hypokalemia E87.6 Leg weakness, bilateral R29.898 Bilateral pleural effusion J90 Shortness of breath on exertion R06.02 Metastatic disease C79.9 Area of secondary neoplastic involvement: unspecified site Constipation K59.00 Goals of care, counseling/discussion Z71.89 Anxiety F41.9 Bilateral leg pain M79.604; M79.605 Atrial tachycardia I47.1 Hypothyroidism E03.9 Pulmonary embolism I26.99 CAD (coronary artery disease) I25.10 Hypertension I10 Hypertension type: essential hypertension Severe protein-calorie malnutrition E43 Elevated LFTs R79.89 Esophagitis K20.90 (5) Metastatic disease Area of secondary neoplastic involvement: unspecified site Qualified Code(s): C79.9 - Secondary malignant neoplasm of unspecified site (14) Hypertension Hypertension type: essential hypertension Qualified Code(s): I10 - Essential (primary) hypertension
[2022-11-21] MEDS: LEVOTHYROXINE SODIUM 25 MCG TABLET PO SCH (06:23)
[2022-11-21] MEDS: HEPARIN SOD 5,000 UNIT/0.5 ML VIAL SQ SCH ×3 (06:23→21:07)
--- NOTE | 2022-11-21 06:53 | Anesthesiology Consultation ---
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 History Surgery Operation Date: 11/21/22 10:00 Proposed Procedures p Insertion of Port Access - Patel Arshad DO Height/Weight Height: 5 ft 5 in Weight: 58.5 kg Allergies Allergy/AdvReac Type Severity Reaction Status Date / Time alendronate sodium AdvReac Intermediate Unable to Verified 11/11/22 15:29 [From Fosamax] ambulate Medications Home Medications Medication Instructions Recorded Confirmed Last Taken aspirin 81 mg tablet,delayed 81 mg PO QAM 04/03/21 11/18/22 11/11/22 08:00 release biotin 1 mg capsule 1 mg PO QAM 04/03/21 11/18/22 11/11/22 08:00 [id number]-[id number] 1 tab PO QAM 04/03/21 11/18/22 11/11/22 08:00 tablet (Multivitamin 50 Plus tablet) nitroglycerin 0.4 mg sublingual 0.4 mg sublingual UD PRN chest 04/05/21 11/18/22 Unknown tablet (Nitrostat) pain #25 tabs acetaminophen 650 mg 650 mg PO QPM PRN Pain 05/24/22 11/18/22 11/11/22 18:00 tablet,extended release (Tylenol Arthritis Pain) vitamin B12 500 mcg-folic acid 400 1 tab PO DAILY #30 tabs 08/13/22 11/18/22 11/11/22 08:00 mcg tablet gabapentin 100 mg capsule 100 mg PO BID #60 caps 10/20/22 11/18/22 11/12/22 06:30 pantoprazole 40 mg tablet,delayed 40 mg PO BID #60 tabs 10/20/22 11/18/22 11/11/22 21:00 release fluoxetine 10 mg capsule 10 mg PO QAM 10/24/22 11/18/22 11/12/22 06:30 metoprolol succinate 50 mg 50 mg PO QAM 10/24/22 11/18/22 11/12/22 06:30 tablet,extended release 24 hr rosuvastatin 40 mg tablet (Crestor) 40 mg PO HS #90 tabs 10/28/22 11/18/22 11/11/22 21:00 tramadol 50 mg tablet 50 mg PO Q6 PRN pain 11/14/22 11/18/22 Unknown Active Medications Generic Name Dose Route Start Last Admin Trade Name Selam PRN Reason Stop Dose Admin Acetaminophen 650 mg 11/18/22 16:09 11/19/22 07:54 Acetaminophen 325 Mg Tab PO 12/18/22 16:08 650 mg Q4H PRN Administration pain/fever Aspirin 81 mg 11/19/22 09:00 11/20/22 07:46 Aspirin 81 Mg Ectab PO 12/19/22 08:59 81 mg QAM MARICEL Administration Cyanocobalamin 500 mcg 11/19/22 08:00 11/20/22 07:46 Cyanocobalamin (B-12) 500 Mcg Tablet PO 12/19/22 07:59 500 mcg DAILY@0800 MARICEL Administration Docusate Sodium 100 mg 11/19/22 09:00 11/20/22 20:56 Docusate Sodium 100 Mg Cap PO 12/19/22 08:59 Not Given BID MARICEL Dronabinol 2.5 mg 11/19/22 17:00 11/20/22 16:39 Dronabinol 2.5 Mg Cap PO 12/19/22 16:59 2.5 mg BIDM MARICEL Administration Flecainide Acetate 100 mg 11/20/22 10:00 11/20/22 20:56 Flecainide Acetate 100 Mg Tablet PO 12/20/22 09:59 100 mg Q12 MARICEL Administration Fluoxetine HCl 10 mg 11/19/22 09:00 11/20/22 07:47 Fluoxetine Hcl 10 Mg Cap PO 12/19/22 08:59 10 mg QAM MARICEL Administration Folic Acid 400 mcg 11/19/22 08:00 11/20/22 07:47 Folic Acid 400 Mcg Tab PO 12/19/22 07:59 400 mcg DAILY@0800 MARICEL Administration Gabapentin 100 mg 11/18/22 21:00 11/20/22 20:55 Gabapentin 100 Mg Cap PO 12/18/22 20:59 100 mg BID MARICEL Administration Heparin Sodium (Porcine) 5,000 units 11/19/22 22:00 11/21/22 06:23 Heparin Sod 5,000 Unit/0.5 Ml Vial SQ 12/19/22 21:59 5,000 units Q8 MARICEL Administration Levothyroxine Sodium 25 mcg 11/19/22 12:05 11/21/22 06:23 Levothyroxine Sodium 25 Mcg Tablet PO 12/19/22 12:04 25 mcg DAILYBB MARICEL Administration Multivitamins/Minerals 1 tab 11/19/22 09:00 11/20/22 07:46 Cerovite Adv Formula Tab PO 12/19/22 08:59 1 tab QAM MARICEL Administration Pantoprazole Sodium 40 mg 11/18/22 21:00 11/20/22 20:54 Pantoprazole 40 Mg Tab PO 12/18/22 20:59 40 mg BID MARICEL Administration Polyethylene Glycol 17 gm 11/19/22 09:00 11/20/22 07:50 Polyethylene (Miralax) 17 Gm Pack PO 12/19/22 08:59 Not Given DAILY MARICEL Sucralfate 1 gm 11/19/22 13:00 11/20/22 20:58 Sucralfate 1 Gm/10 Ml Udc PO 12/19/22 12:59 Not Given QID MARICEL Tramadol HCl 50 mg 11/18/22 18:40 11/19/22 16:23 Tramadol Hcl 50 Mg Tablet PO 12/18/22 18:39 50 mg Q6 PRN Administration pain Past Medical History Medical History Advanced care planning/counseling discussion Anemia REASON FOR PROCEDURE Arthritis CAD (coronary artery disease) Cancer INCLOCLUSIVE OF SOURCE>BIOPSY, EGD DONE PRIOR (REASON FOR PROCEDURE TOMORROW)>LOCATED IN SPINE Elevated LFTs Gastric adenocarcinoma GI bleed History of COVID-19 07/2022>FATIGUE CONT. HX: breast cancer SX/CHEMO/RADIATION Hyperlipidemia Hypertension Implantable loop recorder present Multiple pulmonary nodules determined by computed tomography of lung Nausea Non-ST elevation (NSTEMI) myocardial infarction 2020 Osteopenia Palliative care by specialist Paroxysmal atrial tachycardia Pulmonary embolism RECENT HOSPITALIZATION FOR PE AT [facility]>REASON FOR ELIQUIS ? REASON Restless leg syndrome Past Family History Family History Mother Breast cancer Father Stroke Denies family history of Ovarian cancer Prostate cancer Myocardial infarction Colorectal cancer Past Surgical History Surgical History H/O: hysterectomy PARTIAL History of appendectomy History of colonoscopy History of esophagogastroduodenoscopy (EGD) History of lumpectomy of left breast LEFT ARM RESTRICTION History of tonsillectomy History of tooth extraction History of wisdom tooth extraction Nausea and vomiting after administration of anesthetic agent S/P coronary artery stent placement 2020>2 STENTS PLACED (FOLLOWED BY DR. DURHAM) Social History Smoking Status: Never smoker Hx Alcohol Use: No Alcohol type: wine alcohol intake frequency: a few times a month Hx Substance Use: No substance use type: does not use Physical Exam Vital Signs Last Vital Signs Temp 97.5 F L 11/21/22 03:14 Pulse 74 11/21/22 03:14 Resp 16 11/21/22 03:14 BP 96/58 L 11/21/22 03:14 Pulse Ox 94 11/21/22 03:14 O2 Del Method Room Air 11/21/22 03:14 Testing Laboratory Results PT 12.9 Seconds (9.0-12.0) H 11/18/22 16:30 INR 1.2 (0.9-1.1) H 11/18/22 16:30 APTT 28.2 Seconds (21.0-31.0) 11/18/22 16:30 Urine Color Dark Yellow 11/18/22 23:00 Urine Appearance Cloudy (Clear) A 11/18/22 23:00 Urine pH 7.0 (4.5-7.5) 11/18/22 23:00 Ur Specific [place] > 1.045 (1.000-1.030) H 11/18/22 23:00 Urine Protein 2+ (Negative) H 11/18/22 23:00 Urine Glucose (UA) Negative (Negative) 11/18/22 23:00 Urine Ketones Trace (Negative) H 11/18/22 23:00 Urine Nitrite Negative (Negative) 11/18/22 23:00 Ur Leukocyte Esterase Negative (Negative) 11/18/22 23:00 Urine WBC (Auto) 5-10 /hpf (0-5) H 11/18/22 23:00 Urine RBC (Auto) 5-10 /hpf (0-4) H 11/18/22 23:00 U Hyaline Cast (Auto) 5-10 /lpf (0-5) H 11/18/22 23:00 U Epithel Cells (Auto) >30 /lpf (0-5) H 11/18/22 23:00 Urine Bacteria (Auto) Negative (Negative) 11/18/22 23:00 Electrocardiogram Date: 11/21/22 Sinus tachycardia with Premature supraventricular complexes, rate 103 bpm Right bundle branch block Abnormal ECG When compared with ECG of 18-NOV-2022 19:05, (unconfirmed) Sinus rhythm has replaced Atrial fibrillation QT has lengthened Chest X-Ray Date: 10/17/22 FINDINGS: No pneumothorax. A small left pleural effusions and left basilar densities persist. Moderate emphysema. No new focal lung consolidations identified. No evidence for pulmonary edema. The heart is borderline enlarged. There are calcifications within the aortic knob. A loop recorder seen within the left anterior chest. IMPRESSION: 1. No change in the small left pleural effusion and left basilar densities. 2. Follow-up to resolution is recommended for the left basilar densities. Echocardiogram Date: 11/19/22 Normal LV size with low normal systolic function. EF 50-55%. No regional wall motion abnormalities. Mild concentric LVH. Mild biatrial dilation Mild MR Pleural effusion Compared to prior study on 04/03/21, pleural effusion is now present
[2022-11-21 06:58] LABS: Hematocrit (blood only) 25.6 % (37.0-47.0); Hemoglobin 8.2 g/dl (12.0-16.0); Mean Corpuscular Hemoglobin 29.7 pg (25.0-34.0); Mean Corpuscular Volume 92.8 fL (80.0-100.0); Mean Platelet Volume 9.3 fL (9.4-12.4); Platelet Count 225 K/uL (130-400); RDW Coefficient of Variation 16.4 % (11.5-14.5); RDW Standard Deviation 55.6 fL (36.4-46.3); Red Blood Count 2.76 M/uL (4.20-5.40); White Blood Count 3.58 K/ul (4.8-10.8)
[2022-11-21 07:33] LABS: BUN Creatinine Ratio 40.7 (10-20); Calcium 8.2 mg/dl (8.5-10.1); Est GFR (Non-African American) 92.3 ml/min; Potassium 3.8 mmol/L (3.5-5.1)
[2022-11-21] MEDS: traMADol HCL 50 MG TABLET PO PRN (08:12)
[2022-11-21] MEDS: SUCRALFATE 1 GM/10 ML UDC PO SCH ×4 (08:13→20:07)
[2022-11-21] MEDS: GABAPENTIN 100 MG CAP PO SCH ×2 (08:13→20:07)
[2022-11-21] MEDS: CYANOCOBALAMIN (B-12) 500 MCG TABLET PO SCH (08:13)
[2022-11-21] MEDS: FLECAINIDE ACETATE 100 MG TABLET PO SCH ×2 (08:13→20:00)
[2022-11-21] MEDS: PANTOprazole 40 MG TAB PO SCH ×2 (08:13→20:06)
[2022-11-21] MEDS: FOLIC ACID 400 MCG TAB PO SCH (08:13)
[2022-11-21] MEDS: CEROVITE ADV FORMULA TAB PO SCH (08:13)
[2022-11-21] MEDS: ASPIRIN 81 MG ECTAB PO SCH (08:13)
[2022-11-21] MEDS: FLUoxetine HCL 10 MG CAP PO SCH (08:13)
[2022-11-21] MEDS: POLYETHYLENE (MIRALAX) 17 GM PACK PO SCH (08:14)
[2022-11-21] MEDS: DOCUSATE SODIUM 100 MG CAP PO SCH ×2 (08:14→20:07)
[2022-11-21] MEDS: METOPROLOL SUCC 25MG EXT REL TAB PO SCH (08:14)
[2022-11-21] MEDS ORDERED: ONDANSETRON INJ 2 MG/ML 2 ML VIAL IV SCH (09:00)
[2022-11-21] MEDS ORDERED: ondansetron HCL 6 MG in DEXTROSE 5% 50 ML IV SCH (09:00)
[2022-11-21] MEDS ORDERED: ondansetron HCL 6 MG in DEXTROSE 5% 50 ML IV PRN (09:00)
[2022-11-21] MEDS ORDERED: ONDANSETRON INJ 2 MG/ML 2 ML VIAL ONE (09:12)
[2022-11-21] MEDS ORDERED: GLYCOPYRROLATE 0.2 MG/ML VIAL ONE (09:12)
[2022-11-21] MEDS ORDERED: PROPOFOL IV EMULSION 10 MG/ML 20 ML VIAL IV ONE (09:12)
[2022-11-21] MEDS ORDERED: MIDAZOLAM HCL 1 MG/ML 2ML VIAL ONE (09:13)
[2022-11-21] MEDS ORDERED: KETAMINE 50 MG/5 ML SYRINGE ONE (09:13)
[2022-11-21] MEDS ORDERED: fentaNYL citrate PF 100 MCG/2 ML VIAL ONE (09:13)
--- NOTE | 2022-11-21 10:03 | Surgery Progress Note ---
Date of Service November 21, 2022 Assessment & Plan (1) Gastric adenocarcinoma: Plan: Proceed with port placement today Consent was obtained, risk discussed including bleeding, infection, pneumothorax, chest tube placement Admission and Anticipated Discharge Date Admission Date: November 18, 2022 Subjective Patient seen and examined. No acute events overnight. Review of Systems Constitutional: no fever and no chills Physical Exam Constitutional: WD/WN, vitals as above Respiratory: normal respiratory effort, lungs clear to auscultation Results & Data Vital Signs (Past 12 Hours) Vital Signs Temp Pulse Pulse Resp BP Pulse Ox O2 Del Method 11/21/22 09:46 36.4 C L 80 18 110/63 95 Room Air 11/21/22 07:33 36.5 C 107 H 17 126/76 95 Room Air 11/21/22 03:14 36.4 C L 74 16 96/58 L 94 Room Air 11/20/22 23:00 77 11/20/22 22:43 36.9 C 73 18 108/70 95 Room Air PG Care Time/CCT Total # of Minutes Spent Total Time Spent with Patient: Total time spent is greater than 50% in coordination of care (as documented) at patient's floor/unit and/or counseling patient: Coding Level of Care Code 44530 SUB INP/OBS CARE 10/02MIN Diagnoses Gastric adenocarcinoma C16.9
[2022-11-21] MEDS ORDERED: ONDANSETRON INJ 2 MG/ML 2 ML VIAL IV PRN (10:15)
[2022-11-21] MEDS ORDERED: fentaNYL citrate PF 100 MCG/2 ML VIAL IV PRN (10:15)
[2022-11-21] MEDS ORDERED: ATROPINE SULFATE 0.1 MG/ML 10ML SYR IV PRN (10:15)
[2022-11-21] MEDS ORDERED: ePHEDrine sulfate 50 MG/ML AMP IV PRN (10:15)
[2022-11-21] MEDS ORDERED: HEPARIN (PORCINE) 1000 UNIT/ML 10 ML (CATH LAB USE ONLY) ONE (10:36)
[2022-11-21] MEDS ORDERED: BUPIVACAINE/EPINEPHRINE 0.25% 1:200,000 30 ML VIAL ONE (10:36)
[2022-11-21] MEDS ORDERED: ceFAZolin 330 MG/ML 1 GM VIAL ONE (10:55)
[2022-11-21] MEDS ORDERED: ceFAZolin SPECIAL PROCEDURE STOCK 1 GM ADDVIAL IV ONE (11:13)
--- NOTE | 2022-11-21 11:28 | Post Operative Brief Note ---
PG Immediate Post Op with CF Date of Surgery November 21, 2022 Pre & Post Diagnosis Operation Date: 11/21/22 10:00 Pre-Op Diagnosis: Metastatic Cancer Post-Op Diagnosis: Metastatic Cancer I identified the patient and participated in the time-out.: Yes Procedure Operation Date: 11/21/22 10:00 Actual Procedures p Insertion of Port Access into Right Internal Jugular Vein(Right) - Patel Arshad DO Surgeon Patel Arshad DO Corporate Communications Intern None Estimated Blood Loss 5 Findings Consistent with Post-Op Diagnosis Specimens Specimen Description: none per surgeon Anesthesia Type MAC Complications none Disposition Disposition: Recovery Room
--- NOTE | 2022-11-21 11:31 | Operative Report ---
PG Post Operative Report Pre & Post Diagnosis Operation Date: 11/21/22 10:00 Pre-Op Diagnosis: Metastatic Cancer Post-Op Diagnosis: Metastatic Cancer I identified the patient and participated in the time-out.: Yes Procedure Operation Date: 11/21/22 10:00 Actual Procedures p Insertion of Port Access into Right Internal Jugular Vein(Right) - Patel Arshad DO Surgeon Patel Arshad, Physical Therapist Clinic Director None Estimated Blood Loss 5 Findings Consistent with Post-Op Diagnosis Specimens None Drains Mediport Anesthesia Type MAC Complications none Disposition Disposition: Recovery Room Indications 77 yo female with metastatic gastric cancer in need of vascular access Description of Procedure Patient was brought to the operating room and placed in the supine position with both arms tucked. At this time MAC sedation was administered and the patients bilateral chest and neck were prepped and draped in the usual sterile fashion. A timeout was called, the procedure was verified as insertion of mediport. Appropriate pre-operative antibiotics were administered. Surgical, anesthesia and nursing teams agreed and the procedure was begun. The patient was placed in steep Trendelenburg position. The area of the right chest as well as the trajectory of the right internal jugular vein access point were anesthetized using 0.25% Marcaine with epinephrine. At this point the right internal jugular vein was accessed without issue and non-pulsatile blood flow returned. Guide wire was introduced and fluoroscopy confirmed position. At this point using a #15 blade scalpel a transverse incision was made on the right chest and the port pocket was made using blunt dissection. The dilator-sheath complex was then introduced under direct fluoroscopy. The catheter was then tunneled from the incision to the needle stick point and introduced into the sheath. Adequate position was confirmed using fluoroscopy. The sheath was then removed while holding the catheter in place. The catheter was then attached onto the port. Port was accessed and blood return was noted. Port was then flushed using heparinized saline and placed in the pocket. Hemostasis was achieved using electrocautery and was complete. The incision was then closed using 3-0 Vicryl suture at the deep dermal level and 4-0 Monocryl in the skin in a running subcuticular fashion. Surgical glue was applied to the incision and stab incision. The patient was awakened from anesthesia having remained stable throughout the entire case and transported to PACU. Post-operative chest X-ray was ordered. I attest to the content of the Intraoperative Record and any orders documented therein. Any exceptions are noted below.
--- NOTE | 2022-11-21 12:00 | Anesthesiology Progress Note ---
Date of Service November 21, 2022 Anesthesia Post Procedure Vital Signs Vital Signs: Temp Pulse Pulse Resp BP Pulse Ox O2 Del Method 11/21/22 11:50 97.5 F L 74 16 101/61 96 Room Air 11/21/22 11:40 73 16 112/65 98 Room Air 11/21/22 11:34 97.5 F L 72 17 97/59 L 99 Room Air 11/21/22 09:46 97.5 F L 80 18 110/63 95 Room Air 11/21/22 07:33 97.7 F 107 H 17 126/76 95 Room Air 11/21/22 03:14 97.5 F L 74 16 96/58 L 94 Room Air 11/20/22 23:00 77 11/20/22 22:43 98.4 F 73 18 108/70 95 Room Air 11/20/22 20:00 Room Air 11/20/22 19:13 98.1 F 80 18 104/69 96 Room Air 11/20/22 16:08 97.7 F 107 H 18 110/67 95 Room Air Pain Intensity Back: Pain Intensity: 3 Transfer of Care Handoff Completed per policy Notes Mental Status: alert / awake / arousable and participated in evaluation Patient Amnestic to Procedure: Yes Nausea / Vomiting: adequately controlled Pain: adequately controlled Airway Patency, RR, SpO2: stable & adequate BP & HR: stable & adequate Hydration State: stable & adequate Anesthetic Complications: no major complications apparent and Pt Satisfied with anesthetic care
--- NOTE | 2022-11-21 12:08 | XRay Report ---
XR chest 1V portable HISTORY: s/p mediport COMPARISON: Chest 10/17/2022. FINDINGS: No pneumothorax. A right jugular Port-A-Cath terminates at the expected location of the bra chiocephalic/SVC junction. Moderate left and small right pleural effusions are again noted. Bibasilar densities persist. There is mild interstitial thickening. The heart remains enlarged. Osteoblastic m etastatic disease is better appreciated on the prior chest CT. IMPRESSION: 1. A right jugular Port-A-Cath terminates at the brachiocephalic/SVC junction. No pneumothorax. 2. Moderate left and small right pleural effusions persist. ACT 112: Negative or not required by law. Electronically signed by: Kieran Smith M.D. 11/21/2022 12:05 PM
--- NOTE | 2022-11-21 20:52 | Hospitalist Progress Note ---
Date of Service November 21, 2022 Assessment & Plan (1) Acute hypokalemia: Plan: replaced resolved presenting K level was 2.5 - likely contributed heavily to #2 below repeat BMP in am for stability (2) Leg weakness, bilateral: Plan: Improved s/p correction of hypokalemia. 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 Counseled her and her that these will likely worsen over time. Given stable O2 sats and minimal symptoms from such will hold off on any interv ention at the present time. (4) Shortness of breath on exertion: Plan: Likely due to #3 above. No new PE seen on CTA chest this admission. No evidence of pneumonia. Of note - had LLL PEs on outpatient CTA chest in early October (done at [facility]). Prior anticoagulation stopped due to suspected GI bleeding from gastric tumor. 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 Mets to numerous bony regions, liver, lungs, brain, possible CSF as well. Repeat MRI of t-spine and l-spine without epidural extension from known metastatic disease or cord compromise. s/p port placement today for future chemo -- appreciate gen surg assistance. appreciate heme/onc assistance. (6) Constipation: Plan: Docusate 100mg PO BID Miralax 17g daily (7) Goals of care, counseling/discussion: Plan: Palliative care is following; appreciate their assistance For severe cancer-induced anorexia and nausea -- started marinol 2.5mg BID with meals not helping thus far, may be causing a little confusion - watch carefully would not titrate to higher dose we discussed use of mirtazapine in the future if marinol or medical marijuana is not helpful (pt to discuss medical marijuana with palliative next week in clinic) (8) Anxiety: Plan: Continue fluoxetine 10mg PO daily (9) Bilateral leg pain: Plan: Likely radicular in origin from her lumbar spine Cont gabapentin (10) Atrial tachycardia: Plan: numerous episodes of either PAT or SVT MUCH improved s/p initiation of flecanide appreciate Dr Mathew's consultation echo with preserved EF cont metoprolol succ albeit at lower dose (11) Hypothyroidism: Plan: last 2 TSH levels have been high started synthroid 25mcg daily repeat TSH 6 weeks as outpatient (12) Pulmonary embolism: Plan: dx with such (LLL PEs) on outpatient CTA chest early October at [facility] had been on anticoagulation but stopped due to concerns of GI bleeding from gastric mass no new PE seen on this admission's study (13) CAD (coronary artery disease): Plan: noted cont asa cont beta melissa (14) Hypertension: Plan: BPs have been low-normal at time -- thus, cut back metoprolol succinate to 25mg daily (15) Severe protein-calorie malnutrition: Plan: severe weight loss (30+ pounds) over the last few months 2nd to stage 4 adenocarcinoma started marinol BID (16) Elevated LFTs: Plan: likely 2nd to liver mets + bony mets trend cont to hold statin - would not resume at d/c due to mild confusion - which could be from brain mets or from the marinol - checked ammonia level and this was wnl (17) Esophagitis: Plan: as seen on CTA chest already on PPI twice daily added carafate 1gm QID - will give at discharge in addition to PPI Plan HIGH risk of DVT/PE due to advanced cancer H/H are stable thus started heparin SC for DVT proph and tolerating such updated at bedside once again daughter updated at bedside home tomorrow ?? did well with PT today - again they cleared her for home Admission and Anticipated Discharge Date Admission Date: November 18, 2022 Subjective tele overnight - SIGNIFICANT improvement in heart rhythm PAT runs essentially resolved mainly NSR patient had busy day - received PT, XRT treatment, and underwent port placement I saw her late afternoon and she was very tired daughter, at bedside expresses ongoing concerns about her lack of appetite thus far no significant response to the marinol daughter thinks she is a little confused on the marinol pt & family hopeful for d/c home soon - maybe tomorrow they ask about PT/OT services Review of Systems Review of Systems: gen - no fevers; fatigue, some weakness - but did participate with PT today cv - no cp, no orthopnea pulm - no cough or dyspnea GI - no pain, still with early satiety and fullness/bloating musculo - denies back pain or pain in any other location Physical Exam Physical Exam: gen - thin, pale, pleasant; slight confusion as previous mouth - no thrush plaques, no lesions, MMM neck - no JVD heart - RRR, s1 s2, no murmur lungs - decreased BS b/l bases L>R; no wheezes; no rales; no increased work of breathing abd - soft NT ND BS+ ext - no edema, pulses 2+ b/l neuro - strength b/l hip flexion near 4-5/5; distal leg strength 5/5 skin - pallor; port site incision right upper chest clean, no drainage, no bleeding Results & Data Results & Data Vital Signs (Past 12 Hours) Vital Signs Temp Pulse Pulse Resp BP Pulse Ox O2 Del Method 11/21/22 19:00 36.7 C 105 H 16 102/66 95 Room Air 11/21/22 16:20 Room Air 11/21/22 16:17 36.8 C 84 16 102/68 94 Room Air 11/21/22 15:31 81 11/21/22 12:15 36.5 C 82 20 98/72 L 97 11/21/22 11:50 36.4 C L 74 16 101/61 96 Room Air 11/21/22 11:40 73 16 112/65 98 Room Air 11/21/22 11:34 36.4 C L 72 17 97/59 L 99 Room Air 11/21/22 09:46 36.4 C L 80 18 110/63 95 Room Air Laboratory Results Laboratory Results - last 24 hr 11/21/22 11/21/22 11/21/22 06:28 06:28 06:28 WBC 3.58 L RBC 2.76 L Hgb 8.2 L Hct 25.6 L MCV 92.8 MCH 29.7 MCHC 32.0 RDW Std Deviation 55.6 H RDW Coeff of Tana 16.4 H Plt Count 225 MPV 9.3 L Sodium 138 Potassium 3.8 Chloride 104 Carbon Dioxide 26 Anion Gap 8 BUN 22 Creatinine 0.54 L Est Cr Clr Drug Dosing 81.0 Est GFR ( Amer) 107.0 Est GFR (Non-Af Amer) 92.3 BUN/Creatinine Ratio 40.7 H Glucose 97 Calcium 8.2 L Ammonia 32.0 PG Care Time/CCT Total # of Minutes Spent Total Time Spent with Patient: Total time spent is greater than 50% in coordination of care (as documented) at patient's floor/unit and/or counseling patient: Coding Level of Care Code 23803 SUB INP/OBS CARE 2/35MIN Diagnoses Acute hypokalemia E87.6 Leg weakness, bilateral R29.898 Bilateral pleural effusion J90 Shortness of breath on exertion R06.02 Metastatic disease C79.9 Area of secondary neoplastic involvement: unspecified site Constipation K59.00 Goals of care, counseling/discussion Z71.89 Anxiety F41.9 Bilateral leg pain M79.604; M79.605 Atrial tachycardia I47.1 Hypothyroidism E03.9 Pulmonary embolism I26.99 CAD (coronary artery disease) I25.10 Hypertension I10 Hypertension type: essential hypertension Severe protein-calorie malnutrition E43 Elevated LFTs R79.89 Esophagitis K20.90 (5) Metastatic disease Area of secondary neoplastic involvement: unspecified site Qualified Code(s): C79.9 - Secondary malignant neoplasm of unspecified site (14) Hypertension Hypertension type: essential hypertension Qualified Code(s): I10 - Essential (primary) hypertension
--- NOTE | 2022-11-21 23:10 | Electrocardiogram Report ---
Test Reason : Blood Pressure : / mmHG Vent. Rate : 095 BPM Atrial Rate : 119 BPM P-R Int : 000 ms QRS Dur : 124 ms QT Int : 386 ms P-R-T Axes : 000 -04 -18 degrees QTc Int : 485 ms Poor data quality, interpretation may be adversely affected Possible Sinus rhythm with frequent , and consecutive Premature supraventricular complexes Right bundle branch block Nonspecific ST abnormality Abnormal ECG When compared with ECG of 18-NOV-2022 17:00, QT has shortened Confirmed by Héctor Plaza ([id number]) on 11/21/2022 11:10:09 PM Referred By: Andrez Ruiz Confirmed By:Héctor Plaza
[2022-11-22] MEDS: LEVOTHYROXINE SODIUM 25 MCG TABLET PO SCH (06:33)
[2022-11-22] MEDS: HEPARIN SOD 5,000 UNIT/0.5 ML VIAL SQ SCH ×3 (06:33→21:09)
--- NOTE | 2022-11-22 06:41 | Hospitalist Progress Note ---
Date of Service November 22, 2022 Assessment & Plan (1) Gastric adenocarcinoma: Plan: Completing planned the radiation and I am anticipating starting chemotherapy as an outpatient. Anticipate discharge soon, I will provisionally plan to see her in the clinic next week to finalize chemotherapy plans. Plan base of FOLFOX but NGS studies may indicate role for ICI and/or anti-HER2 therapy as well (2) Anemia: Plan: Persistent but not progressive anemia. Percent sat was low in October but most recent ferritin was over 400. Even with pseudonormalization the latter suggest that there is at least adequate iron though it does not absolutely guarantee that. I am resubmitting iron studies and as an outpatient we will follow-up those with determination as to whether cautious additional iron supplementation might be worthwhile. Hemoglobin is adequate for discharge so long as she does not have dramatic new symptoms (3) Pulmonary embolism: Plan: Unfortunately resuming anticoagulation could risk life-threatening bleeding while continuing to hold it does put her at some ongoing risk for VTE. Some presumption that the origin of the VTE was in the splanchnic circulation given that that is the locus of her active disease and thus it is not clear that an IVC filter would be helpful. Fortunately she has been clinically stable. Hoping that radiation will further stabilize the GI lesion and further lessen the risk of bleeding so that we can cautiously resume at least lower dose anticoagulation when I see her as an outpatient Plan If she is otherwise stable anticipate discharge in the near future and we will follow-up closely as an outpatient. I have tentatively asked that she be booked to see me at 4 PM on November 27 Will "sign off" please do not hesitate to reconsult if additional issues arise during this hospitalization with which we can help Admission and Anticipated Discharge Date Admission Date: November 18, 2022 Subjective Symptoms stabilizing, still reporting melena Physical Exam Physical Exam: Vital signs stable, exam Results & Data Results & Data Vital Signs (Past 12 Hours) Vital Signs Temp Pulse Pulse Resp BP Pulse Ox O2 Del Method 11/22/22 03:00 36.9 C 71 16 113/68 94 Room Air 11/22/22 02:46 36.7 C 78 18 113/72 90 Room Air 11/21/22 22:01 79 11/21/22 23:14 36.6 C 82 20 102/63 97 Room Air 11/21/22 19:30 Room Air 11/21/22 19:00 36.7 C 105 H 16 102/66 95 Room Air PG Care Time/CCT Total # of Minutes Spent Total Time Spent with Patient: Total time spent is greater than 50% in coordination of care (as documented) at patient's floor/unit and/or counseling patient: Coding Level of Care Code 01999 SUB INP/OBS CARE 10/02MIN Diagnoses Gastric adenocarcinoma C16.9 Anemia D64.9 Pulmonary embolism I26.99
--- NOTE | 2022-11-22 07:54 | Cardiology Progress Note ---
Date of Service November 22, 2022 Assessment & Plan (1) Paroxysmal atrial tachycardia: (2) CAD (coronary artery disease): (3) Liver metastases: Plan 1. PAT: She had very frequent episodes of atrial tachycardia, I believe this does not represent atrial fibrillation although the two can coexist. Very brief episodes (minutes at most in duration) are unlikely to represent atrial fibrillation. I would not anticoagulate for her rhythm, although she is mostly asymptomatic she was having enough of these episodes that I think we should continue to treat them. I would normally use amiodarone but in view of her other issues including liver abnormalities I did start flecainide 100 mg twice daily. After 2-3 doses her rhythm became extremely stable. I am hopeful that 50 mg would work, partly in view of slight increase in the QT yesterday (although today's electrocardiogram was not prolonged) although that is likely in part due to her underlying conduction abnormalities and is not overly concerning. I was able to decrease her dose this morning so we should know something by the end of the day or if she stays overnight certainly by tomorrow if this dose will work. 2. Coronary disease: She has coronary artery disease, I do not believe this is related to her arrhythmia but does increase the risk somewhat with the use of flecainide. I would prefer to use lowest possible dose. 3. Liver metastases: She has abnormal liver function tests making amiodarone potentially risky, although I do not know that it increases the risk of hepatotoxicity. I think this remains a consideration. Admission and Anticipated Discharge Date Admission Date: November 18, 2022 Subjective She is feeling very well from a cardiovascular standpoint. She has no awareness of her cardiac rhythm. Physical Exam Physical Exam: Constitutional: Alert, cooperative and in no distress. HEENT: Unremarkable Neck: No jugular venous distention, carotid pulses are normal and equal bilaterally without bruits. Pulmonary: Diminished breath sounds in bases bilaterally. Cardiac: Regular rhythm with no murmur, gallop or rub. Abdomen: Soft, nontender with normal bowel sounds. Extremities: No edema. Neurologic: No focal findings. Skin: No rash, ecchymoses or petechiae. Results & Data Vital Signs (Past 12 Hours) Vital Signs Temp Pulse Pulse Resp BP Pulse Ox O2 Del Method 11/22/22 07:07 36.8 C 73 18 117/80 93 Room Air 11/22/22 03:00 36.9 C 71 16 113/68 94 Room Air 11/22/22 02:46 36.7 C 78 18 113/72 90 Room Air 11/21/22 22:01 79 11/21/22 23:14 36.6 C 82 20 102/63 97 Room Air Laboratory Results Intake and Output 11/21/22 11/22/22 11/22/22 22:59 06:59 14:59 Intake Total 200 / 200 Balance 200 / 200 Intake: Oral 200 / 200 Other: # Unmeasured Voids 1 Weight 59.1 kg Weight Measurement Method Built in [facility] Diagnostic Findings Telemetry: The first 24 hours after starting flecainide 100 mg twice a day her rhythm improved significantly although she still had some atrial arrhythmias but nothing rapid, for 24 to 48 hours on flecainide 100 mg twice a day her rhythm has been very stable in sinus rhythm. ECG: Yesterday's twelve-lead ECG slowed slight QT prolongation, although that is probably a flecainide effect not of much concern, today's electrocardiogram on the same dose does not show significant QT prolongation so I think it is not an issue. PG Care Time/CCT Total # of Minutes Spent Total Time Spent with Patient: Total time spent is greater than 50% in coordination of care (as documented) at patient's floor/unit and/or counseling patient: Coding Level of Care Code 06756 SUB INP/OBS CARE 3/50MIN Diagnoses Paroxysmal atrial tachycardia I47.1 CAD (coronary artery disease) I25.10 Liver metastases C78.7
[2022-11-22 07:59] LABS: Ferritin 515.4 ng/ml (8-388)
[2022-11-22] MEDS: CYANOCOBALAMIN (B-12) 500 MCG TABLET PO SCH (08:54)
[2022-11-22] MEDS: FOLIC ACID 400 MCG TAB PO SCH (08:56)
[2022-11-22] MEDS: FLECAINIDE ACETATE 100 MG TABLET PO SCH ×2 (08:57→20:34)
[2022-11-22] MEDS: DOCUSATE SODIUM 100 MG CAP PO SCH ×2 (08:57→20:36)
[2022-11-22] MEDS: ASPIRIN 81 MG ECTAB PO SCH (08:57)
[2022-11-22] MEDS: GABAPENTIN 100 MG CAP PO SCH ×2 (08:59→20:35)
[2022-11-22] MEDS: FLUoxetine HCL 10 MG CAP PO SCH (08:59)
[2022-11-22] MEDS: METOPROLOL SUCC 25MG EXT REL TAB PO SCH (08:59)
[2022-11-22] MEDS: CEROVITE ADV FORMULA TAB PO SCH (09:00)
[2022-11-22] MEDS: POLYETHYLENE (MIRALAX) 17 GM PACK PO SCH (09:00)
[2022-11-22] MEDS: PANTOprazole 40 MG TAB PO SCH ×2 (09:00→20:36)
[2022-11-22] MEDS: SUCRALFATE 1 GM/10 ML UDC PO SCH ×4 (09:01→20:36)
[2022-11-22 10:40] LABS: Hematocrit (blood only) 25.3 % (37.0-47.0); Hemoglobin 7.9 g/dl (12.0-16.0); Mean Corpuscular Hemoglobin 29.7 pg (25.0-34.0); Mean Corpuscular Hgb Conc 31.2 g/dL (32.0-36.0); Mean Corpuscular Volume 95.1 fL (80.0-100.0); Platelet Count 213 K/uL (130-400); RDW Coefficient of Variation 16.7 % (11.5-14.5); RDW Standard Deviation 58.3 fL (36.4-46.3); Red Blood Count 2.66 M/uL (4.20-5.40); White Blood Count 3.15 K/ul (4.8-10.8)
[2022-11-22 10:50] LABS: BUN Creatinine Ratio 40.9 (10-20); Calcium 7.9 mg/dl (8.5-10.1); Creatinine Clr Calc Pharmacy 66.3 ml/min; Est GFR (African American) 100.2 ml/min; Est GFR (Non-African American) 86.4 ml/min; Potassium 3.8 mmol/L (3.5-5.1)
--- NOTE | 2022-11-22 11:07 | Surgery Progress Note ---
Date of Service November 22, 2022 Assessment & Plan (1) Metastatic disease: Plan: She is healing well without issue Port can be used Surgical sign off at this time please call with any questions or concerns Admission and Anticipated Discharge Date Admission Date: November 18, 2022 Subjective Patient seen and examined. Denies any chest pain. No problems with the incisions. Physical Exam Constitutional: WD/WN, vitals as above Chest (Breasts): Additional Comments: Right chest incision without erythema or drainage, no hematoma Results & Data Vital Signs (Past 12 Hours) Vital Signs Temp Pulse Pulse Resp BP Pulse Ox O2 Del Method 11/22/22 08:00 79 11/22/22 07:07 36.8 C 73 18 117/80 93 Room Air 11/22/22 03:00 36.9 C 71 16 113/68 94 Room Air 11/22/22 02:46 36.7 C 78 18 113/72 90 Room Air 11/21/22 23:14 36.6 C 82 20 102/63 97 Room Air PG Care Time/CCT Total # of Minutes Spent Total Time Spent with Patient: Total time spent is greater than 50% in coordination of care (as documented) at patient's floor/unit and/or counseling patient: Coding Level of Care Code 59807 Post Operative Follow-Up Diagnoses Metastatic disease C79.9 Area of secondary neoplastic involvement: unspecified site (1) Metastatic disease Area of secondary neoplastic involvement: unspecified site Qualified Code(s): C79.9 - Secondary malignant neoplasm of unspecified site
[2022-11-22] MEDS ORDERED: IRON SUCROSE 300 MG in SODIUM CHLORIDE 0.9% 250 ML IV ONE (15:15)
[2022-11-22] MEDS: NSS + 20MEQ KCL 20 MEQ/1,000 ML BAG IV SCH (17:03)
--- NOTE | 2022-11-22 20:08 | Hospitalist Progress Note ---
Date of Service November 22, 2022 Assessment & Plan (1) Acute hypokalemia: Plan: replaced resolved presenting K level was 2.5 - likely contributed heavily to #2 below repeat BMP in am for stability would send home with K supplement at d/c as appetite loss from cancer is severe and her K is likely to fall as outpatient (2) Leg weakness, bilateral: Plan: Improved s/p correction of hypokalemia. 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 Counseled her and her that these will likely worsen over time. Given stable O2 sats and minimal symptoms from such will hold off on any intervention at the present time. (4) Shortness of breath on exertion: Plan: Likely due to #3 above. No new PE seen on CTA chest this admission. No evidence of pneumonia. Of note - had LLL PEs on outpatient CTA chest in early October (done at [facility]). Prior anticoagulation stopped due to suspected GI bleeding from gastric tumor. 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 Mets to numerous bony regions, liver, lungs, brain, possible CSF as well. Repeat MRI of t-spine and l-spine without epidural extension from known metastatic disease or cord compromise. s/p port placement 11/21 for future chemo -- appreciate gen surg assistance. site looks good. appreciate heme/onc assistance. for Fe def - give IV venofer today and tomorrow prior to discharge. (6) Constipation: Plan: Docusate 100mg PO BID Miralax 17g daily improved (7) Goals of care, counseling/discussion: Plan: Palliative care is following; appreciate their assistance For severe cancer-induced anorexia and nausea -- started marinol 2.5mg BID with meals not helping thus far, but family and patient wish to continue no confusion from the med would not titrate to higher dose at this time we discussed use of mirtazapine in the future if marinol or medical marijuana is not helpful (pt to discuss medical marijuana with palliative next week in clinic) (8) Anxiety: Plan: Continue fluoxetine 10mg PO daily (9) Bilateral leg pain: Plan: Likely radicular in origin from her lumbar spine Cont gabapentin (10) Atrial tachycardia: Plan: numerous episodes of either PAT or SVT MUCH improved s/p initiation of flecanide appreciate Dr Mathew's consultation he lowered dose today to 50mg BID monitor on tele echo with preserved EF cont metoprolol succ albeit at lower dose of 25mg daily (11) Hypothyroidism: Plan: last 2 TSH levels have been high started synthroid 25mcg daily repeat TSH 6 weeks as outpatient (12) Pulmonary embolism: Plan: dx with such (LLL PEs) on outpatient CTA chest early October at [facility] had been on anticoagulation but stopped due to concerns of GI bleeding from gastric mass no new PE seen on this admission's study (13) CAD (coronary artery disease): Plan: noted cont asa cont beta melissa (14) Hypertension: Plan: BPs have been low-normal at time -- thus, cut back metoprolol succinate to 25mg daily (15) Severe protein-calorie malnutrition: Plan: severe weight loss (30+ pounds) over the last few months 2nd to stage 4 adenocarcinoma started marinol BID (16) Elevated LFTs: Plan: likely 2nd to liver mets + bony mets trend cont to hold statin - would not resume at d/c due to mild confusion - which could be from brain mets or from the marinol - checked ammonia level and this was wnl (17) Esophagitis: Plan: as seen on CTA chest already on PPI twice daily added carafate 1gm QID - will give at discharge in addition to PPI (18) Dehydration: Plan: 2nd to severe, cancer-induced anorexia resume IV fluids and give overnight reassess tomorrow BMP am (19) Iron deficiency: Plan: venofer 300mg IV x 1 repeat tomorrow as well cbc in am for stability Fe def likely due to previous GI bleeding from gastric cancer Plan DVT proph - SC heparin and daughter extensively updated due to dehydration will not d/c today and provide IV hydration overnight will also provide IV venofer hopeful for d/c home tomorrow Admission and Anticipated Discharge Date Admission Date: November 18, 2022 Subjective saw patient early afternoon she had XRT session this am in the cancer center she was just finishing her session with PT as well did ok - ambulated with walker, felt ok on her feet still little to no appetite liquid intake is minimal -- likely <500cc of fluid since yesterday daughter, son in law, and at bedside we had lengthy discussion about d/c plan, goals for fluid intake (1500cc would be a good goal), meds, etc patient denies any specific complaints had BM today - was dark, but not black or melena like family thinks her mentation is at baseline today tele overnight - PAT runs nearly 100% resolved Review of Systems Review of Systems: gen - fatigued, weak - but no fevers or chills cv - no cp pulm - no significant dyspnea on exertion; no cough GI - no abd pain, no N/V, +stool this am - voiding w/o difficulty Physical Exam Physical Exam: gen - thin, pale, pleasant; sitting in chair mouth - no thrush plaques, no lesions, MM very dry today neck - no JVD heart - RRR, s1 s2, no murmur lungs - decreased BS b/l bases L>R; no wheezes; no rales abd - soft NT ND BS+ ext - no edema, pulses 2+ b/l neuro - strength b/l hip flexion near 4-5/5; distal leg strength 5/5 skin - pallor; port site incision right upper chest clean Results & Data Results & Data Vital Signs (Past 12 Hours) Vital Signs Temp Pulse Resp BP Pulse Ox O2 Del Method 11/22/22 19:00 36.6 C 93 H 17 117/73 94 Room Air 11/22/22 15:46 36.6 C 90 17 122/71 94 Room Air 11/22/22 11:24 36.4 C L 87 18 113/77 94 Room Air Laboratory Results Laboratory Results - last 24 hr 11/22/22 11/22/22 11/22/22 07:02 07:03 07:03 WBC 3.15 L RBC 2.66 L Hgb 7.9 L Hct 25.3 L MCV 95.1 MCH 29.7 MCHC 31.2 L RDW Std Deviation 58.3 H RDW Coeff of Tana 16.7 H Plt Count 213 MPV 10.0 Sodium 138 Potassium 3.8 Chloride 103 Carbon Dioxide 25 Anion Gap 10 BUN 27 H Creatinine 0.66 Est Cr Clr Drug Dosing 66.3 Est GFR ( Amer) 100.2 Est GFR (Non-Af Amer) 86.4 BUN/Creatinine Ratio 40.9 H Glucose 105 H Calcium 7.9 L Iron 23 L TIBC 200 L Unsaturated IBC 177 Transferrin % Sat 12 L Ferritin 515.4 H PG Care Time/CCT Total # of Minutes Spent Total Time Spent with Patient: Total time spent is greater than 50% in coordination of care (as documented) at patient's floor/unit and/or counseling patient: Coding Level of Care Code 32903 SUB INP/OBS CARE 3/50MIN Diagnoses Acute hypokalemia E87.6 Leg weakness, bilateral R29.898 Bilateral pleural effusion J90 Shortness of breath on exertion R06.02 Metastatic disease C79.9 Area of secondary neoplastic involvement: unspecified site Constipation K59.00 Goals of care, counseling/discussion Z71.89 Anxiety F41.9 Bilateral leg pain M79.604; M79.605 Atrial tachycardia I47.1 Hypothyroidism E03.9 Pulmonary embolism I26.99 CAD (coronary artery disease) I25.10 Hypertension I10 Hypertension type: essential hypertension Severe protein-calorie malnutrition E43 Elevated LFTs R79.89 Esophagitis K20.90 Dehydration E86.0 Iron deficiency E61.1 (5) Metastatic disease Area of secondary neoplastic involvement: unspecified site Qualified Code(s): C79.9 - Secondary malignant neoplasm of unspecified site (14) Hypertension Hypertension type: essential hypertension Qualified Code(s): I10 - Essential (primary) hypertension
--- NOTE | 2022-11-23 00:20 | Electrocardiogram Report ---
Test Reason : Blood Pressure : / mmHG Vent. Rate : 103 BPM Atrial Rate : 104 BPM P-R Int : 120 ms QRS Dur : 136 ms QT Int : 424 ms P-R-T Axes : 017 -16 004 degrees QTc Int : 555 ms Sinus tachycardia with Premature supraventricular complexes Right bundle branch block Abnormal ECG When compared with ECG of 18-NOV-2022 19:05, QT has lengthened Confirmed by Héctor Plaza ([id number]) on 11/23/2022 12:20:34 AM Referred By: Andrez Ruiz Confirmed By:Héctor Plaza
--- NOTE | 2022-11-23 02:15 | Electrocardiogram Report ---
Test Reason : Blood Pressure : / mmHG Vent. Rate : 079 BPM Atrial Rate : 076 BPM P-R Int : 200 ms QRS Dur : 136 ms QT Int : 466 ms P-R-T Axes : 000 -17 -11 degrees QTc Int : 534 ms Sinus rhythm Premature atrial complexes Right bundle branch block Cannot rule out Septal infarct , age undetermined Abnormal ECG When compared with ECG of 21-NOV-2022 06:07, No significant change Confirmed by Héctor Plaza ([id number] on 11/23/2022 2:14:54 AM Referred By: Andrez Ruiz Confirmed By:Héctor Plaza
[2022-11-23] MEDS: NSS + 20MEQ KCL 20 MEQ/1,000 ML BAG IV SCH (03:51)
[2022-11-23] MEDS: HEPARIN SOD 5,000 UNIT/0.5 ML VIAL SQ SCH (05:51)
[2022-11-23] MEDS: LEVOTHYROXINE SODIUM 25 MCG TABLET PO SCH (05:51)
[2022-11-23 07:44] LABS: Hematocrit (blood only) 25.5 % (37.0-47.0); Hemoglobin 8.2 g/dl (12.0-16.0); Mean Corpuscular Hemoglobin 30.7 pg (25.0-34.0); Mean Corpuscular Hgb Conc 32.2 g/dL (32.0-36.0); Mean Corpuscular Volume 95.5 fL (80.0-100.0); Mean Platelet Volume 9.6 fL (9.4-12.4); Platelet Count 199 K/uL (130-400); RDW Coefficient of Variation 16.8 % (11.5-14.5); RDW Standard Deviation 58.3 fL (36.4-46.3); Red Blood Count 2.67 M/uL (4.20-5.40)
[2022-11-23] MEDS: FLECAINIDE ACETATE 100 MG TABLET PO SCH (07:58)
[2022-11-23] MEDS: GABAPENTIN 100 MG CAP PO SCH (07:58)
[2022-11-23] MEDS: PANTOprazole 40 MG TAB PO SCH (07:58)
[2022-11-23] MEDS: FLUoxetine HCL 10 MG CAP PO SCH (07:59)
[2022-11-23] MEDS: CYANOCOBALAMIN (B-12) 500 MCG TABLET PO SCH (08:00)
[2022-11-23] MEDS: POLYETHYLENE (MIRALAX) 17 GM PACK PO SCH (08:00)
[2022-11-23] MEDS: CEROVITE ADV FORMULA TAB PO SCH (08:00)
[2022-11-23] MEDS: METOPROLOL SUCC 25MG EXT REL TAB PO SCH (08:00)
[2022-11-23] MEDS: ASPIRIN 81 MG ECTAB PO SCH (08:00)
[2022-11-23] MEDS: DOCUSATE SODIUM 100 MG CAP PO SCH (08:01)
[2022-11-23] MEDS: FOLIC ACID 400 MCG TAB PO SCH (08:01)
[2022-11-23] MEDS: SUCRALFATE 1 GM/10 ML UDC PO SCH ×2 (08:01→12:29)
[2022-11-23 08:16] LABS: BUN Creatinine Ratio 39.6 (10-20); Calcium 8.2 mg/dl (8.5-10.1); Creatinine Clr Calc Pharmacy 82.5 ml/min; Est GFR (African American) 107.6 ml/min; Est GFR (Non-African American) 92.9 ml/min; Potassium 3.9 mmol/L (3.5-5.1)
[2022-11-23] MEDS ORDERED: IRON SUCROSE 300 MG in SODIUM CHLORIDE 0.9% 250 ML IV ONE (10:00)
--- NOTE | 2022-11-23 13:03 | Discharge Summary ---
Date of Service November 23, 2022 Admission HPI Per Admitting Provider Taya Galvez is a 77 year old female with metastatic cancer with unknown primary presents as a direct admission from radiation oncology due to increased difficulty getting around her house and general failure to thrive. She is currently undergoing radiation to her back for metastatic disease with neurogenic claudication. She is also undergoing external beam radiation to gastric mass to prevent bleeding. Over the last weak she reports both getting more short of breath on exertion and generalized weakness in her legs both of which have been decreasing her mobility. Regarding the shortness of breath on exertion she was diagnosed with a pulmonary emboli on outpatient CT in October. She was initially treated with anticoagulation but reportedly this was stopped by her oncologist 10 days ago due to concerns regarding bleeding from the gastric mass. She also reports not eating or drinking much as she feels full after only a few bites of food or sips of water. No odynophagia or dysphagia. Mainly loss of appetite and feeling of fullness. She does not some consipation with a hard bowel movement today and she has been taking over the counter stool softeners but without much effect. No nausea or vomiting. She is currently being worked up for metastatic cancer with unknown primary although recent bone biopsy (which she is yet to discuss the results with her oncologist) notes while the immunoprofile is somewhat non-specific, in clinical context, favor that this is a gastric primary. 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 The patients main complaints are decreased mobility which she believes is a combination of weakness in her legs and shortness of breath on exertion. She was recently diagnosed with a pulmonary embolism Discharge Exam gen - thin, pale, pleasant; sitting in chair mouth - no thrush plaques, no lesions, MM very dry today neck - no JVD heart - RRR, s1 s2, no murmur lungs - decreased BS b/l bases L>R; no wheezes; no rales abd - soft NT ND BS+ ext - no edema, pulses 2+ b/l neuro - strength b/l hip flexion near 4-5/5; distal leg strength 5/5 skin - pallor; port site incision right upper chest clean Discharge Data Allergies Allergy/AdvReac Type Severity Reaction Status Date / Time alendronate sodium AdvReac Intermediate Unable to Verified 11/11/22 15:29 [From Fosamax] ambulate Consultations 11/18/22 16:55 Consult Oncology Routine Consult Palliative Care Routine Consult Radiation Oncology Routine 11/20/22 07:56 Consult General Surgery Routine 11/20/22 08:00 Consult Cardiology Routine Procedures Performed Operation Date: 11/21/22 10:00 Actual Procedures p Insertion of Port Access into Right Internal Jugular Vein(Right) - Patel Arshad, Ordered Studies 11/18/22 16:38 CT for pulmonary embolism PE [CT angio chest PE protocol] Stat 11/19/22 12:01 MR thoracic spine wo/w con Routine MRI Lumbar Spine [MR lumbar spine wo/w con] Routine 11/21/22 10:00 FL fluoro (infusaport) to 1 hr Routine Hospital Course (1) Acute hypokalemia: replaced resolved presenting K level was 2.5 - likely contributed heavily to #2 below repeat BMP in am for stability would send home with K supplement at d/c as appetite loss from cancer is severe and her K is likely to fall as outpatient (2) Leg weakness, bilateral: Improved s/p correction of hypokalemia. 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 Counseled her and her that these will likely worsen over time. Given stable O2 sats and minimal symptoms from such will hold off on any intervention at the present time. (4) Shortness of breath on exertion: Likely due to #3 above. No new PE seen on CTA chest this admission. No evidence of pneumonia. Of note - had LLL PEs on outpatient CTA chest in early October (done at [facility]). Prior anticoagulation stopped due to suspected GI bleeding from gastric tumor. 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 Mets to numerous bony regions, liver, lungs, brain, possible CSF as well. Repeat MRI of t-spine and l-spine without epidural extension from known metastatic disease or cord compromise. s/p port placement 11/21 for future chemo -- appreciate gen surg assistance. site looks good. appreciate heme/onc assistance. for Fe def - give IV venofer today and tomorrow prior to discharge. (6) Constipation: Docusate 100mg PO BID Miralax 17g daily improved (7) Goals of care, counseling/discussion: Palliative care is following; appreciate their assistance For severe cancer-induced anorexia and nausea -- started marinol 2.5mg BID with meals not helping thus far, but family and patient wish to continue no confusion from the med would not titrate to higher dose at this time we discussed use of mirtazapine in the future if marinol or medical marijuana is not helpful (pt to discuss medical marijuana with palliative next week in clinic) (8) Anxiety: Continue fluoxetine 10mg PO daily (9) Bilateral leg pain: Likely radicular in origin from her lumbar spine Cont gabapentin (10) Atrial tachycardia: numerous episodes of either PAT or SVT MUCH improved s/p initiation of flecanide appreciate Dr Mathew's consultation he lowered dose today to 50mg BID monitor on tele echo with preserved EF cont metoprolol succ albeit at lower dose of 25mg daily (11) Hypothyroidism: last 2 TSH levels have been high started synthroid 25mcg daily repeat TSH 6 weeks as outpatient (12) Pulmonary embolism: dx with such (LLL PEs) on outpatient CTA chest early October at [facility] had been on anticoagulation but stopped due to concerns of GI bleeding from gastric mass no new PE seen on this admission's study (13) CAD (coronary artery disease): noted cont asa cont beta melissa (14) Hypertension: BPs have been low-normal at time -- thus, cut back metoprolol succinate to 25mg daily (15) Severe protein-calorie malnutrition: severe weight loss (30+ pounds) over the last few months 2nd to stage 4 adenocarcinoma started marinol BID (16) Elevated LFTs: likely 2nd to liver mets + bony mets trend cont to hold statin - would not resume at d/c due to mild confusion - which could be from brain mets or from the marinol - checked ammonia level and this was wnl (17) Esophagitis: as seen on CTA chest already on PPI twice daily added carafate 1gm QID - will give at discharge in addition to PPI (18) Dehydration: 2nd to severe, cancer-induced anorexia resume IV fluids and give overnight reassess tomorrow BMP am (19) Iron deficiency: venofer 300mg IV x 1 repeat tomorrow as well cbc in am for stability Fe def likely due to previous GI bleeding from gastric cancer Plan DVT proph - SC heparin and daughter extensively updated due to dehydration will not d/c today and provide IV hydration overnight will also provide IV venofer hopeful for d/c home tomorrow Home Health Attestation I certify that this patient is under my care and that I, or a physicians commercial lines account assistant working with me, had a face to-face encounter that meets the home health [id number] encounter requirements with this patient. The encounter with the patient was in whole, or in part, for the following medical condition, which is the primary reason for home health care (list medical condition): Weakness I certify that, based on my findings, the following services are medically necessary home health services: My clinical findings support the need for the above services because: PT Assessment for Endurance / Balance / Strength PT Eval for Safety and Mobility PT Eval for Safety, Gait Training, Assistive Devices PT Gait and Balance Training, Strengthening and Safety Skilled Nsg Assessment Further, I certify that my clinical findings support that this patient is homebound (i.e. absences from home require considerable and taxing effort and are for medical reasons or congregational services or infrequently or of short duration when for other reasons) because: Supportive Aid - Walker Certification for Home Health Services: Based on the above findings, I certify that this patient is confined to the home and needs intermittent half-way care, physical therapy and/or speech therapy or continues to need occupational therapy. The patient is under my care, and I have initiated the establishment of the plan of care. This patient will be followed by a physician who will periodically review the plan of care. Discharge Plan Discharge Items Patient Disposition: Home - Home Health Services Reason For Visit: metastatic cancer Discharge Diagnosis: 1. weakness of legs due to low potassium - resolved 2. poor appetite - due to gastric cancer 3. iron deficiency - due to previous bleeding from gastric cancer 4. dehydration - resolved 5. hypothyroidism (underactive thyroid gland) 6. atrial tachycardia - improved with heart medication 7. back pain due to cancer - improved with radiation 8. prior history of pulmonary embolis (blood clot in lung) 9. port placement by Dr Patel Arshad Activity: As commented below Activity Comment: light activities as tolerated Bathing Comment: Keep your port site clean/covered/dry x 3 days during showers. Driving/Machine Use: NO DRIVING Non-emergency contact: Primary Care Provider, Specialist and Oncologist Call non-emergency contact if: you have any medication questions, your symptoms worsen, your pain is not controlled, your pain is worsening, your pain is u nusual for you, your pain is concerning for you and you have a fever Follow-up/Referrals: Soheila Reyna PA-C [Primary Care Provider] - Gary Glover MD [Physician] - (please report for any remaining radiation treatments at the [facility] ) Teresa Downing MD [Physician] - 11/26/22 1:00 pm Patel Arshad DO [Physician] - (Call to schedule follow up in clinic within 2 weeks (recheck of port incision)) Stiven Campbell MD [Physician] - (when you come to the Cancer Center this coming week for radiation please stop at the main desk and inquire about your follow-up appointment with Dr Campbell to discuss chemotherapy) Diet: Regular Addtl Attending Provider Instructions: Mrs Galvez, You were hospitalized due to weakness, fatigue, poor appetite, etc. The weakness of your legs was due to very low potassium levels. Your potassium levels have been normal for several days prior to discharge. Most potassium intake comes from food that you eat. Thus, during this time while your appetite is down, we will be giving you a potassium supplement to take once daily at home. Once your potassium levels were normal the weakness improved. We did perform MRIs of your spine to ensure that the spinal cord was not being compromised by the cancer. The MRIs showed that the spinal cord was healthy. In addition, radiation oncology, oncology, palliative care, general surgery, and cardiology all saw you in consult while here. Oncology plans to start chemotherapy tiffanie after discharge. A port was placed by general surgery for future chemotherapy. We started you on marinol (dronabinol) for nausea and appetite stimulation. This medication is being given twice daily. Cardiology advised a new medication called flecainide twice daily to control a rapid heart rhythm you were having frequently while here. That rhythm, called "atrial tachycardia," is much better since starting this new medication. We also found that you have mild hypothyroidism. Thyroid medication was started for such. You will need a repeat thyroid level ("TSH") in about 6 weeks to determine if you are on the right amount of thyroid medication. Additional acid reducers in the form of sucralfate was added for your esophagus and stomach. This is to help prevent stomach bleeding and keep your stomach as healthy as possible. Finally, we provided 2 runs of IV iron during your stay. Other recommendations - * lower your metoprolol succinate from 50mg once daily to 25mg once daily (simply cut the pill in 1/) * please STOP your rosuvastatin cholesterol medication * nutrition and hydration - as we have discussed several times there will be many days when you simply will not feel hungry, or if you attempt to eat you will feel "full" quickly, etc. The lack of appetite and the fullness feeling is from the cancer. Most importantly please continue to watch your hydration carefully. Shoot for about 1250 to 1500cc each day. You can use the [facility] thermos given during your stay to guide how much you are taking each day. Boost or ensure drinks are excellent not only for hydration but also for calories, protein, etc. * the marinol for your appetite may or may not help. If the marinol is simply not working your outpatient providers could try a medication called mirtazapine. There are other options as well. See handout on marinol (dronabinol). Know that this medication can sometimes cause confusion. Follow-up - see separate section Return to [facility] if * you have fevers over 100 degrees * you have any concerns about your port site on your right chest wall (redness, swelling, pain, etc) * you have worsening weakness, dizziness, or lightheadedness * you have black, tarry stools * you have worsening pain in your back, chest or abdomen * you have worsening confusion or severe headache * any other concerns It was our pleasure to care for you! -Dr Womack Pending Studies at Discharge: No Stand-Alone Forms: My [facility] [employer], Smoking Cessation Medications and DC Order Prescriptions: New levothyroxine [Synthroid] 25 mcg Tablet 25 mcg PO DAILYBB Qty: 30 5RF dronabinol 2.5 mg Capsule 2.5 mg PO BIDM Qty: 30 0RF flecainide 100 mg Tablet 100 mg PO BID Qty: 60 2RF Rx Instructions: for your heart sucralfate [Carafate] 1 gram tablet 1 g PO BID Qty: 60 2RF potassium chloride 10 mEq tablet extended release 10 meq PO DAILY Qty: 30 1RF Continued tramadol 50 mg tablet 50 mg PO Q6 PRN (Reason: pain) acetaminophen [Tylenol Arthritis Pain] 650 mg tablet extended release 650 mg PO QPM PRN (Reason: Pain) vitamin [id number] acid 500-400 mcg tablet 1 tab PO DAILY Qty: 30 0RF Rx Instructions: administer with a meal Multivitamin 50 Plus Tablet 1 tab PO QAM aspirin 81 mg tablet,delayed release (DR/EC) 81 mg PO QAM biotin 1 mg capsule 1 mg PO QAM nitroglycerin [Nitrostat] 0.4 mg Tablet, Sublingual 0.4 mg sublingual UD PRN (Reason: chest pain) Qty: 25 3RF Patient Comments: Pt "I have never used it" Rx Instructions: 1 tab every 5 min as needed for angina. Not to exceed 3 doses. pantoprazole 40 mg Tablet,Delayed Release (Dr/Ec) 40 mg PO BID Qty: 60 0RF gabapentin 100 mg Capsule 100 mg PO BID Qty: 60 0RF fluoxetine 10 mg capsule 10 mg PO QAM Changed metoprolol succinate 50 mg tablet extended release 24 hr 25 mg PO QAM Qty: 1 0RF Discontinued rosuvastatin [Crestor] 40 mg tablet 40 mg PO HS Qty: 90 0RF Discharge Orders: Discharge Order (Routine); Ordered 11/23/22 Ordered By: Andrez Montoya/Other Patient Handouts: Dronabinol Oral Capsule, ED Hypothyroidism Admission Data Admit Date/Time: 11/18/22 17:31 Attending Provider: Andrez Womack Admit Provider: Andrez Ruiz Primary Care Provider: Soheila Reyna Other Providers: Wendy Pacheco ; Teresa Downing ; Gary Glover ; Patel Arshad ; Joaquín Mathew ; [facility] Coding Diagnoses Acute hypokalemia E87.6 Leg weakness, bilateral R29.898 Bilateral pleural effusion J90 Shortness of breath on exertion R06.02 Metastatic disease C79.9 Area of secondary neoplastic involvement: unspecified site Constipation K59.00 Goals of care, counseling/discussion Z71.89 Anxiety F41.9 Bilateral leg pain M79.604; M79.605 Atrial tachycardia I47.1 Hypothyroidism E03.9 Pulmonary embolism I26.99 CAD (coronary artery disease) I25.10 Hypertension I10 Hypertension type: essential hypertension Severe protein-calorie malnutrition E43 Elevated LFTs R79.89 Esophagitis K20.90 Dehydration E86.0 Iron deficiency E61.1
--- NOTE | 2022-11-23 16:49 | Cardiology Progress Note ---
Date of Service November 23, 2022 Assessment & Plan (1) Paroxysmal atrial tachycardia: (2) CAD (coronary artery disease): (3) Liver metastases: Plan 1. PAT: Her dose of flecainide was reduced yesterday with a resultant increase in the frequency and duration of her atrial arrhythmia. Would seem reasonable to return her to 100 mg twice daily. She has few symptoms. She has an implanted loop recorder and the efficacy of treatment can be monitored on an outpatient basis. An alternative medication would be amiodarone. She should also continue her beta-blockade. 2. Coronary disease: She has coronary artery disease, I do not believe this is related to her arrhythmia but does increase the risk somewhat with the use of flecainide. Admission and Anticipated Discharge Date Admission Date: November 18, 2022 Subjective This morning the patient claims to be feeling well. She has been ambulatory without symptoms of dizziness or lightheadedness. No chest pain. No sense of palpitation. Review of Systems Review of Systems: Per HPI Physical Exam Physical Exam: Constitutional: Alert, cooperative and in no distress. HEENT: Unremarkable Pulmonary: Diminished breath sounds in bases bilaterally. Cardiac: Regular rhythm with no murmur, gallop or rub. Extremities: No edema. Neurologic: No focal findings. Skin: No rash, ecchymoses or petechiae. Results & Data Vital Signs (Past 12 Hours) Vital Signs Temp Pulse Resp BP Pulse Ox O2 Del Method 11/23/22 15:43 36.8 C 85 18 115/75 94 Room Air 11/23/22 13:09 36.8 C 85 18 115/75 94 11/23/22 11:46 36.8 C 85 18 115/75 94 Room Air 11/23/22 07:43 36.8 C 101 H 18 145/83 H 93 Room Air Laboratory Results Abnormal Lab Results 11/23/22 11/23/22 07:04 07:04 WBC 2.40 L RBC 2.67 L Hgb 8.2 L Hct 25.5 L MCV 95.5 MCH 30.7 MCHC 32.2 RDW Std Deviation 58.3 H RDW Coeff of Tana 16.8 H Plt Count 199 MPV 9.6 Sodium 138 Potassium 3.9 Chloride 105 Carbon Dioxide 24 Anion Gap 9 BUN 21 Creatinine 0.53 L Est Cr Clr Drug Dosing 82.5 Est GFR ( Amer) 107.6 Est GFR (Non-Af Amer) 92.9 BUN/Creatinine Ratio 39.6 H Glucose 94 Calcium 8.2 L PG Care Time/CCT Total # of Minutes Spent Total Time Spent with Patient: Total time spent is greater than 50% in coordination of care (as documented) at patient's floor/unit and/or counseling patient: Coding Level of Care Code 49486 SUB INP/OBS CARE 2/35MIN Diagnoses Paroxysmal atrial tachycardia I47.1 CAD (coronary artery disease) I25.10 Liver metastases C78.7
== END 2022-11-23 14:04 | disposition home health service (06) | DRG 981 ==
LOC: 3W → SUATTDRO 17:31 → 2S 18:18

== ENCOUNTER 2022-11-30 12:33 | Inpatient (IN) ==
[2022-11-30] MEDS ORDERED: ACETAMINOPHEN 1,000 MG/100 ML VIAL IV STA (13:18)
[2022-11-30] MEDS ORDERED: FAMOTIDINE 20MG IV PUSH 20 MG/5 ML SYR IV STA (13:18)
[2022-11-30] MEDS ORDERED: SODIUM CHLORIDE 0.9% 1000ML 1,000 ML IV ONE (13:18)
[2022-11-30] MEDS ORDERED: ONDANSETRON INJ 2 MG/ML 2 ML VIAL IV STA (13:18)
[2022-11-30 13:47] LABS: Basophils # (auto) 0.02 K/uL (0-0.2); Basophils % (auto) 0.5 %; Eosinophils # (auto) 0.01 K/uL (0-0.50); Eosinophils % (auto) 0.2 %; Hematocrit (blood only) 27.1 % (37.0-47.0); Hemoglobin 8.6 g/dl (12.0-16.0); Immature Granulocytes # (auto) 0.05 K/uL (0.01-0.20); Immature Granulocytes % (auto) 1.2 %; Lymphocytes % (auto) 2.3 %; Mean Corpuscular Hemoglobin 30.3 pg (25.0-34.0); Mean Corpuscular Hgb Conc 31.7 g/dL (32.0-36.0); Mean Corpuscular Volume 95.4 fL (80.0-100.0); Mean Platelet Volume 9.8 fL (9.4-12.4); Monocytes # (auto) 0.75 K/uL (0.11-0.59); Monocytes % (auto) 17.3 %; Neutrophils % (auto) 78.5 %; Platelet Count 167 K/uL (130-400); RDW Coefficient of Variation 18.6 % (11.5-14.5); RDW Standard Deviation 62.9 fL (36.4-46.3); Red Blood Count 2.84 M/uL (4.20-5.40); White Blood Count 4.33 K/ul (4.8-10.8)
[2022-11-30 13:59] LABS: Alanine Aminotransferase 12 U/L (7-52); Alkaline Phosphatase 350 U/L (34-104); Anion Gap 13 (3-11); Aspartate Aminotransferase 68 U/L (13-39); BUN Creatinine Ratio 44.9 (10-20); Bilirubin Direct 0.1 mg/dl (0-0.2); Bilirubin,Total 0.4 mg/dl (0.2-1.0); Blood Urea Nitrogen 22 mg/dl (6-23); Calcium 8.5 mg/dl (8.6-10.3); Carbon Dioxide 21 mmol/L (21-32); Chloride 107 mmol/L (98-107); Est GFR (African American) 110.5 ml/min; Est GFR (Non-African American) 95.3 ml/min; Globulin 2.9 gm/dl (2.5-4.0); Glucose 95 mg/dl (70-99(Fasting)); Lipase 8 U/L (11-82); Magnesium 1.7 mg/dl (1.7-2.4); Potassium 3.4 mmol/L (3.5-5.1); Sodium 141 mmol/L (136-145); Total Protein 5.9 gm/dl (6.0-8.3)
[2022-11-30 14:04] LABS: Troponin I High Sensitivity 13.8 pg/ml (0-14)
[2022-11-30] MEDS ORDERED: OPTIRAY 320 500ml IV ONE (14:31)
--- NOTE | 2022-11-30 15:34 | XRay Report ---
SINGLE VIEW CHEST CLINICAL HISTORY: Atypical chest pain. FINDINGS: An AP, portable, upright chest radiograph is compared to study dated 11/21/2022 and correlat ed with chest CT dated 11/18/2022. A right internal jugular central venous infusion port is unchanged in position. The heart is enlarged noting atherosclerotic calcification of the thoracic aorta. There is pulmonary vascular congestion and evidence of interstitial edema. There are left larger than right pleural effusions with dependent consolidation. No pneumothorax is seen. The skeletal structures are osteopenic. The bony thorax is grossly intact. IMPRESSION: 1. Cardiomegaly with evidence of congestive failure and pulmonary edema. 2. Left larger than right pleural effusions with dependent consolidation. ACT 112: Negative or not required by law. Electronically signed by: Landry Calloway M.D. 11/30/2022 3:33 PM
--- NOTE | 2022-11-30 16:14 | CT Scan Report ---
CT ANGIOGRAM OF THE CHEST; CT SCAN OF THE ABDOMEN AND PELVIS WITH IV CONTRAST CLINICAL HISTORY: Dyspnea. Metastatic cancer. Generalized abdominal pain. COMPARISON STUDY: Chest CT dated 11/18/2024. MRI of the thoracic and lumbar spine dated 11/19/2022. TECHNIQUE: Following the IV administration of 115 of Optiray 320, CT angiogram of the chest is perfor med from the upper abdomen to the thoracic inlet utilizing the pulmonary embolus protocol. Images are reviewed in the axial, sagittal, coronal planes. 3-D MIPS images are created and assessed. Subsequen tly, CT scan of the abdomen and pelvis was performed from the lung bases to the proximal femora. Imag es are reviewed in the axial, sagittal, and coronal planes. IV contrast was administered without comp lication. A dose lowering technique was utilized adhering to the principles of ALARA. CT DOSE: 606.73 mGy.cm FINDINGS: CHEST: Thyroid: The right lobe is diminutive versus surgically absent. The left lobe is heterogeneous. Thoracic aorta: There is atherosclerotic calcification of the thoracic aorta, which is normal in eliel vinny and demonstrates standard 3-vessel arch anatomy. No dissection is seen. Pulmonary vasculature: The pulmonary trunk is normal in caliber. There are no filling defects identif ied in the main, lobar, or segmental pulmonary arteries to indicate pulmonary embolus. Heart: The heart is enlarged and without pericardial effusion. There are coronary artery calcificatio ns. Lungs and pleural spaces: There are moderate to large pleural effusions, left larger than right with dependent consolidation. The trachea and central airways are clear. Scattered ill-defined pulmonary n odules likely represent multifocal metastatic disease. A school admissions representative lesion in the right lung on i mage #148 measures up to 8 mm. These are similar to previous. Mediastinum: There is no mediastinal lymphadenopathy. Esophagus: Esophageal wall thickening is unchanged. Court: Clear. Axillae: There is no axillary lymphadenopathy. Bony thorax: The skeletal structures are osteopenic. Again seen is evidence of extensive/multifocal o steoblastic metastatic disease. Minimal epidural extension of tumor is seen anteriorly at T11. This w as better assessed on the recent MRI. There is no CT evidence of significant central canal stenosis. Soft tissues: Postsurgical changes noted in the left breast. An electronic device is seen in the ante rior chest wall. ABDOMEN AND PELVIS: Liver: The contrast-enhanced liver is normal in size, contour, and attenuation. There is minimal cent ral intrahepatic biliary ductal dilatation. The hepatic veins and portal veins are patent. Again seen is evidence of multifocal hepatic metastatic disease. Lesions measure up to 3 cm. Lesions within the superior aspect of the liver have not significantly changed from the 11/18/[address] Gallbladder: The gallbladder is distended and there are small gallstones. There is no CT evidence of acute cholecystitis. Spleen: Normal in size and attenuation. Pancreas: Moderately atrophic and grossly unremarkable. Adrenal glands: A left adrenal metastasis measures 2.1 cm. The right adrenal gland is normal as image d. Kidneys: The contrast enhanced kidneys are normal in size and without hydronephrosis. The kidneys enh ance symmetrically. Abdominal vasculature: There is moderate to advanced atherosclerotic calcification and mild ectasia o f the abdominal aorta. Bowel: The gastric mucosa appears thickened and hyperemic. There is moderate to advanced colonic dive rticulosis without CT evidence of acute diverticulitis. No bowel obstruction is seen. The appendix is not visualized. Peritoneum: No intraperitoneal free air is seen. There is trace pelvic ascites. There is evidence of mesenteric and retroperitoneal metastatic disease. A 3.2 x 2.1 cm lesion is seen on image #230. Addit ional tiny implants are seen on images #191, #222, #233, and #257. An implant adjacent to the pancrea tic tail is seen on image #148. Lymphadenopathy: Mildly enlarged retroperitoneal lymph nodes are consistent with metastatic disease. A left periaortic node on image #162 measures 14 mm short axis. Pelvic viscera: The bladder is normal as visualized. The uterus is surgically absent. No adnexal lesi on is seen. Skeletal structures: The skeletal structures are osteopenic. There is extensive/multifocal osteoblast ic metastatic disease. Metastatic disease likely involves several sacral neural foramina. Epidural ex tension of tumor is seen anteriorly at L5-S1. This was better assessed on the recent MRI. There is li francisco pathologic fracture of the sacrum. Soft tissues: There is soft tissue implants in the lower back. A lesion on image #214 measures up to 2.4 cm. IMPRESSION: 1. There is no evidence of pulmonary embolus in the main, lobar, or segmental pulmonary arteries. 2. Large pleural effusions, left larger than right with dependent consolidation. These have increased in size as compared to 11/18/2022. 3. Cardiomegaly. 4. There is evidence of extensive/diffuse multifocal osteoblastic metastatic disease. This is not dorothea reciably changed from recent prior studies per 5. Epidural extension of tumor was much better stressed on the recent MRI examinations. There is no C T evidence of significant central canal stenosis. 6. There is likely pathologic fracture of the sacrum. 7. Pulmonary metastatic disease, hepatic metastatic disease, and the left adrenal metastasis have not significantly changed from the 11/18/[address] 8. There are metastatic implants throughout the retroperitoneum and mesentery, as well as soft tissue implants in the lower back. 9. Suspect cholelithiasis. 10. The gastric mucosa appears thickened and hyperemic. Correlate clinically for evidence of gastriti s. Underlying mass lesion or metastatic implants would be possible to exclude. 11. Esophageal wall thickening is unchanged and suggests esophagitis. 12. Additional findings as above. ACT 112: Negative or not required by law. Electronically signed by: Landry Calloway M.D. 11/30/2022 4:12 PM
[2022-11-30] MEDS: POTASSIUM CHLORIDE / WTR 10 MEQ/100 ML PLCT IV SCH ×2 (18:38→19:34)
--- NOTE | 2022-11-30 19:11 | Emergency Department Note ---
Impression & Plan Metastatic disease, Gastric adenocarcinoma, Atrial fibrillation, Nausea, Adult failure to thrive ED Provider Note NAME: ERNESTINE ESPARZA AGE: 77 SEX: F ARRIVES VIA: Walk-In INFORMANT: Patient ED PROVIDER(S): Erlin Arreguin MD CHIEF COMPLAINT: nausea, weakness, cancer PLAN: Disposition: Admit MEDICAL DECISION MAKING: The patient is a pleasant 77-year-old woman with a past medical history of metastatic gastric adenocarcinoma where she recently completed radiation therapy and is scheduled to begin chemotherapy next week, history of paroxysmal atrial tachycardia, CAD, hyperlipidemia who presents emergency department via walk-in, accompanied by family for worsening nausea with poor oral intake with associated lightheadedness and shortness of breath. The patient has had the symptoms for months but they felt have worsened over the past several days. They deny any fevers, cough, congestion, urinary symptoms. On arrival the patient is cachectic appearing in no acute distress, afebrile stable vital signs. She appears clinically dry. EKG demonstrates atrial fibrillation without overt acute ischemia. Family reports that she has a history of this though per records diagnosis is atrial tachycardia. Chest x-ray demonstrates left greater than right pleural effusions that have progressed. WBC 4K nonspecific. H/H similar to prior. Platelets within normal limits. Chemistry without metabolic acidosis. Potassium 3.4 and electrolytes otherwise without significant abnormality. BUN/creatinine> 40 consistent with the patient's clinically dry appearance. LFTs similar to prior. High-sensitivity troponin 13.8, within normal limits. Lipase not elevated. Extensive metastatic disease is noted on CTA chest and CT abdomen pelvis. No evidence of PE. Upon reevaluation the patient reported some improvement but still weak with ongoing nausea. Family expressed concern that she is not taking in any nutrition and do agree with plan for admission for further management/supportive care. Case was discussed with Dr. Ruiz, [facility] hospitalist, who will evaluate the patient for admission. Further management per admitting team. Triage Nursing notes reviewed and agree them. Prior/outside medical records reviewed Vital Signs: reviewed Differential diagnosis: Infection, dehydration, metabolic abnormality, hypo/hyperglycemia, electrolyte disturbance, anemia, hypoxia, cardiac sources, intracerebral event, toxicologic, neurologic, as well as other pathologies. ER treatment provided: See below. Diagnostics interpreted by me: ECG: Atrial fibrillation, 78 bpm, no ectopy, no overt ST elevation or depression, QTc 508, QRS 84. Cardiac Monitoring: An order for continuous cardiac monitoring was placed and demonstrated Atrial fibrillation, 78 bpm, no ectopy. Laboratory studies: See below Imaging studies: See below Consultation(s): Case was discussed with Dr. Sara MILES hospitalist, who will evaluate the patient for admission. HPI: The patient is a pleasant 77-year-old woman with a past medical history of metastatic gastric adenocarcinoma where she recently completed radiation therapy and is scheduled to begin chemotherapy next week, history of paroxysmal atrial tachycardia, CAD, hyperlipidemia who presents emergency department via walk-in, accompanied by family for worsening nausea with poor oral intake with associated lightheadedness and shortness of breath. The patient has had the symptoms for months but they felt have worsened over the past several days. They deny any fevers, cough, congestion, urinary symptoms. ROS: See above HPI for pertinent positives & negatives. A total of 10 systems reviewed and were otherwise negative. VITALS:See Below PHYSICAL EXAMINATION: GENERAL: Awake, alert, fatigued-appearing, cachectic in no distress HENT: Normocephalic, atraumatic. Oropharynx with dry mucous membranes and otherwise unremarkable. EYES: Normal conjunctiva. Sclera non-icteric. NECK: Supple. No nuchal rigidity. FROM. No JVD. RESPIRATORY: Clear to auscultation. CARDIAC: Tachycardic rate, normal rhythm. Extremities warm and well perfused. Pulses equal. ABDOMEN: Soft, non-distended. No tenderness to palpation. No rebound or guarding. No masses. RECTAL: Deferred. MUSCULOSKELETAL: Chest examination reveals no tenderness. The back is symmetrical on inspection without obvious abnormality. There is no CVA tenderness to palpation. No joint edema. LOWER EXTREMITIES: Calves are equal size bilaterally and non-tender. No edema. No discoloration. NEURO: Normal sensorium. No sensory or motor deficits noted. SKIN: No rash or jaundice noted. Erlin Arreguin MD Past Med/Surg History Medical History Advanced care planning/counseling discussion Anemia REASON FOR PROCEDURE Arthritis CAD (coronary artery disease) Cancer INCLOCLUSIVE OF SOURCE>BIOPSY, EGD DONE PRIOR (REASON FOR PROCEDURE TOMORROW)>LOCATED IN SPINE Elevated LFTs Gastric adenocarcinoma GI bleed History of COVID-19 07/2022>FATIGUE CONT. HX: breast cancer SX/CHEMO/RADIATION Hyperlipidemia Hypertension Implantable loop recorder present Multiple pulmonary nodules determined by computed tomography of lung Nausea Non-ST elevation (NSTEMI) myocardial infarction 2020 Osteopenia Palliative care by specialist Paroxysmal atrial tachycardia Pulmonary embolism RECENT HOSPITALIZATION FOR PE AT [facility]>REASON FOR ELIQUIS ? REASON Restless leg syndrome Surgical History H/O: hysterectomy PARTIAL History of appendectomy History of colonoscopy History of esophagogastroduodenoscopy (EGD) History of lumpectomy of left breast LEFT ARM RESTRICTION History of tonsillectomy History of tooth extraction History of wisdom tooth extraction Nausea and vomiting after administration of anesthetic agent Port-A-Cath in place (11/21/22) Insertion of Port Access into Right Internal Jugular Vein(Right) - Patel Arshad DO S/P coronary artery stent placement 2020>2 STENTS PLACED (FOLLOWED BY DR. 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 Beliefs That Will Affect Care: [facility] marital status: / Current Living Situation: Spouse current occupational status: retired Feels Safe at Home: Yes Childhood Exposure to Second-Hand Smoke: No caffeine: Yes during the past year weight has: decreased > 10 lbs Dental Care, Regularly: Yes Physical Activity Frequency: Daily Seatbelt Use: always Sunscreen Use: No Assistive Devices: Cane and Walker Allergies Allergies Allergy/AdvReac Type Severity Reaction Status Date / Time alendronate sodium AdvReac Intermediate Unable to Verified 11/11/22 15:29 [From Fosamax] ambulate Home Meds Home Medications Medication Instructions Recorded Confirmed aspirin 81 mg tablet,delayed 81 mg PO QAM 04/03/21 11/18/22 release biotin 1 mg capsule 1 mg PO QAM 04/03/21 11/18/22 [id number] 1 tab PO QAM 04/03/21 11/18/22 tablet (Multivitamin 50 Plus tablet) acetaminophen 650 mg 650 mg PO QPM PRN Pain 05/24/22 11/18/22 tablet,extended release (Tylenol Arthritis Pain) fluoxetine 10 mg capsule 10 mg PO QAM 10/24/22 11/18/22 tramadol 50 mg tablet 50 mg PO Q6 PRN pain 11/14/22 11/18/22 Previous Rx's Medication Instructions Recorded nitroglycerin 0.4 mg sublingual 0.4 mg sublingual UD PRN chest 04/05/21 tablet (Nitrostat) pain #25 tabs vitamin B12 500 mcg-folic acid 400 1 tab PO DAILY #30 tabs 08/13/22 mcg tablet dronabinol 2.5 mg capsule 2.5 mg PO BIDM #30 caps 11/23/22 flecainide 100 mg tablet 100 mg PO BID #60 tabs 11/23/22 levothyroxine 25 mcg tablet 25 mcg PO DAILYBB #30 tabs 11/23/22 (Synthroid) metoprolol succinate 50 mg 25 mg PO QAM #1 tab 11/23/22 tablet,extended release 24 hr potassium chloride 10 mEq 10 meq PO DAILY #30 tabs 11/23/22 tablet,extended release sucralfate 1 gram tablet (Carafate) 1 g PO BID #60 tabs 11/23/22 gabapentin 100 mg capsule 100 mg PO BID #60 caps 11/25/22 pantoprazole 40 mg tablet,delayed 40 mg PO BID #60 tabs 11/25/22 release olanzapine 5 mg disintegrating 2.5 mg PO HS #30 tabs 11/26/22 tablet (Zyprexa Zydis) Results & Data (ED) Vital Signs Vital Signs - 24 hr 11/30/22 12:42 11/30/22 12:58 11/30/22 13:45 Temperature 36.8 C Temperature Source Temporal Artery Scan Pulse Rate 94 H 85 Pulse Rate [Apical] 77 Pulse Rhythm [Apical] Pulse Strength [Apical] Respiratory Rate 20 20 Respiratory Effort / Characteristics Non-Labored Spontaneous Respiratory Depth Normal Normal Respiratory Pattern Regular Blood Pressure 115/73 Blood Pressure [Right Arm] Blood Pressure Mean 87 Blood Pressure Mean [Right Arm] Pulse Oximetry 97 99 Oxygen Delivery Method Room Air Room Air Oxygen Flow Rate Sepsis Recent Fever Within 48 Hours No Sepsis New/Unexplained Change in Mental Status No Sepsis Action Taken by Nursing No Action Required 11/30/22 13:45 11/30/22 13:45 11/30/22 13:45 Temperature Temperature Source Pulse Rate 77 Pulse Rate [Apical] Pulse Rhythm [Apical] Pulse Strength [Apical] Respiratory Rate Respiratory Effort / Characteristics Non-Labored Respiratory Depth Normal Respiratory Pattern Regular Blood Pressure Blood Pressure [Right Arm] Blood Pressure Mean Blood Pressure Mean [Right Arm] Pulse Oximetry 99 99 Oxygen Delivery Method Room Air Room Air Room Air Oxygen Flow Rate Sepsis Recent Fever Within 48 Hours Sepsis New/Unexplained Change in Mental Status Sepsis Action Taken by Nursing 11/30/22 15:00 11/30/22 16:00 11/30/22 16:59 Temperature Temperature Source Pulse Rate 103 H Pulse Rate [Apical] 77 78 Pulse Rhythm [Apical] Regular Regular Pulse Strength [Apical] Normal Normal Respiratory Rate 20 17 Respiratory Effort / Characteristics Non-Labored Non-Labored Respiratory Depth Normal Normal Respiratory Pattern Regular Regular Blood Pressure Blood Pressure [Right Arm] 118/56 L 106/78 Blood Pressure Mean Blood Pressure Mean [Right Arm] 76 87 Pulse Oximetry 94 94 Oxygen Delivery Method Nasal Cannula Nasal Cannula Oxygen Flow Rate 2 2 Sepsis Recent Fever Within 48 Hours Sepsis New/Unexplained Change in Mental Status Sepsis Action Taken by Nursing Laboratory Data Attestation: I reviewed the patient's lab results. 11/30/22 13:16 11/30/22 13:16 Lab Results 11/30/22 11/30/22 Range/Units 13:16 13:16 WBC 4.33 L (4.8-10.8) K/ul RBC 2.84 L (4.20-5.40) M/uL Hgb 8.6 L (12.0-16.0) g/dl Hct 27.1 L (37.0-47.0) % MCV 95.4 (80.0-100.0) fL MCH 30.3 (25.0-34.0) pg MCHC 31.7 L (32.0-36.0) g/dL RDW Std Deviation 62.9 H (36.4-46.3) fL RDW Coeff of Tana 18.6 H (11.5-14.5) % Plt Count 167 (130-400) K/uL MPV 9.8 (9.4-12.4) fL Immature Gran % (Auto) 1.2 % Neut % (Auto) 78.5 % Lymph % (Auto) 2.3 % [place]kin % (Auto) 17.3 % Eos % (Auto) 0.2 % Baso % (Auto) 0.5 % Neut # (Auto) 3.40 (1.40-6.50) K/uL Lymph # (Auto) 0.10 L (1.2-3.4) K/uL [place]kin # (Auto) 0.75 H (0.11-0.59) K/uL Eos # (Auto) 0.01 (0-0.50) K/uL Baso # (Auto) 0.02 (0-0.2) K/uL Immature Gran # (Auto) 0.05 (0.01-0.20) K/uL Sodium 141 (136-145) mmol/L Potassium 3.4 L (3.5-5.1) mmol/L Chloride 107 (98-107) mmol/L Carbon Dioxide 21 (21-32) mmol/L Anion Gap 13 H (3-11) BUN 22 (6-23) mg/dl Creatinine 0.49 L (0.6-1.2) mg/dl Est Cr Clr Drug Dosing Not Reportable Est GFR ( Amer) 110.5 ml/min Est GFR (Non-Af Amer) 95.3 ml/min BUN/Creatinine Ratio 44.9 H (10-20) Glucose 95 (70-99(Fasting)) mg/dl Calcium 8.5 L (8.6-10.3) mg/dl Phosphorus 3.0 (2.5-4.9) mg/dl Magnesium 1.7 (1.7-2.4) mg/dl Total Bilirubin 0.4 (0.2-1.0) mg/dl Direct Bilirubin 0.1 (0-0.2) mg/dl AST 68 H (13-39) U/L ALT 12 (7-52) U/L Alkaline Phosphatase 350 H (34-104) U/L Troponin I High Sens 13.8 (0-14) pg/ml Total Protein 5.9 L (6.0-8.3) gm/dl Albumin 3.0 L (3.4-5.0) gm/dl Globulin 2.9 (2.5-4.0) gm/dl Albumin/Globulin Ratio 1.0 (0.9-2) Lipase 8 L (11-82) U/L Administered Medications Potassium Chloride (K Aidan / Wtr) 10 meq in 100 mls @ 100 mls/hr IV Q1H MARICEL Stop: 11/30/22 20:29 Last Admin: 11/30/22 18:38 Dose: 100 mls/hr Documented By: OAM Discontinued Medications Sodium Chloride (Nss 1000ml) 1,000 mls @ 999 mls/hr IV .Q1H1M ONE Stop: 11/30/22 14:18 Last Infusion: 11/30/22 14:37 Dose: 0 mls/hr Documented By: Admin: 11/30/22 13:36 Dose: 999 mls/hr Documented By: NRB Acetaminophen (Ofirmev) 1,000 mg in 100 mls @ 400 mls/hr IV NOW STA Stop: 11/30/22 13:32 Last Infusion: 11/30/22 14:00 Dose: 0 mls/hr Documented By: NRParris Admin: 11/30/22 13:34 Dose: 400 mls/hr Documented By: NRB Famotidine (Pepcid 20mg Iv Push) 20 mg in 5 mls @ 2.5 mls/min IV NOW STA Stop: 11/30/22 13:19 Last Admin: 11/30/22 13:33 Dose: 2.5 mls/min Documented By: NRPraris Ioversol (Optiray 320 500ml) 115 ml IV ONCE ONE Stop: 11/30/22 14:32 Last Admin: 11/30/22 14:33 Dose: 115 ml Documented By: FRANCISCO Ondansetron HCl (Ondansetron Inj 2 Mg/Ml 2 Ml Vial) 4 mg IV NOW STA Stop: 11/30/22 13:19 Last Admin: 11/30/22 13:32 Dose: 4 mg Documented By: NRB Imaging Data Radiologist's Impression: Chest X-Ray 11/30/22 13:16 SINGLE VIEW CHEST CLINICAL HISTORY: Atypical chest pain. FINDINGS: An AP, portable, upright chest radiograph is compared to study dated 11/21/2022 and correlated with chest CT dated 11/18/2022. A right internal jugular central venous infusion port is unchanged in position. The heart is enlarged noting atherosclerotic calcification of the thoracic aorta. There is pulmonary vascular congestion and evidence of interstitial edema. There are left larger than right pleural effusions with dependent consolidation. No pneumothorax is seen. The skeletal structures are osteopenic. The bony thorax is grossly intact. IMPRESSION: 1. Cardiomegaly with evidence of congestive failure and pulmonary edema. 2. Left larger than right pleural effusions with dependent consolidation. ACT 112: Negative or not required by law. Electronically signed by: Landry Calloway M.D. 11/30/2022 3:33 PM Abdomen/Pelvis CT 11/30/22 13:56 CT ANGIOGRAM OF THE CHEST; CT SCAN OF THE ABDOMEN AND PELVIS WITH IV CONTRAST CLINICAL HISTORY: Dyspnea. Metastatic cancer. Generalized abdominal pain. COMPARISON STUDY: Chest CT dated 11/18/2024. MRI of the thoracic and lumbar spi ne dated 11/19/2022. TECHNIQUE: Following the IV administration of 115 of Optiray 320, CT angiogram of the chest is performed from the upper abdomen to the thoracic inlet utilizing the pulmonary embolus protocol. Images are reviewed in the axial, sagittal, coronal planes. 3-D MIPS images are created and assessed. Subsequently, CT scan of the abdomen and pelvis was performed from the lung bases to the proximal femora. Images are reviewed in the axial, sagittal, and coronal planes. IV contrast was administered without complication. A dose lowering technique was utilized adhering to the principles of ALARA. CT DOSE: 606.73 mGy.cm FINDINGS: CHEST: Thyroid: The right lobe is diminutive versus surgically absent. The left lobe is heterogeneous. Thoracic aorta: There is atherosclerotic calcification of the thoracic aorta, which is normal in caliber and demonstrates standard 3-vessel arch anatomy. No dissection is seen. Pulmonary vasculature: The pulmonary trunk is normal in caliber. There are no filling defects identified in the main, lobar, or segmental pulmonary arteries to indicate pulmonary embolus. Heart: The heart is enlarged and without pericardial effusion. There are coronar y artery calcifications. Lungs and pleural spaces: There are moderate to large pleural effusions, left larger than right with dependent consolidation. The trachea and central airways are clear. Scattered ill-defined pulmonary nodules likely represent multifocal metastatic disease. A construction representative lesion in the right lung on image #148 measures up to 8 mm. These are similar to previous. Mediastinum: There is no mediastinal lymphadenopathy. Esophagus: Esophageal wall thickening is unchanged. Court: Clear. Axillae: There is no axillary lymphadenopathy. Bony thorax: The skeletal structures are osteopenic. Again seen is evidence of extensive/multifocal osteoblastic metastatic disease. Minimal epidural extension of tumor is seen anteriorly at T11. This was better assessed on the recent MRI. There is no CT evidence of significant central canal stenosis. Soft tissues: Postsurgical changes noted in the left breast. An electronic device is seen in the anterior chest wall. ABDOMEN AND PELVIS: Liver: The contrast-enhanced liver is normal in size, contour, and attenuation. There is minimal central intrahepatic biliary ductal dilatation. The hepatic veins and portal veins are patent. Again seen is evidence of multifocal hepatic metastatic disease. Lesions measure up to 3 cm. Lesions within the superior aspect of the liver have not significantly changed from the 11/18/[address] Gallbladder: The gallbladder is distended and there are small gallstones. There is no CT evidence of acute cholecystitis. Spleen: Normal in size and attenuation. Pancreas: Moderately atrophic and grossly unremarkable. Adrenal glands: A left adrenal metastasis measures 2.1 cm. The right adrenal gland is normal as imaged. Kidneys: The contrast enhanced kidneys are normal in size and without hydronephrosis. The kidneys enhance symmetrically. Abdominal vasculature: There is moderate to advanced atherosclerotic calcification and mild ectasia of the abdominal aorta. Bowel: The gastric mucosa appears thickened and hyperemic. There is moderate to advanced colonic diverticulosis without CT evidence of acute diverticulitis. No bowel obstruction is seen. The appendix is not visualized. Peritoneum: No intraperitoneal free air is seen. There is trace pelvic ascites. There is evidence of mesenteric and retroperitoneal metastatic disease. A 3.2 x 2.1 cm lesion is seen on image #230. Additional tiny implants are seen on images #191, #222, #233, and #257. An implant adjacent to the pancreatic tail is seen on image #148. Lymphadenopathy: Mildly enlarged retroperitoneal lymph nodes are consistent with metastatic disease. A left periaortic node on image #162 measures 14 mm short axis. Pelvic viscera: The bladder is normal as visualized. The uterus is surgically absent. No adnexal lesion is seen. Skeletal structures: The skeletal structures are osteopenic. There is extens wolf/multifocal osteoblastic metastatic disease. Metastatic disease likely involves several sacral neural foramina. Epidural extension of tumor is seen anteriorly at L5-S1. This was better assessed on the recent MRI. There is likely pathologic fracture of the sacrum. Soft tissues: There is soft tissue implants in the lower back. A lesion on image #214 measures up to 2.4 cm. IMPRESSION: 1. There is no evidence of pulmonary embolus in the main, lobar, or segmental pulmonary arteries. 2. Large pleural effusions, left larger than right with dependent consolidation. These have increased in size as compared to 11/18/2022. 3. Cardiomegaly. 4. There is evidence of extensive/diffuse multifocal osteoblastic metastatic disease. This is not appreciably changed from recent prior studies per 5. Epidural extension of tumor was much better stressed on the recent MRI examinations. There is no CT evidence of significant central canal stenosis. 6. There is likely pathologic fracture of the sacrum. 7. Pulmonary metastatic disease, hepatic metastatic disease, and the left adrenal metastasis have not significantly changed from the 11/18/[address] 8. There are metastatic implants throughout the retroperitoneum and mesentery, as well as soft tissue implants in the lower back. 9. Suspect cholelithiasis. 10. The gastric mucosa appears thickened and hyperemic. Correlate clinically for evidence of gastritis. Underlying mass lesion or metastatic implants would be possible to exclude. 11. Esophageal wall thickening is unchanged and suggests esophagitis. 12. Additional findings as above. ACT 112: Negative or not required by law. Electronically signed by: Landry Calloway M.D. 11/30/2022 4:12 PM Chest CTA 11/30/22 13:56 CT ANGIOGRAM OF THE CHEST; CT SCAN OF THE ABDOMEN AND PELVIS WITH IV CONTRAST CLINICAL HISTORY: Dyspnea. Metastatic cancer. Generalized abdominal pain. COMPARISON STUDY: Chest CT dated 11/18/2024. MRI of the thoracic and lumbar spine dated 11/19/2022. TECHNIQUE: Following the IV administration of 115 of Optiray 320, CT angiogram of the chest is performed from the upper abdomen to the thoracic inlet utilizing the pulmonary embolus protocol. Images are reviewed in the axial, sagittal, coronal planes. 3-D MIPS images are created and assessed. Subsequently, CT scan of the abdomen and pelvis was performed from the lung bases to the proximal femora. Images are reviewed in the axial, sagittal, and coronal planes. IV contrast was administered without complication. A dose lowering technique was utilized adhering to the principles of ALARA. CT DOSE: 606.73 mGy.cm FINDINGS: CHEST: Thyroid: The right lobe is diminutive versus surgically absent. The left lobe is heterogeneous. Thoracic aorta: There is atherosclerotic calcification of the thoracic aorta, which is normal in caliber and demonstrates standard 3-vessel arch anatomy. No dissection is seen. Pulmonary vasculature: The pulmonary trunk is normal in caliber. There are no filling defects identified in the main, lobar, or segmental pulmonary arteries to indicate pulmonary embolus. Heart: The heart is enlarged and without pericardial effusion. There are coronary artery calcifications. Lungs and pleural spaces: There are moderate to large pleural effusions, left larger than right with dependent consolidation. The trachea and central airways are clear. Scattered ill-defined pulmonary nodules likely represent multifocal metastatic disease. A construction representative lesion in the right lung on image #148 measures up to 8 mm. These are similar to previous. Mediastinum: There is no mediastinal lymphadenopathy. Esophagus: Esophageal wall thickening is unchanged. Court: Clear. Axillae: There is no axillary lymphadenopathy. Bony thorax: The skeletal structures are osteopenic. Again seen is evidence of extensive/multifocal osteoblastic metastatic disease. Minimal epidural extension of tumor is seen anteriorly at T11. This was better assessed on the recent MRI. There is no CT evidence of significant central canal stenosis. Soft tissues: Postsurgical changes noted in the left breast. An electronic device is seen in the anterior chest wall. ABDOMEN AND PELVIS: Liver: The contrast-enhanced liver is normal in size, contour, and attenuation. There is minimal central intrahepatic biliary ductal dilatation. The hepatic veins and portal veins are patent. Again seen is evidence of multifocal hepatic metastatic disease. Lesions measure up to 3 cm. Lesions within the superior aspect of the liver have not significantly changed from the 11/18/[address] Gallbladder: The gallbladder is distended and there are small gallstones. There is no CT evidence of acute cholecystitis. Spleen: Normal in size and attenuation. Pancreas: Moderately atrophic and grossly unremarkable. Adrenal glands: A left adrenal metastasis measures 2.1 cm. The right adrenal gland is normal as imaged. Kidneys: The contrast enhanced kidneys are normal in size and without hydronephrosis. The kidneys enhance symmetrically. Abdominal vasculature: There is moderate to advanced atherosclerotic calcification and mild ectasia of the abdominal aorta. Bowel: The gastric mucosa appears thickened and hyperemic. There is moderate to advanced colonic diverticulosis without CT evidence of acute diverticulitis. No bowel obstruction is seen. The appendix is not visualized. Peritoneum: No intraperitoneal free air is seen. There is trace pelvic ascites. There is evidence of mesenteric and retroperitoneal metastatic disease. A 3.2 x 2.1 cm lesion is seen on image #230. Additional tiny implants are seen on images #191, #222, #233, and #257. An implant adjacent to the pancreatic tail is seen on image #148. Lymphadenopathy: Mildly enlarged retroperitoneal lymph nodes are consistent with metastatic disease. A left periaortic node on image #162 measures 14 mm short axis. Pelvic viscera: The bladder is normal as visualized. The uterus is surgically absent. No adnexal lesion is seen. Skeletal structures: The skeletal structures are osteopenic. There is extensive/multifocal osteoblastic metastatic disease. Metastatic disease likely involves several sacral neural foramina. Epidural extension of tumor is seen anteriorly at L5-S1. This was better assessed on the recent MRI. There is likely pathologic fracture of the sacrum. Soft tissues: There is soft tissue implants in the lower back. A lesion on image #214 measures up to 2.4 cm. IMPRESSION: 1. There is no evidence of pulmonary embolus in the main, lobar, or segmental pulmonary arteries. 2. Large pleural effusions, left larger than right with dependent consolidation. These have increased in size as compared to 11/18/2022. 3. Cardiomegaly. 4. There is evidence of extensive/diffuse multifocal osteoblastic metastatic disease. This is not appreciably changed from recent prior studies per 5. Epidural extension of tumor was much better stressed on the recent MRI examinations. There is no CT evidence of significant central canal stenosis. 6. There is likely pathologic fracture of the sacrum. 7. Pulmonary metastatic disease, hepatic metastatic disease, and the left adrenal metastasis have not significantly changed from the 11/18/[address] 8. There are metastatic implants throughout the retroperitoneum and mesentery, as well as soft tissue implants in the lower back. 9. Suspect cholelithiasis. 10. The gastric mucosa appears thickened and hyperemic. Correlate clinically for evidence of gastritis. Underlying mass lesion or metastatic implants would be possible to exclude. 11. Esophageal wall thickening is unchanged and suggests esophagitis. 12. Additional findings as above. ACT 112: Negative or not required by law. Electronically signed by: Landry Calloway M.D. 11/30/2022 4:12 PM Discharge Plan Visit Data Chief Complaint: Shortness of Breath/Dyspnea Stated Complaint: SOB ED Provider: Erlin Arreguin Discharge Problem: Metastatic disease, Gastric adenocarcinoma, Atrial fibrillation, Nausea, Adult failure to thrive Forms Stand Alone Forms: My [facility] [address] [place] Prescriptions Prescriptions: No Action tramadol 50 mg tablet 50 mg PO Q6 PRN (Reason: pain) gabapentin 100 mg capsule 100 mg PO BID Qty: 60 0RF pantoprazole 40 mg tablet,delayed release (DR/EC) 40 mg PO BID Qty: 60 0RF olanzapine [Zyprexa Zydis] 5 mg tablet,disintegrating 2.5 mg PO HS Qty: 30 2RF acetaminophen [Tylenol Arthritis Pain] 650 mg tablet extended release 650 mg PO QPM PRN (Reason: Pain) vitamin [id number] acid 500-400 mcg tablet 1 tab PO DAILY Qty: 30 0RF Rx Instructions: administer with a meal Multivitamin 50 Plus Tablet 1 tab PO QAM aspirin 81 mg tablet,delayed release (DR/EC) 81 mg PO QAM biotin 1 mg capsule 1 mg PO QAM nitroglycerin [Nitrostat] 0.4 mg Tablet, Sublingual 0.4 mg sublingual UD PRN (Reason: chest pain) Qty: 25 3RF Patient Comments: Pt "I have never used it" Rx Instructions: 1 tab every 5 min as needed for angina. Not to exceed 3 doses. fluoxetine 10 mg capsule 10 mg PO QAM levothyroxine [Synthroid] 25 mcg Tablet 25 mcg PO DAILYBB Qty: 30 5RF dronabinol 2.5 mg Capsule 2.5 mg PO BIDM Qty: 30 0RF flecainide 100 mg Tablet 100 mg PO BID Qty: 60 2RF Rx Instructions: for your heart sucralfate [Carafate] 1 gram tablet 1 g PO BID Qty: 60 2RF potassium chloride 10 mEq tablet extended release 10 meq PO DAILY Qty: 30 1RF metoprolol succinate 50 mg tablet extended release 24 hr 25 mg PO QAM Qty: 1 0RF Referrals Referrals: Soheila Reyna PA-C [Primary Care Provider] -
[2022-11-30 19:44] LABS: Influenza A virus by PCR Negative (Neg); Influenza B virus by PCR Negative (Neg); RSV by PCR Negative (Neg); SARS CoV2 RNA(COVID-19) Ceph NEGATIVE (Negative)
--- NOTE | 2022-11-30 21:04 | History & Physical Report ---
Date of Service November 30, 2022 Assessment & Plan (1) Shortness of breath on exertion: Plan: Severely deconditioned but most likely due to bilateral presumed metastatic pleural effusion (see below) - at least this is something possible we can help with. (2) Pleural effusion: Plan: Presumed malignant Consult pulmonology for consideration of thoracocentesis/palliative pleurx (3) Gastric adenocarcinoma: Plan: Planning on starting chemotherapy next week Continue pantoprazole 40mg PO BID (4) Metastatic disease: (5) Failure to thrive: Plan: Continue dronabinol and olanzapine (6) Hypertension: Plan: Continue metoprolol succinate 25mg PO QAM (7) Constipation: Plan: Continue MiraLAX x3/wk and monitor BM (8) Anxiety: Plan: Continue fluoxetine (9) Bilateral leg pain: Plan: Continue gabapentin MRI repeated last admission for her back (10) Atrial tachycardia: Plan: Continue flecainide and metoprolol (11) Severe protein-calorie malnutrition: Plan: Boost drinks Consult safety engineer pressure vessels Plan VTE Prophlaxis - deferred on admission for pleurx placement Diet - regular Disposition - admit to med/tele Admission and Anticipated Discharge Date Admission Date: November 30, 2022 History of Present Illness Chief Complaint: Shortness of breath, dehydration, poor appetite Primary Care Provider: Soheila Reyna PA-C Taya Galvez is a 77 year old female with metastatic gastric adenocarcinoma who presents to the ER with shortness of breath, dehydration and poor appetite. She was recently admitted with similar symptoms from November 18 - 2022. At that time she initially felt much improved after her potassium levels were replaced. I discussed with her at that time possibility of thoracocentesis or Pleurx catheter is she remained short of breath on exertion but clearly she improved enough to eventually be discharged after a port placement, radiotherapy and plan to start chemotherapy next week. Unfortunately after discharge she has had a progressive decline especially with her shortness of breath. She is now short of breath on minimal movements. No chest pain, cough, fever, chills. In the ER subsequent CT was fortunately negative for pulmonary emboli but showed increasing pleural effusions. She was referred to medicine for admission and ongoing management of failure to thrive and metastatic disease. Allergies Allergy/AdvReac Type Severity Reaction Status Date / Time alendronate sodium AdvReac Intermediate Unable to Verified 11/11/22 15:29 [From Fosamax] ambulate Home Medications Medication Instructions Recorded Confirmed Type aspirin 81 mg tablet,delayed 81 mg PO QAM 04/03/21 11/18/22 History release biotin 1 mg capsule 1 mg PO QAM 04/03/21 11/18/22 History zdvuppxwghna-lbdsqfwz-vlzsyh 1 tab PO QAM 04/03/21 11/18/22 History tablet (Multivitamin 50 Plus tablet) nitroglycerin 0.4 mg sublingual 0.4 mg sublingual UD PRN chest 04/05/21 11/18/22 Rx tablet (Nitrostat) pain #25 tabs acetaminophen 650 mg 650 mg PO QPM PRN Pain 05/24/22 11/18/22 History tablet,extended release (Tylenol Arthritis Pain) vitamin B12 500 mcg-folic acid 400 1 tab PO DAILY #30 tabs 08/13/22 11/18/22 Rx mcg tablet fluoxetine 10 mg capsule 10 mg PO QAM 10/24/22 11/18/22 History tramadol 50 mg tablet 50 mg PO Q6 PRN pain 11/14/22 11/18/22 History dronabinol 2.5 mg capsule 2.5 mg PO BIDM #30 caps 11/23/22 Rx flecainide 100 mg tablet 100 mg PO BID #60 tabs 11/23/22 Rx levothyroxine 25 mcg tablet 25 mcg PO DAILYBB #30 tabs 11/23/22 Rx (Synthroid) metoprolol succinate 50 mg 25 mg PO QAM #1 tab 11/23/22 11/18/22 Rx tablet,extended release 24 hr potassium chloride 10 mEq 10 meq PO DAILY #30 tabs 11/23/22 Rx tablet,extended release sucralfate 1 gram tablet (Carafate) 1 g PO BID #60 tabs 11/23/22 Rx gabapentin 100 mg capsule 100 mg PO BID #60 caps 11/25/22 Rx pantoprazole 40 mg tablet,delayed 40 mg PO BID #60 tabs 11/25/22 Rx release olanzapine 5 mg disintegrating 2.5 mg PO HS #30 tabs 11/26/22 11/26/22 Rx tablet (Zyprexa Zydis) Past Med/Surg History Medical History Advanced care planning/counseling discussion Anemia REASON FOR PROCEDURE Arthritis CAD (coronary artery disease) Cancer INCLOCLUSIVE OF SOURCE>BIOPSY, EGD DONE PRIOR (REASON FOR PROCEDURE TOMORROW)>LOCATED IN SPINE Elevated LFTs Gastric adenocarcinoma GI bleed History of COVID-19 07/2022>FATIGUE CONT. HX: breast cancer SX/CHEMO/RADIATION Hyperlipidemia Hypertension Implantable loop recorder present Multiple pulmonary nodules determined by computed tomography of lung Nausea Non-ST elevation (NSTEMI) myocardial infarction 2020 Osteopenia Palliative care by specialist Paroxysmal atrial tachycardia Pulmonary embolism RECENT HOSPITALIZATION FOR PE AT [facility]>REASON FOR ELIQUIS ? REASON Restless leg syndrome Surgical History H/O: hysterectomy PARTIAL History of appendectomy History of colonoscopy History of esophagogastroduodenoscopy (EGD) History of lumpectomy of left breast LEFT ARM RESTRICTION History of tonsillectomy History of tooth extraction History of wisdom tooth extraction Nausea and vomiting after administration of anesthetic agent Port-A-Cath in place (11/21/22) Insertion of Port Access into Right Internal Jugular Vein(Right) - Patel Arshad, S/P coronary artery stent placement 2020>2 STENTS PLACED (FOLLOWED BY DR. DURHAM) Family History Mother Breast cancer Father Stroke Denies family history of Ovarian cancer Prostate cancer Myocardial infarction Colorectal cancer Social History Smoking Status: Never smoker Second Hand Exposure: No; Hx Alcohol Use: Yes Alcohol type: wine Hx Substance Use: No Preferred Language: Comoran Communication Ability: Effective Visual Impairment: No Limitations Hearing Ability: Normal Product Development Scientist Required: No Beliefs That Will Affect Care: None marital status: / Current Living Situation: Spouse current occupational status: retired Other Information That Helps Us Care for You: No Feels Safe at Home: Yes Safety Concerns: Feels Safe At This Time Childhood Exposure to Second-Hand Smoke: No caffeine: Yes during the past year weight has: decreased > 10 lbs Dental Care, Regularly: Yes Physical Activity Frequency: Daily Seatbelt Use: always Sunscreen Use: No Assistive Devices: None Review of Systems Review of Systems: All systems reviewed & are unremarkable except as noted in HPI & below Physical Exam Constitutional: + cachectic; no acute distress Eyes: + anicteric sclerae; normal pupil size Respiratory: normal respiratory effort; no respiratory distress Auscultation: + breath sounds absent (bibasal); no crackles and no wheezes Cardiovascular: Rate/Rhythm: regular rate and regular rhythm Heart Sounds: no murmur Extremities: normal capillary refill; no calf tenderness and no pedal edema Gastrointestinal (Abdomen): normal bowel sounds, soft, nontender, no hepatosplenomegaly Skin: no rashes, warm and dry Neurologic: moves all extremities and awake; not confused Psychiatric: A+Ox3, euthymic affect Results & Data Results & Data Vital Signs (Past 12 Hours) Vital Signs Temp Pulse Pulse Resp BP BP Pulse Ox 11/30/22 20:00 82 18 107/72 97 11/30/22 16:59 103 H 11/30/22 16:00 78 17 106/78 94 11/30/22 15:00 77 20 118/56 L 94 11/30/22 13:45 99 11/30/22 13:45 11/30/22 13:45 77 99 11/30/22 13:45 77 20 99 11/30/22 12:58 85 11/30/22 12:42 36.8 C 94 H 20 115/73 97 O2 Del Method O2 Flow Rate 11/30/22 20:00 Room Air 11/30/22 16:59 11/30/22 16:00 Nasal Cannula 2 11/30/22 15:00 Nasal Cannula 2 11/30/22 13:45 Room Air 11/30/22 13:45 Room Air 11/30/22 13:45 Room Air 11/30/22 13:45 Room Air 11/30/22 12:58 11/30/22 12:42 Room Air Laboratory Results Abnormal lab results 11/30/22 11/30/22 Range/Units 13:16 13:16 WBC 4.33 L (4.8-10.8) K/ul RBC 2.84 L (4.20-5.40) M/uL Hgb 8.6 L (12.0-16.0) g/dl Hct 27.1 L (37.0-47.0) % MCHC 31.7 L (32.0-36.0) g/dL RDW Std Deviation 62.9 H (36.4-46.3) fL RDW Coeff of Tana 18.6 H (11.5-14.5) % Lymph # (Auto) 0.10 L (1.2-3.4) K/uL Harney # (Auto) 0.75 H (0.11-0.59) K/uL Potassium 3.4 L (3.5-5.1) mmol/L Anion Gap 13 H (3-11) Creatinine 0.49 L (0.6-1.2) mg/dl BUN/Creatinine Ratio 44.9 H (10-20) Calcium 8.5 L (8.6-10.3) mg/dl AST 68 H (13-39) U/L Alkaline Phosphatase 350 H (34-104) U/L Total Protein 5.9 L (6.0-8.3) gm/dl Albumin 3.0 L (3.4-5.0) gm/dl Lipase 8 L (11-82) U/L Diagnostic Findings CT ANGIOGRAM OF THE CHEST; CT SCAN OF THE ABDOMEN AND PELVIS WITH IV CONTRAST CLINICAL HISTORY: Dyspnea. Metastatic cancer. Generalized abdominal pain. COMPARISON STUDY: Chest CT dated 11/18/2024. MRI of the thoracic and lumbar spine dated 11/19/2022. TECHNIQUE: Following the IV administration of 115 of Optiray 320, CT angiogram of the chest is performed from the upper abdomen to the thoracic inlet utilizing the pulmonary embolus protocol. Images are reviewed in the axial, sagittal, coronal planes. 3-D MIPS images are created and assessed. Subsequently, CT scan of the abdomen and pelvis was performed from the lung bases to the proximal femora. Images are reviewed in the axial, sagittal, and coronal planes. IV contrast was administered without complication. A dose lowering technique was utilized adhering to the principles of ALARA. CT DOSE: 606.73 mGy.cm FINDINGS: CHEST: Thyroid: The right lobe is diminutive versus surgically absent. The left lobe is heterogeneous. Thoracic aorta: There is atherosclerotic calcification of the thoracic aorta, which is normal in caliber and demonstrates standard 3-vessel arch anatomy. No dissection is seen. Pulmonary vasculature: The pulmonary trunk is normal in caliber. There are no filling defects identified in the main, lobar, or segmental pulmonary arteries to indicate pulmonary embolus. Heart: The heart is enlarged and without pericardial effusion. There are misael nary artery calcifications. Lungs and pleural spaces: There are moderate to large pleural effusions, left larger than right with dependent consolidation. The trachea and central airways are clear. Scattered ill-defined pulmonary nodules likely represent multifocal metastatic disease. A wholesale representative lesion in the right lung on image #148 measures up to 8 mm. These are similar to previous. Mediastinum: There is no mediastinal lymphadenopathy. Esophagus: Esophageal wall thickening is unchanged. Court: Clear. Axillae: There is no axillary lymphadenopathy. Bony thorax: The skeletal structures are osteopenic. Again seen is evidence of extensive/multifocal osteoblastic metastatic disease. Minimal epidural extension of tumor is seen anteriorly at T11. This was better assessed on the recent MRI. There is no CT evidence of significant central canal stenosis. Soft tissues: Postsurgical changes noted in the left breast. An electronic device is seen in the anterior chest wall. ABDOMEN AND PELVIS: Liver: The contrast-enhanced liver is normal in size, contour, and attenuation. There is minimal central intrahepatic biliary ductal dilatation. The hepatic veins and portal veins are patent. Again seen is evidence of multifocal hepatic metastatic disease. Lesions measure up to 3 cm. Lesions within the superior aspect of the liver have not significantly changed from the 11/18/[address] Gallbladder: The gallbladder is distended and there are small gallstones. There is no CT evidence of acute cholecystitis. Spleen: Normal in size and attenuation. Pancreas: Moderately atrophic and grossly unremarkable. Adrenal glands: A left adrenal metastasis measures 2.1 cm. The right adrenal gland is normal as imaged. Kidneys: The contrast enhanced kidneys are normal in size and without hydronephrosis. The kidneys enhance symmetrically. Abdominal vasculature: There is moderate to advanced atherosclerotic calcification and mild ectasia of the abdominal aorta. Bowel: The gastric mucosa appears thickened and hyperemic. There is moderate to advanced colonic diverticulosis without CT evidence of acute diverticulitis. No bowel obstruction is seen. The appendix is not visualized. Peritoneum: No intraperitoneal free air is seen. There is trace pelvic ascites. There is evidence of mesenteric and retroperitoneal metastatic disease. A 3.2 x 2.1 cm lesion is seen on image #230. Additional tiny implants are seen on images #191, #222, #233, and #257. An implant adjacent to the pancreatic tail is seen on image #148. Lymphadenopathy: Mildly enlarged retroperitoneal lymph nodes are consistent with metastatic disease. A left periaortic node on image #162 measures 14 mm short axis. Pelvic viscera: The bladder is normal as visualized. The uterus is surgically absent. No adnexal lesion is seen. Skeletal structures: The skeletal structures are osteopenic. There is extensive/multifocal osteoblastic metastatic disease. Metastatic disease likely involves several sacral neural foramina. Epidural extension of tumor is seen anteriorly at L5-S1. This was better assessed on the recent MRI. There is likely pathologic fracture of the sacrum. Soft tissues: There is soft tissue implants in the lower back. A lesion on image #214 measures up to 2.4 cm. IMPRESSION: 1. There is no evidence of pulmonary embolus in the main, lobar, or segmental pulmonary arteries. 2. Large pleural effusions, left larger than right with dependent consolidation. These have increased in size as compared to 11/18/2022. 3. Cardiomegaly. 4. There is evidence of extensive/diffuse multifocal osteoblastic metastatic disease. This is not appreciably changed from recent prior studies per 5. Epidural extension of tumor was much better stressed on the recent MRI examinations. There is no CT evidence of significant central canal stenosis. 6. There is likely pathologic fracture of the sacrum. 7. Pulmonary metastatic disease, hepatic metastatic disease, and the left adrenal metastasis have not significantly changed from the 11/18/[address] 8. There are metastatic implants throughout the retroperitoneum and mesentery, as well as soft tissue implants in the lower back. 9. Suspect cholelithiasis. 10. The gastric mucosa appears thickened and hyperemic. Correlate clinically for evidence of gastritis. Underlying mass lesion or metastatic implants would be possible to exclude. 11. Esophageal wall thickening is unchanged and suggests esophagitis. 12. Additional findings as above. Medications Administered ER Medications Given: NSS 1L bolus Acetaminophen 1000mg IV Famotidine 20mg IV Ondansetron 4mg IV ECG Rate (beats per minute): 78 Rhythm: normal sinus Findings: + PAC Comparison ECG Date: from (November 22, 2022) Change: no significant change Code Status & VTE Plan Code Status Full - patient discussed previously with palliative and not willing to consider changing this. We discussed close to 0% chance of sustained success and concern for causing her pain at the end of her life. VTE Prophylaxis Plan VTE Prophylaxis will be ordered: No PG Care Time/CCT Total # of Minutes Spent Total Time Spent with Patient: Total time spent is greater than 50% in coordination of care (as documented) at patient's floor/unit and/or counseling patient: Coding Level of Care Code 65450 INT INP/OBS CARE 75MIN Diagnoses Shortness of breath on exertion R06.02 Pleural effusion J90 Gastric adenocarcinoma C16.9 Metastatic disease C79.9 Failure to thrive Hypertension I10 Hypertension type: unspecified Constipation K59.00 Anxiety F41.9 Bilateral leg pain M79.604; M79.605 Atrial tachycardia I47.1 Severe protein-calorie malnutrition E43 (6) Hypertension Hypertension type: unspecified Qualified Code(s): I10 - Essential (primary) hypertension
[2022-11-30] MEDS ORDERED: ACETAMINOPHEN 325 MG TAB PO PRN (21:47)
[2022-11-30] MEDS ORDERED: traMADol HCL 50 MG TABLET PO PRN (21:47)
[2022-11-30] MEDS ORDERED: MAGNESIUM SULFATE / D5W 1 GM/100 ML BAG IV ONE (22:15)
[2022-11-30] MEDS: FLECAINIDE ACETATE 100 MG TABLET PO SCH (22:49)
[2022-11-30] MEDS: OLANZapine ZYDIS 5 MG ORALLY DIS. TAB PO SCH (22:50)
[2022-11-30] MEDS: GABAPENTIN 100 MG CAP PO SCH (22:50)
[2022-11-30] MEDS: PANTOprazole 40 MG TAB PO SCH (22:51)
[2022-11-30] MEDS: POTASSIUM CHLORIDE 10 MEQ TABCR PO SCH (22:52)
[2022-11-30] MEDS: SUCRALFATE 1 GM TAB PO SCH (22:52)
[2022-12-01 05:50] LABS: Basophils # (auto) 0.02 K/uL (0-0.2); Basophils % (auto) 0.5 %; Eosinophils # (auto) 0.01 K/uL (0-0.50); Eosinophils % (auto) 0.2 %; Hematocrit (blood only) 25.7 % (37.0-47.0); Hemoglobin 8.1 g/dl (12.0-16.0); Immature Granulocytes # (auto) 0.06 K/uL (0.01-0.20); Immature Granulocytes % (auto) 1.4 %; Lymphocytes # (auto) 0.13 K/uL (1.2-3.4); Mean Corpuscular Hemoglobin 30.2 pg (25.0-34.0); Mean Corpuscular Hgb Conc 31.5 g/dL (32.0-36.0); Mean Corpuscular Volume 95.9 fL (80.0-100.0); Monocytes # (auto) 0.78 K/uL (0.11-0.59); Neutrophils # (auto) 3.33 K/uL (1.40-6.50); Neutrophils % (auto) 76.9 %; Platelet Count 155 K/uL (130-400); RDW Coefficient of Variation 19.3 % (11.5-14.5); RDW Standard Deviation 65.3 fL (36.4-46.3); Red Blood Count 2.68 M/uL (4.20-5.40); White Blood Count 4.33 K/ul (4.8-10.8)
[2022-12-01 05:56] LABS: Albumin Level 2.9 gm/dl (3.4-5.0); BUN Creatinine Ratio 35.8 (10-20); Bilirubin,Total 0.3 mg/dl (0.2-1.0); Calcium 8.3 mg/dl (8.6-10.3); Creatinine Clr Calc Pharmacy 82.5 ml/min; Est GFR (African American) 107.6 ml/min; Est GFR (Non-African American) 92.9 ml/min; Globulin 2.8 gm/dl (2.5-4.0); Potassium 3.8 mmol/L (3.5-5.1); Total Protein 5.7 gm/dl (6.0-8.3)
[2022-12-01 06:11] LABS: INR 1.2 (0.9-1.1); Partial Thromboplastin Ratio 1.2; Partial Thromboplastin Time 33.2 Seconds (21.0-31.0); Prothrombin Time 12.2 Seconds (9.0-12.0)
[2022-12-01] MEDS: LEVOTHYROXINE SODIUM 25 MCG TABLET PO SCH (06:14)
--- NOTE | 2022-12-01 07:20 | Pulmonary Consultation ---
Date of Consultation December 01, 2022 Assessment & Plan (1) Gastric adenocarcinoma: (2) SOB (shortness of breath): (3) Bilateral pleural effusion: (4) Atelectasis: (5) Abnormal CT scan, chest: Plan CT chest 11/30/2022 personally reviewed: Large left-sided pleural effusion with dependent atelectasis of the left lower lobe, moderate right-sided pleural effus ion Multiple pulmonary nodules appreciated bilaterally. No significant mediastinal lymphadenopathy -- Bilateral pleural effusion With the history of metastatic gastric adenocarcinoma likelihood of them being malignant is very high We will plan to do drainage today -- Shortness of breath Likely secondary to bilateral pleural effusion with dependent atelectasis --Multiple pulmonary nodules Likely metastatic Plan: Overall prognosis of the patient is poor Prognosis was discussed with daughter as well as at bedside. Options of doing only thoracentesis versus Pleurx catheter placement was explained. They would like to proceed with Pleurx catheter with palliative approach in mind. Patient still wants chemotherapy to be done if she is able to do it. Currently patient seems to be weak to have chemotherapy done Risk and benefit of the procedure explained to the patient and patient's in depth. They understand and want to go ahead with the procedure All questions inquiries of the patient as well as patient's and daughter were answered in depth Please note the above document was generated using voice recognition software. It may contain grammatical, syntax or spelling errors.Any formal questions or concerns about the content, text or information contained within the body of this dictation should be directly addressed to the provider for clarification. History of Present Illness Attending Physician: Katerin Van MD History of Present Illness 77-year-old female was admitted to the hospital for lethargy and shortness of breath Past medical history: Recently diagnosed gastric adenocarcinoma metastatic, coronary disease s/p stent, dyslipidemia, hypertension, PE diagnosed 10/16/2022, history of breast CA 1998 s/p chemo and radiation after lumpectomy Pulmonary consulted for pleural effusion At the time of examination patient was laying on the bed not in any respiratory distress Saturation was 95% on room air. She denies any shortness of breath at rest but even on minimal exertion she gets short of breath. She is not able to do her day-to-day activities Denies any chest pain. Denies any cough No fever or chills Denied any headache, no nausea, no vomiting No headache, no blurry vision She has been losing weight unintentionally. She has lost more weight since her last visit. No dysuria. No diarrhea Social history: Lifetime non-smoker. 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 Allergies Allergy/AdvReac Type Severity Reaction Status Date / Time alendronate sodium AdvReac Intermediate Unable to Verified 11/11/22 15:29 [From Fosamax] ambulate Home Medications Medication Instructions Recorded Confirmed Type aspirin 81 mg tablet,delayed 81 mg PO QAM 04/03/21 11/18/22 History release biotin 1 mg capsule 1 mg PO QAM 04/03/21 11/18/22 History dwwpyywfpejn-hkvmutxy-krxcha 1 tab PO QAM 04/03/21 11/18/22 History tablet (Multivitamin 50 Plus tablet) nitroglycerin 0.4 mg sublingual 0.4 mg sublingual UD PRN chest 04/05/21 11/18/22 Rx tablet (Nitrostat) pain #25 tabs acetaminophen 650 mg 650 mg PO QPM PRN Pain 05/24/22 11/18/22 History tablet,extended release (Tylenol Arthritis Pain) vitamin B12 500 mcg-folic acid 400 1 tab PO DAILY #30 tabs 08/13/22 11/18/22 Rx mcg tablet fluoxetine 10 mg capsule 10 mg PO QAM 10/24/22 11/18/22 History tramadol 50 mg tablet 50 mg PO Q6 PRN pain 11/14/22 11/18/22 History dronabinol 2.5 mg capsule 2.5 mg PO BIDM #30 caps 11/23/22 Rx flecainide 100 mg tablet 100 mg PO BID #60 tabs 11/23/22 Rx levothyroxine 25 mcg tablet 25 mcg PO DAILYBB #30 tabs 11/23/22 Rx (Synthroid) metoprolol succinate 50 mg 25 mg PO QAM #1 tab 11/23/22 11/18/22 Rx tablet,extended release 24 hr potassium chloride 10 mEq 10 meq PO DAILY #30 tabs 11/23/22 Rx tablet,extended release sucralfate 1 gram tablet (Carafate) 1 g PO BID #60 tabs 11/23/22 Rx gabapentin 100 mg capsule 100 mg PO BID #60 caps 11/25/22 Rx pantoprazole 40 mg tablet,delayed 40 mg PO BID #60 tabs 11/25/22 Rx release olanzapine 5 mg disintegrating 2.5 mg PO HS #30 tabs 11/26/22 11/26/22 Rx tablet (Zyprexa Zydis) Patient History Medical History Advanced care planning/counseling discussion Anemia REASON FOR PROCEDURE Arthritis CAD (coronary artery disease) Cancer INCLOCLUSIVE OF SOURCE>BIOPSY, EGD DONE PRIOR (REASON FOR PROCEDURE TOMORROW)>LOCATED IN SPINE Elevated LFTs Gastric adenocarcinoma GI bleed History of COVID-19 07/2022>FATIGUE CONT. HX: breast cancer SX/CHEMO/RADIATION Hyperlipidemia Hypertension Implantable loop recorder present Multiple pulmonary nodules determined by computed tomography of lung Nausea Non-ST elevation (NSTEMI) myocardial infarction 2020 Osteopenia Palliative care by specialist Paroxysmal atrial tachycardia Pulmonary embolism RECENT HOSPITALIZATION FOR PE AT [facility]>REASON FOR ELIQUIS ? REASON Restless leg syndrome Surgical History H/O: hysterectomy PARTIAL History of appendectomy History of colonoscopy History of esophagogastroduodenoscopy (EGD) History of lumpectomy of left breast LEFT ARM RESTRICTION History of tonsillectomy History of tooth extraction History of wisdom tooth extraction Nausea and vomiting after administration of anesthetic agent Port-A-Cath in place (11/21/22) Insertion of Port Access into Right Internal Jugular Vein(Right) - Patel Arshad, S/P coronary artery stent placement 2020>2 STENTS PLACED (FOLLOWED BY DR. DURHAM) Family History Mother Breast cancer Father Stroke Denies family history of Ovarian cancer Prostate cancer Myocardial infarction Colorectal cancer Social History Smoking Status: Never smoker Second Hand Exposure: No; Hx Alcohol Use: Yes Alcohol type: wine Hx Substance Use: No Preferred Language: Venezuelan Communication Ability: Effective Visual Impairment: No Limitations Hearing Ability: Normal Turbine Room Attendant Required: No Beliefs That Will Affect Care: None marital status: / Current Living Situation: Spouse current occupational status: retired Other Information That Helps Us Care for You: No Feels Safe at Home: Yes Safety Concerns: Feels Safe At This Time Childhood Exposure to Second-Hand Smoke: No caffeine: Yes during the past year weight has: decreased > 10 lbs Dental Care, Regularly: Yes Physical Activity Frequency: Daily Seatbelt Use: always Sunscreen Use: No Assistive Devices: Glasses and Walker Review of Systems Review of Systems: All systems reviewed & are unremarkable except as noted in HPI & below Physical Exam Physical Exam: Constitutional: No acute distress, frail-appearing HEENT: EOMI, PERRLA Respiratory system: Decreased air entry bilaterally, more decreased on the left side, no wheeze, rhonchi, positive crackles bilateral lower lobe CVS: S1-S2 positive, no murmurs or gallops Abdomen: Soft, nontender, nondistended, positive bowel sounds x4 Extremities: +2 pulses bilaterally radialis/ dorsalis pedis, no cyanosis, +1 ankle edema Neuro: Awake alert oriented x3 Psych: Normal mood and affect G/U: No Fonseca Skin: no rashes, warm and dry Lymphatic: no cervical or axillary lymphadenopathy Results & Data Results & Data Vital Signs (Past 12 Hours) Vital Signs Temp Pulse Pulse Resp BP Pulse Ox O2 Del Method 12/01/22 04:15 36.4 C L 89 16 143/80 H 95 Room Air 11/30/22 21:59 105 H 11/30/22 21:33 106 H 11/30/22 21:20 Room Air 11/30/22 21:15 36.8 C 82 18 118/77 94 Room Air 11/30/22 20:00 82 18 107/72 97 Room Air Laboratory Results 12/01/22 04:53 12/01/22 04:53 PG Care Time/CCT Total # of Minutes Spent Total Time Spent with Patient: Total time spent is greater than 50% in coordination of care (as documented) at patient's floor/unit and/or counseling patient: Coding Level of Care Code 39264 INT INP/OBS CARE 375MIN Diagnoses Gastric adenocarcinoma C16.9 SOB (shortness of breath) R06.02 Bilateral pleural effusion J90 Atelectasis J98.[address] scan, chest R93.89
[2022-12-01] MEDS: METOPROLOL SUCC 25MG EXT REL TAB PO SCH (08:18)
[2022-12-01] MEDS: FLUoxetine HCL 10 MG CAP PO SCH (08:19)
[2022-12-01] MEDS: SUCRALFATE 1 GM TAB PO SCH ×2 (08:19→21:54)
[2022-12-01] MEDS: GABAPENTIN 100 MG CAP PO SCH ×2 (08:19→21:53)
[2022-12-01] MEDS: PANTOprazole 40 MG TAB PO SCH ×2 (08:19→21:54)
[2022-12-01] MEDS: FOLIC ACID 400 MCG TAB PO SCH (08:19)
[2022-12-01] MEDS: FLECAINIDE ACETATE 100 MG TABLET PO SCH ×2 (08:19→21:53)
[2022-12-01] MEDS: POTASSIUM CHLORIDE 10 MEQ TABCR PO SCH ×2 (08:19→21:54)
[2022-12-01] MEDS: MULTIVITAMIN TAB PO SCH (08:19)
[2022-12-01] MEDS: ASPIRIN 81 MG ECTAB PO SCH (08:20)
[2022-12-01] MEDS: CYANOCOBALAMIN (B-12) 500 MCG TABLET PO SCH (08:20)
--- NOTE | 2022-12-01 11:50 | Electrocardiogram Report ---
Test Reason : Blood Pressure : / mmHG Vent. Rate : 078 BPM Atrial Rate : 076 BPM P-R Int : 000 ms QRS Dur : 084 ms QT Int : 446 ms P-R-T Axes : 000 -16 -16 degrees QTc Int : 508 ms Probable Normal sinus rhythm Low voltage QRS Incomplete right bundle branch block Septal infarct (cited on or before 22-NOV-2022) Abnormal ECG When compared with ECG of 22-NOV-2022 07:53, Right bundle branch block is no longer Present Questionable change in initial forces of Septal leads Confirmed by Bernardo Billy ([id number]) on 12/01/2022 11:50:09 AM Referred By: REFERRED SELF Confirmed By:Bernardo Billy
[2022-12-01] MEDS ORDERED: LIDOCAINE 1% LOCAL 20 ML VIAL INFIL ONE (11:55)
[2022-12-01] MEDS ORDERED: LIDOCAINE 2% LOCAL 50 ML VIAL ONE (12:12)
--- NOTE | 2022-12-01 13:17 | Procedure Note ---
Procedure Note Date of Service December 01, 2022 Note PREOPERATIVE DIAGNOSIS: Left pleural effusion. POSTOPERATIVE DIAGNOSIS: Left pleural effusion. PROCEDURE PERFORMED: Left PleurX catheter placement. ANESTHESIA: Local 1% Lidocaine without Epinephrine COMPLICATIONS: None. 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 I evaluated the left pleura with the ultrasound and located an adequate spot above the diaphragm. The left chest and upper abdomen were prepped and draped in the usual sterile fashion. Lidocaine 1% was used to infiltrate two areas; one in the left upper quadrant where the tube would exit and the other along the anterior axillary line one intercostal space below. A small counterincision was made in the left upper quadrant area. Through the anterior axillary line area, the pleural space was accessed by Seldinger technique. The counterincision was made around the guidewire and then the PleurX catheter was tunneled from the right upper quadrant small incision to the one overlying the ribs. A sheath introducer was then passed over the wire and then the PleurX catheter was placed through the sheath introducer. There was good return of fluid. 1100 ml of serous fluid was withdrawn slowly as the small counterincision was closed with Monocryl stitch. The catheter was capped off, and sterile dressings were applied. The patient tolerated the procedure well without any complications. Chest Xray to follow. Complications: None Blood Loss: < 2cc Coding CPT Codes Pulmonary/Thoracic - Pulmonary and Thoracic: 79655 Insert pleural cathereter w/cuff ([id number]) Pulmonary/Thoracic - Pulmonary and Thoracic: 59424 Pleural drainage w/o imaging ([id number]) Pulmonary/Thoracic - Pulmonary and Thoracic: 56240 US, Chest, real time with imaging documentation ([id number]) [facility] [place] Procedure Codes (Charges) Pulmonary/Thoracic Procedure 1: Pulmonary and Thoracic: 99760 Insert pleural cathereter w/cuff Procedure 2: Pulmonary and Thoracic: 39595 Pleural drainage w/o imaging Procedure 3: Pulmonary and Thoracic: 90519 US, Chest, real time with imaging documentation
[2022-12-01 14:08] LABS: Amylase Pleural Fluid < 10 U/L
--- NOTE | 2022-12-01 14:09 | Procedure Note ---
Procedure Note Date of Service December 01, 2022 Note PREOPERATIVE DIAGNOSIS: Right pleural effusion. POSTOPERATIVE DIAGNOSIS: Right pleural effusion. PROCEDURE PERFORMED: Right PleurX catheter placement. ANESTHESIA: Local 1% Lidocaine without Epinephrine COMPLICATIONS: None. INDICATION FOR PROCEDURE: Probable malignant pleural effusion with in for palliative approach DESCRIPTION OF PROCEDURE: The patient was placed in a semirecumbent position. I evaluated the right pleura with the ultrasound and located an adequate spot above the diaphragm. The right chest and upper abdomen were prepped and draped in the usual sterile fashion. Lidocaine 1% was used to infiltrate two areas; one in the right upper quadrant where the tube would exit and the other along the anterior axillary line one intercostal space below. A small counterincision was made in the right upper quadrant area. Through the anterior axillary line area, the pleural space was accessed by Seldinger technique. The counterincision was made around the guidewire and then the PleurX catheter was tunneled from the right upper quadrant small incision to the one overlying the ribs. A sheath introducer was then passed over the wire and then the PleurX catheter was placed through the sheath introducer. There was good return of fluid. 700 ml of serous fluid was withdrawn slowly as the small counterincision was closed with Monocryl stitch. Air was also appreciated to the catheter at the end of the procedure. The catheter was capped off, and sterile dressings were applied. The patient tolerated the procedure well without any complications. Chest Xray to follow. Complications: None Blood Loss: < 1cc Coding CPT Codes Pulmonary/Thoracic - Pulmonary and Thoracic: 76071 Insert pleural cathereter w/cuff ([id number]) Pulmonary/Thoracic - Pulmonary and Thoracic: 43383 Pleural drainage w/o imaging ([id number]) Pulmonary/Thoracic - Pulmonary and Thoracic: 50048 US, Chest, real time with imaging documentation ([id number]) [facility] [place] Procedure Codes (Charges) Pulmonary/Thoracic Procedure 1: Pulmonary and Thoracic: 54582 Insert pleural cathereter w/cuff Procedure 2: Pulmonary and Thoracic: 15013 Pleural drainage w/o imaging Procedure 3: Pulmonary and Thoracic: 81530 US, Chest, real time with imaging documentation
[2022-12-01 14:13] LABS: Glucose Pleural Fluid 92 mg/dl; LDH Pleural Fluid 83 U/L; Total Protein Pleural Fluid < 3.0 gm/dl
--- NOTE | 2022-12-01 14:28 | XRay Report ---
XR chest 1V portable CLINICAL HISTORY: Pleurx cath TECHNIQUE: Single frontal radiograph of the chest was obtained. Comparison: Comparison is made to chest radiograph 11/30/2022 FINDINGS: A port catheter is seen. Loop recorder is noted. There are bilateral pleural catheters, new from prio r exam. Cardiomegaly is noted. The aortic arch is calcified. Left lower lung airspace opacity is seen . Moderate left pleural effusion is decreased from prior exam. No significant right pleural effusion is noted. No pneumothorax. IMPRESSION: 1. No pneumothorax status post placement of bilateral pleural catheters. Right effusion is essential ly resolved, left effusion is moderate, decreased from prior. Left lower lung airspace opacity likely represents atelectasis with or without superimposed aspiration/pneumonia. 2. Cardiomegaly. Pulmonary vascular congestion appears less conspicuous than in prior exam. ACT 112: Negative or not required by law. Electronically signed by: Zhang Roman M.D. 12/01/2022 2:27 PM
[2022-12-01 14:34] LABS: Appearance Pleural Fluid Hazy; Color Pleural Fluid Straw; Lymphocytes, Fluid 18 %; Mono,Macrophage,Mesothelial 70 %; Neutrophils, Fluid 12 %; RBC Pleural Fluid Auto 5000 /uL; Source Pleural Fluid Left Lung; WBC Pleural Fluid Auto 230 /uL
[2022-12-01 15:02] LABS: Amylase Pleural Fluid < 10 U/L
[2022-12-01 15:03] LABS: Albumin Level 3.3 gm/dl (3.4-5.0); Bilirubin,Total 0.4 mg/dl (0.2-1.0)
[2022-12-01 15:08] LABS: Glucose Pleural Fluid 94 mg/dl; LDH Pleural Fluid 78 U/L; Total Protein Pleural Fluid < 3.0 gm/dl
[2022-12-01 15:08] LABS: Total Protein 6.7 gm/dl (6.0-8.3)
[2022-12-01 15:22] LABS: Appearance Pleural Fluid Hazy; Basophils, Fluid 1 %; Color Pleural Fluid Straw; Lymphocytes, Fluid 28 %; Mono,Macrophage,Mesothelial 68 %; Neutrophils, Fluid 3 %; RBC Pleural Fluid Auto 3000 /uL; Source Pleural Fluid Right Lung; WBC Pleural Fluid Auto 205 /uL
--- NOTE | 2022-12-01 17:56 | Hospitalist Progress Note ---
Date of Service December 01, 2022 Assessment & Plan (1) Shortness of breath on exertion: Plan: Likely secondary to pleural effusion bilaterally (2) Pleural effusion: Plan: Presumed malignant Patient had Pleurx catheter placed Left side drained 1100 cc Right side drained 700 cc Patient is feeling much better since the fluid was drained Not short of breath anymore. (3) Gastric adenocarcinoma: Plan: Planning on starting chemotherapy next week Continue pantoprazole 40mg PO BID (4) Metastatic disease: Plan: Gastric adenocarcinoma with mets to bone, abdominal lymph node, possibly brain and pleural fluid Patient was seen palliative care previously We will consult palliative care during this hospital stay (5) Failure to thrive: Plan: Continue dronabinol and olanzapine (6) Hypertension: Plan: Continue metoprolol succinate 25mg PO QAM (7) Constipation: Plan: Continue MiraLAX x3/wk and monitor BM (8) Anxiety: Plan: Continue fluoxetine (9) Bilateral leg pain: Plan: Continue gabapentin MRI repeated last admission for her back (10) Atrial tachycardia: Plan: Continue flecainide and metoprolol (11) Severe protein-calorie malnutrition: Plan: Boost drinks Consult print room worker Plan VTE Prophlaxis -start Lovenox Diet - regular Disposition -likely discharge soon. Consult PT and OT, palliative care Admission and Anticipated Discharge Date Admission Date: November 30, 2022 Subjective Patient feels much better after Pleurx catheter placed. She says that she was able to walk to the bathroom and back without feeling short of breath. Review of Systems Review of Systems: All systems reviewed & are unremarkable except as noted in Subjective Physical Exam Physical Exam: General: Awake, conversant Heart: S1, S2/regular rate and rhythm, no murmur rubs or gallops Lungs: Diminished breath sounds bilaterally. Normal effort. Dressing on bilateral lower thorax where Pleurx catheter was placed Abdomen: Soft/nontender/nondistended. No hepatosplenomegaly Extremities: No clubbing/cyanosis. No edema Behavior: Appropriate, cooperative Results & Data Results & Data Vital Signs (Past 12 Hours) Vital Signs Temp Pulse Pulse Resp BP Pulse Ox O2 Del Method 12/01/22 16:40 36.3 C L 80 16 122/76 97 Room Air 12/01/22 12:32 36.7 C 76 17 117/71 94 Room Air 12/01/22 07:35 103 H 12/01/22 07:35 Room Air 12/01/22 07:43 36.4 C L 112 H 14 126/78 95 Room Air Laboratory Results Abnormal lab results 12/01/22 12/01/22 12/01/22 Range/Units 04:53 04:53 04:53 WBC 4.33 L (4.8-10.8) K/ul RBC 2.68 L (4.20-5.40) M/uL Hgb 8.1 L (12.0-16.0) g/dl Hct 25.7 L (37.0-47.0) % MCHC 31.5 L (32.0-36.0) g/dL RDW Std Deviation 65.3 H (36.4-46.3) fL RDW Coeff of Tana 19.3 H (11.5-14.5) % Lymph # (Auto) 0.13 L (1.2-3.4) K/uL [place] # (Auto) 0.78 H (0.11-0.59) K/uL PT 12.2 H (9.0-12.0) Seconds INR 1.2 H (0.9-1.1) APTT 33.2 H (21.0-31.0) Seconds Chloride 108 H (98-107) mmol/L Creatinine 0.53 L (0.6-1.2) mg/dl BUN/Creatinine Ratio 35.8 H (10-20) Calcium 8.3 L (8.6-10.3) mg/dl AST 62 H (13-39) U/L Alkaline Phosphatase 346 H (34-104) U/L Total Protein 5.7 L (6.0-8.3) gm/dl Albumin 2.9 L (3.4-5.0) gm/dl Pleural pH (7.3-7.4) 12/01/22 12/01/22 12/01/22 Range/Units 14:14 Unknown Unknown WBC (4.8-10.8) K/ul RBC (4.20-5.40) M/uL Hgb (12.0-16.0) g/dl Hct (37.0-47.0) % MCHC (32.0-36.0) g/dL RDW Std Deviation (36.4-46.3) fL RDW Coeff of Tana (11.5-14.5) % Lymph # (Auto) (1.2-3.4) K/uL [place] # (Auto) (0.11-0.59) K/uL PT (9.0-12.0) Seconds INR (0.9-1.1) APTT (21.0-31.0) Seconds Chloride (98-107) mmol/L Creatinine (0.6-1.2) mg/dl BUN/Creatinine Ratio (10-20) Calcium (8.6-10.3) mg/dl AST (13-39) U/L Alkaline Phosphatase (34-104) U/L Total Protein (6.0-8.3) gm/dl Albumin 3.3 L (3.4-5.0) gm/dl Pleural pH 7.47 H 7.51 H (7.3-7.4) Diagnostic Findings Chest X-Ray 12/01/22 13:50 XR chest 1V portable CLINICAL HISTORY: Pleurx cath TECHNIQUE: Single frontal radiograph of the chest was obtained. Comparison: Comparison is made to chest radiograph 11/30/2022 FINDINGS: A port catheter is seen. Loop recorder is noted. There are bilateral pleural catheters, new from prior exam. Cardiomegaly is noted. The aortic arch is calcified. Left lower lung airspace opacity is seen. Moderate left pleural effusion is decreased from prior exam. No significant right pleural effusion is noted. No pneumothorax. IMPRESSION: 1. No pneumothorax status post placement of bilateral pleural catheters. Right effusion is essentially resolved, left effusion is moderate, decreased from prior. Left lower lung airspace opacity likely represents atelectasis with or without superimposed aspiration/pneumonia. 2. Cardiomegaly. Pulmonary vascular congestion appears less conspicuous than in prior exam. ACT 112: Negative or not required by law. Electronically signed by: Zhang Roman M.D. 12/01/2022 2:27 PM PG Care Time/CCT Total # of Minutes Spent Total Time Spent with Patient: Total time spent is greater than 50% in coordination of care (as documented) at patient's floor/unit and/or counseling patient: Coding Level of Care Code 17708 SUB INP/OBS CARE 2/35MIN Diagnoses Shortness of breath on exertion R06.02 Pleural effusion J90 Gastric adenocarcinoma C16.9 Metastatic disease C79.9 Failure to thrive Hypertension I10 Hypertension type: unspecified Constipation K59.00 Anxiety F41.9 Bilateral leg pain M79.604; M79.605 Atrial tachycardia I47.1 Severe protein-calorie malnutrition E43 (6) Hypertension Hypertension type: unspecified Qualified Code(s): I10 - Essential (primary) hypertension
[2022-12-01] MEDS: OLANZapine ZYDIS 5 MG ORALLY DIS. TAB PO SCH (21:53)
[2022-12-02] MEDS: LEVOTHYROXINE SODIUM 25 MCG TABLET PO SCH (06:16)
[2022-12-02] MEDS: POTASSIUM CHLORIDE 10 MEQ TABCR PO SCH ×2 (08:27→20:43)
[2022-12-02] MEDS: GABAPENTIN 100 MG CAP PO SCH ×2 (08:27→20:43)
[2022-12-02] MEDS: FLECAINIDE ACETATE 100 MG TABLET PO SCH ×2 (08:27→20:43)
[2022-12-02] MEDS: FOLIC ACID 400 MCG TAB PO SCH (08:27)
[2022-12-02] MEDS: METOPROLOL SUCC 25MG EXT REL TAB PO SCH (08:27)
[2022-12-02] MEDS: CYANOCOBALAMIN (B-12) 500 MCG TABLET PO SCH (08:27)
[2022-12-02] MEDS: FLUoxetine HCL 10 MG CAP PO SCH (08:27)
[2022-12-02] MEDS: ASPIRIN 81 MG ECTAB PO SCH (08:28)
[2022-12-02] MEDS: SUCRALFATE 1 GM TAB PO SCH ×2 (08:28→20:43)
[2022-12-02] MEDS: PANTOprazole 40 MG TAB PO SCH ×2 (08:28→20:43)
[2022-12-02] MEDS: MULTIVITAMIN TAB PO SCH (08:28)
[2022-12-02] MEDS: ENOXAPARIN INJ 40 MG/0.4 ML SYR SQ SCH (08:49)
--- NOTE | 2022-12-02 10:33 | Pulmonology Progress Note ---
Date of Service December 02, 2022 Assessment & Plan (1) Gastric adenocarcinoma: (2) SOB (shortness of breath): (3) Bilateral pleural effusion: (4) Atelectasis: (5) Abnormal CT scan, chest: Plan IMPRESSION: Unfortunate 77-year-old female with metastatic gastric adenocarcinoma presenting with shortness of breath and bilateral pleural effusions who is status post bilateral Pleurx catheter placement on 12/01. RECOMMENDATIONS: 1. Bilateral pleural effusions - * Patient is status post bilateral Pleurx catheter placement. She appears to be tolerating well and reports her breathing has improved. * Pleural fluid likely representing malignant pleural effusions. No growth on cultures to date. pH not suggestive of abscess. * Would recommend draining her Pleurx catheters again today with education prior to discharge. * Communicated with nurse navigator as well as pulmonary office staff. Patient has [facility] home health services already. They should be able to help with drainage of Pleurx catheters moving forward. * Ideally, the patient could drain her Pleurx catheters every other day. * An appointment has been scheduled by our office staff 12/12 at 9:[address] Álvarez for follow-up and suture removal. * She is welcome to contact our office directly with any issues. * Otherwise, she is stable from a pulmonary standpoint. 2. Shortness of breath - * Likely 2/2 to #1. * s/s have improved s/p drainage of pleural fluid. 3. Multiple Pulmonary Nodules - * Likely representing metastatic process. 4. Metastatic Gastric Adenocarcinoma - * Continues to follow with Heme/Onc * Patient may benefit from a more palliative approach moving forward. Thank you for allowing us to participate in the care of this patient. Pulmonary medicine will sign off at this time. Please contact us directly with any further questions. Admission and Anticipated Discharge Date Admission Date: November 30, 2022 Subjective Patient was seen and evaluated at bedside. She reports breathing much better after bilateral Pleurx catheter placement with drainage of pleural fluid. She offers no complaints of pain at this time. Review of Systems Review of Systems: A complete 6 point review of systems was reviewed with the patient with pertinent positives and negatives as per history of present illness. All else were negative. Physical Exam Physical Exam: VITAL SIGNS - Vital signs and nursing notes were reviewed. GENERAL - 77-year-old female appearing her stated age who is in no acute distress. Communicates well with provider and answers questions appropriately. SKIN - Bilateral Pleurx catheter sites clean, dry, and intact. NECK - Neck with FROM. LUNGS -Pleurx catheter site dressings clean, dry, intact. Auscultation reveals decreased breath sounds the bilateral bases. Otherwise clear to auscultation.. CARDIAC - RRR with S1/S2. No murmur, rubs, or gallops appreciated. ABDOMEN - Abdominal inspection demonstrates flat. BS normoactive all four quadrants. No tenderness, palpable masses, or ascites noted. Results & Data Results & Data Vital Signs (Past 12 Hours) Vital Signs Temp Pulse Pulse Resp BP Pulse Ox O2 Del Method 12/02/22 07:30 75 12/02/22 07:30 Room Air 12/02/22 07:16 36.3 C L 77 16 121/70 99 Room Air 12/02/22 03:33 36.4 C L 77 19 118/67 96 Room Air 12/01/22 22:57 36.5 C 77 19 117/67 94 Room Air PG Care Time/CCT Total # of Minutes Spent Total Time Spent with Patient: Total time spent is greater than 50% in coordination of care (as documented) at patient's floor/unit and/or counseling patient: Coding Level of Care Code 75660 SUB INP/OBS CARE 3/50MIN Diagnoses Gastric adenocarcinoma C16.9 SOB (shortness of breath) R06.02 Bilateral pleural effusion J90 Atelectasis J98.[address] scan, chest R93.89
--- NOTE | 2022-12-02 11:58 | Palliative Care Consultation ---
Date of Consultation December 02, 2022 Assessment & Plan (1) Nausea: improved. Family reports that she is eating a little more. Zyprexa was started because family did not feel marinol was effective. Will discontinue marinol to avoid duplicate therapy. (2) Adult failure to thrive: with gastric adenocarcinoma and early satiety. She has multiple drinks and supplements on her tray and is slowly sipping at most of them. Family is encouraging her to eat as tolerated. Monitor with zyp rexa. (3) Shortness of breath on exertion: Improved with thoracentesis. She now has bilateral pleurx catheters which will be very helpful for symptom management. She has been followed by home health but will likely be going for rehab on discharge. Family is willing to do drainage with training. (4) Palliative care by specialist: I talked with Mrs. Galvez and her at bedside. Her daughter, Agustina, also participated on speaker phone. We discussed medication adjustments and they are agreeable. Taya had originally said that she did not want to go to rehab and would prefer to go home. We discussed potential increased benefit with inpatient rehab. She is agreeable. She is very determined to try to get stronger and be able to receive chemotherapy. They would prefer [facility]. We did discuss possibility that regimen at [facility] may be more than she is able to handle. Case management is involved. I also talked with Taya and her family about goals moving forward. We talked about whether there was anything that she would not be willing to go through to get cancer treatment. She told me that the only thing that she could think of was severe pain. I told her that we support her goals and will help her work toward them. I did also talk about the concern that at some point, despite our best efforts, she may not be able to receive or continue treatment. They acknowledge that but tell me that they want to remain positive. I encouraged them to be open with each other and say things that are important, tend to unfinished business while she continues with rehab and potential treatment to avoid regrets. They are agreeable to ongoing f/u to reassess progress, symptom management and goals. History of Present Illness Reason for Consultation: symptom management, goals of care Requesting Physician: Dr. Van Attending Physician: Katerin Van MD History of Present Illness 77 yo lady with with metastatic gastric adenocarcinoma known to palliative care. She was seen one week ago in the office and had complaints of shortness of breath, weakness, nausea and early satiety. Exam at that time consistent with small bilateral pleural effusions noted on her hospital discharge the week before. She has had limited po intake. She had progressive shortness of breath and weakness which led to hospitalization. She has had placement of bilateral pleurx catheters with removal of 700 and 1100 ccs. She notes improvement in breathing. She tells me that she is able to ambulate 10 feet to bathroom with walker and assistance. She is somewhat confused today, asking her to answer questions (he is not present in the room), and not oriented to day or time. She currently denies pain, nausea or dyspnea but does complain of dry mouth. Allergies Allergy/AdvReac Type Severity Reaction Status Date / Time alendronate sodium AdvReac Intermediate Unable to Verified 11/11/22 15:29 [From Fosamax] ambulate Home Medications Medication Instructions Recorded Confirmed Type aspirin 81 mg tablet,delayed 81 mg PO QAM 04/03/21 11/18/22 History release biotin 1 mg capsule 1 mg PO QAM 04/03/21 11/18/22 History edfnstszdcgz-iimsocky-gphtoi 1 tab PO QAM 04/03/21 11/18/22 History tablet (Multivitamin 50 Plus tablet) nitroglycerin 0.4 mg sublingual 0.4 mg sublingual UD PRN chest 04/05/21 11/18/22 Rx tablet (Nitrostat) pain #25 tabs acetaminophen 650 mg 650 mg PO QPM PRN Pain 05/24/22 11/18/22 History tablet,extended release (Tylenol Arthritis Pain) vitamin B12 500 mcg-folic acid 400 1 tab PO DAILY #30 tabs 08/13/22 11/18/22 Rx mcg tablet fluoxetine 10 mg capsule 10 mg PO QAM 10/24/22 11/18/22 History tramadol 50 mg tablet 50 mg PO Q6 PRN pain 11/14/22 11/18/22 History dronabinol 2.5 mg capsule 2.5 mg PO BIDM #30 caps 11/23/22 Rx flecainide 100 mg tablet 100 mg PO BID #60 tabs 11/23/22 Rx levothyroxine 25 mcg tablet 25 mcg PO DAILYBB #30 tabs 11/23/22 Rx (Synthroid) metoprolol succinate 50 mg 25 mg PO QAM #1 tab 11/23/22 11/18/22 Rx tablet,extended release 24 hr potassium chloride 10 mEq 10 meq PO DAILY #30 tabs 11/23/22 Rx tablet,extended release sucralfate 1 gram tablet (Carafate) 1 g PO BID #60 tabs 11/23/22 Rx gabapentin 100 mg capsule 100 mg PO BID #60 caps 11/25/22 Rx pantoprazole 40 mg tablet,delayed 40 mg PO BID #60 tabs 11/25/22 Rx release olanzapine 5 mg disintegrating 2.5 mg PO HS #30 tabs 11/26/22 11/26/22 Rx tablet (Zyprexa Zydis) Wheelchair (Manual) #1 ea 12/02/22 Rx Patient History Medical History Advanced care planning/counseling discussion Anemia REASON FOR PROCEDURE Arthritis CAD (coronary artery disease) Cancer INCLOCLUSIVE OF SOURCE>BIOPSY, EGD DONE PRIOR (REASON FOR PROCEDURE TOMORROW)>LOCATED IN SPINE Elevated LFTs Gastric adenocarcinoma GI bleed History of COVID-19 07/2022>FATIGUE CONT. HX: breast cancer SX/CHEMO/RADIATION Hyperlipidemia Hypertension Implantable loop recorder present Multiple pulmonary nodules determined by computed tomography of lung Nausea Non-ST elevation (NSTEMI) myocardial infarction 2020 Osteopenia Palliative care by specialist Paroxysmal atrial tachycardia Pulmonary embolism RECENT HOSPITALIZATION FOR PE AT [facility]>REASON FOR ELIQUIS ? REASON Restless leg syndrome Surgical History H/O: hysterectomy PARTIAL History of appendectomy History of colonoscopy History of esophagogastroduodenoscopy (EGD) History of lumpectomy of left breast LEFT ARM RESTRICTION History of tonsillectomy History of tooth extraction History of wisdom tooth extraction Nausea and vomiting after administration of anesthetic agent Port-A-Cath in place (11/21/22) Insertion of Port Access into Right Internal Jugular Vein(Right) - Patel Arshad DO S/P coronary artery stent placement 2020>2 STENTS PLACED (FOLLOWED BY DR. DURHAM) Family History Mother Breast cancer Father Stroke Denies family history of Ovarian cancer Prostate cancer Myocardial infarction Colorectal cancer Social History Smoking Status: Never smoker Second Hand Exposure: No; Hx Alcohol Use: Yes Alcohol type: wine Hx Substance Use: No Preferred Language: Mexican Communication Ability: Effective Visual Impairment: No Limitations Hearing Ability: Normal Lang Interpreter Required: No Beliefs That Will Affect Care: None marital status: / Current Living Situation: Spouse current occupational status: retired Feels Safe at Home: Yes Childhood Exposure to Second-Hand Smoke: No caffeine: Yes during the past year weight has: decreased > 10 lbs Dental Care, Regularly: Yes Physical Activity Frequency: Daily Seatbelt Use: always Sunscreen Use: No Assistive Devices: Glasses and Walker Review of Systems Review of Systems: ESAS Pain 0/3 Dyspnea 1/3 Drowsiness 0/3 NAusea 0/3 Anxiety 0/3 Physical Exam Constitutional: + ill appearing and + thin ENMT: Mouth: + dry oral mucous membranes no lesions or exudate Respiratory: normal respiratory effort; no labored breathing Cardiovascular: no edema Musculoskeletal: Extremities: + muscle atrophy Neurologic: awake and + confused Results & Data Vital Signs (Past 12 Hours) Vital Signs Temp Pulse Pulse Resp BP Pulse Ox O2 Del Method 12/02/22 11:04 98.8 F 77 16 89/60 L 98 Room Air 12/02/22 07:30 75 12/02/22 07:30 Room Air 12/02/22 07:16 97.3 F L 77 16 121/70 99 Room Air 12/02/22 03:33 97.5 F L 77 19 118/67 96 Room Air PG Care Time/CCT Total # of Minutes Spent Total Time Spent: 62 Total Time Spent with Patient: Total time spent is greater than 50% in coordination of care (as documented) at patient's floor/unit and/or counseling patient: Coding Level of Care Code 69802 INT INP/OBS CARE 2/55MIN Diagnoses Nausea R11.0 Adult failure to thrive R62.7 Shortness of breath on exertion R06.02 Palliative care by specialist Z51.5
--- NOTE | 2022-12-02 16:43 | Hospitalist Progress Note ---
Date of Service December 02, 2022 Assessment & Plan (1) Shortness of breath on exertion: Plan: Likely secondary to pleural effusion bilaterally (2) Pleural effusion: Plan: Presumed malignant Patient had Pleurx catheter placed 12/01 Left side drained 1100 cc Right side drained 700 cc Patient is breathing much better since the fluid was drained Not short of breath anymore. (3) Gastric adenocarcinoma: Plan: Planning on starting chemotherapy this week Per daughter, her appointment has been pushed back Continue pantoprazole 40mg PO BID Palliative care consulted Spoke to at the bedside and the daughter on the speaker phone. Updated about her overall condition and grim prognosis given known metastatic gastric carcinoma, now with likely metastatic pleural effusion, deconditioning. Family is leaning towards a palliative approach but no decisions have been made yet. PT/OT consulted for disposition planning Daughter requesting IV fluids as the patient appears dehydrated Check a.m. labs (4) Metastatic disease: Plan: Gastric adenocarcinoma with mets to bone, abdominal lymph node, possibly brain and pleural fluid Patient was seen palliative care previously Palliative care on board during this hospitalization (5) Failure to thrive: Plan: Continue dronabinol and olanzapine (6) Hypertension: Plan: Continue metoprolol succinate 25mg PO QAM (7) Constipation: Plan: Continue MiraLAX x3/wk and monitor BM (8) Anxiety: Plan: Continue fluoxetine (9) Bilateral leg pain: Plan: Continue gabapentin MRI repeated last admission for her back (10) Atrial tachycardia: Plan: Continue flecainide and metoprolol (11) Severe protein-calorie malnutrition: Plan: Boost drinks Consult application integration architect Plan VTE Prophlaxis -start Lovenox Diet - regular Disposition -likely discharge soon. Consult PT and OT Admission and Anticipated Discharge Date Admission Date: November 30, 2022 Subjective Patient states that she feels weaker today. She complains of feeling thirsty. She was able to participate with therapy earlier however she was not able to do much. The is at the bedside and had noticed that she was saying things that did not make much sense. She was able to answer all my orientation questions correctly however Physical Exam Physical Exam: General: Awake, conversant, looks pale and tired Heart: S1, S2/regular rate and rhythm, no murmur rubs or gallops Lungs: Diminished breath sounds bilaterally. Normal effort. Dressing on bilateral lower thorax where Pleurx catheter was placed Abdomen: Soft/nontender/nondistended. No hepatosplenomegaly Extremities: No clubbing/cyanosis. No edema Behavior: Appropriate, cooperative Results & Data Results & Data Vital Signs (Past 12 Hours) Vital Signs Temp Pulse Pulse Resp BP Pulse Ox O2 Del Method 12/02/22 14:49 36.4 C L 74 18 110/68 98 Room Air 12/02/22 11:04 37.1 C 77 16 89/60 L 98 Room Air 12/02/22 07:30 75 12/02/22 07:30 Room Air 12/02/22 07:16 36.3 C L 77 16 121/70 99 Room Air PG Care Time/CCT Total # of Minutes Spent Total Time Spent with Patient: Total time spent is greater than 50% in coordination of care (as documented) at patient's floor/unit and/or counseling patient: Coding Level of Care Code 45386 SUB INP/OBS CARE 2/35MIN Diagnoses Shortness of breath on exertion R06.02 Pleural effusion J90 Gastric adenocarcinoma C16.9 Metastatic disease C79.9 Failure to thrive Hypertension I10 Hypertension type: unspecified Constipation K59.00 Anxiety F41.9 Bilateral leg pain M79.604; M79.605 Atrial tachycardia I47.1 Severe protein-calorie malnutrition E43 (6) Hypertension Hypertension type: unspecified Qualified Code(s): I10 - Essential (primary) hypertension
[2022-12-02] MEDS: SODIUM CHLORIDE 0.9% 1000ML 1,000 ML IV SCH (16:58)
[2022-12-02] MEDS: OLANZapine ZYDIS 5 MG ORALLY DIS. TAB PO SCH (20:43)
[2022-12-03] MEDS: LEVOTHYROXINE SODIUM 25 MCG TABLET PO SCH (06:30)
[2022-12-03] MEDS: SODIUM CHLORIDE 0.9% 1000ML 1,000 ML IV SCH ×2 (06:41→07:28)
[2022-12-03 07:14] LABS: BUN Creatinine Ratio 48.2 (10-20); Calcium 8.1 mg/dl (8.6-10.3); Creatinine Clr Calc Pharmacy 78.1 ml/min; Est GFR (African American) 105.7 ml/min; Est GFR (Non-African American) 91.2 ml/min; Potassium 4.2 mmol/L (3.5-5.1)
[2022-12-03 07:18] LABS: Hematocrit (blood only) 26.1 % (37.0-47.0); Hemoglobin 8.2 g/dl (12.0-16.0); Mean Corpuscular Hemoglobin 30.4 pg (25.0-34.0); Mean Corpuscular Hgb Conc 31.4 g/dL (32.0-36.0); Mean Corpuscular Volume 96.7 fL (80.0-100.0); Mean Platelet Volume 9.8 fL (9.4-12.4); Platelet Count 113 K/uL (130-400); RDW Coefficient of Variation 19.3 % (11.5-14.5); RDW Standard Deviation 66.9 fL (36.4-46.3); White Blood Count 4.98 K/ul (4.8-10.8)
[2022-12-03 07:20] LABS: Anisocytosis Present; Basophils # (auto) 0.01 K/uL (0-0.2); Basophils % (auto) 0.2 %; Immature Granulocytes # (auto) 0.05 K/uL (0.01-0.20); Monocytes # (auto) 0.61 K/uL (0.11-0.59); Monocytes % (auto) 12.2 %; Neutrophils # (auto) 4.21 K/uL (1.40-6.50); Neutrophils % (auto) 84.6 %; Platelet Estimate Decreased (Normal); Polychromasia 1+
[2022-12-03] MEDS: MULTIVITAMIN TAB PO SCH (09:22)
[2022-12-03] MEDS: GABAPENTIN 100 MG CAP PO SCH ×2 (09:22→20:05)
[2022-12-03] MEDS: PANTOprazole 40 MG TAB PO SCH ×2 (09:22→20:05)
[2022-12-03] MEDS: ASPIRIN 81 MG ECTAB PO SCH (09:22)
[2022-12-03] MEDS: SUCRALFATE 1 GM TAB PO SCH ×2 (09:22→20:05)
[2022-12-03] MEDS: FLECAINIDE ACETATE 100 MG TABLET PO SCH ×2 (09:22→20:05)
[2022-12-03] MEDS: POTASSIUM CHLORIDE 10 MEQ TABCR PO SCH ×2 (09:22→20:05)
[2022-12-03] MEDS: ENOXAPARIN INJ 40 MG/0.4 ML SYR SQ SCH (09:22)
[2022-12-03] MEDS: FOLIC ACID 400 MCG TAB PO SCH (09:22)
[2022-12-03] MEDS: METOPROLOL SUCC 25MG EXT REL TAB PO SCH (09:22)
[2022-12-03] MEDS: FLUoxetine HCL 10 MG CAP PO SCH (09:23)
[2022-12-03] MEDS: CYANOCOBALAMIN (B-12) 500 MCG TABLET PO SCH (09:23)
--- NOTE | 2022-12-03 13:27 | Hospitalist Progress Note ---
Date of Service December 03, 2022 Assessment & Plan (1) Brain metastases: Plan: Patient had previously identified brain mets in 10/2022. Also during her initial cancer work-up she had undergone lumbar puncture and CSF was suspicious for cancer cells contained therein as well. CT head today with progressive metastatic disease of the brain. There is vasogenic edema surrounding the intra-cranial lesions. Will start dexamethasone 4mg IV q12h. Some of her altered MS is likely from these lesions. (2) Encephalopathy acute: Plan: Likely combination of zyprexa + brain mets. HOLD zyprexa. See #1 above. (3) Malignant pleural effusion: Plan: Patient had b/l Pleurx catheters placed 12/01 Left side drained 1100 cc initially Right side drained 700 cc initially Dyspnea resolved with above Drain every other day including today (4) Gastric adenocarcinoma: Plan: stage 4, progressive/aggressive cancer, with numerous mets to multiple bony regions (spine, calvarium, etc), liver, lymph nodes, adrenal gland, lungs, pleural spaces, brain, possible CSF now with progressive brain mets - adding dexamethasone I corresponded with Dr Campbell regarding the CT head findings He will formally consult tomorrow Palliative care is already following (5) Metastatic disease: Plan: as above (6) Failure to thrive: Plan: marinol stopped - ineffective for anorexia STOP zyprexa - may be lethargic due to such very poor prognosis given her progressive cancer (7) Hypertension: Plan: Continue metoprolol succinate 25mg PO QAM (8) Constipation: Plan: Continue MiraLAX (9) Anxiety: Plan: Continue fluoxetine (10) Bilateral leg pain: Plan: Continue gabapentin MRI repeated last admission without spinal cord compromise (11) Atrial tachycardia: Plan: Continue flecainide for rhythm control and metoprolol Stable on telemetry (12) Severe protein-calorie malnutrition: Plan: 2nd to stage 4 cancer steroids for brain mets may help (13) Elevated LFTs: Plan: 2nd to liver and bone mets; alk phos and AST primarily are affected trend (14) Pulmonary embolism: Plan: 10/2022 was previously on anticoagulation but then stopped due to GI bleeding lovenox 40mg daily for DVT/PE prophy (15) CAD (coronary artery disease): Plan: no ischemic symptoms at this time remains on BB and aspirin statin stopped due to #13 (16) Hypothyroidism: Plan: new dx as of last admission started synthroid at that time Plan VTE Prophlaxis - Lovenox Diet - regular ?thrush - nystatin updated pt's at bedside, then again late in the day after CT head findings were available pt/family had hoped for [facility] after discharge, but given the progressive brain mets, lethargy, etc - she is not ready for discharge await oncology consult to determine next steps in plan of care Admission and Anticipated Discharge Date Admission Date: November 30, 2022 Subjective patient very sleepy during the visit she was sitting in the chair but had requested to get back in bed because she was very tired she reports having worked with PT today and felt that she "did ok" eating/drinking are modestly improved over the last week she denies pain over the pleurX insertion sites denies dyspnea denies pain in any other location including her back or abdomen denies recent dark or melena stools no headache tele overnight - no SVT/PAT Review of Systems Review of Systems: gen - no fevers; sleepy; ongoing poor appetite cv - no chest pain pulm - no dyspnea GI - no nausea or emesis Physical Exam Physical Exam: gen - cachectic, sleepy, seems confused relatively to my earlier visits during prior hospitalization mouth - MM dry neck - no JVD eyes - PERRL CV - RRR, s1 s2 lungs - decreased BS bases, otherwise CTA b/l; b/l pleurX catheters in place abd - soft NT ND BS+ ext - right leg trace edema, none on left, pulses 2+ b/l neuro - strength 5/5 x 4 exts psych - sleepy, seems slightly confused Results & Data Results & Data Vital Signs (Past 12 Hours) Vital Signs Temp Pulse Pulse Resp BP Pulse Ox O2 Del Method 12/03/22 11:41 36.4 C L 71 16 91/58 L 100 Room Air 12/03/22 07:40 77 12/03/22 07:40 Room Air 12/03/22 07:11 36.6 C 80 16 113/64 97 Room Air 12/03/22 03:25 36.7 C 70 18 102/68 97 Room Air Laboratory Results Laboratory Results - last 24 hr 12/03/22 12/03/22 06:26 06:26 WBC 4.98 RBC 2.70 L Hgb 8.2 L Hct 26.1 L MCV 96.7 MCH 30.4 MCHC 31.4 L RDW Std Deviation 66.9 H RDW Coeff of Tana 19.3 H Plt Count 113 L MPV 9.8 Immature Gran % (Auto) 1.0 Neut % (Auto) 84.6 Lymph % (Auto) 2.0 [place] % (Auto) 12.2 Eos % (Auto) 0.0 Baso % (Auto) 0.2 Neut # (Auto) 4.21 Lymph # (Auto) 0.10 L [place] # (Auto) 0.61 H Eos # (Auto) 0.00 Baso # (Auto) 0.01 Immature Gran # (Auto) 0.05 Platelet Estimate Decreased L Polychromasia 1+ Anisocytosis Present Sodium 138 Potassium 4.2 Chloride 109 H Carbon Dioxide 22 Anion Gap 7 BUN 27 H Creatinine 0.56 L Est Cr Clr Drug Dosing 78.1 Est GFR ( Amer) 105.7 Est GFR (Non-Af Amer) 91.2 BUN/Creatinine Ratio 48.2 H Glucose 94 Calcium 8.1 L Diagnostic Findings Head CT 12/03/22 13:[address] DOSE: 690.05 mGycm HISTORY: stage 4 cancer, brain mets ?, altered MS TECHNIQUE: Multiaxial CT images of the head were performed without the use of intravenous contrast. Automated exposure control was utilized for this study. A dose lowering technique was utilized adhering to the principles of ALARA. Comparison: Head CT 10/17/2022. Findings: There is a small left mastoid effusion, unchanged. The paranasal sinuses and right mastoid air cells are clear. There is no change in the extensive calvarial metastatic disease. No calvarial fractures identified. There is no hematoma or midline shift. No acute infarcts identified. Redemonstration of the left-sided dural thickening consistent with metastatic disease. There is also thickening within the posterior falx with a 1.7 cm hyperdense right parietal lesion on image 16. There is surrounding vasogenic edema. This has increased in size in the interval. An additional dural based lesion within the left high convexity on image 23 has also increased in size. This measures 15 mm, previously measuring 8 mm. Mild vasogenic edema within the left parietal lobe on image 15 is new from the prior study. Therefore, this also likely represents an underlying lesion. Impression: 1. Interval progression of the intracranial metastatic disease as described above. 2. No acute infarct or acute intracranial hemorrhage. 3. Extensive calvarial metastatic disease again noted. ACT 112: Negative or not required by law. Electronically signed by: Kieran Smith M.D. 12/03/2022 3:21 PM PG Care Time/CCT Total # of Minutes Spent Total Time Spent with Patient: Total time spent is greater than 50% in coordination of care (as documented) at patient's floor/unit and/or counseling patient: Coding Level of Care Code 27203 SUB INP/OBS CARE 350MIN Diagnoses Brain metastases C79.31 Encephalopathy acute G93.40 Malignant pleural effusion J91.0 Gastric adenocarcinoma C16.9 Metastatic disease C79.9 Failure to thrive Hypertension I10 Hypertension type: unspecified Constipation K59.00 Anxiety F41.9 Bilateral leg pain M79.604; M79.605 Atrial tachycardia I47.1 Severe protein-calorie malnutrition E43 Elevated LFTs R79.89 Pulmonary embolism I26.99 CAD (coronary artery disease) I25.10 Hypothyroidism E03.9 (7) Hypertension Hypertension type: unspecified Qualified Code(s): I10 - Essential (primary) hypertension
--- NOTE | 2022-12-03 15:22 | CT Scan Report ---
HEAD CT NONCONTRAST CT DOSE: 690.05 mGycm HISTORY: stage 4 cancer, brain mets ?, altered MS TECHNIQUE: Multiaxial CT images of the head were performed without the use of intravenous contrast. A utomated exposure control was utilized for this study. A dose lowering technique was utilized adheri ng to the principles of ALARA. Comparison: Head CT 10/17/2022. Findings: There is a small left mastoid effusion, unchanged. The paranasal sinuses and right mastoid air cells are clear. There is no change in the extensive calvarial metastatic disease. No calvarial f ractures identified. There is no hematoma or midline shift. No acute infarcts identified. Redemonstra tion of the left-sided dural thickening consistent with metastatic disease. There is also thickening within the posterior falx with a 1.7 cm hyperdense right parietal lesion on image 16. There is surrou nding vasogenic edema. This has increased in size in the interval. An additional dural based lesion w ithin the left high convexity on image 23 has also increased in size. This measures 15 mm, previously measuring 8 mm. Mild vasogenic edema within the left parietal lobe on image 15 is new from the prior study. Therefore, this also likely represents an underlying lesion. Impression: 1. Interval progression of the intracranial metastatic disease as described above. 2. No acute infarct or acute intracranial hemorrhage. 3. Extensive calvarial metastatic disease again noted. ACT 112: Negative or not required by law. Electronically signed by: Kieran Smith M.D. 12/03/2022 3:21 PM
[2022-12-03] MEDS: dexAMETHasone 4 MG in SYRINGE 0 ML IV SCH (17:07)
[2022-12-04] MEDS: dexAMETHasone 4 MG in SYRINGE 0 ML IV SCH ×2 (05:15→17:10)
[2022-12-04] MEDS: LEVOTHYROXINE SODIUM 25 MCG TABLET PO SCH (05:15)
[2022-12-04 06:53] LABS: Hematocrit (blood only) 26.2 % (37.0-47.0); Hemoglobin 8.2 g/dl (12.0-16.0); Mean Corpuscular Hemoglobin 30.4 pg (25.0-34.0); Mean Corpuscular Hgb Conc 31.3 g/dL (32.0-36.0); Mean Platelet Volume 10.4 fL (9.4-12.4); Platelet Count 160 K/uL (130-400); RDW Coefficient of Variation 19.1 % (11.5-14.5); RDW Standard Deviation 67.6 fL (36.4-46.3); White Blood Count 5.92 K/ul (4.8-10.8)
[2022-12-04 07:12] LABS: Creatinine Clr Calc Pharmacy 79.5 ml/min; Est GFR (African American) 106.3 ml/min; Est GFR (Non-African American) 91.8 ml/min
[2022-12-04 07:15] LABS: BUN Creatinine Ratio 45.6 (10-20); Calcium 8.3 mg/dl (8.6-10.3); Creatinine Clr Calc Pharmacy 76.7 ml/min; Est GFR (African American) 105.1 ml/min; Est GFR (Non-African American) 90.7 ml/min; Potassium 4.6 mmol/L (3.5-5.1)
[2022-12-04] MEDS: NYSTATIN SUSP 500,000 U/5 ML UDC PO SCH ×4 (09:05→20:27)
[2022-12-04] MEDS: FLUoxetine HCL 10 MG CAP PO SCH (09:05)
[2022-12-04] MEDS: POTASSIUM CHLORIDE 10 MEQ TABCR PO SCH ×2 (09:06→20:27)
[2022-12-04] MEDS: METOPROLOL SUCC 25MG EXT REL TAB PO SCH (09:06)
[2022-12-04] MEDS: FOLIC ACID 400 MCG TAB PO SCH (09:06)
[2022-12-04] MEDS: ENOXAPARIN INJ 40 MG/0.4 ML SYR SQ SCH (09:07)
[2022-12-04] MEDS: MULTIVITAMIN TAB PO SCH (09:07)
[2022-12-04] MEDS: PANTOprazole 40 MG TAB PO SCH ×2 (09:07→20:27)
[2022-12-04] MEDS: CYANOCOBALAMIN (B-12) 500 MCG TABLET PO SCH (09:07)
[2022-12-04] MEDS: ASPIRIN 81 MG ECTAB PO SCH (09:07)
[2022-12-04] MEDS: FLECAINIDE ACETATE 100 MG TABLET PO SCH ×2 (09:07→20:28)
[2022-12-04] MEDS: SUCRALFATE 1 GM TAB PO SCH ×2 (09:08→20:27)
[2022-12-04] MEDS: GABAPENTIN 100 MG CAP PO SCH ×2 (09:08→20:27)
--- NOTE | 2022-12-04 21:49 | Hospitalist Progress Note ---
Date of Service December 04, 2022 Assessment & Plan (1) Brain metastases: Plan: Patient had previously identified brain mets in 10/2022. Also during her initial cancer work-up she had undergone lumbar puncture and CSF was suspicious for cancer cells contained therein as well. There was meningeal spread of her cancer. CT head today with progressive metastatic disease of the brain. There is vasogenic edema surrounding the intra-cranial lesions in the parietal lobes. Started dexamethasone 4mg IV q12h on 12/03. Some of her altered MS is likely from these lesions. Mental status is MUCH better today. (2) Encephalopathy acute: Plan: Likely combination of zyprexa + brain mets. Zyprexa stopped. Treating #1. IMPROVED today. See #1 above. (3) Diplopia: Plan: this is likely 2nd to brain mets uncertain if she has a new brainstem met affecting a cranial nerve or if there is leptomeningeal mets causing such consider MRI brain (4) Malignant pleural effusion: Plan: Patient had b/l Pleurx catheters placed 12/01 Left side drained 1100 cc initially Right side drained 700 cc initially Dyspnea resolved with above Drain every other day (5) Gastric adenocarcinoma: Plan: stage 4, progressive/aggressive cancer, with numerous mets to multiple bony regions (spine, calvarium, etc), liver, lymph nodes, adrenal gland, lungs, pleural spaces, brain, possible CSF now with progressive brain mets - added dexamethasone Appreciate Dr Campbell's consultation and plan of care See his excellent consultation note Plan - rehab at [facility]; re-eval in 2 weeks to see if performance status is better; possibly consider chemo then if strength/conditioning is better and it is felt she could tolerate chemo change lovenox to 30mg BID for DVT/PE proph cont steroids consider MRI brain (6) Metastatic disease: Plan: as above (7) Failure to thrive: Plan: marinol stopped - ineffective for anorexia STOPPED zyprexa - may have been lethargic due to such very poor prognosis given her progressive cancer (8) Hypertension: Plan: Continue metoprolol succinate 25mg PO QAM (9) Constipation: Plan: Continue MiraLAX (10) Anxiety: Plan: Continue fluoxetine (11) Bilateral leg pain: Plan: Continue gabapentin MRI repeated last admission without spinal cord compromise (12) Atrial tachycardia: Plan: Continue flecainide for rhythm control and metoprolol Stable on telemetry (13) Severe protein-calorie malnutrition: Plan: 2nd to stage 4 cancer steroids for brain mets may help (14) Elevated LFTs: Plan: 2nd to liver and bone mets; alk phos and AST primarily are affected repeat LFTs am (15) Pulmonary embolism: Plan: 10/2022 was previously on anticoagulation but then stopped due to GI bleeding resume lovenox 0.5mg/kg BID cautiously (16) CAD (coronary artery disease): Plan: no ischemic symptoms at this time remains on BB and aspirin statin stopped due to #13 (17) Hypothyroidism: Plan: new dx as of last admission started synthroid at that time Plan VTE Prophlaxis - Lovenox Diet - regular ?thrush - cont nystatin /daughter updated at bedside appreciate Dr Campbell's consultation dispo - [facility] still Admission and Anticipated Discharge Date Admission Date: November 30, 2022 Subjective patient complaining of "blurry" vision & double vision particularly with right- luque gaze the blurry vision has been present "for weeks" the double vision - uncertain when it started - perhaps 1-2 days? she is MUCH more awake/alert daughter, at bedside - they agree she is much better did eat / drink a little better today during my visit Dr Campbell arrived from heme/onc - discussion to be held about overall care plan, whether to have chemo, whether to pursue rehab, etc Review of Systems Review of Systems: cv - no cp pulm - no dyspnea GI - no nausea or pain Physical Exam Physical Exam: gen - cachectic, but much more awake/alert today; looks overall better than yesterday eyes - PERRL; with extraocular muscle testing ? CN 6 or CN 3 palsy right eye? with rightward gaze she reports diplopia; with leftward gaze and forward gaze no diplopia mouth - MM more moist today but still a little dry neck - no JVD CV - RRR, s1 s2, no murmur lungs - decreased BS bases, otherwise CTA b/l abd - soft NT ND BS+ ext - right leg trace edema, none on left, pulses 2+ b/l neuro - strength 5/5 x 4 exts psych - awake, alert Results & Data Results & Data Vital Signs (Past 12 Hours) Vital Signs Temp Pulse Pulse Resp BP Pulse Ox O2 Del Method 12/04/22 19:08 36.6 C 64 16 111/70 94 Room Air 12/04/22 16:25 73 12/04/22 15:50 36.4 C L 70 15 113/67 96 Room Air 12/04/22 11:59 97 12/04/22 11:15 36.9 C 65 16 107/64 98 Room Air Laboratory Results Laboratory Results - last 24 hr 12/04/22 12/04/22 12/04/22 05:42 05:42 05:42 WBC 5.92 RBC 2.70 L Hgb 8.2 L Hct 26.2 L MCV 97.0 MCH 30.4 MCHC 31.3 L RDW Std Deviation 67.6 H RDW Coeff of Tana 19.1 H Plt Count 160 MPV 10.4 Sodium 138 Potassium 4.6 Chloride 108 H Carbon Dioxide 19 L Anion Gap 11 BUN 26 H Creatinine 0.55 L 0.57 L Est Cr Clr Drug Dosing 79.5 76.7 Est GFR ( Amer) 106.3 105.1 Est GFR (Non-Af Amer) 91.8 90.7 BUN/Creatinine Ratio 45.6 H Glucose 93 Calcium 8.3 L Magnesium 2.0 PG Care Time/CCT Total # of Minutes Spent Total Time Spent with Patient: Total time spent is greater than 50% in coordination of care (as documented) at patient's floor/unit and/or counseling patient: Coding Level of Care Code 87677 SUB INP/OBS CARE 3/50MIN Diagnoses Brain metastases C79.31 Encephalopathy acute G93.40 Diplopia H53.2 Malignant pleural effusion J91.0 Gastric adenocarcinoma C16.9 Metastatic disease C79.9 Failure to thrive Hypertension I10 Hypertension type: unspecified Constipation K59.00 Anxiety F41.9 Bilateral leg pain M79.604; M79.605 Atrial tachycardia I47.1 Severe protein-calorie malnutrition E43 Elevated LFTs R79.89 Pulmonary embolism I26.99 CAD (coronary artery disease) I25.10 Hypothyroidism E03.9 (8) Hypertension Hypertension type: unspecified Qualified Code(s): I10 - Essential (primary) hypertension
--- NOTE | 2022-12-04 21:54 | Consultation ---
Date of Consultation December 04, 2022 Assessment & Plan (1) Brain metastases: While CSF was suspicious but not definitive when obtained 11/12/2022, the evolving changes on two-dimensional imaging of the brain are fairly convincing for meningeal involvement with her malignancy. As discussed on the gastric adeno carcinoma this does sloan poorly but there are at least some anecdotal descriptions of good response to intrathecal methotrexate given in conjunction with systemic therapy. (2) Gastric adenocarcinoma: Initially presenting as an abdominal mass and widespread bony metastases and now seems to be more definitive indication of progressive [employer] involvement as well as probable pulmonary/pleural and hepatic metastases. Patient's performance status upon presentation was acutely worsened though with discontinuation of her Zyprexa and institution of steroid she is recovered to an approximately ECOG 3 Pivotal issue is whether she is indeed at all a candidate for chemotherapy given her poor performance status and aggressive disease. I spoke quite frankly with the patient, her , and her daughter all present in the room and her son who joined by speaker phone. We did outline that chemotherapy can have sometimes life shortening complications and that it would be difficult to give her aggressive dosing at least in her current state. We discussed the alternative option of palliative care transitioning to hospice. We discussed that [employer] involvement poses a particular challenge as it is not likely we will get good penetration of her chemotherapy to that organ so she would likely also require intrathecal therapy. Moreover, the outlook for patients with FISH SK[employer]ING MACHINE [employer]EDER involv ement from solid malignancies is quite poor. That being said, her mental status/cognitive improvement with the institution of steroids and discontinuation of Zyprexa is encouraging and much of her current performance status compromise probably reflects the deconditioning that resulted from her prolonged hospitalizations for previous GI bleed and uncontrolled pain. I believe the patient and her family well understand the difficult prognosis she faces, that we cannot at all expect a significant or durable response to chemotherapy, but she would like to work towards improvement of her performance status with a transfer to an inpatient rehab facility. If she can further improve to at least ECOG 2 level performance we could discuss cautious chemotherapy but with the caveats of significant potential toxicity and uncertain benefit as above. Unfortunately with microsatellite stable status and lack of PDL1 expression she would not be expected to respond to ICI. Negative HER2 screen excludes any role for anti-HER2 therapy. (3) Anemia: Persistent anemia even after both ferritin and percent iron saturation are in good range with previous intravenous supplements. We had formally attributed this to iron deficiency related to GI losses from the primary lesion in the stomach but now may have to consider a broader differential particularly with the potential that she has joanne marrow infiltration from her underlying malignancy. That would not be surprising in the context of the widespread skeletal involvement. Hemoglobin levels are adequate and do not need immediate replacement, nutritional studies are otherwise stable and reticulocyte count is low the latter suggesting against any major pathologic hemolysis. If/as her performance status improves sufficiently to consider chemotherapy we may need to consider incorporating a marrow aspiration and biopsy to best understand her marrow status in terms of how aggressively we can pursue chemotherapy (higher dose intensity if there is marrow involvement to clear the marrow, lower dose intensity if there is a separate MDS or other marrow dysfunction) (4) Pulmonary embolism: Pulmonary embolism first presentation consistent with a Trousseau's like hypercoagulability , she has been off of anticoagulation for several weeks because of ongoing GI bleed. With probable splanchnic origin of her pulmonary emboli it was not felt that an IVC filter would be worthwhile. Status post radiation to the gastric lesion, clinically her melena seems to have resolved. Would suggest that we can resume "prophylactic" dose enoxaparin and if she remains stable on that for a number of days consider cautious increase to half usual doses thereafter. Recurrent bleeding is certainly a great concern but so is the possibly for a more significant new VTE event (5) Malignant pleural effusion: Pleural effusions are cytologically positive for gastric adenocarcinoma. Pleurx catheters have led to some improvement in respiratory function. Will defer to pulmonary medicine for optimal duration of the replacement but the more definitive drainage that can be accomplished the better as this may lead to some spontaneous sealing of the pleura and short-term prevention of significant reaccumulation. Plan After extensive discussion we have not completely excluded future chemotherapy but all acknowledge the concern that its risks outweigh the benefits at this time given her particular status Anticipate transfer to an inpatient rehab facility with the hopes that there can be further improvement in performance status that might enable revisiting chemotherapy options Even if she does achieve that improved improved PS, however, her overall disease burden is significant with rapid progression in multiple organs and particular involvement of the [employer]ER. We will need to continue to emphasize that a pure palliative care option may offer not just short-term improvement in quality of life but ironically potential for longer survival by avoiding the potential life-threatening complications of cytotoxics. We will resume prophylactic doses of enoxaparin and as long as there is no bleeding associated with that, to transition to 0.5 mg/kg bid dosing. Have discussed the potential for [employer] bleeding but given meningeal rather than discrete globular involvement of the [employer]ER that seems to be not an excessively high risk and would be very concerned about a new and more traumatic VTE event without anticoagulation at all. If she does well in transitions through each of those initial stages we can consider returning to a "full dose" in time perhaps with an oral agent Overall prognosis remains quite challenging, however, and the patient and family seem well aware of that. Ongoing palliative care involvement even following discharge could be quite helpful History of Present Illness Reason for Consultation: Patient with recently diagnosed metastatic gastric adenocarcinoma admitted with cognitive deterioration and general failure to thrive Attending Physician: Andrez Womack History of Present Illness Patient does have a remote history of breast cancer diagnosed in 1998 with IIB left-sided hormone receptor positive disease status post lumpectomy, adjuvant AC-T chemotherapy and subsequent radiation followed by 4 years of tamoxifen and 5 years of letrozole on clinical trial. There has been no specific signs of recurrence that disease and the current process seems to be an independent malignancy She had never completely recovered from in July, COVID19 infection with ongoing back and worsening leg pain ultimately culminating in October, imaging showing multifocal bony metastasis. Additional imaging showed an abdominal mass associated with the stomach but successive 10/18/2022 and 10/25/2022 EGDs were nondiagnostic though malignancy was suspected. Ultimately, malignant diagnosis was established 11/12/[address]-guided iliac bone biopsy showing a metastatic adenocarcinoma with features consistent with a gastric primary. The lesion was ER/CO negative, HER2 negative, Wood-TRK negative, with a PDL1 of 0%. The lesion was microsatellite stable Patient has had successive hospitalizations for GI bleeding and uncontrolled pain, palliation was focused initially on radiation to the back and to the a bdominal lesion. She did have a pulmonary embolism at first presentation but anticoagulation has been on indefinite hold in the context of the GI bleed. Because the origin of that clot was felt to be from the splanchnic circulation, it was not felt that an IVC filter would be worthwhile. She has had no specific new episodes of VTE Based on some headache and initial [employer] symptomatology, MRI of the brain did show some meningeal changes, CSF fluid sampled 11/12/2022 was not diagnostic but raise suspicion of possible malignant meningitis Patient had been recovering with intentions to start systemic chemotherapy this week but was acutely admitted with deteriorating mental status and overall weakness Allergies Allergy/AdvReac Type Severity Reaction Status Date / Time alendronate sodium AdvReac Intermediate Unable to Verified 11/11/22 15:29 [From Fosamax] ambulate Home Medications Medication Instructions Recorded Confirmed Type aspirin 81 mg tablet,delayed 81 mg PO QAM 04/03/21 11/18/22 History release biotin 1 mg capsule 1 mg PO QAM 04/03/21 11/18/22 History vposafzwfcjc-gxwxrnkc-yteqtf 1 tab PO QAM 04/03/21 11/18/22 History tablet (Multivitamin 50 Plus tablet) nitroglycerin 0.4 mg sublingual 0.4 mg sublingual UD PRN chest 04/05/21 11/18/22 Rx tablet (Nitrostat) pain #25 tabs acetaminophen 650 mg 650 mg PO QPM PRN Pain 05/24/22 11/18/22 History tablet,extended release (Tylenol Arthritis Pain) vitamin B12 500 mcg-folic acid 400 1 tab PO DAILY #30 tabs 08/13/22 11/18/22 Rx mcg tablet fluoxetine 10 mg capsule 10 mg PO QAM 10/24/22 11/18/22 History tramadol 50 mg tablet 50 mg PO Q6 PRN pain 11/14/22 11/18/22 History dronabinol 2.5 mg capsule 2.5 mg PO BIDM #30 caps 11/23/22 Rx flecainide 100 mg tablet 100 mg PO BID #60 tabs 11/23/22 Rx levothyroxine 25 mcg tablet 25 mcg PO DAILYBB #30 tabs 11/23/22 Rx (Synthroid) metoprolol succinate 50 mg 25 mg PO QAM #1 tab 11/23/22 11/18/22 Rx tablet,extended release 24 hr potassium chloride 10 mEq 10 meq PO DAILY #30 tabs 11/23/22 Rx tablet,extended release sucralfate 1 gram tablet (Carafate) 1 g PO BID #60 tabs 11/23/22 Rx gabapentin 100 mg capsule 100 mg PO BID #60 caps 11/25/22 Rx pantoprazole 40 mg tablet,delayed 40 mg PO BID #60 tabs 11/25/22 Rx release olanzapine 5 mg disintegrating 2.5 mg PO HS #30 tabs 11/26/22 11/26/22 Rx tablet (Zyprexa Zydis) Wheelchair (Manual) #1 ea 12/02/22 Rx Patient History Medical History Advanced care planning/counseling discussion Anemia REASON FOR PROCEDURE Arthritis CAD (coronary artery disease) Cancer INCLOCLUSIVE OF SOURCE>BIOPSY, EGD DONE PRIOR (REASON FOR PROCEDURE TOMORROW)>LOCATED IN SPINE Elevated LFTs Gastric adenocarcinoma GI bleed History of COVID-19 07/2022>FATIGUE CONT. HX: breast cancer SX/CHEMO/RADIATION Hyperlipidemia Hypertension Implantable loop recorder present Multiple pulmonary nodules determined by computed tomography of lung Nausea Non-ST elevation (NSTEMI) myocardial infarction 2020 Osteopenia Palliative care by specialist Paroxysmal atrial tachycardia Pulmonary embolism RECENT HOSPITALIZATION FOR PE AT [facility]>REASON FOR ELIQUIS ? REASON Restless leg syndrome Surgical History H/O: hysterectomy PARTIAL History of appendectomy History of colonoscopy History of esophagogastroduodenoscopy (EGD) History of lumpectomy of left breast LEFT ARM RESTRICTION History of tonsillectomy History of tooth extraction History of wisdom tooth extraction Nausea and vomiting after administration of anesthetic agent Port-A-Cath in place (11/21/22) Insertion of Port Access into Right Internal Jugular Vein(Right) - Patel Arshad, S/P coronary artery stent placement 2020>2 STENTS PLACED (FOLLOWED BY DR. DURHAM) Family History Mother Breast cancer Father Stroke Denies family history of Ovarian cancer Prostate cancer Myocardial infarction Colorectal cancer Social History Smoking Status: Never smoker Second Hand Exposure: No; Hx Alcohol Use: Yes Alcohol type: wine Hx Substance Use: No Preferred Language: Honduran Communication Ability: Effective Visual Impairment: No Limitations Hearing Ability: Normal [employer] Required: No Beliefs That Will Affect Care: None marital status: / Current Living Situation: Spouse current occupational status: retired Feels Safe at Home: Yes Childhood Exposure to Second-Hand Smoke: No caffeine: Yes during the past year weight has: decreased > 10 lbs Dental Care, Regularly: Yes Physical Activity Frequency: Daily Seatbelt Use: always Sunscreen Use: No Assistive Devices: Glasses and Walker Physical Exam Physical Exam: Patient is currently alert with stable vital signs. She is appropriate conversation. Still with some leg weakness but lung cardiac and abdominal examination seems stable. Results & Data Vital Signs (Past 12 Hours) Vital Signs Temp Pulse Pulse Resp BP Pulse Ox O2 Del Method 12/04/22 19:08 36.6 C 64 16 111/70 94 Room Air 12/04/22 16:25 73 12/04/22 15:50 36.4 C L 70 15 113/67 96 Room Air 12/04/22 11:59 97 12/04/22 11:15 36.9 C 65 16 107/64 98 Room Air Laboratory Results Abnormal lab results 12/04/22 12/04/22 12/04/22 Range/Units 05:42 05:42 05:42 RBC 2.70 L (4.20-5.40) M/uL Hgb 8.2 L (12.0-16.0) g/dl Hct 26.2 L (37.0-47.0) % MCHC 31.3 L (32.0-36.0) g/dL RDW Std Deviation 67.6 H (36.4-46.3) fL RDW Coeff of Tana 19.1 H (11.5-14.5) % Chloride 108 H (98-107) mmol/L Carbon Dioxide 19 L (21-32) mmol/L BUN 26 H (6-23) mg/dl Creatinine 0.55 L 0.57 L (0.6-1.2) mg/dl BUN/Creatinine Ratio 45.6 H (10-20) Calcium 8.3 L (8.6-10.3) mg/dl Diagnostic Findings Chest X-Ray 11/30/22 13:16 SINGLE VIEW CHEST CLINICAL HISTORY: Atypical chest pain. FINDINGS: An AP, portable, upright chest radiograph is compared to study dated 11/21/2022 and correlated with chest CT dated 11/18/2022. A right internal jugular central venous infusion port is unchanged in position. The heart is enlarged noting atherosclerotic calcification of the thoracic aorta. There is pulmonary vascular congestion and evidence of interstitial edema. There are left larger than right pleural effusions with dependent consolidation. No pneumothorax is seen. The skeletal structures are osteopenic. The bony thorax is grossly intact. IMPRESSION: 1. Cardiomegaly with evidence of congestive failure and pulmonary edema. 2. Left larger than right pleural effusions with dependent consolidation. ACT 112: Negative or not required by law. Electronically signed by: Landry Calloway M.D. 11/30/2022 3:33 PM Abdomen/Pelvis CT 11/30/22 13:56 CT ANGIOGRAM OF THE CHEST; CT SCAN OF THE ABDOMEN AND PELVIS WITH IV CONTRAST CLINICAL HISTORY: Dyspnea. Metastatic cancer. Generalized abdominal pain. COMPARISON STUDY: Chest CT dated 11/18/2024. MRI of the thoracic and lumbar spine dated 11/19/2022. TECHNIQUE: Following the IV administration of 115 of Optiray 320, CT angiogram of the chest is performed from the upper abdomen to the thoracic inlet utilizing the pulmonary embolus protocol. Images are reviewed in the axial, sagittal, coronal planes. 3-D MIPS images are created and assessed. Subsequently, CT scan of the abdomen and pelvis was performed from the lung bases to the proximal femora. Images are reviewed in the axial, sagittal, and coronal planes. IV contrast was administered without complication. A dose lowering technique was utilized adhering to the principles of ALARA. CT DOSE: 606.73 mGy.cm FINDINGS: CHEST: Thyroid: The right lobe is diminutive versus surgically absent. The left lobe is heterogeneous. Thoracic aorta: There is atherosclerotic calcification of the thoracic aorta, which is normal in caliber and demonstrates standard 3-vessel arch anatomy. No dissection is seen. Pulmonary vasculature: The pulmonary trunk is normal in caliber. There are no filling defects identified in the main, lobar, or segmental pulmonary arteries to indicate pulmonary embolus. Heart: The heart is enlarged and without pericardial effusion. There are coronary artery calcifications. Lungs and pleural spaces: There are moderate to large pleural effusions, left larger than right with dependent consolidation. The trachea and central airways are clear. Scattered ill-defined pulmonary nodules likely represent multifocal metastatic disease. A visitor services representative lesion in the right lung on image #148 measures up to 8 mm. These are similar to previous. Mediastinum: There is no mediastinal lymphadenopathy. Esophagus: Esophageal wall thickening is unchanged. Court: Clear. Axillae: There is no axillary lymphadenopathy. Bony thorax: The skeletal structures are osteopenic. Again seen is evidence of extensive/multifocal osteoblastic metastatic disease. Minimal epidural extension of tumor is seen anteriorly at T11. This was better assessed on the recent MRI. There is no CT evidence of significant central canal stenosis. Soft tissues: Postsurgical changes noted in the left breast. An electronic device is seen in the anterior chest wall. ABDOMEN AND PELVIS: Liver: The contrast-enhanced liver is normal in size, contour, and attenuation. There is minimal central intrahepatic biliary ductal dilatation. The hepatic veins and portal veins are patent. Again seen is evidence of multifocal hepatic metastatic disease. Lesions measure up to 3 cm. Lesions within the superior aspect of the liver have not significantly changed from the 11/18/[address] Gallbladder: The gallbladder is distended and there are small gallstones. There is no CT evidence of acute cholecystitis. Spleen: Normal in size and attenuation. Pancreas: Moderately atrophic and grossly unremarkable. Adrenal glands: A left adrenal metastasis measures 2.1 cm. The right adrenal gland is normal as imaged. Kidneys: The contrast enhanced kidneys are normal in size and without hydronephrosis. The kidneys enhance symmetrically. Abdominal vasculature: There is moderate to advanced atherosclerotic calcification and mild ectasia of the abdominal aorta. Bowel: The gastric mucosa appears thickened and hyperemic. There is moderate to advanced colonic diverticulosis without CT evidence of acute diverticulitis. No bowel obstruction is seen. The appendix is not visualized. Peritoneum: No intraperitoneal free air is seen. There is trace pelvic ascites. There is evidence of mesenteric and retroperitoneal metastatic disease. A 3.2 x 2.1 cm lesion is seen on image #230. Additional tiny implants are seen on images #191, #222, #233, and #257. An implant adjacent to the pancreatic tail is seen on image #148. Lymphadenopathy: Mildly enlarged retroperitoneal lymph nodes are consistent with metastatic disease. A left periaortic node on image #162 measures 14 mm short axis. Pelvic viscera: The bladder is normal as visualized. The uterus is surgically absent. No adnexal lesion is seen. Skeletal structures: The skeletal structures are osteopenic. There is extensive/multifocal osteoblastic metastatic disease. Metastatic disease likely involves several sacral neural foramina. Epidural extension of tumor is seen anteriorly at L5-S1. This was better assessed on the recent MRI. There is likely pathologic fracture of the sacrum. Soft tissues: There is soft tissue implants in the lower back. A lesion on image #214 measures up to 2.4 cm. IMPRESSION: 1. There is no evidence of pulmonary embolus in the main, lobar, or segmental pulmonary arteries. 2. Large pleural effusions, left larger than right with dependent consolidation. These have increased in size as compared to 11/18/2022. 3. Cardiomegaly. 4. There is evidence of extensive/diffuse multifocal osteoblastic metastatic disease. This is not appreciably changed from recent prior studies per 5. Epidural extension of tumor was much better stressed on the recent MRI examinations. There is no CT evidence of significant central canal stenosis. 6. There is likely pathologic fracture of the sacrum. 7. Pulmonary metastatic disease, hepatic metastatic disease, and the left adrenal metastasis have not significantly changed from the 11/18/[address] 8. There are metastatic implants throughout the retroperitoneum and mesentery, as well as soft tissue implants in the lower back. 9. Suspect cholelithiasis. 10. The gastric mucosa appears thickened and hyperemic. Correlate clinically for evidence of gastritis. Underlying mass lesion or metastatic implants would be possible to exclude. 11. Esophageal wall thickening is unchanged and suggests esophagitis. 12. Additional findings as above. ACT 112: Negative or not required by law. Electronically signed by: Landry Calloway M.D. 11/30/2022 4:12 PM Chest CTA 11/30/22 13:56 CT ANGIOGRAM OF THE CHEST; CT SCAN OF THE ABDOMEN AND PELVIS WITH IV CONTRAST CLINICAL HISTORY: Dyspnea. Metastatic cancer. Generalized abdominal pain. COMPARISON STUDY: Chest CT dated 11/18/2024. MRI of the thoracic and lumbar spine dated 11/19/2022. TECHNIQUE: Following the IV administration of 115 of Optiray 320, CT angiogram of the chest is performed from the upper abdomen to the thoracic inlet utilizing the pulmonary embolus protocol. Images are reviewed in the axial, sagittal, coronal planes. 3-D MIPS images are created and assessed. Subsequently, CT scan of the abdomen and pelvis was performed from the lung bases to the proximal femora. Images are reviewed in the axial, sagittal, and coronal planes. IV contrast was administered without complication. A dose lowering technique was utilized adhering to the principles of ALARA. CT DOSE: 606.73 mGy.cm FINDINGS: CHEST: Thyroid: The right lobe is diminutive versus surgically absent. The left lobe is heterogeneous. Thoracic aorta: There is atherosclerotic calcification of the thoracic aorta, which is normal in caliber and demonstrates standard 3-vessel arch anatomy. No dissection is seen. Pulmonary vasculature: The pulmonary trunk is normal in caliber. There are no filling defects identified in the main, lobar, or segmental pulmonary arteries to indicate pulmonary embolus. Heart: The heart is enlarged and without pericardial effusion. There are coronary artery calcifications. Lungs and pleural spaces: There are moderate to large pleural effusions, left larger than right with dependent consolidation. The trachea and central airways are clear. Scattered ill-defined pulmonary nodules likely represent multifocal metastatic disease. A visitor services representative lesion in the right lung on image #148 measures up to 8 mm. These are similar to previous. Mediastinum: There is no mediastinal lymphadenopathy. Esophagus: Esophageal wall thickening is unchanged. Court: Clear. Axillae: There is no axillary lymphadenopathy. Bony thorax: The skeletal structures are osteopenic. Again seen is evidence of extensive/multifocal osteoblastic metastatic disease. Minimal epidural extension of tumor is seen anteriorly at T11. This was better assessed on the recent MRI. There is no CT evidence of significant central canal stenosis. Soft tissues: Postsurgical changes noted in the left breast. An electronic device is seen in the anterior chest wall. ABDOMEN AND PELVIS: Liver: The contrast-enhanced liver is normal in size, contour, and attenuation. There is minimal central intrahepatic biliary ductal dilatation. The hepatic veins and portal veins are patent. Again seen is evidence of multifocal hepatic metastatic disease. Lesions measure up to 3 cm. Lesions within the superior aspect of the liver have not significantly changed from the 11/18/[address] Gallbladder: The gallbladder is distended and there are small gallstones. There is no CT evidence of acute cholecystitis. Spleen: Normal in size and attenuation. Pancreas: Moderately atrophic and grossly unremarkable. Adrenal glands: A left adrenal metastasis measures 2.1 cm. The right adrenal gland is normal as imaged. Kidneys: The contrast enhanced kidneys are normal in size and without hydronephrosis. The kidneys enhance symmetrically. Abdominal vasculature: There is moderate to advanced atherosclerotic calcification and mild ectasia of the abdominal aorta. Bowel: The gastric mucosa appears thickened and hyperemic. There is moderate to advanced colonic diverticulosis without CT evidence of acute diverticulitis. No bowel obstruction is seen. The appendix is not visualized. Peritoneum: No intraperitoneal free air is seen. There is trace pelvic ascites. There is evidence of mesenteric and retroperitoneal metastatic disease. A 3.2 x 2.1 cm lesion is seen on image #230. Additional tiny implants are seen on images #191, #222, #233, and #257. An implant adjacent to the pancreatic tail is seen on image #148. Lymphadenopathy: Mildly enlarged retroperitoneal lymph nodes are consistent with metastatic disease. A left periaortic node on image #162 measures 14 mm short axis. Pelvic viscera: The bladder is normal as visualized. The uterus is surgically absent. No adnexal lesion is seen. Skeletal structures: The skeletal structures are osteopenic. There is extensive/multifocal osteoblastic metastatic disease. Metastatic disease likely involves several sacral neural foramina. Epidural extension of tumor is seen anteriorly at L5-S1. This was better assessed on the recent MRI. There is likely pathologic fracture of the sacrum. Soft tissues: There is soft tissue implants in the lower back. A lesion on image #214 measures up to 2.4 cm. IMPRESSION: 1. There is no evidence of pulmonary embolus in the main, lobar, or segmental p ulmonary arteries. 2. Large pleural effusions, left larger than right with dependent consolidation. These have increased in size as compared to 11/18/2022. 3. Cardiomegaly. 4. There is evidence of extensive/diffuse multifocal osteoblastic metastatic disease. This is not appreciably changed from recent prior studies per 5. Epidural extension of tumor was much better stressed on the recent MRI examinations. There is no CT evidence of significant central canal stenosis. 6. There is likely pathologic fracture of the sacrum. 7. Pulmonary metastatic disease, hepatic metastatic disease, and the left adrenal metastasis have not significantly changed from the 11/18/[address] 8. There are metastatic implants throughout the retroperitoneum and mesentery, as well as soft tissue implants in the lower back. 9. Suspect cholelithiasis. 10. The gastric mucosa appears thickened and hyperemic. Correlate clinically for evidence of gastritis. Underlying mass lesion or metastatic implants would be possible to exclude. 11. Esophageal wall thickening is unchanged and suggests esophagitis. 12. Additional findings as above. ACT 112: Negative or not required by law. Electronically signed by: Landry Calloway M.D. 11/30/2022 4:12 PM Chest X-Ray 12/01/22 13:50 XR chest 1V portable CLINICAL HISTORY: Pleurx cath TECHNIQUE: Single frontal radiograph of the chest was obtained. Comparison: Comparison is made to chest radiograph 11/30/2022 FINDINGS: A port catheter is seen. Loop recorder is noted. There are bilateral pleural catheters, new from prior exam. Cardiomegaly is noted. The aortic arch is calcified. Left lower lung airspace opacity is seen. Moderate left pleural effusion is decreased from prior exam. No significant right pleural effusion is noted. No pneumothorax. IMPRESSION: 1. No pneumothorax status post placement of bilateral pleural catheters. Right effusion is essentially resolved, left effusion is moderate, decreased from prior. Left lower lung airspace opacity likely represents atelectasis with or without superimposed aspiration/pneumonia. 2. Cardiomegaly. Pulmonary vascular congestion appears less conspicuous than in prior exam. ACT 112: Negative or not required by law. Electronically signed by: Zhang Roman M.D. 12/01/2022 2:[address] 12/03/22 13:[address] DOSE: 690.05 mGycm HISTORY: stage 4 cancer, brain mets ?, altered MS TECHNIQUE: Multiaxial CT images of the head were performed without the use of intravenous contrast. Automated exposure control was utilized for this study. A dose lowering technique was utilized adhering to the principles of ALARA. Comparison: Head CT 10/17/2022. Findings: There is a small left mastoid effusion, unchanged. The paranasal sinuses and right mastoid air cells are clear. There is no change in the extensive calvarial metastatic disease. No calvarial fractures identified. There is no hematoma or midline shift. No acute infarcts identified. Redemonstration of the left-sided dural thickening consistent with metastatic disease. There is also thickening within the posterior falx with a 1.7 cm hyperdense right parietal lesion on image 16. There is surrounding vasogenic edema. This has increased in size in the interval. An additional dural based lesion within the left high convexity on image 23 has also increased in size. This measures 15 mm, previously measuring 8 mm. Mild vasogenic edema within the left parietal lobe on image 15 is new from the prior study. Therefore, this also likely represents an underlying lesion. Impression: 1. Interval progression of the intracranial metastatic disease as described above. 2. No acute infarct or acute intracranial hemorrhage. 3. Extensive calvarial metastatic disease again noted. ACT 112: Negative or not required by law. Electronically signed by: Kieran Smith M.D. 12/03/2022 3:21 PM PG Care Time/CCT Total # of Minutes Spent Total Time Spent with Patient: Total time spent is greater than 50% in coordination of care (as documented) at patient's floor/unit and/or counseling patient: [place] [address] IN/OBS CONSULT LVL 4,60M Patient Type New History Problem Focused Exam Problem Focused Medical Decision Making High Complexity Diagnoses Brain metastases C79.31 Gastric adenocarcinoma C16.9 Anemia D64.9 Pulmonary embolism I26.99 Malignant pleural effusion J91.0
[2022-12-05] MEDS: dexAMETHasone 4 MG in SYRINGE 0 ML IV SCH (05:13)
[2022-12-05] MEDS: LEVOTHYROXINE SODIUM 25 MCG TABLET PO SCH (05:13)
[2022-12-05] MEDS: ENOXAPARIN INJ 40 MG/0.4 ML SYR SQ SCH (09:02)
[2022-12-05] MEDS: PANTOprazole 40 MG TAB PO SCH ×2 (09:03→20:22)
[2022-12-05] MEDS: POTASSIUM CHLORIDE 10 MEQ TABCR PO SCH ×2 (09:03→20:23)
[2022-12-05] MEDS: FLECAINIDE ACETATE 100 MG TABLET PO SCH ×2 (09:03→20:24)
[2022-12-05] MEDS: GABAPENTIN 100 MG CAP PO SCH ×2 (09:03→20:24)
[2022-12-05] MEDS: METOPROLOL SUCC 25MG EXT REL TAB PO SCH (09:03)
[2022-12-05] MEDS: NYSTATIN SUSP 500,000 U/5 ML UDC PO SCH ×4 (09:03→20:22)
[2022-12-05] MEDS: SUCRALFATE 1 GM TAB PO SCH ×2 (09:03→20:25)
[2022-12-05] MEDS: FOLIC ACID 400 MCG TAB PO SCH (09:03)
[2022-12-05] MEDS: ASPIRIN 81 MG ECTAB PO SCH (09:03)
[2022-12-05] MEDS: MULTIVITAMIN TAB PO SCH (09:04)
[2022-12-05] MEDS: FLUoxetine HCL 10 MG CAP PO SCH (09:28)
[2022-12-05] MEDS: CYANOCOBALAMIN (B-12) 500 MCG TABLET PO SCH (09:28)
[2022-12-05 11:40] LABS: Hematocrit (blood only) 27.4 % (37.0-47.0); Hemoglobin 8.6 g/dl (12.0-16.0)
--- NOTE | 2022-12-05 14:05 | Palliative Care Progress Note ---
Date of Service December 05, 2022 Assessment & Plan (1) Palliative care encounter: Plan: I met with Taya and her at bedside. They are hopeful for discharge to [facility] today. She and her family are all in agreement with trial of inpatient rehab with the hope that her functional status would improve. Taya asked me what would happen if she didn't get stronger at [facility]. She tells me that she does not think that she would get treatment unless she did well at [facility] and realizes that she may not. I asked her what was most important to her if that were the case and she told me that she would want to be at home. We again, reviewed option of PT at home so that she would have time at home and could also work toward her goal of getting stronger. They prefer [facility]. We talked about option for supportive care at home if she were not able to receive treatment. She tells me that she is at peace and denies fears or worries about her dying time and feels that it bothers others more than it bothers her. She would like to keep in touch when she goes to rehab. Will do f/u televisit next week to [facility]. Admission and Anticipated Discharge Date Admission Date: November 30, 2022 Subjective Reports walking in hallway with walker during PT. Has some dyspnea with exertion but is comfortable at rest. Denies pain or nausea. Eating ice cream. Review of Systems Review of Systems: ESAS Pain 0/3 Dyspnea 1/3 Drowsiness 0/3 Anxiety 0/3 Nausea 0/3 Physical Exam Constitutional: + frail appearing; no acute distress Respiratory: normal respiratory effort; no labored breathing Cardiovascular: pedal edema Musculoskeletal: Extremities: + muscle atrophy Neurologic: Speech / Cognition: normal cognition Psychiatric: Orientation: oriented x 3 Results & Data Vital Signs (Past 12 Hours) Vital Signs Temp Pulse Pulse Resp BP Pulse Ox O2 Del Method 12/05/22 12:17 97.3 F L 64 16 107/64 98 Room Air 12/05/22 07:00 72 12/05/22 09:00 Room Air 12/05/22 08:39 97.9 F 73 16 134/73 97 Room Air 12/05/22 03:27 97.5 F L 65 16 115/65 98 Room Air PG Care Time/CCT Total # of Minutes Spent Total Time Spent with Patient: Total time spent is greater than 50% in coordination of care (as documented) at patient's floor/unit and/or counseling patient: Coding Level of Care Code 91977 SUB INP/OBS CARE 10/02MIN Diagnoses Palliative care encounter Z51.5
[2022-12-05 16:03] LABS: Albumin Globulin Ratio 0.8 (0.9-2); Albumin Level 2.8 gm/dl (3.4-5.0); BUN Creatinine Ratio 42.4 (10-20); Bilirubin,Total 0.4 mg/dl (0.2-1.0); Calcium 8.4 mg/dl (8.6-10.3); Creatinine Clr Calc Pharmacy 74.1 ml/min; Est GFR (African American) 103.9 ml/min; Est GFR (Non-African American) 89.7 ml/min; Globulin 3.3 gm/dl (2.5-4.0); Potassium 4.7 mmol/L (3.5-5.1); Total Protein 6.1 gm/dl (6.0-8.3)
[2022-12-05] MEDS: ENOXAPARIN INJ 30 MG/0.3 ML SYR SQ SCH (20:22)
[2022-12-05] MEDS: dexAMETHasone 4 MG TAB PO SCH (20:25)
--- NOTE | 2022-12-05 21:40 | Hospitalist Progress Note ---
Date of Service December 05, 2022 Assessment & Plan (1) Brain metastases: Plan: Patient had previously identified brain mets in 10/2022. Also during her initial cancer work-up she had undergone lumbar puncture and CSF was suspicious for cancer cells contained therein as well. There was meningeal spread of her cancer. CT head today with progressive metastatic disease of the brain. There is vasogenic edema surrounding the intra-cranial lesions in the parietal lobes. Started dexamethasone 4mg IV q12h on 12/03. Some of her altered MS is likely from these lesions. Mental status is MUCH better today. (2) Encephalopathy acute: Plan: Likely combination of zyprexa + brain mets. Zyprexa stopped. Treating #1. IMPROVED today. See #1 above. (3) Diplopia: Plan: this is likely 2nd to brain mets uncertain if she has a new brainstem met affecting a cranial nerve or if there is leptomeningeal mets causing such consider MRI brain (4) Malignant pleural effusion: Plan: Patient had b/l Pleurx catheters placed 12/01 Left side drained 1100 cc initially Right side drained 700 cc initially Dyspnea resolved with above Drain every other day (5) Gastric adenocarcinoma: Plan: stage 4, progressive/aggressive cancer, with numerous mets to multiple bony regions (spine, calvarium, etc), liver, lymph nodes, adrenal gland, lungs, pleural spaces, brain, possible CSF now with progressive brain mets - added dexamethasone Appreciate Dr Campbell's consultation and plan of care See his excellent consultation note Plan - rehab at [facility]; re-eval in 2 weeks to see if performance status is better; possibly consider chemo then if strength/conditioning is better and it is felt she could tolerate chemo change lovenox to 30mg BID for DVT/PE proph cont steroids consider MRI brain (6) Metastatic disease: Plan: as above (7) Failure to thrive: Plan: marinol stopped - ineffective for anorexia STOPPED zyprexa - may have been lethargic due to such very poor prognosis given her progressive cancer (8) Hypertension: Plan: Continue metoprolol succinate 25mg PO QAM (9) Constipation: Plan: Continue MiraLAX (10) Anxiety: Plan: Continue fluoxetine (11) Bilateral leg pain: Plan: Continue gabapentin MRI repeated last admission without spinal cord compromise (12) Atrial tachycardia: Plan: Continue flecainide for rhythm control and metoprolol Stable on telemetry (13) Severe protein-calorie malnutrition: Plan: 2nd to stage 4 cancer steroids for brain mets may help (14) Elevated LFTs: Plan: 2nd to liver and bone mets; alk phos and AST primarily are affected repeat LFTs am (15) Pulmonary embolism: Plan: 10/2022 was previously on anticoagulation but then stopped due to GI bleeding resume lovenox 0.5mg/kg BID cautiously (16) CAD (coronary artery disease): Plan: no ischemic symptoms at this time remains on BB and aspirin statin stopped due to #13 (17) Hypothyroidism: Plan: new dx as of last admission started synthroid at that time Plan VTE Prophlaxis - Lovenox Diet - regular ?thrush - cont nystatin /daughter updated at bedside appreciate Dr Campbell's consultation dispo - [facility] still Admission and Anticipated Discharge Date Admission Date: November 30, 2022 Physical Exam Physical Exam: gen - cachectic, but much more awake/alert today; looks overall better than yesterday eyes - PERRL; with extraocular muscle testing ? CN 6 or CN 3 palsy right eye? with rightward gaze she reports diplopia; with leftward gaze and forward gaze no diplopia mouth - MM more moist today but still a little dry neck - no JVD CV - RRR, s1 s2, no murmur lungs - decreased BS bases, otherwise CTA b/l abd - soft NT ND BS+ ext - right leg trace edema, none on left, pulses 2+ b/l neuro - strength 5/5 x 4 exts psych - awake, alert Results & Data Results & Data Vital Signs (Past 12 Hours) Vital Signs Temp Pulse Pulse Resp BP Pulse Ox O2 Del Method 12/05/22 19:40 36.8 C 70 16 119/79 99 Room Air 12/05/22 19:37 69 12/05/22 15:49 36.5 C 69 16 113/71 100 Room Air 12/05/22 12:17 36.3 C L 64 16 107/64 98 Room Air Laboratory Results Laboratory Results - last 24 hr 12/05/22 12/05/22 11:19 11:19 Hgb 8.6 L Hct 27.4 L Sodium 136 Potassium 4.7 Chloride 107 Carbon Dioxide 21 Anion Gap 8 BUN 25 H Creatinine 0.59 L Est Cr Clr Drug Dosing 74.1 Est GFR ( Amer) 103.9 Est GFR (Non-Af Amer) 89.7 BUN/Creatinine Ratio 42.4 H Glucose 117 H Calcium 8.4 L Total Bilirubin 0.4 AST 52 H ALT 11 Alkaline Phosphatase 343 H Total Protein 6.1 Albumin 2.8 L Globulin 3.3 Albumin/Globulin Ratio 0.8 L PG Care Time/CCT Total # of Minutes Spent Total Time Spent with Patient: Total time spent is greater than 50% in coordination of care (as documented) at patient's floor/unit and/or counseling patient: Coding Diagnoses Brain metastases C79.31 Encephalopathy acute G93.40 Diplopia H53.2 Malignant pleural effusion J91.0 Gastric adenocarcinoma C16.9 Metastatic disease C79.9 Failure to thrive Hypertension I10 Hypertension type: unspecified Constipation K59.00 Anxiety F41.9 Bilateral leg pain M79.604; M79.605 Atrial tachycardia I47.1 Severe protein-calorie malnutrition E43 Elevated LFTs R79.89 Pulmonary embolism I26.99 CAD (coronary artery disease) I25.10 Hypothyroidism E03.9 (8) Hypertension Hypertension type: unspecified Qualified Code(s): I10 - Essential (primary) hypertension
--- NOTE | 2022-12-05 22:15 | Ultrasound Report ---
ULTRASOUND BILATERAL LOWER EXTREMITY VENOUS CLINICAL HISTORY: Lower extremity edema. COMPARISON STUDY: Bilateral lower extremity venous ultrasound dated 10/17/2022 TECHNIQUE: Real-time, grayscale, and color Doppler sonography of the deep veins of the right and left lower extremity was performed from the inguinal crease to the calf. Compression and augmentation wer e utilized. FINDINGS: There is no sonographic evidence of deep venous thrombosis identified in the right or left lower extremity. The common femoral, superficial femoral, and popliteal veins are patent and normally compressible bilaterally. The greater saphenous vein and the profunda femoris vein at the junction w ith the common femoral vein are clear in both legs. The visualized calf veins are patent bilaterally. Soft tissue edema is present in both legs. IMPRESSION: There is no sonographic evidence of deep venous thrombosis identified in the right or lef t lower extremity. ACT 112: Negative or not required by law. Electronically signed by: Landry Calloway M.D. 12/05/2022 10:13 PM
[2022-12-06 04:59] LABS: Hemoglobin 8.6 g/dl (12.0-16.0); Mean Corpuscular Hgb Conc 31.9 g/dL (32.0-36.0); Mean Corpuscular Volume 94.1 fL (80.0-100.0); Mean Platelet Volume 10.1 fL (9.4-12.4); Platelet Count 189 K/uL (130-400); RDW Coefficient of Variation 18.6 % (11.5-14.5); RDW Standard Deviation 64.9 fL (36.4-46.3); Red Blood Count 2.87 M/uL (4.20-5.40); White Blood Count 5.12 K/ul (4.8-10.8)
[2022-12-06 05:10] LABS: BUN Creatinine Ratio 40.7 (10-20); Calcium 8.3 mg/dl (8.6-10.3); Creatinine Clr Calc Pharmacy 74.1 ml/min; Est GFR (African American) 103.9 ml/min; Est GFR (Non-African American) 89.7 ml/min; Potassium 4.4 mmol/L (3.5-5.1)
[2022-12-06] MEDS: LEVOTHYROXINE SODIUM 25 MCG TABLET PO SCH (05:50)
[2022-12-06] MEDS: FOLIC ACID 400 MCG TAB PO SCH (09:34)
[2022-12-06] MEDS: METOPROLOL SUCC 25MG EXT REL TAB PO SCH (09:34)
[2022-12-06] MEDS: GABAPENTIN 100 MG CAP PO SCH (09:35)
[2022-12-06] MEDS: ASPIRIN 81 MG ECTAB PO SCH (09:35)
[2022-12-06] MEDS: CYANOCOBALAMIN (B-12) 500 MCG TABLET PO SCH (09:35)
[2022-12-06] MEDS: SUCRALFATE 1 GM TAB PO SCH (09:35)
[2022-12-06] MEDS: MULTIVITAMIN TAB PO SCH (09:35)
[2022-12-06] MEDS: POTASSIUM CHLORIDE 10 MEQ TABCR PO SCH (09:35)
[2022-12-06] MEDS: FLUoxetine HCL 10 MG CAP PO SCH (09:35)
[2022-12-06] MEDS: NYSTATIN SUSP 500,000 U/5 ML UDC PO SCH ×2 (09:35→13:42)
[2022-12-06] MEDS: PANTOprazole 40 MG TAB PO SCH (09:35)
[2022-12-06] MEDS: FLECAINIDE ACETATE 100 MG TABLET PO SCH (09:35)
[2022-12-06] MEDS: dexAMETHasone 4 MG TAB PO SCH (09:36)
[2022-12-06] MEDS: ENOXAPARIN INJ 30 MG/0.3 ML SYR SQ SCH (09:36)
--- NOTE | 2022-12-06 10:55 | Hospitalist Progress Note ---
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 She seems to be tolerating enoxaparin well. Given the negative duplex study we could continue with the intermediate dose of enoxaparin (30 mg bid) for now to be able to closely watch for any signs of recurrent bleeding. She can continue this during the time she is at rehab and then we can reassess as we reconvene for longer-term management decisions. Obviously new bleeding events or any new suggestion of thrombosis will require reassessment. (2) Gastric adenocarcinoma: Plan: As per previous, quite concerned about her prognosis and ability to tolerate chemotherapy but we want to give her a chance with rehab to see what we can do with performance status. I will make her an appointment for follow-up with us in the clinic in 10 to 14 days we will update her status and finalize some longer-term treatment plan Plan 1. With negative duplex and ongoing concern about rebleeding from the GI lesion as well as possible bleeding in the [employer], may be prudent to keep at the current intermediate dose of enoxaparin 30 mg twice daily during her time at rehab 2. We will make arrangements to see her in outpatient follow-up in 10 to 14 days as we continue to assess the pros and cons of pure palliative care versus cautious initiation of chemotherapy We will "sign off" but if she unexpectedly requires further hospitalization and you have additional questions, please feel free to contact me Admission and Anticipated Discharge Date Admission Date: November 30, 2022 Subjective Doing well, anxious to get to rehab Physical Exam Physical Exam: Vital signs stable. Still weak but quite alert with good functioning mental status Asymmetric edema of left lower extremity but without classic compression tenderness or cords Results & Data Results & Data Vital Signs (Past 12 Hours) Vital Signs Temp Pulse Pulse Resp BP Pulse Ox O2 Del Method 12/06/22 09:57 Room Air 12/06/22 08:00 36.5 C 66 18 136/82 99 Room Air 12/06/22 07:54 69 12/06/22 03:00 36.8 C 67 16 118/65 98 Room Air PG Care Time/CCT Total # of Minutes Spent Total Time Spent with Patient: Total time spent is greater than 50% in coordination of care (as documented) at patient's floor/unit and/or counseling patient: Coding Level of Care Code 42957 SUB INP/OBS CARE Diagnoses Pulmonary embolism I26.99 Gastric adenocarcinoma C16.9
--- NOTE | 2022-12-06 11:44 | Palliative Care Progress Note ---
Date of Service December 06, 2022 Assessment & Plan (1) Palliative care encounter: Plan: Feeling better with steroids and routine thoracentesis. Anticipating discharge to [facility] later today. We have had multiple goals of care discussions and they have had discussions with Dr. Womack and Dr. Campbell. They remain hopeful that a two week period at rehab will help her build up her strength and be able to receive chemotherapy. They do realize that, despite best efforts, she may not have the desired outcome and would be unable to cancer treatment. If that were the case, they would want her to be at home with focus on comfort and symptom management for her remaining time. We did discuss code status today. Consistent with her previously expressed wishes for maximal life prolonging treatment, she has been full code. We reviewed statistical outcomes of CPR and concern that she would be unlikely to have the outcome she desires, returning her to her current level of function or better. Having considered this and discussed it together, she and her are in agreement that they would not want resuscitation. Code status changed to DNR to reflect her current wishes. Admission and Anticipated Discharge Date Admission Date: November 30, 2022 Subjective Denies pain or dyspnea. Anxious to start rehab. Review of Systems Review of Systems: ESAS Pain 0/3 Dyspnea 1/3 Drowsiness 0/3 Nause 0/3 Physical Exam Constitutional: + frail appearing; no acute distress Respiratory: normal respiratory effort; no labored breathing Cardiovascular: LE edema Musculoskeletal: Extremities: + muscle atrophy Results & Data Vital Signs (Past 12 Hours) Vital Signs Temp Pulse Pulse Resp BP Pulse Ox O2 Del Method 12/06/22 09:57 Room Air 12/06/22 08:00 97.7 F 66 18 136/82 99 Room Air 12/06/22 07:54 69 12/06/22 03:00 98.2 F 67 16 118/65 98 Room Air PG Care Time/CCT Total # of Minutes Spent Total Time Spent with Patient: Total time spent is greater than 50% in coordination of care (as documented) at patient's floor/unit and/or counseling patient: Coding Level of Care Code 76204 SUB INP/OBS CARE 1/25MIN Diagnoses Palliative care encounter Z51.5
--- NOTE | 2022-12-06 12:47 | Discharge Summary ---
Date of Service December 06, 2022 Admission HPI Per Admitting Provider Taya Galvez is a 77 year old female with metastatic gastric adenocarcinoma who presents to the ER with shortness of breath, dehydration and poor appetite. She was recently admitted with similar symptoms from November 18 - 2022. At that time she initially felt much improved after her potassium levels were replaced. I discussed with her at that time possibility of thoracocentesis or Pleurx catheter is she remained short of breath on exertion but clearly she improved enough to eventually be discharged after a port placement, radiotherapy and plan to start chemotherapy next week. Unfortunately after discharge she has had a progressive decline especially with her shortness of breath. She is now short of breath on minimal movements. No chest pain, cough, fever, chills. In the ER subsequent CT was fortunately negative for pulmonary emboli but showed increasing pleural effusions. She was referred to medicine for admission and ongoing management of failure to thrive and metastatic disease. Discharge Exam gen - cachectic, but much more awake/alert today; looks overall better than yesterday eyes - PERRL; with extraocular muscle testing ? CN 6 or CN 3 palsy right eye? with rightward gaze she reports diplopia; with leftward gaze and forward gaze no diplopia mouth - MM more moist today but still a little dry neck - no JVD CV - RRR, s1 s2, no murmur lungs - decreased BS bases, otherwise CTA b/l abd - soft NT ND BS+ ext - right leg trace edema, none on left, pulses 2+ b/l neuro - strength 5/5 x 4 exts psych - awake, alert Discharge Data Allergies Allergy/AdvReac Type Severity Reaction Status Date / Time alendronate sodium AdvReac Intermediate Unable to Verified 11/11/22 15:29 [From Fosamax] ambulate Consultations 11/30/22 17:59 ED Decision to Admit Stat 11/30/22 21:47 Consult Pulmonology Routine 12/01/22 17:58 Consult Palliative Care Routine 12/04/22 05:27 Consult Oncology Routine Ordered Studies 11/30/22 13:56 CT abd pelvis IV con only Stat CT angio chest PE protocol Stat 12/01/22 11:55 US point of care ultrasound Urgent 12/03/22 13:24 CT head/brain wo con Routine 12/05/22 15:28 US venous doppler LE Urgent Hospital Course (1) Brain metastases: Patient had previously identified brain mets in 10/2022. Also during her initial cancer work-up she had undergone lumbar puncture and CSF was suspicious for cancer cells contained therein as well. There was meningeal spread of her cancer. CT head today with progressive metastatic disease of the brain. There is vasogenic edema surrounding the intra-cranial lesions in the parietal lobes. Started dexamethasone 4mg IV q12h on 12/03. Some of her altered MS is likely from these lesions. Mental status is MUCH better today. (2) Encephalopathy acute: Likely combination of zyprexa + brain mets. Zyprexa stopped. Treating #1. IMPROVED today. See #1 above. (3) Diplopia: this is likely 2nd to brain mets uncertain if she has a new brainstem met affecting a cranial nerve or if there is leptomeningeal mets causing such consider MRI brain (4) Malignant pleural effusion: Patient had b/l Pleurx catheters placed 12/01 Left side drained 1100 cc initially Right side drained 700 cc initially Dyspnea resolved with above Drain every other day (5) Gastric adenocarcinoma: stage 4, progressive/aggressive cancer, with numerous mets to multiple bony regions (spine, calvarium, etc), liver, lymph nodes, adrenal gland, lungs, pleural spaces, brain, possible CSF now with progressive brain mets - added dexamethasone Appreciate Dr Campbell's consultation and plan of care See his excellent consultation note Plan - rehab at [facility]; re-eval in 2 weeks to see if performance status is better; possibly consider chemo then if strength/conditioning is better and it is felt she could tolerate chemo change lovenox to 30mg BID for DVT/PE proph cont steroids consider MRI brain (6) Metastatic disease: as above (7) Failure to thrive: marinol stopped - ineffective for anorexia STOPPED zyprexa - may have been lethargic due to such very poor prognosis given her progressive cancer (8) Hypertension: Continue metoprolol succinate 25mg PO QAM (9) Constipation: Continue MiraLAX (10) Anxiety: Continue fluoxetine (11) Bilateral leg pain: Continue gabapentin MRI repeated last admission without spinal cord compromise (12) Atrial tachycardia: Continue flecainide for rhythm control and metoprolol Stable on telemetry (13) Severe protein-calorie malnutrition: 2nd to stage 4 cancer steroids for brain mets may help (14) Elevated LFTs: 2nd to liver and bone mets; alk phos and AST primarily are affected repeat LFTs am (15) Pulmonary embolism: 10/2022 was previously on anticoagulation but then stopped due to GI bleeding resume lovenox 0.5mg/kg BID cautiously (16) CAD (coronary artery disease): no ischemic symptoms at this time remains on BB and aspirin statin stopped due to #13 (17) Hypothyroidism: new dx as of last admission started synthroid at that time Plan VTE Prophlaxis - Lovenox Diet - regular ?thrush - cont nystatin /daughter updated at bedside appreciate Dr Campbell's consultation dispo - [facility] still Discharge Plan Discharge Items Patient Disposition: Transfer Inpatient Rehab Fac Reason For Visit: Shortness of breath Discharge Diagnosis: 1. bilateral malignant pleural effusions with placement of bilateral PleurX catheters 2. stage 4 gastric adenocarcinoma 3. brain metastases 4. double vision due to #3 - improved 5. acute confusion - resolved; due to medication along with brain swelling from brain mets 6. history of pulmonary embolus - 10/2022 7. history of gastrointestinal bleeding (upper suspected) 8. history of atrial tachycardia 9. coronary artery disease with previous OH 10. hypothyroidism - repeat TSH needed in 4 weeks Activity: Resume your previous activity Non-emergency contact: Primary Care Provider, Specialist, Oncologist and [employer] Call non-emergency contact if: you have any medication questions, your symptoms worsen, your pain is not controlled, your pain is worsening, your pain is unusua l for you, your pain is concerning for you and you have a fever Follow-up/Referrals: Soheila Reyna PA-C [Primary Care Provider] - Che Álvarez MD, [facility] [Physician] - 12/12/22 (suture removal - pleurX catheters ) Teresa Downing MD [Physician] - (1-2 weeks as needed for any palliative care needs ) Stiven Campbell MD [Physician] - (2 weeks to discuss possible chemotherapy) Diet: Regular Addtl Attending Provider Instructions: Mrs Galvez was hospitalized due to worsening shortness of breath. She has bilateral malignant pleural effusions which caused the shortness of breath. [facility] saw her in consult and placed bilateral PleurX catheters for the effusions. These are being drained every other day. Dopplers of her legs while here were NEGATIVE for DVTs. Mrs Galvez had significant sleepiness during the early portion of the stay. This was felt due to brain swelling from brain mets as seen on CT head as well as use of oral zyprexa. The zyprexa was stopped. Dexamethasone steroid was started to reduce the brain swelling. Her mentation has significantly improved while here with such. She has been resumed on DVT prevention with lovenox 30mg SC twice daily as recommended by Dr Stiven Campbell, [facility]. Heart monitoring was stable while here. No atrial tachycardia was seen. She remains on flecainide to control this/prevent this. Palliative care was heavily involved in her care. Code status discussions took place; Mrs Galvez has chosen DNR/DNI status. Plan is for rehab with the hopes of improvement in her physical conditioning to allow future chemotherapy for her cancer. Recommendations - 1. dexamethasone steroid -- 4mg twice daily for 3-4 more days, then consider lowering to once daily dosing. 2. repeat CBC, BMP, and magnesium in 3-4 days for stability. 3. please DRAIN the bilateral PleurX catheters every other day starting December 07, 2022. They can also be drained more frequently if needed depending on symptoms. Follow-up with Dr Che Álvarez - [facility] - as scheduled for suture removal and check of catheters. 4. patient has central A-port; port CAN BE USED at any time. 5. if any worsening pain, sleep issues, anxiety, nausea, etc - can contact Dr Teresa Downing from palliative care for an office visit for symptom management. It was our pleasure to care for you at [facility]! Dr Womack Pending Studies at Discharge: No Stand-Alone Forms: My [facility] Skilled Items Patient informed of condition?: Yes DNR: Yes Discharge Level of Care: Acute rehab Communicable Disease: No Discharge Prognosis: Stable Lines: Peripheral IV Urinary Catheter: No Medications and DC Order Prescriptions: New nystatin 100,000 unit/mL Suspension 5 ml PO QID 5 Days Qty: 100 0RF Rx Instructions: swish/spit dexamethasone 4 mg Tablet 4 mg PO BID Qty: 30 1RF enoxaparin [Lovenox] 30 mg/0.3 mL Syringe 30 mg subcut BID Qty: 60 2RF Continued tramadol 50 mg tablet 50 mg PO Q6 PRN (Reason: pain) gabapentin 100 mg capsule 100 mg PO BID Qty: 60 0RF pantoprazole 40 mg tablet,delayed release (DR/EC) 40 mg PO BID Qty: 60 0RF (DME) Wheelchair (Manual) Device See Rx Instructions .Route Qty: 1 0RF Rx Instructions: TRANSPORT CHAIR; dx generalized weakness, stg 4 cancer acetaminophen [Tylenol Arthritis Pain] 650 mg tablet extended release 650 mg PO QPM PRN (Reason: Pain) vitamin [id number] acid 500-400 mcg tablet 1 tab PO DAILY Qty: 30 0RF Rx Instructions: administer with a meal Multivitamin 50 Plus Tablet 1 tab PO QAM aspirin 81 mg tablet,delayed release (DR/EC) 81 mg PO QAM biotin 1 mg capsule 1 mg PO QAM nitroglycerin [Nitrostat] 0.4 mg Tablet, Sublingual 0.4 mg sublingual UD PRN (Reason: chest pain) Qty: 25 3RF Patient Comments: Pt "I have never used it" Rx Instructions: 1 tab every 5 min as needed for angina. Not to exceed 3 doses. fluoxetine 10 mg capsule 10 mg PO QAM levothyroxine [Synthroid] 25 mcg Tablet 25 mcg PO DAILYBB Qty: 30 5RF flecainide 100 mg Tablet 100 mg PO BID Qty: 60 2RF Rx Instructions: for your heart sucralfate [Carafate] 1 gram tablet 1 g PO BID Qty: 60 2RF potassium chloride 10 mEq tablet extended release 10 meq PO DAILY Qty: 30 1RF metoprolol succinate 50 mg tablet extended release 24 hr 25 mg PO QAM Qty: 1 0RF Discontinued olanzapine [Zyprexa Zydis] 5 mg tablet,disintegrating 2.5 mg PO HS Qty: 30 2RF dronabinol 2.5 mg Capsule 2.5 mg PO BIDM Qty: 30 0RF Discharge Orders: Discharge Order (Routine); Ordered 12/06/22 Ordered By: Andrez Womack Admission Data Admit Date/Time: 11/30/22 18:31 Attending Provider: Andrez Womack Admit Provider: Andrez Ruiz Primary Care Provider: Soheila Reyna Other Providers: Andrez Ruiz ; Che Álvarez ; [facility] ; Teresa Downing ; [facility] ; Stiven Campbell Coding Diagnoses Brain metastases C79.31 Encephalopathy acute G93.40 Diplopia H53.2 Malignant pleural effusion J91.0 Gastric adenocarcinoma C16.9 Metastatic disease C79.9 Failure to thrive Hypertension I10 Hypertension type: unspecified Constipation K59.00 Anxiety F41.9 Bilateral leg pain M79.604; M79.605 Atrial tachycardia I47.1 Severe protein-calorie malnutrition E43 Elevated LFTs R79.89 Pulmonary embolism I26.99 CAD (coronary artery disease) I25.10 Hypothyroidism E03.9
== END 2022-12-06 15:30 | DRG 180 ==
LOC: ED 12:33 → 4W 18:31 → SUATTDRO 18:31 → 4W 20:57 → 2W 12-06 10:39